=== PATIENT | female | born 1955 | race Caucasian/White ===

== ENCOUNTER → 2017-08-18 08:51 | Outpatient (REF) | payer MEDICAID, SELFPAY ==
[2017-08-18 13:33] LABS: Basophils % 0.4 % (0.1-2.0); Eosinophils # 0.2 K/mm3 (0.0-0.4); Eosinophils % 2.3 % (0.1-12.0); Hemoglobin 11.7 g/dL (12.2-16.2); Lymphocytes # 2.1 K/mm3 (0.7-4.5); Lymphocytes % 24.9 K/mm3 (10-50); Mean Corpuscular HGB Conc 31.6 g/dL (31.8-35.4); Mean Corpuscular Hemoglobin 31.3 pg (27.0-31.2); Mean Corpuscular Volume 99.1 fl (81-99); Mean Platelet Volume 7.7 fl (7.4-10.4); Monocytes # 0.6 K/mm3 (0.1-1.0); Monocytes % 6.7 % (1.7-9.3); Neutrophils # 5.4 K/mm3 (1.8-7.8); Neutrophils % 65.7 % (37.0-80.0); Platelet Count 359 K/mm3 (142-424); Red Blood Count 3.73 M/mm3 (4.20-5.40); White Blood Count 8.2 K/mm3 (4.8-10.8)
[2017-08-18 14:15] LABS: Alanine Aminotransferase 29 U/L (12-78); Albumin/Globulin Ratio 1.1 (1.1-1.8); Alkaline Phosphatase 162 U/L (46-116); Anion Gap 14.5 mEq/L (5-15); Aspartate Amino Transferase 28 U/L (15-37); Bilirubin,Total 0.4 mg/dL (0.2-1.0); Blood Urea Nitrogen 21 mg/dL (7-18); Calcium 9.8 mg/dL (8.5-10.1); Carbon Dioxide 28 mmol/L (21.0-32.0); Chloride 96 mmol/L (98-107); Chol/HDL Ratio 2.1 (1-3.5); Cholesterol 174 mg/dL (140-200); Creatinine,Serum 1.07 mg/dL (0.55-1.02); Estimated Glomerular Filt Rate 52 ml/min (>60); GFR (African American) 63 ML/MIN (>60); Globulin 3.8 gm/dl (1.3-3.2); Glucose 103 mg/dL (74-106); HDL Cholesterol 83 mg/dL (29-89); LDL Cholesterol 63 mg/dL (0-130); Potassium 4.5 mmoL/L (3.5-5.1); Sodium 134 mmol/L (136-145); Thyroid Stimulating Hormone 1.18 uIU/ml (0.358-3.740); Total Protein,Serum 7.8 gm/dL (6.4-8.2); Triglycerides 138 mg/dL (30-200); VLDL Cholesterol 28 mg/dL (0-40)
[2017-08-19 12:51] LABS: Vitamin D 25 Hydroxy 50.9 ng/mL (30.0-100.0)
== END ==
LOC: LAB 08:51
PROVIDERS: Visit Provider Physician Assistant
DX: I10 Essential (primary) hypertension (principal); E78.5 Hyperlipidemia, unspecified
CPT/HCPCS: 80053; 80061; 82652; 84436; 84443; 85025

== ENCOUNTER → 2018-04-13 17:38 | Outpatient (CLI) | payer MEDICAID, SELFPAY ==
[2018-04-13 18:57] LABS: Basophils % 0.5 % (0.1-2.0); Eosinophils # 0.2 K/mm3 (0.0-0.4); Eosinophils % 2.4 % (0.1-12.0); Hematocrit 34.4 % (37.0-47.0); Hemoglobin 11.3 g/dL (12.2-16.2); Lymphocytes # 1.9 K/mm3 (0.7-4.5); Lymphocytes % 29.9 % (10-50); Mean Corpuscular HGB Conc 32.9 g/dL (31.8-35.4); Mean Corpuscular Hemoglobin 32.1 pg (27.0-31.2); Mean Corpuscular Volume 97.4 fl (81-99); Monocytes # 0.3 K/mm3 (0.1-1.0); Monocytes % 5.4 % (1.7-9.3); Neutrophils # 3.8 K/mm3 (1.8-7.8); Neutrophils % 61.7 % (37.0-80.0); Platelet Count 440 K/mm3 (142-424); Red Blood Count 3.53 M/mm3 (4.20-5.40); Red Cell Distribution Width 13.4 % (11.5-17.5); White Blood Count 6.2 K/mm3 (4.8-10.8)
[2018-04-13 19:56] LABS: Alanine Aminotransferase 21 U/L (12-78); Albumin Level 3.9 gm/dL (3.4-5.0); Albumin/Globulin Ratio 1.1 (1.1-1.8); Alkaline Phosphatase 112 U/L (46-116); Anion Gap 15.8 mEq/L (5-15); Aspartate Amino Transferase 18 U/L (15-37); Bilirubin,Total 0.4 mg/dL (0.2-1.0); Blood Urea Nitrogen 8 mg/dL (7-18); Calcium 9.7 mg/dL (8.5-10.1); Carbon Dioxide 29 mmol/L (21.0-32.0); Chloride 91 mmol/L (98-107); Chol/HDL Ratio 1.7 (1-3.5); Cholesterol 165 mg/dL (140-200); Creatinine,Serum 0.97 mg/dL (0.55-1.02); Estimated Glomerular Filt Rate 58 ml/min (>60); GFR (African American) 70 ML/MIN (>60); Globulin 3.5 gm/dl (1.3-3.2); Glucose 89 mg/dL (74-106); HDL Cholesterol 99 mg/dL (29-89); LDL Cholesterol 50 mg/dL (0-130); Potassium 3.8 mmoL/L (3.5-5.1); Sodium 132 mmol/L (136-145); T4 (Thyroxine) 4.7 ug/dl (4.7-13.3); Thyroid Stimulating Hormone 1.41 uIU/ml (0.358-3.740); Total Protein,Serum 7.4 gm/dL (6.4-8.2); Triglycerides 79 mg/dL (30-200); VLDL Cholesterol 16 mg/dL (0-40)
[2018-04-14 13:19] LABS: Ferritin 220 ng/mL (8-388)
[2018-04-15 07:15] LABS: Iron 139 ug/dL (27-139); UIBC 66 ug/dL (118-369)
[2018-04-15 07:46] LABS: Iron Saturation 68 % (15-55)
[2018-04-15 07:46] LABS: Vitamin D 25 Hydroxy 62.7 ng/mL (30.0-100.0)
== END ==
PROVIDERS: Visit Provider Physician Assistant
DX: I10 Essential (primary) hypertension (principal); T14.8XXA Other injury of unspecified body region, initial encounter; D64.9 Anemia, unspecified
CPT/HCPCS: 80053; 80061; 82652; 82728; 83540; 83550; 84436; 84443; 85025

== ENCOUNTER → 2018-08-26 10:05 | Outpatient (CLI) | payer MEDICAID, SELFPAY ==
--- NOTE | 2018-08-26 10:10 | XR_ITS ---
XR hand LT min 3V HISTORY: ITS.REASON: Left hand pain - knot on base at hand ORDERING PHYSICIAN: MIKO Pierce PATIENT AGE: 63 years COMPARISON: None FINDINGS: No fracture or dislocation. No lytic or blastic change. There is normal mineralization.. There is severe narrowing of the first carpal/metacarpal joint with spurring from the trapezium. There is a corticated subchondral lucent area involving the proximal aspect of the first metacarpal bone at this area. There is also a rounded lucency with corticated margins involving the lunate bone with moderate narrowing of the radiocarpal joint space.. IMPRESSION: No acute fracture or acute process. 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 Arthritic change of the radiocarpal joint with subchondral cyst involving the lunate bone.
== END ==
PROVIDERS: PCP Physician Assistant; Visit Provider Physician Assistant
DX: M79.642 Pain in left hand (principal)
CPT/HCPCS: 73130

== ENCOUNTER → 2019-04-12 13:38 | Outpatient (CLI) | payer MEDICAID, SELFPAY ==
[2019-04-12 14:40] LABS: Basophils % 0.5 % (0.1-2.0); Eosinophils # 0.3 K/mm3 (0.0-0.4); Eosinophils % 3.7 % (0.1-12.0); Hematocrit 33.9 % (37.0-47.0); Hemoglobin 11.4 g/dL (12.2-16.2); Lymphocytes # 1.7 K/mm3 (0.7-4.5); Lymphocytes % 21.9 % (10-50); Mean Corpuscular HGB Conc 33.7 g/dL (31.8-35.4); Mean Corpuscular Hemoglobin 32.2 pg (27.0-31.2); Mean Corpuscular Volume 95.3 fl (81-99); Mean Platelet Volume 8.3 fl (7.4-10.4); Monocytes # 0.5 K/mm3 (0.1-1.0); Neutrophils # 5.3 K/mm3 (1.8-7.8); Neutrophils % 67.8 % (37.0-80.0); Platelet Count 412 K/mm3 (142-424); Red Blood Count 3.56 M/mm3 (4.20-5.40); Red Cell Distribution Width 12.5 % (11.5-17.5); White Blood Count 7.9 K/mm3 (4.8-10.8)
[2019-04-12 15:37] LABS: Alanine Aminotransferase 27 U/L (12-78); Albumin Level 3.8 g/dL (3.4-5.0); Albumin/Globulin Ratio 1.1 (1.1-1.8); Alkaline Phosphatase 121 U/L (46-116); Anion Gap 16.7 mEq/L (5-15); Aspartate Amino Transferase 24 U/L (15-37); Bilirubin,Total 0.3 mg/dL (0.2-1.0); Blood Urea Nitrogen 19 mg/dL (7-18); Calcium 9.1 mg/dL (8.5-10.1); Carbon Dioxide 25 mmol/L (21.0-32.0); Chloride 92 mmol/L (98-107); Chol/HDL Ratio 2.1 (1-3.5); Cholesterol 162 mg/dL (140-200); Creatinine,Serum 1.01 mg/dL (0.55-1.02); Estimated Glomerular Filt Rate 55 ml/min (>60); GFR (African American) 67 ML/MIN (>60); Globulin 3.6 gm/dl (1.3-3.2); Glucose 94 mg/dL (74-106); HDL Cholesterol 79 mg/dL (29-89); LDL Cholesterol 58 mg/dL (0-130); Potassium 4.7 mmoL/L (3.5-5.1); Sodium 129 mmol/L (137-145); T4 (Thyroxine) 4.5 ug/dl (4.7-13.3); Thyroid Stimulating Hormone 1.05 uIU/ml (0.358-3.740); Total Protein,Serum 7.4 g/dL (6.4-8.2); Triglycerides 123 mg/dL (30-200); VLDL Cholesterol 25 mg/dL (0-40)
[2019-04-14 15:06] LABS: Vitamin D 25 Hydroxy 61.8 ng/mL (30.0-100.0)
[2019-04-15 17:01] LABS: Ferritin 161 ng/mL (8-388)
[2019-04-17 07:54] LABS: Iron 106 ug/dL (27-139); UIBC 212 ug/dL (118-369)
[2019-04-17 19:10] LABS: Iron Saturation 33 % (15-55)
== END ==
PROVIDERS: Visit Provider Physician Assistant
DX: Z01.89 Encounter for other specified special examinations (principal); D64.9 Anemia, unspecified; Z79.899 Other long term (current) drug therapy
CPT/HCPCS: 80053; 80061; 82652; 82728; 83540; 83550; 84436; 84443; 85025

== ENCOUNTER 2019-09-20 14:05 | Inpatient (IN) | payer MEDICAID, SELFPAY ==
[2019-09-20] VITALS (8 sets, daily range): BP systolic 104–132; BP diastolic 58–85; PULSE 86–110; RESP 16–20; TEMP 36.6–36.7; O2SAT 94–100; BMI 25.0; BMI 25.8; BMI 24.3
--- NOTE | 2019-09-20 14:15 | XR_ITS ---
PROCEDURE: XR CHEST AP CLINICAL HISTORY: syncope COMPARISON: No exams were available for comparison FINDINGS: The cardiomediastinal silhouette and pulmonary vascularity are within normal limits. The lungs are clear without infiltrates, suspicious nodules, or pleural effusions. No acute bony abnormalities. IMPRESSION: No acute findings. Dictated by: Daryl Ruiz MD 09/20/2019 15:45 Electronically signed by Daryl Ruiz MD in [place] 09/20/2019 15:45
[2019-09-20 14:35] LABS: Eosinophils # 0.1 K/mm3 (0.0-0.4); Eosinophils % 0.4 % (0.1-12.0); Hematocrit 30.8 % (37.0-47.0); Hemoglobin 10.4 g/dL (12.2-16.2); Lymphocytes # 1.3 K/mm3 (0.7-4.5); Mean Corpuscular HGB Conc 33.8 g/dL (31.8-35.4); Mean Corpuscular Hemoglobin 31.1 pg (27.0-31.2); Mean Corpuscular Volume 92.1 fl (81-99); Mean Platelet Volume 7.2 fl (7.4-10.4); Monocytes # 0.6 K/mm3 (0.1-1.0); Monocytes % 5.8 % (1.7-9.3); Neutrophils # 8.6 K/mm3 (1.8-7.8); Neutrophils % 81.8 % (37.0-80.0); Platelet Count 337 K/mm3 (142-424); Red Blood Count 3.34 M/mm3 (4.20-5.40); Red Cell Distribution Width 12.6 % (11.5-17.5); White Blood Count 10.5 K/mm3 (4.8-10.8)
[2019-09-20 14:36] LABS: Occult Blood,Stool Negative (Negative)
--- NOTE | 2019-09-20 14:36 | ECG_ITS ---
APPROVED REPORT Exam: Resting ECG HR:84 bpm ECG Measurements Heart Rate 84 AXES MD 152 P 79 QRSd 112 QRS 86 QT 520 T 79 QTc 614 <Conclusion> Normal sinus rhythm Incomplete right bundle branch block Nonspecific ST abnormality Prolonged QT Abnormal ECG Electronically signed by : Sergio Knight, 09/21/2019 11:37:03
[2019-09-20 14:39] LABS: Microscopic, Urine URINE MICROSCOPIC (MICROSCOPIC)
[2019-09-20 14:43] LABS: Appearance,Urine CLEAR (Clear); Bilirubin,Urine Negative (Negative); Blood, Urine Negative (Negative); Color,Urine YELLOW (Yellow); Glucose,Urine (UA) Negative (Negative); Ketones,Urine Negative (Negative); Leukocyte Esterase,Urine Negative (Negative); Nitrate,Urine Negative (Negative); PH,Urine 6.5 (5.0-8.5); Protein,Urine Negative (Negative); Urobilinogen,Urine 0.2 EU/dl (0.2)
[2019-09-20 14:48] LABS: Alanine Aminotransferase 19 U/L (12-78); Alkaline Phosphatase 166 U/L (38-126); Aspartate Amino Transferase 34 U/L (14-36); Bilirubin,Total 0.4 mg/dl (0.2-1.3); Blood Urea Nitrogen 6 mg/dl (7-17); Creatinine Clearance Estimated 65 mL/min (50-200); Estimated Glomerular Filt Rate 101 ml/min (>60); Ethyl Alcohol 71 mg/dl (0-10); GFR (African American) 122 ML/MIN (>60)
[2019-09-20 14:49] LABS: Albumin Level 3.6 g/dl (3.5-5.0); Albumin/Globulin Ratio 1.2 (1.1-1.8); Anion Gap 13.9 mEq/L (5-15); Calcium 8.5 mg/dl (8.4-10.2); Carbon Dioxide 25 mmol/L (22.0-30.0); Globulin 3.1 g/dL (1.3-3.2); Glucose 90 mg/dl (74-100); Total Protein,Serum 6.7 g/dl (6.3-8.2)
[2019-09-20 14:50] LABS: RBC,Urine Occasional #/hpf (0-3)
--- NOTE | 2019-09-20 14:51 | XR_ITS ---
PROCEDURE: XR HIP LT 2-3V W/PELVIS CLINICAL INDICATION: FALL PAIN Posttraumatic pain COMPARISON: No exams were available for comparison FINDINGS: There is fracture of the left femoral neck at the transfemoral region. There is lateral displacement of the distal fracture fragment by 18 mm and foreshortening of the distal fracture fragment by 3 cm. Comminuted fragment is present along the foreshortened fragment. There is a Harris catheter present. IMPRESSION: Displaced and foreshortened left transcervical femoral neck fracture Dictated by: Daryl Ruiz MD 09/20/2019 15:44 Electronically signed by Daryl Ruiz MD in [facility] 09/20/2019 15:44
[2019-09-20 14:52] LABS: Chloride 73 mmol/L (98-107)
[2019-09-20 14:54] LABS: Potassium 2.9 mmoL/L (3.5-5.1); Sodium 109 mmol/L (136-145)
[2019-09-20 15:00] LABS: Troponin I 0.19 ng/ml (0.00-0.034)
--- NOTE | 2019-09-20 15:11 | CT_ITS ---
PROCEDURE: CT HIP LT WO CON CLINICAL HISTORY: PAIN The left hip pain following injury, fall with injury and pain4 COMPARISON: No exams were available for comparison TECHNIQUE: Axial images obtained with sagittal and coronal reformats. All CT scans at the facility use one or more dose reduction, viz: automated exposure control, ma/kV adjustment per patient size (including targeted exams where dose is matched to indication, i.e. head), or iterative reconstruction technique. FINDINGS: There is a comminuted left femoral neck fracture. The main fracture begins in the subcapital region superiorly and extends to the transcervical region inferiorly. Main distal fracture fragment is displaced medially by 1.6 cm and superiorly/foreshortened by 2.8 cm. There are comminuted small fragments around the main fracture fragments. The femoral head is located. There is some increased soft tissue density about the hip joint consistent with hemarthrosis. A Harris catheter is present IMPRESSION: Comminuted displaced left femoral neck fracture with subcapital component superiorly at the femoral neck extending to the transcervical region along the inferior aspect of the femoral neck Dictated by: Daryl Ruiz MD 09/20/2019 16:09 Electronically signed by Daryl Ruiz MD in [place] 09/20/2019 16:09
--- NOTE | 2019-09-20 15:20 | PC.NURSE ---
contacted lab per CARMEN RIVERA request to see if there was any hemolysis with chemistry specimen r/t pt Na result. Lab states no hemolysis noted. CARMEN RIVERA states would like to repeat Na lab.
[2019-09-20 15:47] LABS: Sodium 111 mmol/L (136-145)
--- NOTE | 2019-09-20 16:49 | HMH.EDGENADL ---
ED Disposition Clinical Impression: Hyponatremia, Hip fracture, Alcohol withdrawal, Hypokalemia Disposition: Admitted as Observation Condition on Discharge: Good Referrals: Jennifer Paige PA [Primary Care Provider] - - Critical Care Critical Care Time: No Attestation: On 09/20/19, the high probability of a clinically significant, sudden or life threatening deterioration of the following system(s) required my full and direct attention, intervention and personal management. The time I documented below is in addition to time spent performing reported procedures but includes the following listed in this critical care notation. Medical Decision Making - Medical Records Medical records reviewed: Yes: I reviewed the patient's medical records. - Lavelle Inquiry Pt receiving controlled substance: No Vital Signs: 09/20/19 14:05 09/20/19 15:02 09/20/19 16:46 Temperature 98 F Temperature Source Oral Pulse Rate [Left Radial] 87 86 93 H Respiratory Rate 16 16 16 Blood Pressure [Right Arm] 125/75 125/69 104/60 L Blood Pressure Mean [Right Arm] 91 87 74 Blood Pressure Source [Right Arm] Automatic Cuff Blood Pressure Position [Right Arm] Sitting Sitting 02 Sat by Pulse Oximetry 98 98 94 L Oxygen Delivery Method Room Air Room Air - Lab Data Lab results reviewed: Yes: I reviewed the patient's lab results. Lab Results 09/20/19 14:00: Stool Occult Blood Negative 09/20/19 14:25: WBC 10.5, RBC 3.34 L, Hgb 10.4 L, Hct 30.8 L, MCV 92.1, MCH 31.1, MCHC 33.8, RDW 12.6, Plt Count 337, MPV 7.2 L, Neut % (Auto) 81.8 H, Lymph % (Auto) 12.0, Walsh % (Auto) 5.8, Eos % (Auto) 0.4, Baso % (Auto) 0.0 L, Neut # (Auto) 8.6 H, Lymph # (Auto) 1.3, Walsh # (Auto) 0.6, Eos # (Auto) 0.1, Baso # (Auto) 0.0 09/20/19 14:25: Sodium 109 L*, Potassium 2.9 L*, Chloride 73 L, Carbon Dioxide 25, Anion Gap 13.9, BUN 6 L, Creatinine 0.60, Estimated Creat Clear 65, Estimated GFR 101, Est GFR ( Amer) 122, Glucose 90, Calcium 8.5, Total Bilirubin 0.4, AST 34, ALT 19, Alkaline Phosphatase 166 H, Troponin I 0.19 H, Total Protein 6.7, Albumin 3.6, Globulin 3.1, Albumin/Globulin Ratio 1.2 09/20/19 14:25: Plasma/Serum Alcohol 71 H 09/20/19 14:30: Urine Color Yellow, Urine Appearance Clear, Urine pH 6.5, Ur Specific [place] 1.010, Urine Protein Negative, Urine Glucose (UA) Negative, Urine Ketones Negative, Urine Blood Negative, Urine Nitrate Negative, Urine Bilirubin Negative, Urine Urobilinogen 0.2, Ur Leukocyte Esterase Negative, Urine RBC Occasional, Urine WBC 3-5, Ur Squamous Epith Cells 3-5 09/20/19 15:34: Sodium 111 L* Result diagrams: 09/20/19 14:25 09/20/19 15:34 Orders (Tests/Meds): ED MEDICATIONS Generic Name Dose Route Start Last Admin Trade Name Gregorioq PRN Reason Stop Dose Admin Sodium Chloride 1,000 mls @ 999 mls/hr 09/20/19 17:15 Sod Chlor 0.9% 1000ml Bag IV 09/20/19 18:15 .Q1H1M LUDMILA Discontinued Medications Generic Name Dose Route Start Last Admin Trade Name Gregorioq PRN Reason Stop Dose Admin Hydromorphone HCl 1 mg 09/20/19 16:09 09/20/19 14:18 Dilaudid 2mg/Ml Syringe IV 09/20/19 16:10 1 mg ONCE ONE Administration Hydromorphone HCl 1 mg 09/20/19 16:10 09/20/19 15:25 Dilaudid 2mg/Ml Syringe IV 09/20/19 16:11 1 mg ONCE ONE Administration Sodium Chloride 1,000 mls @ 999 mls/hr 09/20/19 16:15 09/20/19 14:18 Sod Chlor 0.9% 1000ml Bag IV 09/20/19 17:15 999 mls/hr .Q1H1M LUDMILA Administration Ondansetron HCl 4 mg 09/20/19 16:10 09/20/19 14:18 Zofran 4mg/2ml Vial IV 09/20/19 16:11 4 mg ONCE ONE Administration Phenobarbital Sodium 300 mg 09/20/19 17:10 Phenobarbital Sod 65mg/Ml 1ml Vial IV 09/20/19 17:11 ONCE ONE Potassium Chloride 60 meq 09/20/19 17:07 Klor-Con 20meq Tablet PO 09/20/19 17:08 ONCE ONE ORDERS Category Date Time Status Cardiac Enzymes Stat Lab 09/20/19 17:07 Ordered Magnesium Stat Lab 09/20/19 15:34 Received Troponin I Q3H L
--- NOTE | 2019-09-20 16:50 | PC.NURSE ---
Dr Zambrano is speaking to Dr Guardado.
--- NOTE | 2019-09-20 16:58 | PC.NURSE ---
blend plant operator paging dr. baron who is telecommunications specialist for dr. wei
[2019-09-20 17:13] LABS: Magnesium 1.7 mg/dl (1.6-2.3)
--- NOTE | 2019-09-20 17:22 | PC.NURSE ---
dr. natarajan at [facility]
--- NOTE | 2019-09-20 17:23 | PC.NURSE ---
SPOKE WITH JOANNE FROM PHARMACY [facility] FOR RALLY PACK IN TO RUN W/O
--- NOTE | 2019-09-20 17:31 | PC.NURSE ---
contacted warehouse shipping supervisor r/t admission and also to ask what type of covid testing pt will need in anticipation for surgery either tomorrow or th next day, house states pt will need antibody testing.
[2019-09-20 18:06] LABS: Creatine Kinase 94 U/L (30-135)
--- NOTE | 2019-09-20 18:11 | PC.NURSE ---
PT RESTING UPDATED ON PLAN OF CARE
[2019-09-20 18:16] LABS: CKMB Relative Index 2.3 U/L (0-4.0); Creatine Kinase MB 2.2 ng/ml (0.0-2.03)
[2019-09-20 18:19] LABS: Troponin I 0.14 ng/ml (0.00-0.034)
[2019-09-20 18:23] LABS: Coronavirus 19 IgG Antibody Negative (Negative); Coronavirus 19 IgM Antibody Negative (Negative)
--- NOTE | 2019-09-20 18:40 | PC.NURSE ---
REPORT CALLED TO [facility]
--- NOTE | 2019-09-20 19:07 | PC.NURSE ---
URINE OUTPUT 1200CC
--- NOTE | 2019-09-20 19:09 | PC.NURSE ---
report given to jeremy
--- NOTE | 2019-09-20 19:37 | PC.NURSE ---
patient up to floor via stretcher.
[2019-09-20 20:05] LABS: Amphetamine/Metha Screen,Urine Negative ng/ml (<1000); Benzodiazepines Screen,Urine Negative ng/ml (<200)
[2019-09-20 20:06] LABS: Barbiturates Screen,Urine Negative ng/ml (<200)
[2019-09-20 20:07] LABS: Cannabinoid Screen,Urine Negative ng/ml (<50); Cocaine Screen,Urine Negative ng/ml (<300)
[2019-09-20 20:08] LABS: Methadone Screen,Urine Negative ng/ml (<300)
[2019-09-20 20:09] LABS: Opiate Screen,Urine Negative ng/ml (<300); Phencyclidine Screen,Urine Negative ng/ml (<25)
--- NOTE | 2019-09-20 21:11 | HMH.ORTHOCON ---
*Admission Date: 09/20/19 *Reason for consult:: L hip fracture *History of present illness: 64yo F admitted through the ED this evening with L hip pain. She fell around 3 weeks ago after a possible syncopal episode and has had L hip pain since then. She has been unable to walk for the past 3 weeks due to the pain, which she rates as a 6 or 7 out of 20. She denies open wounds, no pain in the low back, L knee, L ankle/foot without associated numbness/tingling. She denies recent cough or shortness of breath, though she has been incontinent of black, tarry stool per report. She has a medical history of HTN, HL, GERD, anxiety/depression and alcohol abuse. She drinks 5-6 beers per day, every day; they are 16oz each. Denies withdrawl symptoms or tremors and states she knows she needs to quit drinking but isn't ready to do so. She also smokes 2ppd of cigarettes. She lives with a man but isn't clear about the nature of their relationship, but notes he is able to help care for her. She does not report a history of frequent falls or use of any assistive devices for ambulation. No prior L hip before the injury. She does not take any anticoagulants at baseline. Review of Systems - Review of Systems Review of systems:: pertinent systems reviewed and negative unless documented below - *Neurologic Reports abnormal hearing [facility] History I have reviewed the patient's past medical history: Yes Medical History: Reports:: Anxiety, Depression, Gastroesophageal Reflux Disease(GERD), Hyperlipidemia, Hypertension Denies:: Diabetes Mellitus Type 1, Diabetes Mellitus Type 2 *Have you ever received a pneumonia vaccine?: No *Have you received a flu vaccine this season?: No Other Surgeries: Yes: Other Amputation: No Fractures: No - *Social History Smoking Status: Current every day smoker Tobacco Type: cigarettes # Packs/Day (cigarettes): 2 Alcohol Intake: current Alcohol Intake Frequency:: 3 or more drinks per day Substance Use Type: denies use *Occupational Status:: disabled Housing: house Household Members: significant other *Travel in the last 8 weeks: None - Psychiatric History Pschychiatric History:: Reports:: Anxiety, Depression Family Hx:: Coronary Artery Disease, Hypertension Meds Home Medications Medication Instructions Recorded Confirmed Type hydroxyzine HCl 50 mg tablet 50 mg PO QID PRN #120 tab 07/05/19 09/20/19 Rx albuterol sulfate 90 mcg/actuation 2 puff INHALATION Q4-6H PRN #18 g 08/09/19 09/20/19 Rx aerosol inhaler Ammonium Lactate See Rx Instructions .ROUTE .COMPLEX 09/20/19 09/20/19 History Atorvastatin Calcium [Lipitor 10mg See Rx Instructions .ROUTE .COMPLEX 09/20/19 09/20/19 History Tab] Buspirone HCl [Buspar 10mg See Rx Instructions .ROUTE .COMPLEX 09/20/19 09/20/19 History tablet] Gabapentin 800 mg PO TID 09/20/19 09/20/19 History Lisinopril/Hydrochlorothiazide 1 tab PO BID 09/20/19 09/20/19 History [Lisinopril-Hctz 20-25 mg Tab*] Omeprazole 20 mg PO BID 09/20/19 09/20/19 History Oxybutynin Chloride See Rx Instructions .ROUTE .COMPLEX 09/20/19 09/20/19 History Sertraline HCl [Zoloft] See Rx Instructions .ROUTE .COMPLEX 09/20/19 09/20/19 History Tiotropium Br/Olodaterol HCl 2 puff INHALATION DAILY 09/20/19 09/20/19 History [Stiolto Respimat] Allergies Allergy/AdvReac Type Severity Reaction Status Date / Time NO KNOWN ALLERGIES Allergy Uncoded 04/12/19 09:38 Exam Vital signs and Labs for Last 24 Hours: Temp Pulse Resp BP Pulse Ox 98.1 F 94 H 20 132/64 99 09/20/19 20:00 09/20/19 20:00 09/20/19 20:00 09/20/19 20:00 09/20/19 20:00 Laboratory Results - last 24 hr 09/20/19 14:00: Stool Occult Blood Negative 09/20/19 14:25: WBC 10.5, RBC 3.34 L, Hgb 10.4 L, Hct 30.8 L, MCV 92.1, MCH 31.1, MCHC 33.8, RDW 12.6, Plt Count 337, MPV 7.2 L, Neut % (Auto) 81.8 H, Lymph % (Auto) 12.0, [place] % (Auto) 5.8, Eos % (Auto) 0.4, Baso % (Auto) 0.0 L, Neut # (Auto) 8.6 H, Lymph # (Auto) 1.3, [place] # (Au
[2019-09-20 21:19] LABS: Troponin I 0.11 ng/ml (0.00-0.034)
[2019-09-21] VITALS (11 sets, daily range): BP systolic 99–114; BP diastolic 57–78; PULSE 70–95; RESP 18–20; TEMP 36.4–36.6; O2SAT 94–100; BMI 24.7
[2019-09-21 00:29] LABS: Anion Gap 7.8 mEq/L (5-15); Blood Urea Nitrogen 5 mg/dl (7-17); Calcium 8.1 mg/dl (8.4-10.2); Carbon Dioxide 29 mmol/L (22.0-30.0); Chloride 85 mmol/L (98-107); Creatinine Clearance Estimated 63 mL/min (50-200); Estimated Glomerular Filt Rate 124 ml/min (>60); GFR (African American) 150 ML/MIN (>60); Glucose 129 mg/dl (74-100); Potassium 3.8 mmoL/L (3.5-5.1); Sodium 118 mmol/L (136-145)
[2019-09-21 00:47] LABS: T4 (Thyroxine) 5.4 ug/dl (5.53-11.0)
[2019-09-21 01:00] LABS: Thyroid Stimulating Hormone 1.33 uIU/mL (0.465-4.68)
--- NOTE | 2019-09-21 03:52 | PC.NURSE ---
Pt crying out in pain periodically with movement this shift, but would fall immediately back to sleep. Pain medication given once thus far this shift.
[2019-09-21 06:32] LABS: Basophils % 0.2 % (0.1-2.0); Eosinophils # 0.1 K/mm3 (0.0-0.4); Eosinophils % 0.8 % (0.1-12.0); Hematocrit 30.5 % (37.0-47.0); Hemoglobin 10.1 g/dL (12.2-16.2); Lymphocytes # 1.4 K/mm3 (0.7-4.5); Lymphocytes % 18.3 % (10-50); Mean Platelet Volume 7.5 fl (7.4-10.4); Monocytes # 0.5 K/mm3 (0.1-1.0); Monocytes % 6.6 % (1.7-9.3); Neutrophils # 5.7 K/mm3 (1.8-7.8); Neutrophils % 74.2 % (37.0-80.0); Platelet Count 304 K/mm3 (142-424); Red Blood Count 3.24 M/mm3 (4.20-5.40); Red Cell Distribution Width 12.8 % (11.5-17.5); White Blood Count 7.7 K/mm3 (4.8-10.8)
[2019-09-21 06:34] LABS: Chloride 88 mmol/L (98-107); Potassium 4.1 mmoL/L (3.5-5.1); Sodium 121 mmol/L (136-145)
[2019-09-21 06:36] LABS: Alanine Aminotransferase 15 U/L (12-78); Aspartate Amino Transferase 34 U/L (14-36); Blood Urea Nitrogen 4 mg/dl (7-17); Creatinine Clearance Estimated 64 mL/min (50-200); Estimated Glomerular Filt Rate 124 ml/min (>60); GFR (African American) 150 ML/MIN (>60)
[2019-09-21 06:37] LABS: Albumin Level 3.2 g/dl (3.5-5.0); Albumin/Globulin Ratio 1.1 (1.1-1.8); Alkaline Phosphatase 166 U/L (38-126); Anion Gap 8.1 mEq/L (5-15); Bilirubin,Total 0.6 mg/dl (0.2-1.3); Calcium 8.2 mg/dl (8.4-10.2); Carbon Dioxide 29 mmol/L (22.0-30.0); Glucose 104 mg/dl (74-100); Magnesium 2.3 mg/dl (1.6-2.3); Phosphorous 2.2 mg/dl (2.5-4.5); Total Protein,Serum 6.2 g/dl (6.3-8.2)
[2019-09-21 06:53] LABS: Activated Partial Thrombo Time 30.4 seconds (23.6-34.0); INR 1.01 (0.9-1.1); Prothrombin Time 10.4 seconds (9.4-11.8)
--- NOTE | 2019-09-21 07:04 | HMH.PHAVTE ---
[facility] Pharmacy VTE Monitoring - Patient Demographics Admission date: 09/20/19 Report Date: 09/21/19 Time: 07:04 Allergies/Adverse Reactions: Patient Allergies NO KNOWN ALLERGIES Allergy (Uncoded 04/12/19 09:38) Height: 1.7 m Weight: 71.441 kg Patient Problems: Current Active Problems Hyponatremia (Acute) Hip fracture (Acute) Alcohol withdrawal (Acute) Hypokalemia (Acute) Fracture of femoral neck, left, closed (Acute) Alcohol abuse (Acute) - VTE Risk Labs: VTE Related Lab Results Hgb 10.1 g/dL (12.2-16.2) L 09/21/19 05:53 Hct 30.5 % (37.0-47.0) L 09/21/19 05:53 Plt Count 304 K/mm3 (142-424) 09/21/19 05:53 PT 10.4 seconds (9.4-11.8) 09/21/19 05:53 INR 1.01 (0.9-1.1) 09/21/19 05:53 APTT 30.4 seconds (23.6-34.0) 09/21/19 05:53 BUN 4 mg/dl (7-17) L 09/21/19 05:53 Creatinine 0.50 mg/dl (0.52-1.04) L 09/21/19 05:53 Estimated Creat Clear 64 mL/min (50-200) 09/21/19 05:53 VTE Score: 4 Clinical Trial Participant: No - Prophylaxis VTE Prophylaxis Ordered?: Yes Types of VTE Prophylaxis: TEDS Knee High
--- NOTE | 2019-09-21 07:41 | HMH.PHAINT ---
MEDICATION RECONCILIATION COMPLETED ON PATIENT USING EXTERNAL FILL HISTORY FROM PHARMACY. -MAZIN CRZU, IVOND
--- NOTE | 2019-09-21 08:00 | CA_ITS ---
APPROVED REPORT EXAM: Comprehensive 2D, Doppler, and color-flow Echocardiogram Manager Ccu: Fransisca Briceno CRT Ht: 5 ft 6 in Wt: 155lbs BSA: 1.79 BP: 104/64 mmHg Indications: Left hip fx, pre-op, trop, alcohol withdrawal, GERD M-Mode Dimensions LVDd 4.28 cm (3.5-5.7) LVDs 3.18 cm (3.5-5.7) IVSd 0.97 cm (0.6-1.1) PWd 0.56 cm (0.6-1.1) EF (Teich) 51.00% FS 25.70% EDV (Teich) 82.20 mL ESV (Teich) 40.30 mL Left Ventricle Left atrium is mildly enlarged, left ventricle is normal size, visually estimated ejection fraction 55% with no regional wall motion abnormality, endocardial sounds are poorly visualized. Diastolic parameters are inconclusive. Right Ventricle Right atrium and right ventricle are mildly enlarged with normal contractility. Aortic Valve Aortic valve is minimally thickened and fibrosed, there is no aortic stenosis or aortic insufficiency. Mitral Valve Mitral valve has mitral annular calcification, leaflets are minimally thickened, there is no mitral stenosis, there is mild mitral regurgitation. Tricuspid Valve Tricuspid valve is grossly normal, there is mild tricuspid regurgitation, tricuspid regurgitation jet velocity is inadequate for calculation of the right ventricular systolic pressure. Pulmonic Valve Pulmonic valve is poorly visualized. Great Vessels Aortic root is normal size. Pericardium No significant pericardial effusion noted, there is anterior echo-free space seen. Conclusion 1. Biatrial enlargement, normal left ventricular size, visually estimated ejection fraction 55% with no regional wall motion abnormality, endocardial surfaces are poorly visualized, diastolic parameters are inconclusive. 2. Mild mitral and tricuspid regurgitation. 3. No significant pericardial effusion noted, there is anterior echo-free space seen. Electronically signed by : Dnote Levine, 09/21/2019 19:44:05
--- NOTE | 2019-09-21 08:07 | HMH.CNCARD ---
History of Present Illness Consult date: 09/21/19 Requesting physician: Ranjan Lux Consult reason: pre-op evaluation Chief complaint: Fall with hip Fx, possible syncope Additional Medical History:: 1. Fall with hip fracture approximately late August early August, 2. Tobacco use, 1 to 2 packs/day, lifelong 3. Hypertension 4. Alcohol use 5. Anxiety/depression 6. GERD 7. Severe hyponatremia, Na 109, 09/2019 History of present illness: 64-year-old white female admitted for left hip pain after fall 3 weeks ago. X-ray and CT of the hip confirmed left femoral neck fracture. Patient describes walking from one room to another in her house when she fell hitting a concrete statue in the shape of an josie with immediate pain noted. There is some question as to whether she blacked out prior to her fall or after. Patient denies any chest pain, pressure or tightness then or now. She denies any prior cardiac history. EKG on admission shows sinus rhythm with right bundle branch block and possible prolonged QT interval. Patient is unaware of any prior abnormal EKG. Alcohol level on admission noted to be 71 with a sodium of 109 and potassium of 2.9 which has been corrected to sodium of 121 and a potassium of 4.1 over the last 24 hours. Cardiology was consulted for preop evaluation in light of elevated troponins on admission with peak troponin of 0.19 trending down to 0.11. Preliminary echocardiogram today is a very difficult study but appears to show preserved ejection fraction. [facility] History Medical History: Reports:: Anxiety, Depression, Gastroesophageal Reflux Disease(GERD), Hyperlipidemia, Hypertension Denies:: Diabetes Mellitus Type 1, Diabetes Mellitus Type 2 *Have you ever received a pneumonia vaccine?: No *Have you received a flu vaccine this season?: No Other Surgeries: Yes: Other Amputation: No Fractures: No - *Social History Smoking Status: Current every day smoker Tobacco Type: cigarettes # Packs/Day (cigarettes): 2 Alcohol Intake: current Alcohol Intake Frequency:: 3 or more drinks per day Substance Use Type: denies use *Occupational Status:: disabled Housing: house Household Members: significant other *Travel in the last 8 weeks: None - Psychiatric History Pschychiatric History:: Reports:: Anxiety, Depression Family Hx:: Coronary Artery Disease, Hypertension Meds Home Medications Medication Instructions Recorded Confirmed Type hydroxyzine HCl 50 mg tablet 50 mg PO QID PRN #120 tab 07/05/19 09/20/19 Rx albuterol sulfate 90 mcg/actuation 2 puff INHALATION Q4-6H PRN #18 g 08/09/19 09/20/19 Rx aerosol inhaler Ammonium Lactate See Rx Instructions .ROUTE .COMPLEX 09/20/19 09/20/19 History Atorvastatin Calcium [Lipitor 10mg 10 mg PO DAILY 09/20/19 09/21/19 History Tab] Buspirone HCl [Buspar 10mg 10 mg PO TID 09/20/19 09/21/19 History tablet] Gabapentin 800 mg PO TID 09/20/19 09/20/19 History Lisinopril/Hydrochlorothiazide 1 tab PO BID 09/20/19 09/20/19 History [Lisinopril-Hctz 20-25 mg Tab*] Omeprazole 20 mg PO BID 09/20/19 09/20/19 History Oxybutynin Chloride 5 mg PO BID 09/20/19 09/21/19 History Sertraline HCl [Zoloft] 100 mg PO DAILY 09/20/19 09/21/19 History Tiotropium Br/Olodaterol HCl 2 puff INHALATION DAILY 09/20/19 09/20/19 History [Stiolto Respimat] Allergies Allergy/AdvReac Type Severity Reaction Status Date / Time No Known Allergies Allergy Unverified 09/21/19 07:53 Review of Systems - Review of Systems Review of systems:: pertinent systems reviewed and negative unless documented below - *Cardiovascular Denies chest pain, Denies shortness of breath - *Respiratory Denies shortness of breath - *Gastrointestinal Denies loose stools - *Genitourinary Denies blood in urine - *Musculoskeletal Reports joint pain, Reports back pain - *Neurologic Reports abnormal hearing Exam Vital signs and Labs for Last 24 Hours: Temp Pulse Resp BP
--- NOTE | 2019-09-21 09:45 | HMH.HP ---
*Admission Date: 09/20/19 *Chief complaint: L Hip Pain *History of present illness: 64-year-old female patient presented to the emergency room for complaints of left hip pain. She reports that she had a syncopal episode 2 weeks ago and fell hitting her left side. Since then she has complained of left hip pain and has spent the majority of time since then on her couch. She also reports smoking 2 packs of cigarettes a day for unknown amount of years and drinking 5 to 6 16 ounce beers daily. She rates pain as an 8 out of 10, she can move her left lower extremity but cannot do so without pain. Chest x-ray in the ED was normal, left hip x-ray revealed a displaced and foreshortened left femoral neck fracture. Left hip CT revealed comminuted displaced left femoral neck fracture with subcapital component superiorly at the femoral neck extending to the transcervical region along the inferior aspect of the femoral neck Lab work revealed a sodium level of 111, potassium level 2.9. After fluids during the night and potassium replacement a.m. labs sodium 121 potassium 4.1 Ortho seen and rec: Plan: -- NPO after midnight tonight in the event she is able to proceed with surgery tomorrow -- continue IVF, slowly correcting sodium level; orders placed by ER/PCP -- pre-op prophy antibiotics ordered on hold to OR -- SCDs BLE -- encourage incentive spirometer perioperatively -- bed rest, vasquez catheter tonight Cards has seen and recommends: 1. Elevated troponin in the setting of hyponatremia, hypokalemia and elevated alcohol level. Preliminary echocardiogram shows preserved ejection fraction. Discussed with Dr. Drake and would recommend postponing surgery today to allow the patient's sodium to correct at a slower rate due to concern for central pontine myelinolysis (CPM). I have stopped saline infusion at this time. No further cardiac work-up as an inpatient at this time. Consider outpatient stress testing in the near future. 2. History of syncope with abnormal EKG with right bundle branch block. No high-grade arrhythmias or significant bradycardia noted on telemetry thus far. Continue to monitor but likely syncope related to ETOH abuse. Repeat EKG today . 3. History of alcohol abuse, concern for DT's. 4. Hypokalemia, corrected 5. Severe hyponatremia, improving but caution advised in replacing too quickly due to concern for CPM. 6. Hypertension, controlled 7. Left femur fracture, occurred 3 weeks ago. Continue DVT/PE prophylaxis with lovenox. [facility] History Medical History: Reports:: Anxiety, Depression, Gastroesophageal Reflux Disease(GERD), Hyperlipidemia, Hypertension Denies:: Diabetes Mellitus Type 1, Diabetes Mellitus Type 2 *Have you ever received a pneumonia vaccine?: No *Have you received a flu vaccine this season?: No Other Surgeries: Yes: Other Amputation: No Fractures: No - *Social History Smoking Status: Current every day smoker Tobacco Type: cigarettes # Packs/Day (cigarettes): 2 Alcohol Intake: current Alcohol Intake Frequency:: 3 or more drinks per day Substance Use Type: denies use *Occupational Status:: disabled Housing: house Household Members: significant other *Travel in the last 8 weeks: None - Psychiatric History Pschychiatric History:: Reports:: Anxiety, Depression Family Hx:: Coronary Artery Disease, Hypertension Review of Systems - Review of Systems Review of systems:: pertinent systems reviewed and negative unless documented below - Constitutional Denies body ache(s), Denies chills, Denies fever(s) - Eyes Denies blurry vision, Denies change in vision - ENT Denies neck pain - *Cardiovascular Denies chest pain, Denies shortness of breath, Denies shortness of breath causing sudden awakening - *Respiratory Denies shortness of breath, Denies pain with cough - *Gastrointestinal Denies abdominal pain, Denies incontinent of stools - *Musculoskeletal Reports abnormal walking, Reports joint pain, Reports
--- NOTE | 2019-09-21 10:48 | SW/DCPLANNER ---
Addendum entered by Nereida Schwartz 09/21/19 13:06: Patient was able to have conversation this afternoon. I did explain to patient discharge planning process: patient will have surgery, PT/OT will evaluate then I will follow up with patient once PT/OT gives their recommendation. I then explained placement vs home health. Patient was quick to refuse placement but I did continue to further explain this option: R[facility] pending. I also explained home health services to this patient and the difference between placement vs home health. Patient has stated that she prefers home health rather than placement. Patient has not had surgery at this time. I will follow up with this patient after surgery. Original Note: I attempted to speak with this patient today regarding home situation and discharge plans once surgery is completed. Patient was unable to answer any questions at this time due to in and out of sleep. I will revisit this patient later today.
--- NOTE | 2019-09-21 10:55 | ECG_ITS ---
APPROVED REPORT Exam: Resting ECG HR:87 bpm ECG Measurements Heart Rate 87 AXES ND 130 P 33 QRSd 100 QRS 73 QT 396 T 70 QTc 476 <Conclusion> Normal sinus rhythm Incomplete right bundle branch block Septal infarct, age undetermined Abnormal ECG Electronically signed by : Monster Bhatia, 09/25/2019 08:13:10
--- NOTE | 2019-09-21 13:50 | HMH.ORTHPN ---
Subjective Date: 09/21/19 Time: 13:30 Principal diagnosis: L femoral neck fracture Interval history: The patient is awake and cooperative but slightly agitated. Reports pain in left hip. Currently being bathed by nursing, laying in bed with left hip/knee flexed. Her sodium has increased to 121 this morning. IVF was on at 200cc/hr overnight, has been stopped this morning and adjusted to allow for slower correction of her hyponatremia. Potassium and magnesium are improved as well. Surgery was delayed due to hyponatremia; it was unsafe to proceed this morning. PN: Obj Ex Vital signs: Temp Pulse Resp BP Pulse Ox 97.9 F 80 19 102/67 L 100 09/21/19 11:38 09/21/19 12:00 09/21/19 11:38 09/21/19 11:38 09/21/19 11:38 - Constitutional no acute distress - Routine Extremities Exam Comments: the patient is lying with L hip/knee flexed, with heel under buttock no open wounds, ecchymosis, erythema over L hip, which is tender to palpation with extension of LLE, it is slightly shortened and externally rotated +DF/PF/EHL LLE SILT distally LLE in all distributions L calf soft, non-tender; negative Homans palpable pedal pulses LLE, skin warm/pink - Routine Skin Exam Present: intact, warm. Absent: erythema, wounds, ecchymosis - Routine Neurological Exam Present: alert, oriented X3. Absent: sensory deficit, motor deficit - Urinary Catheter Management Vasquez Cath placed during this visit: no Progress Note: A&P (1) Fracture of femoral neck, left, closed Status: Acute Current Visit: Yes (2) Alcohol abuse Status: Acute Current Visit: Yes (3) Hypokalemia Status: Acute Current Visit: Yes (4) Hyponatremia Status: Acute Current Visit: Yes (5) COPD (chronic obstructive pulmonary disease) Status: Chronic Current Visit: No (6) Hypertension Status: Chronic Current Visit: No (7) Right bundle branch block (RBBB) on electrocardiogram (ECG) Status: Acute Current Visit: Yes Assessment and Plan for All Diagnoses:: 64yo F with displaced L femoral neck fracture; chronic x3 weeks -- continue IVF, slowly correcting sodium level; currently on D5 (in water) at 75cc/hr -- pre-op prophy antibiotics ordered on hold to OR -- SCDs BLE -- received 1 dose of lovenox last night, then held in anticipation of surgery today. Will restart lovenox for DVT prophy, please hold the night before surgery, whenever this may be. -- encourage incentive spirometer perioperatively -- bed rest, vasquez catheter -- anticipate OR Friday
[2019-09-21 16:19] LABS: Anion Gap 8.3 mEq/L (5-15); Blood Urea Nitrogen 6 mg/dl (7-17); Calcium 8.5 mg/dl (8.4-10.2); Carbon Dioxide 29 mmol/L (22.0-30.0); Chloride 90 mmol/L (98-107); Creatinine Clearance Estimated 64 mL/min (50-200); Estimated Glomerular Filt Rate 124 ml/min (>60); GFR (African American) 150 ML/MIN (>60); Glucose 121 mg/dl (74-100); Potassium 4.3 mmoL/L (3.5-5.1); Sodium 123 mmol/L (136-145)
--- NOTE | 2019-09-21 18:29 | PC.NURSE ---
Addendum entered by Bertha Rodriguez RN 09/21/19 18:38: IS =1000 at best. Original Note: Pt has slept at intervals this shift. Medicated per MAY. CIWA scores have been consistently 5 this shift. Bathed per nursing staff d/t being incontinent of bowel. Harris cath to drain at bedside w/ clear drk yellow urine noted. Harris care provided by nursing staff this shift. Scuds and non-skids in place to BLE. Bed alarm in place for pt's safety. No concerns at this time.
--- NOTE | 2019-09-21 18:35 | PC.NURSE ---
Spoke with Edel from [employer], she stated that the vest should be approved tomorrow morning and someone would be here to fit the patient tomorrow.
[2019-09-21 19:05] LABS: Chloride 90 mmol/L (98-107); Potassium 4.4 mmoL/L (3.5-5.1); Sodium 122 mmol/L (136-145)
[2019-09-21 19:08] LABS: Alanine Aminotransferase 18 U/L (12-78); Albumin Level 3.1 g/dl (3.5-5.0); Alkaline Phosphatase 169 U/L (38-126); Anion Gap 8.4 mEq/L (5-15); Aspartate Amino Transferase 38 U/L (14-36); Bilirubin,Total 0.3 mg/dl (0.2-1.3); Blood Urea Nitrogen 6 mg/dl (7-17); Carbon Dioxide 28 mmol/L (22.0-30.0); Creatinine Clearance Estimated 64 mL/min (50-200); Estimated Glomerular Filt Rate 124 ml/min (>60); GFR (African American) 150 ML/MIN (>60); Globulin 3.1 g/dL (1.3-3.2); Total Protein,Serum 6.2 g/dl (6.3-8.2)
[2019-09-21 19:09] LABS: Calcium 8.3 mg/dl (8.4-10.2); Glucose 131 mg/dl (74-100)
[2019-09-22] VITALS (10 sets, daily range): BP systolic 109–142; BP diastolic 61–75; PULSE 80–107; RESP 16–20; TEMP 36.4–36.8; O2SAT 87–100; BMI 25.8
--- NOTE | 2019-09-22 03:40 | PC.NURSE ---
RT monitored pt during RA sat=94% at rest, returned pt back to 2L NC
[2019-09-22 07:50] LABS: Chloride 89 mmol/L (98-107); Sodium 122 mmol/L (136-145)
[2019-09-22 07:51] LABS: Potassium 4.3 mmoL/L (3.5-5.1)
[2019-09-22 07:53] LABS: Blood Urea Nitrogen 4 mg/dl (7-17)
[2019-09-22 07:54] LABS: Anion Gap 7.3 mEq/L (5-15); Calcium 8.5 mg/dl (8.4-10.2); Carbon Dioxide 30 mmol/L (22.0-30.0); Creatinine Clearance Estimated 67 mL/min (50-200); Estimated Glomerular Filt Rate 124 ml/min (>60); GFR (African American) 150 ML/MIN (>60); Glucose 107 mg/dl (74-100)
--- NOTE | 2019-09-22 09:14 | HMH.PNCARD ---
Subjective Date: 09/22/19 Time: 09:14 Principal diagnosis: L femoral neck fracture Interval history: This is a 64-year-old white female who was admitted to the hospital for left hip fracture from a fall approximately 3 weeks ago. On admission her alcohol level was noted to be 71 and her sodium was 109. She was initially getting normal saline and this has been switched over to D5W. Her sodium is now up to 122. Her potassium and magnesium have both normalized. She did have an elevated troponin upon admission as well. This was most likely secondary to her alcoholism and hyponatremia and hypokalemia. Her preliminary echocardiogram did show preserved ejection fraction. She does need to have surgery but due to her [place] boyd we recommend postponing surgery until her sodium levels have normalized. This morning she denies any chest pain or pressure. She denies any shortness of breath or edema. She denies any fever, chills, nausea, vomiting, diarrhea, PND or orthopnea. She denies any hip pain. Exam Vital signs and Labs for Last 24 Hours: Temp Pulse Resp BP Pulse Ox 98.1 F 93 H 16 124/70 100 09/22/19 08:00 09/22/19 08:00 09/22/19 08:00 09/22/19 08:00 09/22/19 08:00 Laboratory Results - last 24 hr 09/21/19 16:05: Sodium 123 L, Potassium 4.3, Chloride 90 L, Carbon Dioxide 29, Anion Gap 8.3, BUN 6 L D, Creatinine 0.50 L, Estimated Creat Clear 64, Estimated GFR 124, Est GFR ( Amer) 150, Glucose 121 H, Calcium 8.5 09/21/19 18:53: Sodium 122 L, Potassium 4.4, Chloride 90 L, Carbon Dioxide 28, Anion Gap 8.4, BUN 6 L, Creatinine 0.50 L, Estimated Creat Clear 64, Estimated GFR 124, Est GFR ( Amer) 150, Glucose 131 H, Calcium 8.3 L, Total Bilirubin 0.3, AST 38 H, ALT 18, Alkaline Phosphatase 169 H, Total Protein 6.2 L, Albumin 3.1 L, Globulin 3.1, Albumin/Globulin Ratio 1.0 L 09/22/19 07:28: Sodium 122 L, Potassium 4.3, Chloride 89 L, Carbon Dioxide 30, Anion Gap 7.3, BUN 4 L D, Creatinine 0.50 L, Estimated Creat Clear 67, Estimated GFR 124, Est GFR ( Amer) 150, Glucose 107 H, Calcium 8.5 I & O for Last 24 hours: Intake & Output 09/19/19 09/20/19 09/21/19 09/22/19 23:59 23:59 23:59 23:59 Intake Total 1344 / 1344 895 / 895 Output Total 1100 / 1100 1700 / 1700 Balance -1100 / -1100 -356 / -356 895 / 895 Weight 155 lb 5 oz 157 lb 8 oz 164 lb 7 oz Narrative: Telemetry strip is sinus rhythm with a rate of 94. - Constitutional no acute distress, average body habitus - *Routine HEENT Exam Head: Present: normocephalic, atraumatic Eye: Present: EOMI, PERRL ENT: Present: mucous membranes moist - *Routine Neck Exam Present: supple, full ROM, normal carotid upstroke. Absent: JVD, carotid bruit, lymphadenopathy - *Routine Respiratory Exam Present: CTA bilaterally - *Routine Cardiovascular Exam Present: RRR, Normal S1, Normal S2. Absent: murmur, gallop - *Routine Abdominal Exam Present: soft, normoactive bowel sounds. Absent: tenderness, distended - *Routine Extremities Exam Present: full ROM, pulses intact, normal capillary refill. Absent: cyanosis, clubbing, edema - *Routine Skin Exam Present: intact, warm. Absent: erythema, rash - *Routine Neurological Exam Present: alert, oriented X3, CN II-XII intact. Absent: normal speech (Speech is a little slurred but otherwise normal) Progress Note: A&P (1) Fracture of femoral neck, left, closed Status: Acute Current Visit: Yes (2) Alcohol abuse Status: Acute Current Visit: Yes (3) Hypokalemia Status: Resolved Current Visit: Yes (4) Hyponatremia Status: Acute Current Visit: Yes (5) COPD (chronic obstructive pulmonary disease) Status: Chronic Current Visit: No (6) Hypertension Status: Chronic Current Visit: No (7) Right bundle branch block (RBBB) on electrocardiogram (ECG) Status: Acute Current Visit: Yes (8) Tobacco abuse Status: Acute Current Visit: Yes (9) Lumbar back pain with rad
--- NOTE | 2019-09-22 09:23 | HMH.ACPN2 ---
Internal Medicine - PN: Subj *Date: 09/22/19 *Time: 19:49 Interval history: 64-year-old female patient sitting upright in bed left lower extremity extended and rotated outward. She is reporting pain and and states pain is mostly under control with medications. Sodium today is 122 still slowly correcting, after discussion with pharmacy will use hypertonic solution x1000 cc, recheck BMP at 1900 and then start normal saline at 100 an hour. Exam Vital signs and Labs for Last 24 Hours: Temp Pulse Resp BP Pulse Ox 98.1 F 93 H 16 124/70 100 09/22/19 08:00 09/22/19 08:00 09/22/19 08:00 09/22/19 08:00 09/22/19 08:00 Laboratory Results - last 24 hr 09/21/19 16:05: Sodium 123 L, Potassium 4.3, Chloride 90 L, Carbon Dioxide 29, Anion Gap 8.3, BUN 6 L D, Creatinine 0.50 L, Estimated Creat Clear 64, Estimated GFR 124, Est GFR ( Amer) 150, Glucose 121 H, Calcium 8.5 09/21/19 18:53: Sodium 122 L, Potassium 4.4, Chloride 90 L, Carbon Dioxide 28, Anion Gap 8.4, BUN 6 L, Creatinine 0.50 L, Estimated Creat Clear 64, Estimated GFR 124, Est GFR ( Amer) 150, Glucose 131 H, Calcium 8.3 L, Total Bilirubin 0.3, AST 38 H, ALT 18, Alkaline Phosphatase 169 H, Total Protein 6.2 L, Albumin 3.1 L, Globulin 3.1, Albumin/Globulin Ratio 1.0 L 09/22/19 07:28: Sodium 122 L, Potassium 4.3, Chloride 89 L, Carbon Dioxide 30, Anion Gap 7.3, BUN 4 L D, Creatinine 0.50 L, Estimated Creat Clear 67, Estimated GFR 124, Est GFR ( Amer) 150, Glucose 107 H, Calcium 8.5 I & O for Last 24 hours: Intake & Output 09/19/19 09/20/19 09/21/19 09/22/19 23:59 23:59 23:59 23:59 Intake Total 1344 / 1344 895 / 895 Output Total 1100 / 1100 1700 / 1700 Balance -1100 / -1100 -356 / -356 895 / 895 Weight 155 lb 5 oz 157 lb 8 oz 164 lb 7 oz - Constitutional no acute distress - *Routine Neck Exam Present: full ROM, trachea midline. Absent: JVD, tracheal deviation - *Routine Respiratory Exam Present: rhonchi, wheezes. Absent: accessory muscle use - *Routine Cardiovascular Exam Present: RRR - *Routine Abdominal Exam Present: soft, normoactive bowel sounds. Absent: tenderness, firm - *Routine Extremities Exam Present: pulses intact. Absent: full ROM - *Routine Skin Exam Present: intact, warm - *Routine Neurological Exam Present: alert, oriented X3 - Routine Psychiatric Exam Present: normal affect Assessment and Plan (1) Fracture of femoral neck, left, closed Current visit: Yes Status: Acute Category: Medical Code(s): S72.002A - Fracture of unspecified part of neck of left femur, initial encounter for closed fracture (2) Alcohol abuse Current visit: Yes Status: Acute Category: Social Hx Code(s): F10.10 - Alcohol abuse, uncomplicated (3) Hypokalemia Current visit: Yes Status: Resolved Category: Medical Code(s): E87.6 - Hypokalemia (4) Hyponatremia Current visit: Yes Status: Acute Category: Medical Code(s): E87.1 - Hypo-osmolality and hyponatremia (5) COPD (chronic obstructive pulmonary disease) Current visit: No Status: Chronic Qualifiers: COPD type: unspecified COPD Qualified Code(s): J44.9 - Chronic obstructive pulmonary disease, unspecified Category: Medical Code(s): J44.9 - Chronic obstructive pulmonary disease, unspecified (6) Hypertension Current visit: No Status: Chronic Qualifiers: Hypertension type: essential hypertension Qualified Code(s): I10 - Essential (primary) hypertension Category: Medical Code(s): I10 - Essential (primary) hypertension (7) Right bundle branch block (RBBB) on electrocardiogram (ECG) Current visit: Yes Status: Acute Category: Medical Code(s): I45.10 - Unspecified right bundle-branch block (8) Tobacco abuse Current visit: Yes Status: Acute Category: Medical Code(s): Z72.0 - Tobacco use (9) Lumbar back pain with radiculopathy affecting lower extremity Current visit: No Status: Chronic Categ
--- NOTE | 2019-09-22 11:09 | HMH.ORTHPN ---
Subjective Date: 09/22/19 Time: 10:30 Principal diagnosis: L femoral neck fracture Interval history: The patient's sodium remains 122 this morning, remains unsafe to proceed with surgery at this time. No acute events reported overnight, patient remains medically stable. PN: Obj Ex Vital signs: Temp Pulse Resp BP Pulse Ox 98.1 F 93 H 16 124/70 100 09/22/19 08:00 09/22/19 08:00 09/22/19 08:00 09/22/19 08:00 09/22/19 08:00 - Constitutional no acute distress, average body habitus, cooperative - Routine HEENT Exam Head: Present: normocephalic Eye: Present: EOMI ENT: Present: mucous membranes moist - Routine Respiratory Exam Present: CTA bilaterally - Routine Cardiovascular Exam Present: RRR - Routine Abdominal Exam Present: soft. Absent: tenderness - Routine Extremities Exam Comments: the patient is lying with L hip/knee flexed, with heel under buttock; continues to stay in this position despite c/o hip pain no open wounds, ecchymosis, erythema over L hip, which is tender to palpation with extension of LLE, it is slightly shortened and externally rotated +DF/PF/EHL LLE SILT distally LLE in all distributions L calf soft, non-tender; negative Homans palpable pedal pulses LLE, skin warm/pink - Routine Skin Exam Present: intact, warm. Absent: wounds, ecchymosis - Routine Neurological Exam Present: alert, oriented X3, moving all extremities, normal tone, vision grossly intact, hearing grossly intact, normal speech. Absent: sensory deficit, motor deficit - Routine Psychiatric Exam Present: agitated - Urinary Catheter Management Vasquez Cath placed during this visit: yes Urethral indwelling: Yes Reason for continuing: Prolonged immobilization Insertion date: 09/20/19 Progress Note: A&P (1) Fracture of femoral neck, left, closed Status: Acute Current Visit: Yes (2) Alcohol abuse Status: Acute Current Visit: Yes (3) Hypokalemia Status: Resolved Current Visit: Yes (4) Hyponatremia Status: Acute Current Visit: Yes (5) COPD (chronic obstructive pulmonary disease) Status: Chronic Current Visit: No (6) Hypertension Status: Chronic Current Visit: No (7) Right bundle branch block (RBBB) on electrocardiogram (ECG) Status: Acute Current Visit: Yes (8) Tobacco abuse Status: Acute Current Visit: Yes (9) Lumbar back pain with radiculopathy affecting lower extremity Status: Chronic Current Visit: No Assessment and Plan for All Diagnoses:: 64yo F with displaced L femoral neck fracture; chronic x3 weeks; severe hyponatremia (Na 109) on admission, in addition to hypokalemia and hypomagnesemia, which have corrected. Sodium slowly correcting. -- continue IVF, slowly correcting sodium level; currently on D5W at 75cc/hr -- pre-op prophy antibiotics ordered on hold to OR -- SCDs BLE -- continue lovenox for DVT prophy, hold the night before surgery -- encourage incentive spirometer perioperatively -- bed rest, vasquez catheter -- anticipate OR Friday if sodium reaches safe level
[2019-09-22 16:40] LABS: Alanine Aminotransferase 19 U/L (12-78); Albumin Level 3.4 g/dl (3.5-5.0); Alkaline Phosphatase 201 U/L (38-126); Anion Gap 11.2 mEq/L (5-15); Aspartate Amino Transferase 37 U/L (14-36); Bilirubin,Total 0.3 mg/dl (0.2-1.3); Blood Urea Nitrogen 6 mg/dl (7-17); Calcium 8.9 mg/dl (8.4-10.2); Carbon Dioxide 28 mmol/L (22.0-30.0); Chloride 91 mmol/L (98-107); Creatinine Clearance Estimated 67 mL/min (50-200); Estimated Glomerular Filt Rate 124 ml/min (>60); GFR (African American) 150 ML/MIN (>60); Globulin 3.4 g/dL (1.3-3.2); Glucose 123 mg/dl (74-100); Potassium 4.2 mmoL/L (3.5-5.1); Sodium 126 mmol/L (136-145); Total Protein,Serum 6.8 g/dl (6.3-8.2)
--- NOTE | 2019-09-22 17:14 | ECG_ITS ---
APPROVED REPORT Exam: Resting ECG HR:105 bpm ECG Measurements Heart Rate 105 AXES QRSd 88 QRS 43 QT 350 T 24 QTc 462 <Conclusion> Atrial fibrillation with rapid ventricular response Low voltage QRS Septal infarct, age undetermined ST & T wave abnormality, consider anterior ischemia or digitalis effect Abnormal ECG Electronically signed by : Monster Bhatia, 09/25/2019 08:10:53
--- NOTE | 2019-09-22 18:33 | PC.NURSE ---
PT IS ALERT AND ORIENTED TO SELF. PT HAS BEEN CONFUSED ALL SHIFT AND PULLED OUT 2IVS. SHE LACKS AWARENESS TO HER SURROUNDINGS. PT REORIENTED NUMEROUS TIMES AND IS UNABLE TO RETAIN INFORMATION. SEIZURE PRECAUTIONS IN PLACE. HALDOL ADMINISTERED PER MAY X2. PAIN MED ADMINISTERED ONCE THIS SHIFT. PT IS RESTLESS AND IS CONSTANTLY TRYING TO GET OUT OF BED AND FORGETS THAT SHE INJURED HER HIP. KUMAR CATHETER IS DRAINING LIGHT TOM URINE WITH FOUL SMELL. SAFETY MEASURES IN PLACE. WILL CONTINUE TO MONITOR
--- NOTE | 2019-09-22 19:08 | PC.NURSE ---
report given to carlos
--- NOTE | 2019-09-22 20:47 | PC.NURSE ---
Pt's room air sat at rest = 94%.
[2019-09-23] VITALS (13 sets, daily range): BP systolic 129–146; BP diastolic 67–93; PULSE 90–114; RESP 18–19; TEMP 36.7–36.9; O2SAT 93–97; BMI 26.2
--- NOTE | 2019-09-23 05:48 | PC.NURSE ---
Addendum entered by Jayleen Maloney RN 09/23/19 06:19: PT IS INDEPENDENT W BED MOBILITY. Original Note: A&O TO NAME, BIRTHDAY, AND YEAR. PT HAS TOLERATED 1L NC WELL THROUGHOUT SHIFT. RESPIRATIONS REGULAR AND UNLABORED. INSPIRATORY WHEEZES NOTED IN RUL. NO COUGH NOTED. PT HAS BEEN ENCOURAGED TO USE INCENTIVE SPIROMETER 10 TIMES EVERY HOUR WHILE AWAKE. PT'S BEST NOTED AT 1999. ACTIVE BOWEL SOUNDS HEARD IN ALL 4 QUADRANTS. SOFT AND NONTENDER. CIWL SCORE HAS BEEN BELOW 8 THROUGHOUT SHIFT. PT HAS SLEPT ON AND OFF THROUGHOUT SHIFT. SEIZURE PRECAUTIONS IN PLACE THROUGHOUT SHIFT. BED ALARM ON TO PROMOTE SAFETY. +2 PULSES NOTED THROUGHOUT. KUMAR IN PLACE WITH CLEAR YELLOW URINE FLOWING FREELY INTO DRAINAGE BAG. NO KINKS NOTED. PT HAS REMAINED ON TELE THROUGHOUT SHIFT. PT HAD ONE COMPLAINT OF PAIN THUS FAR AND RECEIVED MORPHINE 5MG. ON REASSESSMENT, PT WAS RESTING W EYES CLOSED. PT IS CURRENTLY RESTING IN BED. BED IN LOWEST POSITION. CALL LIGHT WITHIN REACH. VSS. NO CONCERNS AT THIS TIME. WILL CONTINUE TO MONITOR.
[2019-09-23 07:09] LABS: Basophils % 0.2 % (0.1-2.0); Eosinophils # 0.2 K/mm3 (0.0-0.4); Eosinophils % 2.5 % (0.1-12.0); Hematocrit 27.2 % (37.0-47.0); Lymphocytes # 1.3 K/mm3 (0.7-4.5); Lymphocytes % 17.9 % (10-50); Mean Corpuscular HGB Conc 33.1 g/dL (31.8-35.4); Mean Corpuscular Hemoglobin 31.3 pg (27.0-31.2); Mean Corpuscular Volume 94.6 fl (81-99); Mean Platelet Volume 7.2 fl (7.4-10.4); Monocytes # 0.4 K/mm3 (0.1-1.0); Neutrophils # 5.3 K/mm3 (1.8-7.8); Neutrophils % 74.4 % (37.0-80.0); Platelet Count 330 K/mm3 (142-424); Red Blood Count 2.88 M/mm3 (4.20-5.40); Red Cell Distribution Width 13.2 % (11.5-17.5); White Blood Count 7.1 K/mm3 (4.8-10.8)
[2019-09-23 07:14] LABS: Chloride 92 mmol/L (98-107); Potassium 4.2 mmoL/L (3.5-5.1); Sodium 125 mmol/L (136-145)
[2019-09-23 07:17] LABS: Alanine Aminotransferase 17 U/L (12-78); Alkaline Phosphatase 146 U/L (38-126); Anion Gap 9.2 mEq/L (5-15); Aspartate Amino Transferase 30 U/L (14-36); Bilirubin,Total 0.4 mg/dl (0.2-1.3); Blood Urea Nitrogen 5 mg/dl (7-17); Calcium 8.3 mg/dl (8.4-10.2); Carbon Dioxide 28 mmol/L (22.0-30.0); Creatinine Clearance Estimated 68 mL/min (50-200); Estimated Glomerular Filt Rate 161 ml/min (>60); GFR (African American) 194 ML/MIN (>60); Globulin 3.1 g/dL (1.3-3.2); Glucose 101 mg/dl (74-100); Total Protein,Serum 6.1 g/dl (6.3-8.2)
--- NOTE | 2019-09-23 12:40 | HMH.ORTHPN ---
Subjective Date: 09/23/19 Time: 12:30 Principal diagnosis: L femoral neck fracture Interval history: The patient is doing well this morning, pain persist in L hip. Sitting upright in bed with hips flexed, eating lunch. She reports decreased appetite. Sodium is 125 this morning. PN: Obj Ex Vital signs: Temp Pulse Resp BP Pulse Ox 98.2 F 107 H 19 135/67 97 09/23/19 11:49 09/23/19 11:49 09/23/19 11:49 09/23/19 11:49 09/23/19 11:49 - Constitutional no acute distress - Routine Extremities Exam Comments: no open wounds, ecchymosis, erythema over L hip, which is tender to palpation with extension of LLE, it is slightly shortened and externally rotated +DF/PF/EHL LLE SILT distally LLE in all distributions L calf soft, non-tender; negative Homans palpable pedal pulses LLE, skin warm/pink - Urinary Catheter Management Harris Cath placed during this visit: yes Urethral indwelling: Yes Reason for continuing: Surgical procedure Insertion date: 09/20/19 Progress Note: A&P (1) Fracture of femoral neck, left, closed Status: Acute Current Visit: Yes (2) Alcohol abuse Status: Acute Current Visit: Yes (3) Hypokalemia Status: Resolved Current Visit: Yes (4) Hyponatremia Status: Acute Current Visit: Yes (5) COPD (chronic obstructive pulmonary disease) Status: Chronic Current Visit: No (6) Hypertension Status: Chronic Current Visit: No (7) Right bundle branch block (RBBB) on electrocardiogram (ECG) Status: Acute Current Visit: Yes (8) Tobacco abuse Status: Acute Current Visit: Yes (9) Lumbar back pain with radiculopathy affecting lower extremity Status: Chronic Current Visit: No Assessment and Plan for All Diagnoses:: 64yo F with displaced L femoral neck fracture; chronic x3+ weeks; severe hyponatremia (Na 109) on admission, in addition to hypokalemia and hypomagnesemia, which have corrected. Sodium slowly correcting. -- continue IVF, slowly correcting sodium level; currently on 0.9 NS at 75cc/hr -- pre-op prophy antibiotics ordered on hold to OR -- SCDs BLE -- continue lovenox for DVT prophy, hold the night before surgery -- encourage incentive spirometer perioperatively -- bed rest -- sodium of 125 too low to perform surgery safely, will continue to wait while it corrects and proceed with OR at that time
--- NOTE | 2019-09-23 12:42 | HMH.ACPN2 ---
Internal Medicine - PN: Subj *Date: 09/23/19 *Time: 12:50 Interval history: uneventful night of=151 this morning cardiol notes revd films revd no tremor/mentation changes/sz/overt dt signs lucid and clear Exam Vital signs and Labs for Last 24 Hours: Temp Pulse Resp BP Pulse Ox 98.2 F 107 H 19 135/67 97 09/23/19 11:49 09/23/19 11:49 09/23/19 11:49 09/23/19 11:49 09/23/19 11:49 Laboratory Results - last 24 hr 09/22/19 15:13: Sodium 126 L, Potassium 4.2, Chloride 91 L, Carbon Dioxide 28, Anion Gap 11.2, BUN 6 L D, Creatinine 0.50 L, Estimated Creat Clear 67, Estimated GFR 124, Est GFR ( Amer) 150, Glucose 123 H, Calcium 8.9, Total Bilirubin 0.3, AST 37 H, ALT 19, Alkaline Phosphatase 201 H, Total Protein 6.8, Albumin 3.4 L, Globulin 3.4 H, Albumin/Globulin Ratio 1.0 L 09/23/19 06:53: Sodium 125 L, Potassium 4.2, Chloride 92 L, Carbon Dioxide 28, Anion Gap 9.2, BUN 5 L, Creatinine 0.40 L, Estimated Creat Clear 68, Estimated GFR 161, Est GFR ( Amer) 194 D, Glucose 101 H, Calcium 8.3 L, Total Bilirubin 0.4, AST 30, ALT 17, Alkaline Phosphatase 146 H, Total Protein 6.1 L, Albumin 3.0 L D, Globulin 3.1, Albumin/Globulin Ratio 1.0 L 09/23/19 06:53: WBC 7.1, RBC 2.88 L, Hgb 9.0 L, Hct 27.2 L, MCV 94.6, MCH 31.3 H, MCHC 33.1, RDW 13.2, Plt Count 330, MPV 7.2 L, Neut % (Auto) 74.4, Lymph % (Auto) 17.9, Fergus % (Auto) 5.0, Eos % (Auto) 2.5, Baso % (Auto) 0.2, Neut # (Auto) 5.3, Lymph # (Auto) 1.3, Fergus # (Auto) 0.4, Eos # (Auto) 0.2, Baso # (Auto) 0.0 I & O for Last 24 hours: Intake & Output 09/20/19 09/21/19 09/22/19 09/23/19 23:59 23:59 23:59 23:59 Intake Total 1344 / 1344 1855 / 1855 1150 / 1150 Output Total 1100 / 1100 1700 / 1700 400 / 400 Balance -1100 / -1100 -356 / -356 1855 / 1455 750 / 750 Weight 155 lb 5 oz 157 lb 8 oz 164 lb 7 oz 167 lb 4 oz - Constitutional no acute distress, thin - *Routine HEENT Exam Head: Present: normocephalic, atraumatic Eye: Absent: conjunctival icterus ENT: Present: mucous membranes moist - *Routine Neck Exam Present: supple. Absent: JVD - *Routine Respiratory Exam Present: CTA bilaterally, wheezes. Absent: accessory muscle use, rales, crackles - *Routine Cardiovascular Exam Present: RRR. Absent: murmur - *Routine Abdominal Exam Present: soft. Absent: tenderness - *Routine Extremities Exam Present: tenderness, SHARYN stockings. Absent: cyanosis, edema, calf tenderness - *Routine Skin Exam Present: intact. Absent: cyanosis, jaundice - *Routine Neurological Exam Present: alert, oriented X3, moving all extremities, normal speech. Absent: altered mental status, facial asymmetry, tremors, asterixis - Routine Psychiatric Exam Present: normal affect, normal thought process. Absent: agitated Assessment and Plan (1) Fracture of femoral neck, left, closed Current visit: Yes Status: Acute Category: Medical Code(s): S72.002A - Fracture of unspecified part of neck of left femur, initial encounter for closed fracture (2) Alcohol abuse Current visit: Yes Status: Acute Category: Social Hx Code(s): F10.10 - Alcohol abuse, uncomplicated (3) Hypokalemia Current visit: Yes Status: Resolved Category: Medical Code(s): E87.6 - Hypokalemia (4) Hyponatremia Current visit: Yes Status: Acute Category: Medical Code(s): E87.1 - Hypo-osmolality and hyponatremia (5) COPD (chronic obstructive pulmonary disease) Current visit: No Status: Chronic Qualifiers: COPD type: unspecified COPD Qualified Code(s): J44.9 - Chronic obstructive pulmonary disease, unspecified Category: Medical Code(s): J44.9 - Chronic obstructive pulmonary disease, unspecified (6) Hypertension Current visit: No Status: Chronic Qualifiers: Hypertension type: essential hypertension Qualified Code(s): I10 - Essential (primary) hypertension Category: Medical Code(s): I10 - Essential (primary) hypertension (7) Right bundle
--- NOTE | 2019-09-23 17:18 | PC.NURSE ---
Pt has been stable all shift. CIWA scale 3. Received 1 dose of Morphine 5mg IV for left hip pain. Pt knows her name, MATHIEU and that she is in the hospital. She thinks she is in [place], [place]. Is now on a 1200mL fluid restriction per Dr. Lux. Diet advanced to regular with chopped meats, soft veggies and Ensure. VSS. No other issues noted.
--- NOTE | 2019-09-23 20:13 | PC.NURSE ---
Pt's room air sat at rest = 93%.
[2019-09-23 20:57] LABS: Chloride 92 mmol/L (98-107); Potassium 4.2 mmoL/L (3.5-5.1); Sodium 125 mmol/L (136-145)
[2019-09-23 21:00] LABS: Anion Gap 8.2 mEq/L (5-15); Blood Urea Nitrogen 9 mg/dl (7-17); Carbon Dioxide 29 mmol/L (22.0-30.0); Creatinine Clearance Estimated 68 mL/min (50-200); Estimated Glomerular Filt Rate 124 ml/min (>60); GFR (African American) 150 ML/MIN (>60)
[2019-09-23 21:01] LABS: Calcium 8.5 mg/dl (8.4-10.2); Glucose 147 mg/dl (74-100)
[2019-09-24] VITALS (8 sets, daily range): BP systolic 102–155; BP diastolic 52–89; PULSE 86–108; RESP 16–18; TEMP 36.7–37.1; O2SAT 94–96; BMI 25.3
--- NOTE | 2019-09-24 04:52 | PC.NURSE ---
Addendum entered by Jayleen Maloney RN 09/24/19 05:20: ENCOURAGED PT TO USE INCENTIVE SPIROMETER 10 TIMES EVERY HOUR WHILE AWAKE. PT HAS REMAINED ON TELE THROUGHOUT SHIFT. Original Note: A&O TO NAME, BIRTHDAY, AND PLACE. PT HAS TOLERATED 1L NC WELL THROUGHOUT SHIFT. RESPIRATIONS REGULAR AND UNLABORED. WHEEZING NOTED TO RUL. NO COUGH NOTED. SLIGHT EDEMA NOTED TO L FOOT. HAND EPIDEMIOLOGIST EQUAL. PT HAS HAD PAIN IN HER L HIP AND HAS RECEIVED MORPHINE 5MG TWICE THUS FAR. ON REASSESSMENT, PT WAS RESTING W EYES CLOSED. PT HAS RESTED WELL TONIGHT. CIWA HAS BEEN A [address] SHIFT[address] KUM[address] IN PLACE WITH YELLOW URINE FLOWING FREELY INTO DRAINAGE BAG. NO KINKS NOTED. PT MOVES INDEPENDENTLY IN BED. SEIZURE PRECAUTIONS IN PLACE THROUGHOUT SHIFT. PT CURRENTLY RESTING IN BED WITH CALL LIGHT WITHIN REACH. BED IN LOWEST POSITION. BED ALARM ON TO PROMOTE SAFETY. VSS. NO CONCERNS AT THIS TIME. WILL CONTINUE TO MONITOR.
[2019-09-24 07:36] LABS: Basophils % 0.2 % (0.1-2.0); Eosinophils # 0.4 K/mm3 (0.0-0.4); Eosinophils % 4.7 % (0.1-12.0); Hematocrit 28.3 % (37.0-47.0); Hemoglobin 9.4 g/dL (12.2-16.2); Lymphocytes # 1.5 K/mm3 (0.7-4.5); Lymphocytes % 17.6 % (10-50); Mean Corpuscular HGB Conc 33.4 g/dL (31.8-35.4); Mean Corpuscular Hemoglobin 31.4 pg (27.0-31.2); Mean Corpuscular Volume 94.1 fl (81-99); Mean Platelet Volume 7.4 fl (7.4-10.4); Monocytes # 0.5 K/mm3 (0.1-1.0); Monocytes % 5.6 % (1.7-9.3); Neutrophils # 6.3 K/mm3 (1.8-7.8); Neutrophils % 71.8 % (37.0-80.0); Platelet Count 388 K/mm3 (142-424); Red Blood Count 3.01 M/mm3 (4.20-5.40); Red Cell Distribution Width 12.9 % (11.5-17.5); White Blood Count 8.8 K/mm3 (4.8-10.8)
[2019-09-24 07:39] LABS: Chloride 93 mmol/L (98-107); Potassium 4.3 mmoL/L (3.5-5.1); Sodium 127 mmol/L (136-145)
[2019-09-24 07:42] LABS: Anion Gap 8.3 mEq/L (5-15); Blood Urea Nitrogen 7 mg/dl (7-17); Calcium 8.8 mg/dl (8.4-10.2); Carbon Dioxide 30 mmol/L (22.0-30.0); Creatinine Clearance Estimated 68 mL/min (50-200); Estimated Glomerular Filt Rate 161 ml/min (>60); GFR (African American) 194 ML/MIN (>60); Glucose 112 mg/dl (74-100)
--- NOTE | 2019-09-24 13:36 | HMH.ORTHPN ---
Subjective Date: 09/24/19 Time: 12:00 Principal diagnosis: L femoral neck fracture Interval history: The patient remains stable, sodium continues to slowly normalize; 127 this morning. She is worried about her cats and dogs at home, and where she will live after discharge, as her partner may be throwing her belongings out today. Her daughter has been at bedside this morning but is currently not in the room. No change in L hip pain. PN: Obj Ex Vital signs: Temp Pulse Resp BP Pulse Ox 98.8 F 104 H 16 102/60 L 94 L 09/24/19 12:00 09/24/19 12:00 09/24/19 12:00 09/24/19 12:00 09/24/19 12:00 - Constitutional no acute distress - Routine Extremities Exam Comments: no open wounds, ecchymosis, erythema over L hip, which is tender to palpation LLE slightly shortened and externally rotated +DF/PF/EHL LLE SILT distally LLE in all distributions L calf soft, non-tender; negative Homans palpable pedal pulses LLE, skin warm/pink - Urinary Catheter Management Harris Cath placed during this visit: yes Urethral indwelling: Yes Reason for continuing: Surgical procedure Insertion date: 09/20/19 Progress Note: A&P (1) Fracture of femoral neck, left, closed Status: Acute Current Visit: Yes (2) Alcohol abuse Status: Acute Current Visit: Yes (3) Hypokalemia Status: Resolved Current Visit: Yes (4) Hyponatremia Status: Acute Current Visit: Yes (5) COPD (chronic obstructive pulmonary disease) Status: Chronic Current Visit: No (6) Hypertension Status: Chronic Current Visit: No (7) Right bundle branch block (RBBB) on electrocardiogram (ECG) Status: Acute Current Visit: Yes (8) Tobacco abuse Status: Acute Current Visit: Yes (9) Lumbar back pain with radiculopathy affecting lower extremity Status: Chronic Current Visit: No Assessment and Plan for All Diagnoses:: 64yo F with displaced L femoral neck fracture; chronic x3-4 weeks; severe hyponatremia (Na 109) on admission, in addition to hypokalemia and hypomagnesemia, which have corrected. Sodium slowly correcting; 127 today. -- plan on L KILLIAN 09/27/19 -- pre-op orders will be placed Friday night: NPO after midnight, consent to be signed -- continue lovenox until night before surgery -- continue medical management per primary team
--- NOTE | 2019-09-24 13:37 | HMH.ACPN2 ---
Internal Medicine - PN: Subj *Date: 09/24/19 *Time: 13:38 Interval history: neurologically stable denies cp/sob lucid and clear correcting na ns per iv and fluid restriction 1200 cc Exam Vital signs and Labs for Last 24 Hours: Temp Pulse Resp BP Pulse Ox 98.8 F 104 H 16 102/60 L 94 L 09/24/19 12:00 09/24/19 12:00 09/24/19 12:00 09/24/19 12:00 09/24/19 12:00 Laboratory Results - last 24 hr 09/20/19 17:49: Crossmatch (AHG) See Detail 09/23/19 20:44: Sodium 125 L, Potassium 4.2, Chloride 92 L, Carbon Dioxide 29, Anion Gap 8.2, BUN 9 D, Creatinine 0.50 L D, Estimated Creat Clear 68, Estimated GFR 124, Est GFR ( Amer) 150 D, Glucose 147 H D, Calcium 8.5 09/24/19 07:12: Sodium 127 L, Potassium 4.3, Chloride 93 L, Carbon Dioxide 30, Anion Gap 8.3, BUN 7, Creatinine 0.40 L, Estimated Creat Clear 68, Estimated GFR 161, Est GFR ( Amer) 194 D, Glucose 112 H D, Calcium 8.8 09/24/19 07:12: WBC 8.8, RBC 3.01 L, Hgb 9.4 L, Hct 28.3 L, MCV 94.1, MCH 31.4 H, MCHC 33.4, RDW 12.9, Plt Count 388, MPV 7.4, Neut % (Auto) 71.8, Lymph % (Auto) 17.6, [place] % (Auto) 5.6, Eos % (Auto) 4.7, Baso % (Auto) 0.2, Neut # (Auto) 6.3, Lymph # (Auto) 1.5, [place] # (Auto) 0.5, Eos # (Auto) 0.4, Baso # (Auto) 0.0 I & O for Last 24 hours: Intake & Output 09/21/19 09/22/19 09/23/19 09/24/19 23:59 23:59 23:59 23:59 Intake Total 1344 / 1344 1855 / 1855 2424 / 2424 1202 / 1202 Output Total 1700 / 1700 975 / 975 550 / 550 Balance -356 / -356 1855 / 1455 1449 / 1449 652 / 652 Weight 157 lb 8 oz 164 lb 7 oz 167 lb 4 oz - Constitutional no acute distress, cooperative - *Routine HEENT Exam Head: Present: normocephalic, atraumatic - *Routine Neck Exam Present: supple, full ROM. Absent: JVD - *Routine Respiratory Exam Present: CTA bilaterally. Absent: accessory muscle use - *Routine Cardiovascular Exam Present: RRR, Normal S1, Normal S2. Absent: murmur - *Routine Abdominal Exam Present: soft - *Routine Extremities Exam Present: tenderness. Absent: calf tenderness - *Routine Skin Exam Present: intact. Absent: jaundice - *Routine Neurological Exam Present: alert, oriented X3, normal speech. Absent: tremors, asterixis - Routine Psychiatric Exam Present: normal affect Assessment and Plan (1) Fracture of femoral neck, left, closed Current visit: Yes Status: Acute Category: Medical Code(s): S72.002A - Fracture of unspecified part of neck of left femur, initial encounter for closed fracture (2) Alcohol abuse Current visit: Yes Status: Acute Category: Social Hx Code(s): F10.10 - Alcohol abuse, uncomplicated (3) Hypokalemia Current visit: Yes Status: Resolved Category: Medical Code(s): E87.6 - Hypokalemia (4) Hyponatremia Current visit: Yes Status: Acute Category: Medical Code(s): E87.1 - Hypo-osmolality and hyponatremia (5) COPD (chronic obstructive pulmonary disease) Current visit: No Status: Chronic Qualifiers: Qualified Code(s): J44.9 - Chronic obstructive pulmonary disease, unspecified Category: Medical Code(s): J44.9 - Chronic obstructive pulmonary disease, unspecified (6) Hypertension Current visit: No Status: Chronic Qualifiers: Qualified Code(s): I10 - Essential (primary) hypertension Category: Medical Code(s): I10 - Essential (primary) hypertension (7) Right bundle branch block (RBBB) on electrocardiogram (ECG) Current visit: Yes Status: Acute Category: Medical Code(s): I45.10 - Unspecified right bundle-branch block (8) Tobacco abuse Current visit: Yes Status: Acute Category: Medical Code(s): Z72.0 - Tobacco use (9) Lumbar back pain with radiculopathy affecting lower extremity Current visit: No Status: Chronic Category: Medical Code(s): M54.16 - Radiculopathy, lumbar region - Assessment and plan all Dx Assessment and Plan for all problems:: correcting na awaiting orif watch neurologically
--- NOTE | 2019-09-24 15:52 | PC.NURSE ---
Pt has been stable this shift. No issues noted. She knows her name and but is unsure what city we are in. Plan is for left hip surgery on Friday.
--- NOTE | 2019-09-24 19:09 | PC.NURSE ---
report giien to carlos valverde
[2019-09-25] VITALS (13 sets, daily range): BP systolic 118–133; BP diastolic 58–81; PULSE 77–110; RESP 16–18; TEMP 36.4–36.9; O2SAT 90–97; BMI 25.0
--- NOTE | 2019-09-25 04:46 | PC.NURSE ---
pt A&OX4. pt has complain of L hip pain and has been medicated per MAY. NSR on tele. Pt received bath and bed change this shift. safety precautions in place. pt has rested quietly this shift.
[2019-09-25 08:53] LABS: Basophils % 0.2 % (0.1-2.0); Eosinophils # 0.3 K/mm3 (0.0-0.4); Eosinophils % 4.3 % (0.1-12.0); Hematocrit 25.2 % (37.0-47.0); Hemoglobin 8.3 g/dL (12.2-16.2); Lymphocytes # 1.3 K/mm3 (0.7-4.5); Mean Corpuscular HGB Conc 32.9 g/dL (31.8-35.4); Mean Corpuscular Hemoglobin 30.9 pg (27.0-31.2); Mean Corpuscular Volume 93.9 fl (81-99); Mean Platelet Volume 8.3 fl (7.4-10.4); Monocytes # 0.5 K/mm3 (0.1-1.0); Monocytes % 6.3 % (1.7-9.3); Neutrophils # 5.2 K/mm3 (1.8-7.8); Neutrophils % 71.2 % (37.0-80.0); Platelet Count 371 K/mm3 (142-424); Red Blood Count 2.68 M/mm3 (4.20-5.40); Red Cell Distribution Width 13.2 % (11.5-17.5); White Blood Count 7.4 K/mm3 (4.8-10.8)
[2019-09-25 09:06] LABS: Chloride 95 mmol/L (98-107); Potassium 4.2 mmoL/L (3.5-5.1); Sodium 128 mmol/L (136-145)
[2019-09-25 09:09] LABS: Blood Urea Nitrogen 6 mg/dl (7-17); Creatinine Clearance Estimated 65 mL/min (50-200); Estimated Glomerular Filt Rate 161 ml/min (>60); GFR (African American) 194 ML/MIN (>60)
[2019-09-25 09:10] LABS: Anion Gap 8.2 mEq/L (5-15); Calcium 8.4 mg/dl (8.4-10.2); Carbon Dioxide 29 mmol/L (22.0-30.0); Glucose 101 mg/dl (74-100)
--- NOTE | 2019-09-25 09:27 | HMH.ACPN2 ---
Internal Medicine - PN: Subj *Date: 09/26/19 *Time: 07:48 Interval history: sleepy this am but na improving Exam Vital signs and Labs for Last 24 Hours: Temp Pulse Resp BP Pulse Ox 97.5 F L 103 H 18 123/68 90 L 09/25/19 08:00 09/25/19 08:00 09/25/19 08:00 09/25/19 08:00 09/25/19 08:00 Laboratory Results - last 24 hr 09/25/19 08:40: WBC 7.4, RBC 2.68 L, Hgb 8.3 L, Hct 25.2 L, MCV 93.9, MCH 30.9, MCHC 32.9, RDW 13.2, Plt Count 371, MPV 8.3, Neut % (Auto) 71.2, Lymph % (Auto) 18.0, [place] % (Auto) 6.3, Eos % (Auto) 4.3, Baso % (Auto) 0.2, Neut # (Auto) 5.2, Lymph # (Auto) 1.3, [place] # (Auto) 0.5, Eos # (Auto) 0.3, Baso # (Auto) 0.0 09/25/19 08:40: Sodium 128 L, Potassium 4.2, Chloride 95 L, Carbon Dioxide 29, Anion Gap 8.2, BUN 6 L, Creatinine 0.40 L, Estimated Creat Clear 65, Estimated GFR 161, Est GFR ( Amer) 194, Glucose 101 H, Calcium 8.4 I & O for Last 24 hours: Intake & Output 09/22/19 09/23/19 09/24/19 09/25/19 11:59 11:59 11:59 11:59 Intake Total 1255 / 1255 2110 / 2110 2476 / 2476 1897 / 1897 Output Total 1700 / 1700 400 / 400 1125 / 1125 1050 / 1050 Balance -445 / -445 1710 / 1710 1351 / 1351 847 / 847 Weight 164 lb 7 oz 167 lb 4 oz 161 lb 10.639 oz 159 lb 8 oz - Constitutional no acute distress - *Routine HEENT Exam Head: Present: normocephalic Eye: Present: EOMI, PERRL ENT: Present: mucous membranes dry - *Routine Neck Exam Present: supple - *Routine Respiratory Exam Present: decreased breath sounds. Absent: respiratory distress - *Routine Cardiovascular Exam Present: RRR, murmur - *Routine Abdominal Exam Present: soft - *Routine Extremities Exam Absent: calf tenderness - *Routine Skin Exam Present: intact - *Routine Neurological Exam Present: alert, CN II-XII intact - Routine Psychiatric Exam Present: unable to assess Assessment and Plan (1) Fracture of femoral neck, left, closed Current visit: Yes Status: Acute Category: Medical Code(s): S72.002A - Fracture of unspecified part of neck of left femur, initial encounter for closed fracture (2) Alcohol abuse Current visit: Yes Status: Acute Category: Social Hx Code(s): F10.10 - Alcohol abuse, uncomplicated (3) Hypokalemia Current visit: Yes Status: Resolved Category: Medical Code(s): E87.6 - Hypokalemia (4) Hyponatremia Current visit: Yes Status: Acute Category: Medical Code(s): E87.1 - Hypo-osmolality and hyponatremia (5) COPD (chronic obstructive pulmonary disease) Current visit: No Status: Chronic Qualifiers: COPD type: unspecified COPD Qualified Code(s): J44.9 - Chronic obstructive pulmonary disease, unspecified Category: Medical Code(s): J44.9 - Chronic obstructive pulmonary disease, unspecified (6) Hypertension Current visit: No Status: Chronic Qualifiers: Hypertension type: essential hypertension Qualified Code(s): I10 - Essential (primary) hypertension Category: Medical Code(s): I10 - Essential (primary) hypertension (7) Right bundle branch block (RBBB) on electrocardiogram (ECG) Current visit: Yes Status: Acute Category: Medical Code(s): I45.10 - Unspecified right bundle-branch block (8) Tobacco abuse Current visit: Yes Status: Acute Category: Medical Code(s): Z72.0 - Tobacco use (9) Lumbar back pain with radiculopathy affecting lower extremity Current visit: No Status: Chronic Category: Medical Code(s): M54.16 - Radiculopathy, lumbar region
--- NOTE | 2019-09-25 18:02 | HMH.ORTHPN ---
Subjective Date: 09/25/19 Time: 16:15 Principal diagnosis: L femoral neck fracture Interval history: Patient is lying down on the bed and says she is doing well and reports no problems. Patient has minimal pain and says it's well-controlled with medication. Patient says she is eating and drinking well. No history of any distal tingling or numbness. She is on IV fluids and sodium level is gradually improving. PN: Obj Ex Vital signs: Temp Pulse Resp BP Pulse Ox 98.3 F 101 H 16 129/58 L 96 09/25/19 15:24 09/25/19 16:00 09/25/19 15:24 09/25/19 15:24 09/25/19 15:24 Narrative: Laboratory Results - last 24 hr 09/25/19 08:40: WBC 7.4, RBC 2.68 L, Hgb 8.3 L, Hct 25.2 L, MCV 93.9, MCH 30.9, MCHC 32.9, RDW 13.2, Plt Count 371, MPV 8.3, Neut % (Auto) 71.2, Lymph % (Auto) 18.0, [place] % (Auto) 6.3, Eos % (Auto) 4.3, Baso % (Auto) 0.2, Neut # (Auto) 5.2, Lymph # (Auto) 1.3, [place] # (Auto) 0.5, Eos # (Auto) 0.3, Baso # (Auto) 0.0 09/25/19 08:40: Sodium 128 L, Potassium 4.2, Chloride 95 L, Carbon Dioxide 29, Anion Gap 8.2, BUN 6 L, Creatinine 0.40 L, Estimated Creat Clear 65, Estimated GFR 161, Est GFR ( Amer) 194, Glucose 101 H, Calcium 8.4 Exam General appearance: alert, active, awake, no acute distress Cardiovascular: regular rate & rhythm, normal peripheral pulses Respiratory: No respiratory distress noted, speaks in full sentences ABD: soft and non tender Neuro: alert, awake, oriented x 3 Psych: Appropriate mood and affect for her situation On examination of the lower extremities, the right leg is shortened and externally rotated. She is tender over the left hip. No open wounds are noted. Any attempted movements of the left hip are painful. Thigh and calf are soft and nontender and no signs of DVT noted. Distal pulses are 1+. Distal sensation is intact to light touch throughout. No motor deficits noted distally. - Urinary Catheter Management Harris Cath placed during this visit: yes Urethral indwelling: Yes Reason for continuing: Surgical procedure Insertion date: 09/20/19 Progress Note: A&P (1) Fracture of femoral neck, left, closed Status: Acute Current Visit: Yes (2) Alcohol abuse Status: Acute Current Visit: Yes (3) Hypokalemia Status: Resolved Current Visit: Yes (4) Hyponatremia Status: Acute Current Visit: Yes (5) COPD (chronic obstructive pulmonary disease) Status: Chronic Current Visit: No (6) Hypertension Status: Chronic Current Visit: No (7) Right bundle branch block (RBBB) on electrocardiogram (ECG) Status: Acute Current Visit: Yes (8) Tobacco abuse Status: Acute Current Visit: Yes (9) Lumbar back pain with radiculopathy affecting lower extremity Status: Chronic Current Visit: No Assessment and Plan for All Diagnoses:: I have reviewed the clinical and laboratory findings with the patient. Patient is still hyponatremic and continue gradual sodium replenishment. Patient is scheduled for surgery on Friday by Dr. Guardado. Continue DVT prophylaxis. Continue medical management as per Dr. Lux.
[2019-09-26] VITALS (9 sets, daily range): BP systolic 91–152; BP diastolic 62–84; PULSE 77–120; RESP 16–20; TEMP 36.7–37.1; O2SAT 90–96; BMI 26.2
--- NOTE | 2019-09-26 04:28 | PC.NURSE ---
No acute changes overnight. Pt compliant w/ fluid restriction. Harris patent and cath care provided by staff.
[2019-09-26 08:51] LABS: Basophils % 0.3 % (0.1-2.0); Eosinophils # 0.2 K/mm3 (0.0-0.4); Eosinophils % 2.6 % (0.1-12.0); Hematocrit 26.8 % (37.0-47.0); Lymphocytes # 1.5 K/mm3 (0.7-4.5); Mean Corpuscular HGB Conc 34.2 g/dL (31.8-35.4); Mean Corpuscular Hemoglobin 31.4 pg (27.0-31.2); Mean Platelet Volume 7.8 fl (7.4-10.4); Monocytes # 0.6 K/mm3 (0.1-1.0); Monocytes % 6.5 % (1.7-9.3); Neutrophils # 6.3 K/mm3 (1.8-7.8); Neutrophils % 73.6 % (37.0-80.0); Platelet Count 414 K/mm3 (142-424); Red Blood Count 2.91 M/mm3 (4.20-5.40); Red Cell Distribution Width 13.4 % (11.5-17.5); White Blood Count 8.6 K/mm3 (4.8-10.8)
[2019-09-26 08:53] LABS: Hemoglobin 9.2 g/dL (12.2-16.2)
[2019-09-26 08:55] LABS: Chloride 96 mmol/L (98-107); Sodium 129 mmol/L (136-145)
[2019-09-26 08:56] LABS: Potassium 4.6 mmoL/L (3.5-5.1)
[2019-09-26 08:58] LABS: Blood Urea Nitrogen 7 mg/dl (7-17); Creatinine Clearance Estimated 68 mL/min (50-200); Estimated Glomerular Filt Rate 161 ml/min (>60); GFR (African American) 194 ML/MIN (>60)
[2019-09-26 08:59] LABS: Anion Gap 8.6 mEq/L (5-15); Calcium 8.8 mg/dl (8.4-10.2); Carbon Dioxide 29 mmol/L (22.0-30.0); Glucose 126 mg/dl (74-100)
--- NOTE | 2019-09-26 09:38 | HMH.ACPN2 ---
Internal Medicine - PN: Subj *Date: 09/26/19 *Time: 21:11 Interval history: doing better - labs better - surg in am Exam Vital signs and Labs for Last 24 Hours: Temp Pulse Resp BP Pulse Ox 98.8 F 106 H 18 91/62 L 94 L 09/26/19 08:00 09/26/19 08:00 09/26/19 08:00 09/26/19 08:00 09/26/19 08:00 Laboratory Results - last 24 hr 09/26/19 08:34: WBC 8.6, RBC 2.91 L, Hgb 9.2 L D, Hct 26.8 L, MCV 92.0, MCH 31.4 H, MCHC 34.2, RDW 13.4, Plt Count 414, MPV 7.8, Neut % (Auto) 73.6, Lymph % (Auto) 17.0, [place] % (Auto) 6.5, Eos % (Auto) 2.6, Baso % (Auto) 0.3, Neut # (Auto) 6.3, Lymph # (Auto) 1.5, [place] # (Auto) 0.6, Eos # (Auto) 0.2, Baso # (Auto) 0.0 09/26/19 08:34: Sodium 129 L, Potassium 4.6, Chloride 96 L, Carbon Dioxide 29, Anion Gap 8.6, BUN 7, Creatinine 0.40 L, Estimated Creat Clear 68, Estimated GFR 161, Est GFR ( Amer) 194, Glucose 126 H D, Calcium 8.8 I & O for Last 24 hours: Intake & Output 09/23/19 09/24/19 09/25/19 09/26/19 11:59 11:59 11:59 11:59 Intake Total 2110 / 2110 2476 / 2476 1897 / 1897 3143 / 3143 Output Total 400 / 400 1125 / 1125 1050 / 1050 1200 / 1200 Balance 1710 / 1710 1351 / 1351 847 / 847 194 / 194 Weight 167 lb 4 oz 161 lb 10.639 oz 159 lb 8 oz 167 lb 6 oz - Constitutional no acute distress - *Routine HEENT Exam Head: Present: normocephalic Eye: Present: EOMI, PERRL ENT: Present: mucous membranes dry - *Routine Neck Exam Present: supple - *Routine Respiratory Exam Present: CTA bilaterally - *Routine Cardiovascular Exam Present: RRR - *Routine Abdominal Exam Present: soft - *Routine Skin Exam Present: intact - *Routine Neurological Exam Present: alert, CN II-XII intact - Routine Psychiatric Exam Present: normal affect Assessment and Plan (1) Fracture of femoral neck, left, closed Current visit: Yes Status: Acute Category: Medical Code(s): S72.002A - Fracture of unspecified part of neck of left femur, initial encounter for closed fracture (2) Alcohol abuse Current visit: Yes Status: Acute Category: Social Hx Code(s): F10.10 - Alcohol abuse, uncomplicated (3) Hypokalemia Current visit: Yes Status: Resolved Category: Medical Code(s): E87.6 - Hypokalemia (4) Hyponatremia Current visit: Yes Status: Acute Category: Medical Code(s): E87.1 - Hypo-osmolality and hyponatremia (5) COPD (chronic obstructive pulmonary disease) Current visit: No Status: Chronic Qualifiers: COPD type: unspecified COPD Qualified Code(s): J44.9 - Chronic obstructive pulmonary disease, unspecified Category: Medical Code(s): J44.9 - Chronic obstructive pulmonary disease, unspecified (6) Hypertension Current visit: No Status: Chronic Qualifiers: Hypertension type: essential hypertension Qualified Code(s): I10 - Essential (primary) hypertension Category: Medical Code(s): I10 - Essential (primary) hypertension (7) Right bundle branch block (RBBB) on electrocardiogram (ECG) Current visit: Yes Status: Acute Category: Medical Code(s): I45.10 - Unspecified right bundle-branch block (8) Tobacco abuse Current visit: Yes Status: Acute Category: Medical Code(s): Z72.0 - Tobacco use (9) Lumbar back pain with radiculopathy affecting lower extremity Current visit: No Status: Chronic Category: Medical Code(s): M54.16 - Radiculopathy, lumbar region
--- NOTE | 2019-09-26 14:45 | PC.NURSE ---
RT administered MDI to pt
--- NOTE | 2019-09-26 17:33 | PC.NURSE ---
ALERT AND ORIENTED X3. PT DISPLAYS DISORGANIZED THINKING AND HAS A SHORT ATTENTION SPAN., RESTLESS. PAIN MEDS ADMINISTERED PER MAR. HALDOL PRN ADMINISTERED ONCE THIS AFTERNOON D/T AGITATION, MEDICATION SOMEWHAT EFFECTIVE. PT DEESCALATED AND TOOK A SHORT NAP. VSS. NO DISTRESS NOTED. FLUID RESTRICTION STILL IN PLACE, 400ML OF INTAKE THIS SHIFT. KUMAR CATHETER IS SECURE, PATENT, AND DRAINING DARK YELLOW URINE WITHOUT PROBLEM. SCANT BM NOTED. IS ENCOURAGED, EDUCATION PROVIDED OF IMPORTANCE OF IS. SAFETY MEASURES IN PLACE, WILL CONTINUE TO MONITOR
--- NOTE | 2019-09-26 18:35 | PC.NURSE ---
Bed bath w/ use of hibiclens given by staff. Linens changed. Vasquez cath/ raffy care performed. When emptying pt's vasquez urine noted to be foul smelling and somewhat cloudy.
--- NOTE | 2019-09-26 19:16 | P.PN_ITS ---
Subjective Date: 09/26/19 Time: 18:00 Principal diagnosis: L femoral neck fracture Interval history: Patient is lying down on the bed and says she is doing well and reports no problems. Patient has minimal pain and says it's well-controlled with medication. Says she is eating and drinking well. No history of any distal tingling or numbness. She is on IV fluids and sodium level is gradually improving. PN: Obj Ex Vital signs: Temp Pulse Resp BP Pulse Ox 98.1 F 77 20 152/84 H 90 L 09/26/19 16:00 09/26/19 16:00 09/26/19 16:00 09/26/19 16:00 09/26/19 16:00 Narrative: Laboratory Results - last 24 hr 09/26/19 08:34: WBC 8.6, RBC 2.91 L, Hgb 9.2 L D, Hct 26.8 L, MCV 92.0, MCH 31.4 H, MCHC 34.2, RDW 13.4, Plt Count 414, MPV 7.8, Neut % (Auto) 73.6, Lymph % (Auto) 17.0, [place] % (Auto) 6.5, Eos % (Auto) 2.6, Baso % (Auto) 0.3, Neut # (Auto) 6.3, Lymph # (Auto) 1.5, [place] # (Auto) 0.6, Eos # (Auto) 0.2, Baso # (Auto) 0.0 09/26/19 08:34: Sodium 129 L, Potassium 4.6, Chloride 96 L, Carbon Dioxide 29, Anion Gap 8.6, BUN 7, Creatinine 0.40 L, Estimated Creat Clear 68, Estimated GFR 161, Est GFR ( Amer) 194, Glucose 126 H D, Calcium 8.8 Exam General appearance: alert, active, awake, no acute distress Cardiovascular: regular rate & rhythm, normal peripheral pulses Respiratory: No respiratory distress noted, speaks in full sentences ABD: soft and non tender Neuro: alert, awake, oriented x 3 Psych: Appropriate mood and affect for her situation On examination of the lower extremities, the right leg is shortened and externally rotated. She is tender over the left hip. No open wounds are noted. Any attempted movements of the left hip are painful. Thigh and calf are soft and nontender and no signs of DVT noted. Distal pulses are 1+. Distal sensation is intact to light touch throughout. No motor deficits noted distally. - Urinary Catheter Management Harris Cath placed during this visit: yes Urethral indwelling: Yes Reason for continuing: Surgical procedure Insertion date: 09/20/19 Progress Note: A&P (1) Fracture of femoral neck, left, closed Status: Acute Current Visit: Yes (2) Alcohol abuse Status: Acute Current Visit: Yes (3) Hypokalemia Status: Resolved Current Visit: Yes (4) Hyponatremia Status: Acute Current Visit: Yes (5) COPD (chronic obstructive pulmonary disease) Status: Chronic Current Visit: No (6) Hypertension Status: Chronic Current Visit: No (7) Right bundle branch block (RBBB) on electrocardiogram (ECG) Status: Acute Current Visit: Yes (8) Tobacco abuse Status: Acute Current Visit: Yes (9) Lumbar back pain with radiculopathy affecting lower extremity Status: Chronic Current Visit: No Assessment and Plan for All Diagnoses:: I have reviewed the clinical and laboratory findings with the patient. Patient is still hyponatremic but gradually improving; sodium level today is 129; continue gradual sodium replenishment as ordered. Patient is scheduled for surgery tomorrow by Dr. Guardado. Recommend n.p.o. after midnight. Repeat labs in the morning-CBC, CMP, type and screen. Withhold Lovenox tonight Continue medical management as per Dr. Lux.
[2019-09-27] VITALS (32 sets, daily range): BP systolic 82–168; BP diastolic 50–89; PULSE 87–125; RESP 14–18; TEMP 35.8–38; O2SAT 90–100; BMI 26.2
--- NOTE | 2019-09-27 01:30 | PC.NURSE ---
Pt given verbal and printed educating on Catheter Associated Urinary Tract Infection FAQs.
--- NOTE | 2019-09-27 01:31 | PC.NURSE ---
Operative consent signed by pt and placed in chart.
--- NOTE | 2019-09-27 05:53 | PC.NURSE ---
Pt awake most of shift, takes short naps. C/o pain x2 to left hip medicated per MAY w/ adequate relief stated by pt. Cap refill and distal pulse to LLE remain WDL. Left calf soft and non-tender. Harris patent to bedside drain w/ clear, yellow urine w/ sediment noted. IS encourage often, pt uninterested and needs reinforcement. Fluid restriction remains w/ 220 of PO intake this shift.
[2019-09-27 06:25] LABS: Basophils % 0.2 % (0.1-2.0); Eosinophils # 0.2 K/mm3 (0.0-0.4); Eosinophils % 4.1 % (0.1-12.0); Hematocrit 27.4 % (37.0-47.0); Hemoglobin 9.1 g/dL (12.2-16.2); Lymphocytes # 1.4 K/mm3 (0.7-4.5); Lymphocytes % 23.1 % (10-50); Mean Corpuscular HGB Conc 33.2 g/dL (31.8-35.4); Mean Corpuscular Hemoglobin 30.9 pg (27.0-31.2); Mean Platelet Volume 7.1 fl (7.4-10.4); Monocytes # 0.4 K/mm3 (0.1-1.0); Monocytes % 6.6 % (1.7-9.3); Platelet Count 447 K/mm3 (142-424); Red Blood Count 2.95 M/mm3 (4.20-5.40); Red Cell Distribution Width 13.4 % (11.5-17.5)
[2019-09-27 06:34] LABS: Chloride 96 mmol/L (98-107); Potassium 4.3 mmoL/L (3.5-5.1); Sodium 123 mmol/L (136-145)
[2019-09-27 06:36] LABS: Alanine Aminotransferase 17 U/L (12-78); Aspartate Amino Transferase 28 U/L (14-36); Bilirubin,Total 0.3 mg/dl (0.2-1.3); Blood Urea Nitrogen 6 mg/dl (7-17); Creatinine Clearance Estimated 68 mL/min (50-200); Estimated Glomerular Filt Rate 161 ml/min (>60); GFR (African American) 194 ML/MIN (>60)
[2019-09-27 06:37] LABS: Albumin/Globulin Ratio 0.9 (1.1-1.8); Alkaline Phosphatase 126 U/L (38-126); Anion Gap 4.3 mEq/L (5-15); Calcium 8.9 mg/dl (8.4-10.2); Carbon Dioxide 27 mmol/L (22.0-30.0); Globulin 3.2 g/dL (1.3-3.2); Glucose 86 mg/dl (74-100); Total Protein,Serum 6.2 g/dl (6.3-8.2)
[2019-09-27 06:54] LABS: Coronavirus 19 IgG Antibody Negative (Negative); Coronavirus 19 IgM Antibody Negative (Negative)
--- NOTE | 2019-09-27 07:32 | SW/DCPLANNER ---
PATIENTS SURGERY HAS BEEN PUT OFF UNTIL FRIDAY PENDING HER SODIUM IS CLOSE TO NORMAL... I SPOKE WITH DAUGHTER AND SHE ASKED IF I COULD ENCOURAGE HER MOTHER TO GO SOMEWHERE ONCE SHE HAS HER SURGERY FOR REHAB SERVICES...PATIENT STATED SHE DID NOT WANT TO GO ANYWHERE AND WISHES TO GO HOME... DR ROSA CALLED ME LATER IN THE AFTERNOON AND SAID THAT PATIENT WAS UPSET BECAUSE THE ZULLY SHE LIVES WITH HAS KICKED HER OUT AND SHE WAS WORRIED ABOUT HER ANIMALS...I MADE A CALL TO ANIMAL CONTROL AND ASKED IF SOMEONE WOULD GO TO THE HOME AND CHECK OUT THE SITUATION SINCE PATIENT WAS SO CONCERNED.. PATIENT WAS UPSET AND I HAD THE NURSE TO GO IN AND ASSURE HER THAT SOMEONE WOULD CHECK ON THE ANIMALS AND CALL HER.. SHE WAS AFRAID THEY WOULD TAKE THEM FROM HER, NOT SURE WHAT THE FINDINGS WERE ON THE ANIMALS SINCE THEY WERE GOING TO HAVE TO SEND SOMEONE OUT TO THE HOME.. 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 CM TO FOLLOW AND ASSIST INDICATED...
--- NOTE | 2019-09-27 08:34 | HMH.ANESCL ---
[facility] Anesthesia Checklist - Patient Identification Patient Identification: Arm Band, Verbal (Name & ) - Structural Data Admitted From: Inpatient Planned Operative Procedure/s: Left KILLIAN Consent for Planned Operative Procedure(s) Verified: Yes Verified Documents: Surgical Consent, History and Physical - NPO Status Verified Time NPO: 00:00 - Chart Verification Results Verified: CBC, BMP, PT, PTT, INR - Additional verifications Anesthesia Reactions: No - Airway Assessment C-Spine Mobility Assessed: Yes (MP 2, TMD 3) TMJ Mobility Assessed: Yes Dentition: Poor Dentition (decay, broken missing, upper denture that is not in) - Neurological Assessment Level of Consciousness: Awake, Alert, Appropriate, Follows Commands Hx Seizures: No Numbness or tingling in extremities: No - Anesthesia Plan Anesthesia Risk discussed: Yes Anesthesia Plan: Verified ASA Class: III Anesthesia Type: Spinal [facility] History I have reviewed the patient's past medical history: Yes Medical History: Reports:: Anxiety, Chronic Obstructive Pulmonary Disease (COPD), Depression, Gastroesophageal Reflux Disease(GERD), Hyperlipidemia, Hypertension Denies:: Diabetes Mellitus Type 1, Diabetes Mellitus Type 2 *Have you ever received a pneumonia vaccine?: No *Have you received a flu vaccine this season?: No Anesthesia experience/problems:: None Other Surgeries: Yes: Other Amputation: No Fractures: No - *Social History Smoking Status: Current every day smoker Tobacco Type: cigarettes # Packs/Day (cigarettes): 2 Alcohol Intake: current Alcohol Intake Frequency:: 3 or more drinks per day Substance Use Type: denies use *Occupational Status:: disabled Housing: house Household Members: significant other *Travel in the last 8 weeks: None - Psychiatric History Pschychiatric History:: Reports:: Anxiety, Depression Family Hx:: Coronary Artery Disease, Hypertension
--- NOTE | 2019-09-27 09:02 | PC.NURSE ---
PT LEFT FOR SURGERY DURING SHIFT REPORT THIS MORNING. WILL ASSESS AND CHART WHEN PT ARRIVES BACK TO FLOOR. PT LEFT A&OX4 WITH SURGICAL STAFF.
--- NOTE | 2019-09-27 09:09 | HMH.ORTHPN ---
Subjective Date: 09/27/19 Time: 09:00 Principal diagnosis: L femoral neck fracture Interval history: The patient was taken to the operating room this morning for left total hip arthroplasty. Spinal anesthetic was performed and she was positioned on the operative table. Prior to prepping and draping, it was noted that one of the reamers was contaminated. There was residual blood and tissue within the blades of the reamer, and the entire table had been contaminated. There was not another full set available so the surgery was aborted and the table broken down for reprocessing. No incision had been made on the patient. PN: Obj Ex Vital signs: Temp Pulse Resp BP Pulse Ox 97.7 F 100 H 18 110/55 L 94 L 09/27/19 08:50 09/27/19 08:50 09/27/19 08:50 09/27/19 08:50 09/27/19 08:50 - Urinary Catheter Management Harris Cath placed during this visit: yes Urethral indwelling: Yes Reason for continuing: Surgical procedure Insertion date: 09/20/19 Progress Note: A&P (1) Fracture of femoral neck, left, closed Status: Acute Current Visit: Yes (2) Alcohol abuse Status: Acute Current Visit: Yes (3) Hypokalemia Status: Resolved Current Visit: Yes (4) Hyponatremia Status: Acute Current Visit: Yes (5) COPD (chronic obstructive pulmonary disease) Status: Chronic Current Visit: No (6) Hypertension Status: Chronic Current Visit: No (7) Right bundle branch block (RBBB) on electrocardiogram (ECG) Status: Acute Current Visit: Yes (8) Tobacco abuse Status: Acute Current Visit: Yes (9) Lumbar back pain with radiculopathy affecting lower extremity Status: Chronic Current Visit: No Assessment and Plan for All Diagnoses:: 64yo F with L femoral neck fracture, chronic x1 month -- the patient was transferred back to her cart and taken to pre-op where she will await processing of the equipment and re-sterilization -- once the equipment is ready we will proceed back to the OR to perform L KILLIAN -- remain NPO
--- NOTE | 2019-09-27 13:00 | PC.NURSE ---
pt still off floor with surgery staff
--- NOTE | 2019-09-27 18:27 | P.PN_ITS ---
[facility] Anesthesia Record Part I Intake, IV Amount: 2,300 Estimated blood loss (mL): 800 Urine output (mL): 800 Blood Products used (#): none Blood Pressure: 168/86 SaO2: 96 Pulse Rate: 114 Respiratory Rate: 18 Temperature: 97.0 F Patient is:: Awake, Drowsy, Stable Stable to PACU at:: 18:22
--- NOTE | 2019-09-27 18:28 | XR_ITS ---
PROCEDURE: XR HIP LT 2-3V W/PELVIS CLINICAL INDICATION: s/p L KILLIAN Follow-up hip replacement COMPARISON: No exams were available for comparison FINDINGS: Post total hip replacement with alignment. A lateral bone plate is present along the proximal and femur at the greater trochanter with cerclage wires. Postsurgical gas and clips are present. The IMPRESSION: Status post hip replacement with good alignment Dictated by: Daryl Ruiz MD 09/27/2019 18:54 Electronically signed by Daryl Ruiz MD in OV 09/27/2019 18:54
--- NOTE | 2019-09-27 18:35 | PC.NURSE ---
pt still off floor at this time
--- NOTE | 2019-09-27 18:46 | HMH.ORTHPN ---
Subjective Date: 09/27/19 Time: 18:30 Principal diagnosis: L femoral neck fracture Interval history: The patient underwent L KILLIAN this afternoon, which she medically tolerated well. There was a non-displaced greater trochanter fracture sustained intraoperatively, which was fixed with Brainloop cables and a hook plate/screws. The had around 800cc EBL, 800cc UOP in vasquez, and received 2300cc crystalloid. In PACU she remained medically stable but agitated and combative, fighting both x-ray tech and the post-op nurse. 1mg ativan was given. PN: Obj Ex Vital signs: Temp Pulse Resp BP Pulse Ox 97.0 F L 114 H 18 168/86 H 95 09/27/19 18:27 09/27/19 18:27 09/27/19 18:27 09/27/19 18:27 09/27/19 11:50 - Constitutional no acute distress - Routine HEENT Exam Head: Present: normocephalic Eye: Present: EOMI ENT: Present: mucous membranes moist - Routine Respiratory Exam Present: CTA bilaterally - Routine Cardiovascular Exam Present: RRR - Routine Abdominal Exam Present: soft. Absent: distended - Routine Extremities Exam Comments: L hip dressing c/d/i +DF/PF/EHL LLE SILT distally LLE in all distributions palpable pedal pulses LLE, foot pink/warm L calf soft, non-tender - Routine Skin Exam Present: warm - Urinary Catheter Management Vasquez Cath placed during this visit: yes Urethral indwelling: Yes Reason for continuing: Surgical procedure Insertion date: 09/20/19 Progress Note: A&P (1) Fracture of femoral neck, left, closed Status: Acute Current Visit: Yes (2) Alcohol abuse Status: Acute Current Visit: Yes (3) Hypokalemia Status: Resolved Current Visit: Yes (4) Hyponatremia Status: Acute Current Visit: Yes (5) COPD (chronic obstructive pulmonary disease) Status: Chronic Current Visit: No (6) Hypertension Status: Chronic Current Visit: No (7) Right bundle branch block (RBBB) on electrocardiogram (ECG) Status: Acute Current Visit: Yes (8) Tobacco abuse Status: Acute Current Visit: Yes (9) Lumbar back pain with radiculopathy affecting lower extremity Status: Chronic Current Visit: No Assessment and Plan for All Diagnoses:: 64yo F POD 0 s/p L KILLIAN for chronic, displaced femoral neck fracture -- rigid hip abduction orthosis ordered; will limit abduction -- may WBAT LLE in abduction brace -- until brace delivered, continue abduction pillow between legs -- posterior hip precautions -- ice pack L hip as needed -- d/c christina in AM -- SCD RLE, lovenox for DVT prophy to start tomorrow -- pain control: oral percocet for pain, with IV morphine for breakthrough -- finish 24hr prophy antibiotics -- encourage IS 10x/hr while awake -- PT/OT to eval -- dispo planning: anticipate d/c to SNF vs home with home health
--- NOTE | 2019-09-27 18:46 | HMH.OPNOTE ---
Date of procedure: 09/27/19 Pre-op Diagnosis:: L femoral neck fracture Post-op Diagnosis:: L femoral neck fracture Procedure performed:: L total hip arthroplasty Surgeon:: Gina Guardado MD Brand Representative(s):: MD Vida Davey KCSA Amber Foutch BELLPERSON:: [place] Ma Anesthesia: GETA Estimated blood loss (mL): 800 Clinical Note:: 64yo F admitted 09/20/19 through the ED with a complaint of L hip pain. She fell around 3 weeks prior to that, after a possible syncopal episode. She had L hip pain but did not seek medical attention; she stopped walking. Eventually the pain increased to the point she came for an x-ray, and was found to have a displaced femoral neck fracture. She has a medical history of HTN, HL, GERD, anxiety/depression and alcohol abuse. She drinks 5-6 beers per day, every day; they are 16oz each. Denies withdrawl symptoms or tremors and states she knows she needs to quit drinking but isn't ready to do so. She also smokes 2ppd of cigarettes. Sodium was 109 on admission and she has been undergoing slow correction over the past week with normal saline, D5W and intermittent fluid restriction. She was evaluated and cleared by cardiology and her PCP. I discussed the nature/extent of injury with the patient and treatment options including both operative and non-operative, with their relative risks and benefits. My recommendation is for arthroplasty, and after discussed the merits of both hemiarthroplasty and total hip arthroplasty, the patient would like to proceed with total hip arthroplasty. I discussed the risks of the surgery, including bleeding, infection, intra-operative fracture, component loosening/subsidence, neurovascular damage, foot drop, hip abductor weakness, component dislocation and need for revision surgery, in addition to the risks of anesthesia which include but are not limited to heart attack, stroke and even . The patient vocalized understanding and provided informed consent for the procedure. Operative findings:: IMPLANTS: [employer] OR3O MDM total hip arthroplasty system 60mm 3-hole R3 acetabular shell 6.5mm cancellous screws x3 in cup, 25mm, 15mm, and 15mm in length OR3O 46 x 60mm liner; 28 x 46mm insert oxinium femoral head, 28mm +0 Synergy femoral stem, size 13 standard offset Synthes small frag recon plate, 10-hole 3.5mm screws x 6, combination of locking and non-locking [facility] cables x2 Operative note:: The patient was identified in preoperative holding and the L hip signed by myself. Consent was verified with the patient and all questions answered. She was then taken to the operating room where she was placed on the OR table and all bony prominences well-padded. 2g Ancef were infused intravenously and general endotracheal anesthesia induced. The patient was then placed into the right lateral decubitus position with an axillary roll and secured with a pegboard positioner; again, all bony prominences were well-padded. SCD was placed on the right lower extremity. The left hip was then prepped and draped in the usual sterile fashion. Timeout was performed, identifying the correct patient, correct procedure and correct site. The procedure was begun by making a longitudinal, curvilinear incision over the posterolateral aspect the the left hip, centered over the greater trochanter. Subcutaneous tissue was dissected with cautery until fascia was encountered. The fascia was incised in line with the shaft of the femur distally and curved proximally; fibers of the gluteus eusebio were bluntly spread with finger dissection. Charnley retractor was placed under the fascia. The hip joint was visualized and the capsule was torn by the underlying fracture. A significant amount of contracture was present around the hip and the anterior and posterior capsule were adherent to the underlying femoral neck. The subcutaneous tissues were very edematous as well. The short external rotators were identified and the
[2019-09-27 18:50] LABS: Eosinophils % 0.3 % (0.1-12.0); Hematocrit 26.7 % (37.0-47.0); Hemoglobin 8.5 g/dL (12.2-16.2); Lymphocytes # 1.1 K/mm3 (0.7-4.5); Lymphocytes % 9.4 % (10-50); Mean Corpuscular HGB Conc 31.6 g/dL (31.8-35.4); Mean Corpuscular Hemoglobin 30.7 pg (27.0-31.2); Mean Corpuscular Volume 97.1 fl (81-99); Monocytes # 0.2 K/mm3 (0.1-1.0); Neutrophils # 10.2 K/mm3 (1.8-7.8); Neutrophils % 88.4 % (37.0-80.0); Platelet Count 437 K/mm3 (142-424); Red Blood Count 2.75 M/mm3 (4.20-5.40); Red Cell Distribution Width 13.4 % (11.5-17.5); White Blood Count 11.6 K/mm3 (4.8-10.8)
[2019-09-27 18:56] LABS: MANUAL DIFFERENTIAL MANUAL DIFFERENTIAL (MANUAL DIFF)
--- NOTE | 2019-09-27 18:58 | PC.NURSE ---
PT BACK TO FLOOR PER SURGERY STAFF AT 1858.
--- NOTE | 2019-09-27 19:11 | PC.NURSE ---
report given to carlos
--- NOTE | 2019-09-27 19:15 | PC.NURSE ---
pt returned to floor during shift report with Trang Shepherd RN. helped rn get pt situated in bed, and get vs set up. abductor pillow in place, and ice pack placed to left hip.
[2019-09-27 19:26] LABS: Chloride 100 mmol/L (98-107); Potassium 5.2 mmoL/L (3.5-5.1); Sodium 131 mmol/L (136-145)
[2019-09-27 19:28] LABS: Blood Urea Nitrogen 9 mg/dl (7-17); Creatinine Clearance Estimated 68 mL/min (50-200); Estimated Glomerular Filt Rate 124 ml/min (>60); GFR (African American) 150 ML/MIN (>60)
[2019-09-27 19:29] LABS: Anion Gap 17.2 mEq/L (5-15); Calcium 8.2 mg/dl (8.4-10.2); Carbon Dioxide 19 mmol/L (22.0-30.0); Glucose 124 mg/dl (74-100)
--- NOTE | 2019-09-27 19:31 | HMH.ANESII ---
[facility] Anesthesia Record Part II Discharge Time: 18:52 Destination: Medical Surgical Department PACU nurse assessment reviewed?: Yes Patient Condition:: Fair Anesthesia Complications:: None Swallowing reflex intact?: Yes Cyanosis?: No Blood Pressure: 135/81 Pulse Rate: 125 Temperature: 97.0 F Mental Status: Confused and Disoriented Pain level:: 0 Nausea and/or vomitting:: None Intake, IV Amount: 0
--- NOTE | 2019-09-27 20:46 | HMH.ACPN2 ---
Internal Medicine - PN: Subj *Date: 09/27/19 *Time: 20:46 Interval history: pt back from surgery Exam Vital signs and Labs for Last 24 Hours: Temp Pulse Resp BP Pulse Ox 96.5 F L 113 H 14 82/61 L 92 L 09/27/19 19:45 09/27/19 19:45 09/27/19 19:45 09/27/19 19:45 09/27/19 19:45 Laboratory Results - last 24 hr 09/27/19 06:03: WBC 6.0 D, RBC 2.95 L, Hgb 9.1 L, Hct 27.4 L, MCV 93.0, MCH 30.9, MCHC 33.2, RDW 13.4, Plt Count 447 H, MPV 7.1 L, Neut % (Auto) 66.0, Lymph % (Auto) 23.1, [place] % (Auto) 6.6, Eos % (Auto) 4.1, Baso % (Auto) 0.2, Neut # (Auto) 4.0, Lymph # (Auto) 1.4, [place] # (Auto) 0.4, Eos # (Auto) 0.2, Baso # (Auto) 0.0 09/27/19 06:03: Sodium 123 L, Potassium 4.3, Chloride 96 L, Carbon Dioxide 27, Anion Gap 4.3 L, BUN 6 L, Creatinine 0.40 L, Estimated Creat Clear 68, Estimated GFR 161, Est GFR ( Amer) 194, Glucose 86 D, Calcium 8.9, Total Bilirubin 0.3, AST 28, ALT 17, Alkaline Phosphatase 126, Total Protein 6.2 L, Albumin 3.0 L, Globulin 3.2, Albumin/Globulin Ratio 0.9 L 09/27/19 06:03: Blood Type O Positive, Antibody Screen Negative 09/27/19 06:03: SARS-CoV-2 IgG Ab (Rapid) Negative, SARS-CoV-2 IgM Ab (Rapid) Negative 09/27/19 18:44: WBC 11.6 H D, RBC 2.75 L, Hgb 8.5 L, Hct 26.7 L, MCV 97.1, MCH 30.7, MCHC 31.6 L, RDW 13.4, Plt Count 437 H, MPV 8.0, Neut % (Auto) 88.4 H, Lymph % (Auto) 9.4 L, [place] % (Auto) 2.0, Eos % (Auto) 0.3, Baso % (Auto) 0.0 L, Neut # (Auto) 10.2 H, Lymph # (Auto) 1.1, [place] # (Auto) 0.2, Eos # (Auto) 0.0, Baso # (Auto) 0.0 09/27/19 18:44: Sodium 131 L, Potassium 5.2 H D, Chloride 100, Carbon Dioxide 19 L D, Anion Gap 17.2 H, BUN 9 D, Creatinine 0.50 L D, Estimated Creat Clear 68, Estimated GFR 124, Est GFR ( Amer) 150 D, Glucose 124 H D, Calcium 8.2 L I & O for Last 24 hours: Intake & Output 09/25/19 09/26/19 09/27/19 09/28/19 11:59 11:59 11:59 11:59 Intake Total 1897 / 1897 3143 / 3143 1088 / 1088 2300 / 2300 Output Total 1050 / 1050 1200 / 1200 1550 / 1550 Balance 847 / 847 1943 / 1943 -462 / -462 2300 / 2300 Weight 159 lb 8 oz 167 lb 6 oz 167 lb 0.01 oz - Constitutional no acute distress - *Routine HEENT Exam Head: Present: normocephalic Eye: Present: PERRL ENT: Present: mucous membranes moist - *Routine Neck Exam Present: supple. Absent: lymphadenopathy - *Routine Respiratory Exam Present: CTA bilaterally - *Routine Cardiovascular Exam Present: RRR - *Routine Abdominal Exam Present: soft, normoactive bowel sounds. Absent: tenderness - *Routine Exam Comments: vasquez draining at bedside clear yellow urine - *Routine Extremities Exam Absent: cyanosis, clubbing, edema Comments: dressing to left hip c/d/i - *Routine Skin Exam Present: warm. Absent: rash - *Routine Neurological Exam Present: alert, oriented X3 drowsy - Routine Psychiatric Exam Present: normal affect Assessment and Plan (1) Fracture of femoral neck, left, closed Current visit: Yes Status: Acute Category: Medical Code(s): S72.002A - Fracture of unspecified part of neck of left femur, initial encounter for closed fracture (2) Alcohol abuse Current visit: Yes Status: Acute Category: Social Hx Code(s): F10.10 - Alcohol abuse, uncomplicated (3) Hypokalemia Current visit: Yes Status: Resolved Category: Medical Code(s): E87.6 - Hypokalemia (4) Hyponatremia Current visit: Yes Status: Acute Category: Medical Code(s): E87.1 - Hypo-osmolality and hyponatremia (5) COPD (chronic obstructive pulmonary disease) Current visit: No Status: Chronic Qualifiers: COPD type: unspecified COPD Qualified Code(s): J44.9 - Chronic obstructive pulmonary disease, unspecified Category: Medical Code(s): J44.9 - Chronic obstructive pulmonary disease, unspecified (6) Hypertension Current visit: No Status: Chronic Qualifiers: Hypertension type: essential hypertension Qualified Code(s): I10 - Essential (primary) hypertens
[2019-09-27 21:23] LABS: Lymphocytes % 6 % (10-50); Neutrophils % 94 % (42-76); Platelet Estimate Normal; RBC Morphology N[; Total Cells Counted 100
[2019-09-27 21:24] LABS: Target Cells 1+
[2019-09-28] VITALS (32 sets, daily range): BP systolic 94–164; BP diastolic 52–92; PULSE 16–121; RESP 16–96; TEMP 36.4–37; O2SAT 91–98; BMI 26.7
--- NOTE | 2019-09-28 03:12 | PC.NURSE ---
Pt has awakened intermittently this shift yelling out Mommy . When RN goes in to ask if pt has any needs, she answers with I want Mommy . Pt then immediately falls back to sleep. No s/sx of pain or shortness of air noted. VSS. Dressing CDI.
--- NOTE | 2019-09-28 03:57 | PC.NURSE ---
Pt became more and more agitated, morphine given for pain and haldol given for agitation.
--- NOTE | 2019-09-28 04:21 | PC.NURSE ---
Pt now asleep, abductor pillow in place, ice pack replenished and applied to left hip.
[2019-09-28 06:18] LABS: Basophils % 0.2 % (0.1-2.0); Eosinophils % 0.2 % (0.1-12.0); Lymphocytes # 1.3 K/mm3 (0.7-4.5); Lymphocytes % 20.2 % (10-50); Mean Corpuscular HGB Conc 31.3 g/dL (31.8-35.4); Mean Corpuscular Hemoglobin 30.6 pg (27.0-31.2); Mean Corpuscular Volume 97.7 fl (81-99); Mean Platelet Volume 7.7 fl (7.4-10.4); Monocytes # 0.5 K/mm3 (0.1-1.0); Monocytes % 7.2 % (1.7-9.3); Neutrophils # 4.5 K/mm3 (1.8-7.8); Neutrophils % 72.3 % (37.0-80.0); Platelet Count 371 K/mm3 (142-424); Red Blood Count 2.16 M/mm3 (4.20-5.40); Red Cell Distribution Width 13.4 % (11.5-17.5); White Blood Count 6.2 K/mm3 (4.8-10.8)
--- NOTE | 2019-09-28 06:19 | PC.NURSE ---
LATE ENTRY-0100 SUPRIYA BAÑUELOS WAS NOTIFIED OF PATIENTS ELEVATED HEART RATE ON THE [employer]SE[employer]. HEART RATE WAS IN THE. 120'S .NURSE WAS NOTIFIED
[2019-09-28 06:36] LABS: Hematocrit 21.1 % (37.0-47.0)
[2019-09-28 06:47] LABS: Chloride 100 mmol/L (98-107); Potassium 4.7 mmoL/L (3.5-5.1); Sodium 130 mmol/L (136-145)
[2019-09-28 06:50] LABS: Anion Gap 11.7 mEq/L (5-15); Blood Urea Nitrogen 13 mg/dl (7-17); Calcium 7.5 mg/dl (8.4-10.2); Carbon Dioxide 23 mmol/L (22.0-30.0); Creatinine Clearance Estimated 69 mL/min (50-200); Estimated Glomerular Filt Rate 101 ml/min (>60); GFR (African American) 122 ML/MIN (>60); Glucose 85 mg/dl (74-100)
[2019-09-28 06:54] LABS: Hemoglobin 6.6 g/dL (12.2-16.2)
--- NOTE | 2019-09-28 09:03 | HMH.ACPN2 ---
Internal Medicine - PN: Subj *Date: 09/28/19 *Time: 10:16 Interval history: 64-year-old female patient sitting up in bed resting quietly reports her pain does feel better this morning. She underwent a L total hip arthroplasty yesterday. Elastoplast dressing is clean dry and intact to left hip pulses are intact, she is able to wiggle toes, and foam wedges between legs. She is a little confused this morning, could be due to residual effects of anesthesia and low H/H. H/H this a.m. 6.6/21.1, will order 2 units of PRBCs to be transfused. Exam Vital signs and Labs for Last 24 Hours: Temp Pulse Resp BP Pulse Ox 97.7 F 120 H 18 125/59 L 91 L 09/28/19 07:16 09/28/19 07:16 09/28/19 07:16 09/28/19 07:16 09/28/19 07:16 Laboratory Results - last 24 hr 09/27/19 06:03: Blood Type O Positive, Antibody Screen Negative, Crossmatch (AHG) See Detail 09/27/19 18:44: WBC 11.6 H D, RBC 2.75 L, Hgb 8.5 L, Hct 26.7 L, MCV 97.1, MCH 30.7, MCHC 31.6 L, RDW 13.4, Plt Count 437 H, MPV 8.0, Neut % (Auto) 88.4 H, Lymph % (Auto) 9.4 L, [place] % (Auto) 2.0, Eos % (Auto) 0.3, Baso % (Auto) 0.0 L, Neut # (Auto) 10.2 H, Lymph # (Auto) 1.1, [place] # (Auto) 0.2, Eos # (Auto) 0.0, Baso # (Auto) 0.0, Total Counted 100, Neutrophils % (Manual) 94 H, Lymphocytes % (Manual) 6 L, Platelet Estimate Normal, RBC Morphology N[, Target Cells 1+ 09/27/19 18:44: Sodium 131 L, Potassium 5.2 H D, Chloride 100, Carbon Dioxide 19 L D, Anion Gap 17.2 H, BUN 9 D, Creatinine 0.50 L D, Estimated Creat Clear 68, Estimated GFR 124, Est GFR ( Amer) 150 D, Glucose 124 H D, Calcium 8.2 L 09/28/19 05:51: WBC 6.2 D, RBC 2.16 L, Hgb 6.6 L* D, Hct 21.1 L*, MCV 97.7, MCH 30.6, MCHC 31.3 L, RDW 13.4, Plt Count 371, MPV 7.7, Neut % (Auto) 72.3, Lymph % (Auto) 20.2, [place] % (Auto) 7.2, Eos % (Auto) 0.2, Baso % (Auto) 0.2, Neut # (Auto) 4.5, Lymph # (Auto) 1.3, [place] # (Auto) 0.5, Eos # (Auto) 0.0, Baso # (Auto) 0.0 09/28/19 05:51: Sodium 130 L, Potassium 4.7, Chloride 100, Carbon Dioxide 23 D, Anion Gap 11.7, BUN 13 D, Creatinine 0.60, Estimated Creat Clear 69, Estimated GFR 101, Est GFR ( Amer) 122, Glucose 85 D, Calcium 7.5 L I & O for Last 24 hours: Intake & Output 09/25/19 09/26/19 09/27/19 09/28/19 23:59 23:59 23:59 23:59 Intake Total 2709 / 2709 1621 / 1621 3168 / 3168 929 / 929 Output Total 1100 / 1550 1350 / 1350 650 / 650 215 / 215 Balance 1609 / 1159 271 / 271 2518 / 2518 714 / 714 Weight 159 lb 8 oz 167 lb 6 oz 167 lb 0.01 oz 170 lb 4 oz - Constitutional no acute distress - *Routine HEENT Exam Head: Present: normocephalic Eye: Absent: periorbital tenderness ENT: Present: mucous membranes moist. Absent: sinus tenderness - *Routine Neck Exam Present: full ROM, trachea midline. Absent: JVD, tracheal deviation - *Routine Respiratory Exam Present: CTA bilaterally. Absent: accessory muscle use - *Routine Cardiovascular Exam Present: RRR - *Routine Abdominal Exam Present: soft, normoactive bowel sounds. Absent: tenderness, firm - *Routine Extremities Exam Present: pulses intact. Absent: calf tenderness - *Routine Skin Exam Present: warm, wounds Comments: Drsg to L Hip C/D/I - *Routine Neurological Exam Present: alert, altered mental status - Routine Psychiatric Exam Present: unable to assess Assessment and Plan (1) Fracture of femoral neck, left, closed Current visit: Yes Status: Acute Category: Medical Code(s): S72.002A - Fracture of unspecified part of neck of left femur, initial encounter for closed fracture (2) Alcohol abuse Current visit: Yes Status: Acute Category: Social Hx Code(s): F10.10 - Alcohol abuse, uncomplicated (3) Hypokalemia Current visit: Yes Status: Resolved Category: Medical Code(s): E87.6 - Hypokalemia (4) Hyponatremia Current visit: Yes Status: Acute Category: Medical Code(s): E87.1 - Hypo-osmolality and hyponatremia (5) COPD (chronic obstructive pulmonary disease) [place]
[2019-09-28 09:09] LABS: 25-OH Vitamin D, Total 44.8 ng/mL (30-100)
--- NOTE | 2019-09-28 10:12 | SW/DCPLANNER ---
Addendum entered by Nereida Schwartz 10/01/19 10:08: This patient will discharge to [facility] today pending negative COVID results. I have informed Haydee with [facility]. Patient is agreeable with this plan. Addendum entered by Nereida Schwartz 09/30/19 10:06: This patient understands that she has been accepted to [facility], must stay at least 30 days, and her payment will be monthly income check expect $40. Patient will discharge to [facility] tomorrow pending negative COVID results (this has been ordered). Haydee from [facility] is requesting that this patient arrive tomorrow morning: I did explain to Haydee that we will make tomorrow morning our goal but it could be afternoon. Patients daughter is also aware and agreeable with plan. Addendum entered by Nereida [place] 09/28/19 13:09: This patient has been accepted to [facility] per Haydee. Haydee has stated that they can accept this patient on FRIDAY due to the need for a private room for quarantine. Patient will also need COVID testing (NASAL) prior to admission. I have spoke with patients daughter (Jolene [phone]) and she is agreeable with this plan. Patient continues to have confusion today...I will attempt to discuss discharge plans with patient this evening if less confused. I have notified aHider Landrum and [facility]iana regarding patients situation. Addendum entered by Nereida Schwartz 09/28/19 10:45: [facility] has stated that they will review this patient information. At this time patient information has been faxed to [facility]/ [facility], [facility]. Original Note: Patient did have hip surgery yesterday 09/27/19. Patient will require blood transfusion today. I will begin working on placement for this patient at daughters request. At this time patient information has been faxed to [facility]. Also at this time [facility] have any beds available. I will continue to search for placement for this patient and follow up with patient/family.
[2019-09-28 10:49] LABS: Ammonia < 9 umol/L (9-30)
--- NOTE | 2019-09-28 12:30 | PC.NURSE ---
per [facility], infuse 2 units of prbc.
--- NOTE | 2019-09-28 17:32 | P.PN_ITS ---
Subjective Date: 09/28/19 Time: 15:30 Principal diagnosis: L femoral neck fracture Interval history: The patient was seen this afternoon and was doing well. She is confused, but this appears to be her baseline as far as I can tell. She is alert and answers questions appropriately but often dozes off and begins nonsensical conversation on tangents. She frequently yells at the nursing staff and is asking for beverages to drink as she is thirsty. Pain is reported in the left hip, which she says is better than the pain she experienced before surgery with her hip fracture. Vitals have been stable, but Hgb was 6.6 this morning; she is currently receiving her second unit of PRBCs. PN: Obj Ex Vital signs: Temp Pulse Resp BP Pulse Ox 98.5 F 111 H 16 148/76 H 98 09/28/19 16:15 09/28/19 16:15 09/28/19 16:15 09/28/19 16:15 09/28/19 16:15 - Constitutional no acute distress - Routine HEENT Exam Head: Present: normocephalic Eye: Present: EOMI ENT: Present: mucous membranes moist - Routine Respiratory Exam Absent: respiratory distress - Routine Cardiovascular Exam Present: RRR - Routine Extremities Exam Comments: hip abduction pillow in place between patient's legs dressing L hip c/d/i, no strikethrough +DF/PF/EHL LLE SILT distally LLE in all distributions palpable pedal pulses LLE, foot warm/pink L calf soft, non-tender, negative Floridalma's - Routine Skin Exam Present: warm - Routine Neurological Exam Present: alert, moving all extremities, normal tone, vision grossly intact, hearing grossly intact, normal speech. Absent: sensory deficit, motor deficit - Urinary Catheter Management Harris Cath placed during this visit: yes Urethral indwelling: No Insertion date: 09/20/19 Progress Note: A&P (1) Fracture of femoral neck, left, closed Status: Acute Current Visit: Yes (2) Alcohol abuse Status: Acute Current Visit: Yes (3) Hypokalemia Status: Resolved Current Visit: Yes (4) Hyponatremia Status: Acute Current Visit: Yes (5) COPD (chronic obstructive pulmonary disease) Status: Chronic Current Visit: No (6) Hypertension Status: Chronic Current Visit: No (7) Right bundle branch block (RBBB) on electrocardiogram (ECG) Status: Acute Current Visit: Yes (8) Tobacco abuse Status: Acute Current Visit: Yes (9) Lumbar back pain with radiculopathy affecting lower extremity Status: Chronic Current Visit: No Assessment and Plan for All Diagnoses:: 64yo F POD 1 s/p L KILLIAN for chronic, displaced femoral neck fracture. Small non- displaced greater trochanter fracture intra-op, fixed with hook plate/cables. -- rigid hip abduction orthosis ordered; will limit abduction -- may WBAT LLE in abduction brace -- until brace delivered, continue abduction pillow between legs -- posterior hip precautions -- ice pack L hip as needed -- finish transfusion this evening, check H/H -- SCD RLE, lovenox for DVT prophy -- pain control: oral percocet for pain, with IV morphine for breakthrough -- encourage IS 10x/hr while awake -- PT/OT to eval once medically stable -- dispo planning: anticipate d/c to SNF vs home with home health
[2019-09-28 18:00] LABS: Hemoglobin 9.8 g/dL (12.2-16.2)
[2019-09-28 18:19] LABS: Microscopic, Urine URINE MICROSCOPIC (MICROSCOPIC)
[2019-09-28 18:22] LABS: Appearance,Urine CLEAR (Clear); Blood, Urine 3+ (Negative); Color,Urine YELLOW (Yellow); Glucose,Urine (UA) Negative (Negative); Ketones,Urine 2+ (Negative); Leukocyte Esterase,Urine 1+ (Negative); Nitrate,Urine Negative (Negative); PH,Urine 5.5 (5.0-8.5); Protein,Urine Negative (Negative); Specific Gravity, Urine >= 1.030 (1.005-1.030); Urobilinogen,Urine 0.2 EU/dl (0.2)
--- NOTE | 2019-09-28 18:26 | PC.NURSE ---
Addendum entered by Leisa Cr RN 09/28/19 18:29: abductor pillow in place at all times today. pt received a bath today. Original Note: pt alert to self, and situation at times. pt is pleasant. vasquez cath removed. pt has not urinated yet. new 20G placed in right ac with ns @75ml/hr. Dr. Mooney lifted pt fluid restriction. pt has been drinking quite a bit, md is aware. ordered a UA per straight cath, obtained and sent to lab. pt received 2 units of prbc today and tolerated well. pt cont. to be tachy on tele. dressings to left hip is CDI. pt has c/o pain t/o shift, meds given per mar. pt was not able to get up with PT today because of h&h. vss. will cont. to monitor.
[2019-09-28 18:30] LABS: Bilirubin,Urine Negative (Negative)
[2019-09-28 18:52] LABS: Bacteria,Urine Trace /lpf; RBC,Urine 20-50 #/hpf (0-3)
[2019-09-29] VITALS (9 sets, daily range): BP systolic 109–177; BP diastolic 58–89; PULSE 100–130; RESP 16–20; TEMP 36.7–37.4; O2SAT 95–99; BMI 27.5
--- NOTE | 2019-09-29 02:24 | PC.NURSE ---
Addendum entered by Jayleen Maloney RN 09/29/19 05:25: SINUS TACHYCARDIA ON TELE, PT HAS BEEN TURNED Q2 HOURS DUE TO HAVING TROUBLE TURNING HERSELF IN BED DUE TO ABDUCTOR PILLOW, PURWICK IN PLACE WITH CLEAR YELLOW URINE NOTED IN SUCTION CANISTER Original Note: A&OX4. PT HAS TOLERATED ROOM AIR WELL THROUGHOUT SHIFT. LUNG SOUNDS BILATERALLY CLEAR. NO COUGH NOTED. ENCOURAGED PT TO USE INCENTIVE SPIROMETER 10 TMES EVERY HOUR WHILE AWAKE. HEART RATE REGULAR. PT HAS REMAINED ON TELE THROUGHOUT SHIFT AND HAS BEEN NSR. HAND ENTERTAINER OR VARIETY ARTIST EQUAL. ACTIVE BOWEL SOUNDS HEARD IN ALL 4 QUADRANTS. PT HAS BEEN CHANGED BY AERODYNAMICS ENGINEER ONCE THIS SHIFT WITH INCONTINENCE OF URINE NOTED. NO BM TO REPORT THUS FAR. SOFT AND NONTENDER ABDOMEN. PT MOVES INDEPENDENTLY IN BED. SEIZURE PRECAUTIONS HAVE BEEN IN PLACE THROUGHOUT SHIFT. DRESSING NOTED TO L HIP R/T TOTAL HIP REPLACEMENT. CDI. ABDUCTOR PILLOW IN PLACE. ICE PACK HAS REMAINED IN PLACE NEXT TO L HIP. +1 PITTING EDEMA NOTED TO L FOOT. NS INFUSING AT 75 ML/HR. PT REPORTED PAIN AT BEGINNING OF SHIFT, RATING IT A 9/10. MORPHINE 5MG WAS ADMINISTERED AND ON REASSESSMENT, PT WAS RESTING W EYES CLOSED. BED ALARM ON THROUGHOUT SHIFT TO PROMOTE SAFETY. PT WAS YELLING OUT AT BEGINNING OF SHIFT AND WAS REMINDED TO USE CALL LIGHT. SINCE THEN, SHE SEEMS MORE RELAXED AND HAS USED THE CALL LIGHT NEEDED. PT CURRENTLY RESTING IN BED WITH CALL LIGHT WITHIN REACH. BED IN LOWEST POSITION. VSS. NO CONCERNS AT THIS TIME. WILL CONTINUE TO MONITOR.
[2019-09-29 06:10] LABS: Basophils % 0.2 % (0.1-2.0); Eosinophils # 0.1 K/mm3 (0.0-0.4); Eosinophils % 0.6 % (0.1-12.0); Hematocrit 25.9 % (37.0-47.0); Lymphocytes # 1.5 K/mm3 (0.7-4.5); Lymphocytes % 16.9 % (10-50); Mean Corpuscular Hemoglobin 31.9 pg (27.0-31.2); Mean Corpuscular Volume 93.7 fl (81-99); Mean Platelet Volume 7.8 fl (7.4-10.4); Monocytes # 0.6 K/mm3 (0.1-1.0); Monocytes % 7.2 % (1.7-9.3); Neutrophils # 6.5 K/mm3 (1.8-7.8); Neutrophils % 75.2 % (37.0-80.0); Platelet Count 334 K/mm3 (142-424); Red Blood Count 2.76 M/mm3 (4.20-5.40); Red Cell Distribution Width 14.7 % (11.5-17.5); White Blood Count 8.7 K/mm3 (4.8-10.8)
--- NOTE | 2019-09-29 06:11 | PC.NURSE ---
Addendum entered by Jayleen Maloney RN 09/29/19 06:13: from 09/27 to 09/28, no new orders Original Note: Dr. Jannette RIVERA health professional aware of 4.9lb weight gain.
[2019-09-29 06:12] LABS: Chloride 96 mmol/L (98-107)
[2019-09-29 06:13] LABS: Sodium 127 mmol/L (136-145)
[2019-09-29 06:15] LABS: Blood Urea Nitrogen 10 mg/dl (7-17); Creatinine Clearance Estimated 71 mL/min (50-200); Estimated Glomerular Filt Rate 124 ml/min (>60); GFR (African American) 150 ML/MIN (>60)
[2019-09-29 06:16] LABS: Calcium 7.8 mg/dl (8.4-10.2); Carbon Dioxide 21 mmol/L (22.0-30.0); Glucose 81 mg/dl (74-100)
[2019-09-29 06:28] LABS: Hemoglobin 8.9 g/dL (12.2-16.2)
--- NOTE | 2019-09-29 09:09 | CT_ITS ---
PROCEDURE: CT HEAD/BRAIN WO/W CON CLINICAL INDICATION: confusion and history of fall COMPARISON: No exams were available for comparison TECHNIQUE: IV Contrast: 100ML OPITRAY [address] Ax[address] images obtained[address] All CT scans at the facility use one or more dose reduction, viz: automated exposure control, ma/kV adjustment per patient size (including targeted exams where dose is matched to indication, i.e. head), or iterative reconstruction technique. FINDINGS: No midline shift, mass effect, intracranial hemorrhage, hydrocephalus, or extra-axial fluid collection is evident. There is mild/moderate diffuse cerebral atrophy with mild widening of the extra-axial spaces. There are areas of decreased attenuation within the white matter tracts of the supratentorial brain, compatible with microvascular disease changes. The calvarium has an unremarkable appearance. Mastoids Mildly opacified mastoid air cells. Atheromatous calcification of the cavernous internal carotid arteries. IMPRESSION: 1. No acute or enhancing intracranial pathology is identified. 2. Mild/moderate involutional changes of the brain. Periventricular white matter microvascular disease changes. Dictated by: Petra Carlton 09/29/2019 13:35 Electronically signed by Petra Carlton in [facility] 09/29/2019 13:35
--- NOTE | 2019-09-29 09:14 | HMH.ACPN2 ---
Internal Medicine - PN: Subj *Date: 09/29/19 *Time: 09:14 Interval history: Patient had a fairly uneventful night. The staff is noticing some confusion without overt agitation or combative behavior. I did decrease the interval of her Serax. She did relay excessive thirst while anemic. This seems to be normal. She is getting IV fluids, normal saline. Her sodium this morning was 127 which is about in her baseline range. She received 2 units of packed red blood cells, hemoglobin this morning is 8.9. Her color is better, she denies shortness of breath or chest pain. There is no suggestion of further loss. Her urinalysis showed 1+ leukocyte esterase. She had previously had a Harris for surgery. Culture is pending, Rocephin is on board. We were looking for factors that contribute to confusion. Because the patient had sustained a fall prior to coming here we are going to CT the brain. She has no focal motor deficits. She is anxious to go home. Plans for placement for rehab are underway. Reviewed Dr. Guerin's operative note and the postop x-rays. I saw Roxy yesterday morning, and then again last evening. Confusion is improving. She looks somewhat better this morning. Exam Vital signs and Labs for Last 24 Hours: Temp Pulse Resp BP Pulse Ox 99.1 F 115 H 18 168/87 H 95 09/29/19 07:43 09/29/19 08:00 09/29/19 07:43 09/29/19 07:43 09/29/19 07:43 Laboratory Results - last 24 hr 09/27/19 06:03: Blood Type O Positive, Antibody Screen Negative, Crossmatch (AHG) See Detail 09/28/19 10:29: Ammonia < 9 L 09/28/19 17:22: Hgb 9.8 L D, Hct 29.0 L 09/28/19 18:07: Urine Color Yellow, Urine Appearance Clear, Urine pH 5.5, Ur Specific [place] >= 1.030, Urine Protein Negative, Urine Glucose (UA) Negative, Urine Ketones 2+, Urine Blood 3+, Urine Nitrate Negative, Urine Bilirubin Negative, Urine Urobilinogen 0.2, Ur Leukocyte Esterase 1+ A, Urine RBC 20-50, Urine WBC 3-5, Ur Squamous Epith Cells 10-20, Urine Bacteria Trace 09/29/19 05:50: WBC 8.7 D, RBC 2.76 L D, Hgb 8.9 L, Hct 25.9 L, MCV 93.7, MCH 31.9 H, MCHC 34.0, RDW 14.7, Plt Count 334, MPV 7.8, Neut % (Auto) 75.2, Lymph % (Auto) 16.9, [place] % (Auto) 7.2, Eos % (Auto) 0.6, Baso % (Auto) 0.2, Neut # (Auto) 6.5, Lymph # (Auto) 1.5, [place] # (Auto) 0.6, Eos # (Auto) 0.1, Baso # (Auto) 0.0 09/29/19 05:50: Sodium 127 L, Potassium 4.0, Chloride 96 L, Carbon Dioxide 21 L, Anion Gap 14.0, BUN 10, Creatinine 0.50 L, Estimated Creat Clear 71, Estimated GFR 124, Est GFR ( Amer) 150 D, Glucose 81, Calcium 7.8 L I & O for Last 24 hours: Intake & Output 09/26/19 09/27/19 09/28/19 09/29/19 23:59 23:59 23:59 23:59 Intake Total 1621 / 1621 3168 / 3168 2509 / 2509 1072 / 1072 Output Total 1350 / 1350 650 / 650 490 / 490 Balance 271 / 271 2518 / 2518 2018 1072 / 1072 Weight 167 lb 6 oz 167 lb 0.01 oz 170 lb 4 oz 175 lb 3 oz Microbiology Reports for the Last 24 Hours: Microbiology 09/28/19 18:07 Urine,Catheterized Urine Culture - Preliminary - Constitutional no acute distress - *Routine HEENT Exam Head: Present: normocephalic, atraumatic Eye: Present: EOMI. Absent: conjunctival icterus, periorbital ecchymosis, nystagmus ENT: Present: mucous membranes moist - *Routine Neck Exam Present: supple, full ROM, trachea midline. Absent: swelling - *Routine Respiratory Exam Present: CTA bilaterally. Absent: accessory muscle use - *Routine Cardiovascular Exam Present: RRR, Normal S1, Normal S2. Absent: murmur - *Routine Abdominal Exam Present: soft. Absent: tenderness - *Routine Extremities Exam Present: edema (mild and symmetric edema), tenderness - *Routine Skin Exam Present: intact. Absent: cyanosis, jaundice - *Routine Neurological Exam Present: alert. Absent: oriented X3, facial asymmetry, tremors (less confused than yesterday) Assessment and Plan (1) Fracture of femoral neck, left, closed Current visit: Yes Status: Acute Category:
--- NOTE | 2019-09-29 10:27 | P.PN_ITS ---
Subjective Date: 09/29/19 Time: 10:30 Principal diagnosis: L femoral neck fracture Interval history: No acute events reported overnight. The patient has responded well to transfusion. She appears more clear-headed this morning and is sitting in bedside chair watching TV. L hip is sore but pain much improved. PN: Obj Ex Vital signs: Temp Pulse Resp BP Pulse Ox 99.1 F 115 H 18 168/87 H 95 09/29/19 07:43 09/29/19 08:00 09/29/19 07:43 09/29/19 07:43 09/29/19 07:43 - Constitutional no acute distress - Routine HEENT Exam Head: Present: normocephalic Eye: Present: EOMI ENT: Present: mucous membranes moist - Routine Respiratory Exam Absent: respiratory distress, wheezes - Routine Cardiovascular Exam Present: RRR - Routine Abdominal Exam Present: soft. Absent: tenderness - Routine Extremities Exam Comments: hip abduction pillow in place between patient's legs dressing L hip c/d/i, no strikethrough +DF/PF/EHL LLE SILT distally LLE in all distributions palpable pedal pulses LLE, foot warm/pink L calf soft, non-tender, negative Floridalma's - Routine Skin Exam Present: warm - Routine Neurological Exam Present: moving all extremities, normal tone, vision grossly intact, hearing grossly intact. Absent: sensory deficit, motor deficit - Urinary Catheter Management Harris Cath placed during this visit: yes Urethral indwelling: No Insertion date: 09/20/19 Progress Note: A&P (1) Fracture of femoral neck, left, closed Status: Acute Current Visit: Yes (2) Alcohol abuse Status: Acute Current Visit: Yes (3) Hypokalemia Status: Resolved Current Visit: Yes (4) Hyponatremia Status: Acute Current Visit: Yes (5) COPD (chronic obstructive pulmonary disease) Status: Chronic Current Visit: No (6) Hypertension Status: Chronic Current Visit: No (7) Right bundle branch block (RBBB) on electrocardiogram (ECG) Status: Acute Current Visit: Yes (8) Tobacco abuse Status: Acute Current Visit: Yes (9) Lumbar back pain with radiculopathy affecting lower extremity Status: Chronic Current Visit: No Assessment and Plan for All Diagnoses:: 64yo F POD 2 s/p L KILLIAN for chronic, displaced femoral neck fracture. Small non- displaced greater trochanter fracture intra-op, fixed with hook plate/cables. -- rigid hip abduction orthosis ordered; will limit abduction. Anticipate delivery today, fitting tomorrow. -- may WBAT LLE in abduction brace -- continue abduction pillow between legs -- posterior hip precautions -- ice pack L hip as needed -- SCD RLE, lovenox for DVT prophy -- pain control: oral percocet for pain, with IV morphine for breakthrough -- encourage IS 10x/hr while awake -- PT/OT to continue -- dispo planning: anticipate d/c to [facility] Friday, has been accepted at [facility]
--- NOTE | 2019-09-29 10:44 | HMH.OTEV ---
OT Inpatient Evaluation Rehab OT IP Evaluation Start: 09/27/19 18:29 Freq: ONCE Status: Complete Protocol: Document 09/29/19 09:50 SE (Rec: 09/29/19 10:00 SE [id number]) Rehab OT IP Assessment Subjective History 64 year old female admitted on 09/22/19 for having a fx of the femoral neck and s/p L KILLIAN during surgery. Patient was admitted to high alcohol levels and completed surgery after stable conditions. PMH: hyponatremia, COPD, HTN, RBBB and alcohol abuse. WBAT to LLE . Subjective ummmm my birthday, I can't remember. Objective Patient Orientation Name Upper Extremity Gross ROM WNL Bed Mobility bed mobility - supine/sit,bed mobility - rolling Assist Level Maximum x 1 (75% assist) Transfer Training Sit/Stand Transfer,Sit/Stand/ Step Transfer,Sit/Stand/Pivot Transfer Assist Level Maximum x 2 (75% assist) Chair Transfer Ability Maximum x 2 (75% assist) Chair Transfer Technique Stand Step Pivot Chair Transfer Assistive Devices Standard Walker Rehab OT IP prob,goals,plan Problems Date of Evaluation: 09/29/19 OT IP Problems Bed Mobility,Transfers,Balance ,Self care,Safety Rehab Potential Rehab Potential Good Equipment Needs Assistive Devices Standard Walker Plan OT intervention Plan Bed Mobility,Transfers,Balance ,Self care,Therapeutic Exercise OT Plan Frequency Daily Duration LOS Discharge Goals Bed Mobility Ability Assistance x1 Sit to Stand Chair Transfer Ability Minimal x 1 (25% assist) Chair Transfer Ability Minimal x 1 (25% assist) Chair Transfer Technique Stand Step Pivot Chair Transfer Assistive Devices Standard Walker Self care skills fully toilet trained Feeding Ability Independent Lower Body Dressing Ability Assistance X1 Upper Body Dressing Ability Assistance X1 Bathing Ability Assistance x1 Performing Toilet Hygiene Ability Assistance X1 Overall Commode/Toilet Transfer Ability Assistance x1 Commode/Toilet Transfer Technique Sit to/from Ambulatory Commode/Toilet Transfer Assistive Raised Toilet Seat Devices Oral Care Ability With Assistance decr
--- NOTE | 2019-09-29 11:54 | HMH.PTEV ---
Physical Therapy Evaluation Rehab PT IP Evaluation Start: 09/27/19 18:29 Freq: ONCE Status: Active Protocol: Document 09/29/19 11:47 ANG (Rec: 09/29/19 11:53 ANG [id number]) Subjective/History History History THis is the initial IP PT evaluation for Roxy Addison. Pt is a 64 y/o female who fell at home causing a femoral neck fx. Pt required surgical intervention to fixate fx. Pt had L KILLIAN. Pt had sig low sodium so sx had to be postponed until Na levels were WNL. Pt has hx of ETOH abuse Subjective Subjective Pt reports no c/o pain, just weakness in hip Rehab PT IP Eval Objective Appearance Patient Behavior Confused Patient Orientation Person,Year Difficulty following instructions mild Speech Pattern Clear Ambulation Patient Able to Ambulate No Balance Ability to Arise Unable Sitting Balance Steady, safe Standing Balance Unsteady Dynamic Sitting Balance Ability Fair Dynamic Standing Balance Ability Poor Transfers Chair Transfer Ability Minimal x 1 (25% assist) Sit to Stand Bed Transfer Ability Maximum x 1 (75% assist) Sit to Stand Chair Transfer Ability Maximum x 1 (75% assist) Rehab PT IP prob,goals,plan Problems Date of Evaluation: 09/29/19 PT IP Problems Bed Mobility,Transfers,Gait, Balance,Safety Rehab Potential Rehab Potential Fair Equipment Needs Assistive Devices Rolling / Wheeled Walker Plan PT Intervention Plan Bed Mobility,Transfers,Gait, Balance,Self care,Safety, Therapeutic Exercise PT Plan Frequency BID Duration LOS Discharge Goals Bed Transfer Ability Minimal x 1 (25% assist) Sit to Stand Chair Transfer Ability Maximum x 1 (75% assist) Ambulation Assistive Device Rolling Walker Ambulation Distance (feet) 5 Discharge Plan PT Discharge Plan Due to Pt's confusion, hx of ETOH abuse, and level of dependence pt would benefit from SNF placement for rehab to allow decresed burden of care and increased independence. G -code Required Yes Eval Complexity Eval Charge Codes
--- NOTE | 2019-09-29 18:32 | PC.NURSE ---
PATIENT ALERT TO SELF. THRU THIS RN SHIFT PATIENT HAS BEEN CONFUSED, ANXIOUS, BELLIGERENT,IMPULSIVE AND DEMANDING. AT 1600 PATIENT REMOVED HER DRESSING FROM SURGICAL SITE, DR. HERR AWARE AND ORDERED TO APPLY NEW DRESSING. PATIENT CONTINUES TO REMOVE HER ABDUCTION PILLOW AND PULL OUT VELCRO STRAPS. THIS RN ALONG WITH 2 SRNAS AND ANOTHER RN ASSISTED PATIENT FROM CHAIR TO BEDSIDE COMMODE WITH A WALKER. PATIENT IS UNSTEADY AND WILL NOT MOVE HER LEGS OR LIFT HER FEET WHEN ADVISED TO FOR AMBULATION. NO OTHER CONCERNS AT THIS TIME.
--- NOTE | 2019-09-29 18:59 | PC.NURSE ---
report given to jeremy
--- NOTE | 2019-09-29 23:41 | PC.NURSE ---
during initial assesment, pt was yelling out into hallway, cursing and making inappropriate remarks about males walking in hallway, PRN haldol given. an hour later above mentioned behavior continued, additional PRN haldol given. an hour later pt lying in bed, awake and oriented and calm, rating pain at 10 on pain scale, PRN pain medication given
[2019-09-30] VITALS (11 sets, daily range): BP systolic 139–171; BP diastolic 71–97; PULSE 90–120; RESP 17–18; TEMP 36.6–36.9; O2SAT 93–99; BMI 26.8
--- NOTE | 2019-09-30 09:00 | HMH.ACPN2 ---
Internal Medicine - PN: Subj *Date: 09/30/19 *Time: 09:00 Interval history: Patient alert and oriented sitting up in bed states she feels better today using incentive spirometer Exam Vital signs and Labs for Last 24 Hours: Temp Pulse Resp BP Pulse Ox 97.8 F 120 H 18 139/90 93 L 09/30/19 07:35 09/30/19 08:00 09/30/19 07:35 09/30/19 07:35 09/30/19 08:37 I & O for Last 24 hours: Intake & Output 09/27/19 09/28/19 09/29/19 09/30/19 11:59 11:59 11:59 11:59 Intake Total 1088 / 1088 3229 / 3229 2652 / 2652 3303 / 3303 Output Total 1550 / 1550 215 / 215 275 / 275 3450 / 3450 Balance -462 / -462 3014 / 3014 2377 / 2377 -147 / -147 Weight 167 lb 0.01 oz 170 lb 4 oz 175 lb 3 oz 171 lb 0.999 oz Microbiology Reports for the Last 24 Hours: Microbiology 09/28/19 18:07 Urine,Catheterized Urine Culture - Preliminary - Constitutional no acute distress - *Routine HEENT Exam Head: Present: normocephalic Eye: Present: PERRL ENT: Present: mucous membranes moist - *Routine Neck Exam Present: supple. Absent: lymphadenopathy - *Routine Respiratory Exam Present: CTA bilaterally - *Routine Cardiovascular Exam Present: RRR - *Routine Abdominal Exam Present: soft, normoactive bowel sounds. Absent: tenderness - *Routine Extremities Exam Present: SHARYN stockings. Absent: cyanosis, clubbing, edema Comments: Dressing to hip clean dry and intact - *Routine Skin Exam Present: warm. Absent: rash Comments: Dressing to hip clean dry and intact - *Routine Neurological Exam Present: alert, oriented X3 - Routine Psychiatric Exam Present: normal affect Assessment and Plan (1) Fracture of femoral neck, left, closed Current visit: Yes Status: Acute Category: Medical Code(s): S72.002A - Fracture of unspecified part of neck of left femur, initial encounter for closed fracture (2) Alcohol abuse Current visit: Yes Status: Acute Category: Social Hx Code(s): F10.10 - Alcohol abuse, uncomplicated (3) Hypokalemia Current visit: Yes Status: Resolved Category: Medical Code(s): E87.6 - Hypokalemia (4) Hyponatremia Current visit: Yes Status: Acute Category: Medical Code(s): E87.1 - Hypo-osmolality and hyponatremia (5) COPD (chronic obstructive pulmonary disease) Current visit: No Status: Chronic Qualifiers: COPD type: unspecified COPD Qualified Code(s): J44.9 - Chronic obstructive pulmonary disease, unspecified Category: Medical Code(s): J44.9 - Chronic obstructive pulmonary disease, unspecified (6) Hypertension Current visit: No Status: Chronic Qualifiers: Hypertension type: essential hypertension Qualified Code(s): I10 - Essential (primary) hypertension Category: Medical Code(s): I10 - Essential (primary) hypertension (7) Right bundle branch block (RBBB) on electrocardiogram (ECG) Current visit: Yes Status: Acute Category: Medical Code(s): I45.10 - Unspecified right bundle-branch block (8) Tobacco abuse Current visit: Yes Status: Acute Category: Medical Code(s): Z72.0 - Tobacco use (9) Lumbar back pain with radiculopathy affecting lower extremity Current visit: No Status: Chronic Category: Medical Code(s): M54.16 - Radiculopathy, lumbar region - Assessment and plan all Dx Assessment and Plan for all problems:: rounded with Dr Mooney all orders per dr Vinicio rodrigues to [place] tomorrow for rehab if ok by ortho
[2019-09-30 09:09] LABS: Basophils % 0.2 % (0.1-2.0); Eosinophils # 0.1 K/mm3 (0.0-0.4); Eosinophils % 0.7 % (0.1-12.0); Hemoglobin 9.8 g/dL (12.2-16.2); Lymphocytes # 1.2 K/mm3 (0.7-4.5); Mean Corpuscular HGB Conc 33.7 g/dL (31.8-35.4); Mean Corpuscular Hemoglobin 32.2 pg (27.0-31.2); Mean Corpuscular Volume 95.5 fl (81-99); Mean Platelet Volume 7.1 fl (7.4-10.4); Monocytes # 0.5 K/mm3 (0.1-1.0); Monocytes % 5.4 % (1.7-9.3); Neutrophils # 7.3 K/mm3 (1.8-7.8); Neutrophils % 80.6 % (37.0-80.0); Platelet Count 384 K/mm3 (142-424); Red Blood Count 3.04 M/mm3 (4.20-5.40); Red Cell Distribution Width 14.3 % (11.5-17.5); White Blood Count 9.1 K/mm3 (4.8-10.8)
--- NOTE | 2019-09-30 09:16 | P.PN_ITS ---
Subjective Date: 09/30/19 Time: 09:00 Principal diagnosis: L femoral neck fracture Interval history: The patient is currently being fitted with rigid abduction orthosis. She became agitated yesterday afternoon and pulled her surgical dressing off. Incision was clean and dry, no drainage, no ecchymosis/erythema. She is currently comfortable without significant pain in the L hip. PN: Obj Ex Vital signs: Temp Pulse Resp BP Pulse Ox 97.8 F 120 H 18 139/90 93 L 09/30/19 07:35 09/30/19 08:00 09/30/19 07:35 09/30/19 07:35 09/30/19 08:37 - Constitutional no acute distress - Routine HEENT Exam Head: Present: normocephalic Eye: Present: EOMI ENT: Present: mucous membranes moist - Routine Respiratory Exam Present: CTA bilaterally. Absent: wheezes - Routine Cardiovascular Exam Present: RRR - Routine Abdominal Exam Present: soft. Absent: tenderness - Routine Extremities Exam Comments: hip abduction orthosis in place, patient sitting on side of bed with nurse and orthosis company rep being fitted surgical incision L hip c/d/i, no drainage, no erythema +DF/PF/EHL LLE SILT distally LLE in all distributions palpable pedal pulses LLE, foot warm/pink L calf soft, non-tender, negative Floridalma's - Routine Skin Exam Present: warm - Routine Neurological Exam Present: alert, oriented X3, moving all extremities, normal tone, vision grossly intact, hearing grossly intact, normal speech. Absent: sensory deficit, motor deficit, altered mental status - Routine Psychiatric Exam Present: cooperative - Urinary Catheter Management Harris Cath placed during this visit: yes Urethral indwelling: No Insertion date: 09/20/19 Progress Note: A&P (1) Fracture of femoral neck, left, closed Status: Acute Current Visit: Yes (2) Alcohol abuse Status: Acute Current Visit: Yes (3) Hypokalemia Status: Resolved Current Visit: Yes (4) Hyponatremia Status: Acute Current Visit: Yes (5) COPD (chronic obstructive pulmonary disease) Status: Chronic Current Visit: No (6) Hypertension Status: Chronic Current Visit: No (7) Right bundle branch block (RBBB) on electrocardiogram (ECG) Status: Acute Current Visit: Yes (8) Tobacco abuse Status: Acute Current Visit: Yes (9) Lumbar back pain with radiculopathy affecting lower extremity Status: Chronic Current Visit: No Assessment and Plan for All Diagnoses:: 64yo F POD 3 s/p L KILLIAN for chronic, displaced femoral neck fracture. Small non- displaced greater trochanter fracture intra-op, fixed with hook plate/cables. -- rigid hip abduction orthosis fitted this morning, wear at all times. May only remove for hygeine. -- may WBAT LLE in abduction brace -- continue abduction pillow between legs while in bed -- posterior hip precautions -- ice pack L hip as needed -- SCD RLE, lovenox for DVT prophy -- pain control: oral percocet for pain, with IV morphine for breakthrough -- encourage IS 10x/hr while awake -- PT/OT to continue -- dispo planning: anticipate d/c to [facility] Friday, has been accepted at [facility]
[2019-09-30 09:17] LABS: Chloride 95 mmol/L (98-107); Potassium 3.3 mmoL/L (3.5-5.1); Sodium 127 mmol/L (136-145)
[2019-09-30 09:20] LABS: Alanine Aminotransferase 14 U/L (12-78); Albumin Level 2.5 g/dl (3.5-5.0); Bilirubin,Total 0.4 mg/dl (0.2-1.3); Blood Urea Nitrogen 5 mg/dl (7-17); Creatinine Clearance Estimated 70 mL/min (50-200); Estimated Glomerular Filt Rate 161 ml/min (>60); GFR (African American) 194 ML/MIN (>60)
[2019-09-30 09:27] LABS: Albumin/Globulin Ratio 0.9 (1.1-1.8); Alkaline Phosphatase 115 U/L (38-126); Anion Gap 8.3 mEq/L (5-15); Aspartate Amino Transferase 30 U/L (14-36); Calcium 7.9 mg/dl (8.4-10.2); Carbon Dioxide 27 mmol/L (22.0-30.0); Globulin 2.9 g/dL (1.3-3.2); Glucose 136 mg/dl (74-100); Total Protein,Serum 5.4 g/dl (6.3-8.2)
--- NOTE | 2019-09-30 17:08 | PC.NURSE ---
PT IS AO*2. AT TIMES PT HAS BEEN IMPULSIVE AND DEMANDING. PT DID NOT TOLERATE AMBULATION WELL, PT WOULD NOT MOVE LEGS AND COULD NOT TOLERATE STANDING FOR SHORT PERIODS WITH WALKER BUT DOES NOT COMPLAIN OF PAIN WITH AMBULATION OR AT REST, NO PAIN MEDS T/O SHIFT. PT LUNG SOUNDS CLEAR, NO N/V/D NOTED, BATH AND BM THIS SHIFT. VSS, WILL CONTINUE TO MONITOR
[2019-10-01] VITALS (7 sets, daily range): BP systolic 138–163; BP diastolic 74–90; PULSE 105–120; RESP 16–19; TEMP 36.6–37; O2SAT 95–98; BMI 26.8
--- NOTE | 2019-10-01 04:28 | PC.NURSE ---
A&OX4. PT HAS TOLERATED ROOM AIR WELL THROUGHOUT SHIFT. RESPIRATIONS REGULAR AND UNLABORED. LUNG SOUNDS BILATERALLY CLEAR. NO COUGH NOTED. +1 PITTING EDEMA NOTED TO BLE. SCUD IN USE TO R LEG. DRESSING NOTED TO L HIP R/T HIP REPAIR. CDI. PAIN REPORTED ONCE THIS SHIFT RATING 9/10. PERCOCET WAS ADMINISTERED AND ON REASSESSMENT, PT WAS RESTING W EYES CLOSED. ICE PACK IN PLACE NEXT TO L HIP THROUGHOUT SHIFT. ABDUCTOR BRACE AND ABDUCTOR PILLOW IN PLACE THROUGHOUT SHIFT. +2 PULSES NOTED THROUGHOUT. ACTIVE BOWEL SOUNDS HEARD IN ALL 4 QUADRANTS. SOFT AND NONTENDER ABDOMEN. PURWICK IN PLACE W CLEAR YELLOW URINE NOTED IN SUCTION CANISTER. SEIZURE PRECAUTIONS IN PLACE. BED ALARM ON TO PROMOTE SAFETY. PT TURNED Q2 HOURS TO PREVENT SKIN BREAKDOWN. PT CURRENTLY RESTING IN BED W CALL LIGHT WITHIN REACH. BED IN LOWEST POSITION. VSS. NO CONCERNS AT THIS TIME. WILL CONTINUE TO MONITOR.
[2019-10-01 08:13] LABS: Basophils % 0.3 % (0.1-2.0); Eosinophils # 0.1 K/mm3 (0.0-0.4); Eosinophils % 1.3 % (0.1-12.0); Hematocrit 29.4 % (37.0-47.0); Hemoglobin 9.7 g/dL (12.2-16.2); Lymphocytes # 1.4 K/mm3 (0.7-4.5); Lymphocytes % 16.4 % (10-50); Mean Corpuscular HGB Conc 33.1 g/dL (31.8-35.4); Mean Corpuscular Hemoglobin 31.6 pg (27.0-31.2); Mean Corpuscular Volume 95.3 fl (81-99); Mean Platelet Volume 8.1 fl (7.4-10.4); Monocytes # 0.5 K/mm3 (0.1-1.0); Monocytes % 5.4 % (1.7-9.3); Neutrophils # 6.6 K/mm3 (1.8-7.8); Neutrophils % 76.7 % (37.0-80.0); Platelet Count 456 K/mm3 (142-424); Red Blood Count 3.09 M/mm3 (4.20-5.40); Red Cell Distribution Width 14.3 % (11.5-17.5); White Blood Count 8.6 K/mm3 (4.8-10.8)
[2019-10-01 08:31] LABS: Chloride 95 mmol/L (98-107); Potassium 3.5 mmoL/L (3.5-5.1); Sodium 127 mmol/L (136-145)
[2019-10-01 08:34] LABS: Anion Gap 9.5 mEq/L (5-15); Blood Urea Nitrogen 3 mg/dl (7-17); Carbon Dioxide 26 mmol/L (22.0-30.0); Creatinine Clearance Estimated 69 mL/min (50-200); Estimated Glomerular Filt Rate 224 ml/min (>60); GFR (African American) 271 ML/MIN (>60); Glucose 116 mg/dl (74-100)
--- NOTE | 2019-10-01 09:55 | HMH.DCSUM ---
General - General Admission date:: 09/20/19 Discharge date: 10/01/19 HPI HPI: 64-year-old female patient presented to the emergency room for complaints of left hip pain. She reports that she had a syncopal episode 2 weeks ago and fell hitting her left side. Since then she has complained of left hip pain and has spent the majority of time since then on her couch. She also reports smoking 2 packs of cigarettes a day for unknown amount of years and drinking 5 to 6 16 ounce beers daily. She rates pain as an 8 out of 10, she can move her left lower extremity but cannot do so without pain. Chest x-ray in the ED was normal, left hip x-ray revealed a displaced and foreshortened left femoral neck fracture. Left hip CT revealed comminuted displaced left femoral neck fracture with subcapital component superiorly at the femoral neck extending to the transcervical region along the inferior aspect of the femoral neck Lab work revealed a sodium level of 111, potassium level 2.9. After fluids during the night and potassium replacement a.m. labs sodium 121 potassium 4.1 Ortho seen and rec: Plan: -- NPO after midnight tonight in the event she is able to proceed with surgery tomorrow -- continue IVF, slowly correcting sodium level; orders placed by ER/PCP -- pre-op prophy antibiotics ordered on hold to OR -- SCDs BLE -- encourage incentive spirometer perioperatively -- bed rest, vasquez catheter tonight Cards has seen and recommends: 1. Elevated troponin in the setting of hyponatremia, hypokalemia and elevated alcohol level. Preliminary echocardiogram shows preserved ejection fraction. Discussed with Dr. Drake and would recommend postponing surgery today to allow the patient's sodium to correct at a slower rate due to concern for central pontine myelinolysis (CPM). I have stopped saline infusion at this time. No further cardiac work-up as an inpatient at this time. Consider outpatient stress testing in the near future. 2. History of syncope with abnormal EKG with right bundle branch block. No high-grade arrhythmias or significant bradycardia noted on telemetry thus far. Continue to monitor but likely syncope related to ETOH abuse. Repeat EKG today . 3. History of alcohol abuse, concern for DT's. 4. Hypokalemia, corrected 5. Severe hyponatremia, improving but caution advised in replacing too quickly due to concern for CPM. 6. Hypertension, controlled 7. Left femur fracture, occurred 3 weeks ago. Continue DVT/PE prophylaxis with lovenox. Hospital Course Hospital Course: ortho note:Assessment and Plan for All Diagnoses:: 64yo F POD 3 s/p L KILLIAN for chronic, displaced femoral neck fracture. Small non-displaced greater trochanter fracture intra-op, fixed with hook plate/cables. -- rigid hip abduction orthosis fitted this morning, wear at all times. May only remove for hygeine. -- may WBAT LLE in abduction brace -- continue abduction pillow between legs while in bed -- posterior hip precautions -- ice pack L hip as needed -- SCD RLE, lovenox for DVT prophy -- pain control: oral percocet for pain, with IV morphine for breakthrough -- encourage IS 10x/hr while awake -- PT/OT to continue -- dispo planning: anticipate d/c to SNF Friday, has been accepted at [facility] Tests 09/20/19 09/20/19 09/20/19 14:00 14:25 14:25 WBC 10.5 RBC 3.34 L Hgb 10.4 L Hct 30.8 L MCV 92.1 MCH 31.1 MCHC 33.8 RDW 12.6 Plt Count 337 MPV 7.2 L Neut % (Auto) 81.8 H Lymph % (Auto) 12.0 [place] % (Auto) 5.8 Eos % (Auto) 0.4 Baso % (Auto) 0.0 L Neut # (Auto) 8.6 H Lymph # (Auto) 1.3 [place] # (Auto) 0.6 Eos # (Auto) 0.1 Baso # (Auto) 0.0 Total Counted Neutrophils % (Manual) Lymphocytes % (Manual) Platelet Estimate RBC Morphology Target Cells PT INR APTT Sodium 109 L* Potassium 2.9 L* Chloride 73 L Carbon Dioxide 25 Anion Gap 13.9 BUN
--- NOTE | 2019-10-01 11:46 | SW/DCPLANNER ---
Addendum entered by [facility] 10/05/19 09:54: I have made several attempts to contact this patient/daughter (Jolene) regarding beginning home health services for this patient: no answer or call back. Anselmo with [facility] has been notified and services will not begin for this patient. I will make sure to inform Dr Mooney and Dr Guardado. Addendum entered by [facility] 10/04/19 09:19: Anselmo with [facility] has contacted me regarding not being able to contact this patient. Anselmo has spoke with patients daughter (Jolene) whom is aware that they can not get ahold of this patient. I have attempted to contact patient this morning: straight to voicemail, no answer and I did leave a voicemail for this patient to contact me back. Addendum entered by [facility] 10/01/19 14:07: Melissa with [facility] has called and confirmed patient information has been reviewed and services will begin tomorrow 10/01 for this patient. Addendum entered by [facility] 10/01/19 13:35: Patients S.O. is here to transport her home. Addendum entered by [facility] 10/01/19 12:01: Patient information has been faxed to [facility]. Original Note: After various discussion with patient, myself and Beet Worker (Laron Wiley) this patient has decided to discharge home and refuse placement at [facility]. I have discussed with this patient how this is NOT a safe plan due to not being able to ambulate well. Patient continuously refuses placement. Patient is agreeable to home health services. Patient stated that she does have a walker and a wheelchair at home. Patients boyfriend (Garth) is agreeable to come pick this patient up to transport her home. I will set patient up with home health services. I have informed MDs of this discharge plan.
--- NOTE | 2019-10-01 11:57 | P.PN_ITS ---
Subjective Date: 10/01/19 Time: 11:30 Principal diagnosis: L femoral neck fracture Interval history: The patient is doing well, had planned on d/c to SNF today but she is now refusing placement. PN: Obj Ex Vital signs: Temp Pulse Resp BP Pulse Ox 98.2 F 109 H 18 138/76 98 10/01/19 11:23 10/01/19 11:23 10/01/19 11:23 10/01/19 11:23 10/01/19 11:23 - Constitutional no acute distress - Routine HEENT Exam Head: Present: normocephalic Eye: Present: EOMI ENT: Present: mucous membranes moist - Routine Respiratory Exam Absent: respiratory distress, wheezes - Routine Cardiovascular Exam Present: RRR - Routine Extremities Exam Comments: hip abduction orthosis in place, patient sitting on side of bed with nurse and orthosis company rep being fitted surgical incision L hip c/d/i, no drainage, no erythema +DF/PF/EHL LLE SILT distally LLE in all distributions palpable pedal pulses LLE, foot warm/pink L calf soft, non-tender, negative Floridalma's - Urinary Catheter Management Harris Cath placed during this visit: yes Urethral indwelling: No Insertion date: 09/20/19 Progress Note: A&P (1) Fracture of femoral neck, left, closed Status: Acute Current Visit: Yes (2) Alcohol abuse Status: Acute Current Visit: Yes (3) Hypokalemia Status: Resolved Current Visit: Yes (4) Hyponatremia Status: Acute Current Visit: Yes (5) COPD (chronic obstructive pulmonary disease) Status: Chronic Current Visit: No (6) Hypertension Status: Chronic Current Visit: No (7) Right bundle branch block (RBBB) on electrocardiogram (ECG) Status: Acute Current Visit: Yes (8) Tobacco abuse Status: Acute Current Visit: Yes (9) Lumbar back pain with radiculopathy affecting lower extremity Status: Chronic Current Visit: No Assessment and Plan for All Diagnoses:: 64yo F POD 4 s/p L KILLIAN for chronic, displaced femoral neck fracture. Small non- displaced greater trochanter fracture intra-op, fixed with hook plate/cables. -- WBAT LLE in abduction brace -- continue abduction pillow between legs while in bed -- posterior hip precautions -- ice pack L hip as needed -- SCD RLE, lovenox for DVT prophy -- pain control: oral percocet for pain, with IV morphine for breakthrough -- encourage IS 10x/hr while awake -- PT/OT to continue -- dispo planning: has been accepted at [facility] and plan was for transfer today. She is now refusing placement. I do not agree with this decision and believe she is very high risk for hip dislocation, falls, or another fracture if she returns home. Home health is to be arranged and I will see her back in clinic in 2 weeks as long as she remains injury-free.
[2019-10-01 13:26] LABS: Covid-19 Nasal PCR Sendout Lex Not Detected
--- NOTE | 2019-10-01 13:45 | HMH.PHAINT ---
DISCHARGE EDUCATION PROVIDED. [facility] CALLED INTO [facility] BY LINDY GARZA AFTER PT DECIDED TO GO HOME VS NURSING CARE FACILITY. DISCUSSED WITH FAMILY MEMBER IN ROOM.
--- NOTE | 2019-10-01 13:47 | PC.NURSE ---
Notified Dr Mooney that patient needed DVT prophy on DC. He stated he would call [facility] into [place] pharmacy. Went of DC instructions with patient and her brother
== END 2019-10-01 13:47 | disposition home health service (06) | DRG 470 ==
LOC: ER 17:23 → 2ND 22:50
PROVIDERS: Family Medicine; Nurse Practitioner Family; Orthopaedic Surgery; Physician Assistant; Admitting Provider Family Medicine; Emergency Provider Family Medicine; PCP Physician Assistant; Visit Provider Emergency Medicine
PROC: (CPT 27130; principal; 2019-09-27 07:30)
DX: S72.012A Unspecified intracapsular fracture of left femur, initial encounter for closed fracture (principal); M96.69 Fracture of other bone following insertion of orthopedic implant, joint prosthesis, or bone plate; S72.115A Nondisplaced fracture of greater trochanter of left femur, initial encounter for closed fracture; W01.0XXA Fall on same level from slipping, tripping and stumbling without subsequent striking against object, initial encounter; Z91.81 History of falling; I10 Essential (primary) hypertension; F10.10 Alcohol abuse, uncomplicated; Z72.0 Tobacco use; E87.6 Hypokalemia; J44.9 Chronic obstructive pulmonary disease, unspecified; I45.10 Unspecified right bundle-branch block; M54.16 Radiculopathy, lumbar region; D64.9 Anemia, unspecified
CPT/HCPCS: 27130; 27248; 36415; 70470; 71045; 73502; 73700; 80048; 80053; 80305; 81001; 82140; 82272; 82306; 82550; 82553; 83735; 84100; 84295; 84436; 84443; 84484; 85007; 85014; 85018; 85025; 85610; 85730; 86328; 86850; 87086; 87088; 87186; 93005; 93306; 93308; 94640; 94760; 94761; 96365; 96366; 96375; 96376; 97110; 97162; 97165; 97530; 99285; C1713; C1776; G0328; J0697; J2405; J2704; P9016; Q9967; U0004

== ENCOUNTER 2019-10-06 14:03 | Inpatient (IN) | payer MEDICAID, SELFPAY ==
[2019-10-06] VITALS (22 sets, daily range): BP systolic 75–117; BP diastolic 41–68; PULSE 88–99; RESP 16–20; TEMP 36.5–36.8; O2SAT 93–99; BMI 23.3
--- NOTE | 2019-10-06 14:27 | XR_ITS ---
PROCEDURE: XR CHEST PORTABLE CLINICAL HISTORY: cough COMPARISON: CR XR CHEST AP from 09/20/2019 FINDINGS: The cardiomediastinal silhouette and pulmonary vascularity are within normal limits. There are atelectatic changes in the right lung base. The remaining lungs are clear aside from a nodular opacity overlying the left lower lobe which may be due to nipple shadow and could be confirmed with nipple markers. No acute bony abnormalities. IMPRESSION: Right lower lobe atelectasis. Possible nipple shadow left lower lung zone Dictated b Daryl Ruiz MD 10/06/2019 14:46 Daryl Ruiz MD in [place] 10/06/2019 14:46
[2019-10-06 14:45] LABS: Microscopic, Urine URINE MICROSCOPIC (MICROSCOPIC)
[2019-10-06 14:49] LABS: Basophils % 0.1 % (0.1-2.0); Eosinophils # 0.1 K/mm3 (0.0-0.4); Eosinophils % 0.5 % (0.1-12.0); Hematocrit 31.8 % (37.0-47.0); Hemoglobin 10.2 g/dL (12.2-16.2); Lymphocytes # 0.9 K/mm3 (0.7-4.5); Lymphocytes % 6.3 % (10-50); Mean Corpuscular HGB Conc 32.2 g/dL (31.8-35.4); Mean Corpuscular Hemoglobin 31.8 pg (27.0-31.2); Mean Corpuscular Volume 98.8 fl (81-99); Mean Platelet Volume 7.6 fl (7.4-10.4); Monocytes # 0.7 K/mm3 (0.1-1.0); Monocytes % 4.9 % (1.7-9.3); Neutrophils # 12.3 K/mm3 (1.8-7.8); Neutrophils % 88.3 % (37.0-80.0); Platelet Count 834 K/mm3 (142-424); Red Blood Count 3.22 M/mm3 (4.20-5.40); Red Cell Distribution Width 14.7 % (11.5-17.5)
[2019-10-06 14:59] LABS: MANUAL DIFFERENTIAL MANUAL DIFFERENTIAL (MANUAL DIFF)
[2019-10-06 15:01] LABS: Appearance,Urine CLEAR (Clear); Bilirubin,Urine Negative (Negative); Blood, Urine Negative (Negative); Color,Urine YELLOW (Yellow); Glucose,Urine (UA) Negative (Negative); Ketones,Urine Negative (Negative); Leukocyte Esterase,Urine Negative (Negative); Nitrate,Urine Negative (Negative); PH,Urine 6.5 (5.0-8.5); Protein,Urine Negative (Negative); Specific Gravity, Urine 1.015 (1.005-1.030); Urobilinogen,Urine 0.2 EU/dl (0.2)
[2019-10-06 15:02] LABS: Alanine Aminotransferase 51 U/L (12-78); Albumin Level 3.2 g/dl (3.5-5.0); Albumin/Globulin Ratio 0.9 (1.1-1.8); Alkaline Phosphatase 177 U/L (38-126); Anion Gap 11.2 mEq/L (5-15); Aspartate Amino Transferase 84 U/L (14-36); Bilirubin,Total 0.6 mg/dl (0.2-1.3); Blood Urea Nitrogen 11 mg/dl (7-17); Calcium 8.8 mg/dl (8.4-10.2); Carbon Dioxide 30 mmol/L (22.0-30.0); Chloride 89 mmol/L (98-107); Creatine Kinase 790 U/L (30-135); Creatinine Clearance Estimated 59 mL/min (50-200); Estimated Glomerular Filt Rate 161 ml/min (>60); GFR (African American) 194 ML/MIN (>60); Globulin 3.6 g/dL (1.3-3.2); Glucose 99 mg/dl (74-100); Lipase 40 U/L (23-300); Potassium 3.2 mmoL/L (3.5-5.1); Sodium 127 mmol/L (136-145); Total Protein,Serum 6.8 g/dl (6.3-8.2)
--- NOTE | 2019-10-06 15:06 | HMH.EDWEAK ---
ED Disposition Clinical Impression: Rhabdomyolysis, Dehydration, Hyponatremia, Decubitus ulcer, stage 2 with infection Disposition: Admitted As Inpatient Condition on Discharge: Serious Referrals: Jennifer Paige PA [Primary Care Provider] - Time of Disposition: 17:21 - Critical Care Critical Care Time: No Attestation: On 10/06/19, the high probability of a clinically significant, sudden or life threatening deterioration of the following system(s) required my full and direct attention, intervention and personal management. The time I documented below is in addition to time spent performing reported procedures but includes the following listed in this critical care notation. Medical Decision Making - Medical Records Medical records reviewed: Yes: I reviewed the patient's medical records. - [place] Inquiry Pt receiving controlled substance: No Vital Signs: 10/06/19 14:03 10/06/19 14:39 10/06/19 14:46 Temperature 97.7 F Temperature Source Rectal Pulse Rate [Right] 94 H 98 H 98 H Respiratory Rate 16 Blood Pressure [Right Arm] 92/59 L 99/55 L 117/54 L Blood Pressure Mean [Right Arm] 70 69 75 Blood Pressure Source [Right Arm] Automatic Cuff Automatic Cuff Automatic Cuff 02 Sat by Pulse Oximetry 99 93 L Oxygen Delivery Method Room Air Room Air 10/06/19 15:00 10/06/19 15:15 10/06/19 15:30 Temperature Temperature Source Pulse Rate [Right] 94 H 94 H 96 H Respiratory Rate Blood Pressure [Right Arm] 101/62 L 102/59 L 103/60 L Blood Pressure Mean [Right Arm] 75 73 74 Blood Pressure Source [Right Arm] Automatic Cuff Automatic Cuff Automatic Cuff 02 Sat by Pulse Oximetry 98 98 99 Oxygen Delivery Method Room Air Room Air Room Air 10/06/19 15:46 10/06/19 16:00 10/06/19 16:24 Temperature Temperature Source Pulse Rate [Right] 97 H 93 H 96 H Respiratory Rate Blood Pressure [Right Arm] 87/58 L 98/57 L 102/55 L Blood Pressure Mean [Right Arm] 67 70 70 Blood Pressure Source [Right Arm] Automatic Cuff Automatic Cuff Automatic Cuff 02 Sat by Pulse Oximetry 97 99 Oxygen Delivery Method Room Air Room Air 10/06/19 16:30 Temperature 98.0 F Temperature Source Oral Pulse Rate [Right] 95 H Respiratory Rate 20 Blood Pressure [Right Arm] 98/53 L Blood Pressure Mean [Right Arm] 68 Blood Pressure Source [Right Arm] Automatic Cuff 02 Sat by Pulse Oximetry 98 Oxygen Delivery Method Room Air - Lab Data Lab Results 10/06/19 14:30: Urine Color Yellow, Urine Appearance Clear, Urine pH 6.5, Ur Specific [place] 1.015, Urine Protein Negative, Urine Glucose (UA) Negative, Urine Ketones Negative, Urine Blood Negative, Urine Nitrate Negative, Urine Bilirubin Negative, Urine Urobilinogen 0.2, Ur Leukocyte Esterase Negative, Urine WBC 3-5, Ur Squamous Epith Cells Occasional 10/06/19 14:30: WBC 14.0 H, RBC 3.22 L, Hgb 10.2 L, Hct 31.8 L, MCV 98.8, MCH 31.8 H, MCHC 32.2, RDW 14.7, Plt Count 834 H, MPV 7.6, Neut % (Auto) 88.3 H, Lymph % (Auto) 6.3 L, [place] % (Auto) 4.9, Eos % (Auto) 0.5, Baso % (Auto) 0.1, Neut # (Auto) 12.3 H, Lymph # (Auto) 0.9, [place] # (Auto) 0.7, Eos # (Auto) 0.1, Baso # (Auto) 0.0, Total Counted 100, Neutrophils % (Manual) 83 H, Lymphocytes % (Manual) 12, Monocytes % (Manual) 5, Platelet Estimate Marked increase, RBC Morphology Normal 10/06/19 14:30: APTT 28.1 10/06/19 14:30: Sodium 127 L, Potassium 3.2 L, Chloride 89 L, Carbon Dioxide 30, Anion Gap 11.2, BUN 11, Creatinine 0.40 L, Estimated Creat Clear 59, Estimated GFR 161, Est GFR ( Amer) 194, Glucose 99, Calcium 8.8, Total Bilirubin 0.6, AST 84 H, ALT 51, Alkaline Phosphatase 177 H, Total Creatine Kinase 790 H*, Troponin I 0.01, Total Protein 6.8 D, Albumin 3.2 L, Globulin 3.6 H, Albumin/Globulin Ratio 0.9 L, Lipase 40 10/06/19 14:30: PT 11.5, INR 1.13 H Result diagrams: 10/06/19 14:30 10/06/19 14:30 Orders (Tests/Meds): ED MEDICATIONS Generic Name Dose Route Start Last Admin Trade Name Freq PRN Reason Stop Dose Admi
[2019-10-06 15:08] LABS: Squamous Epithelial Cell,Urine Occasional #/hpf (0-5)
[2019-10-06 15:11] LABS: Activated Partial Thrombo Time 28.1 seconds (23.6-34.0)
[2019-10-06 15:12] LABS: INR 1.13 (0.9-1.1); Prothrombin Time 11.5 seconds (9.4-11.8)
[2019-10-06 15:13] LABS: Troponin I 0.01 ng/ml (0.00-0.034)
--- NOTE | 2019-10-06 15:19 | PC.NURSE ---
EXTENSIVE BED BATH GIVEN TO REMOVE DRIED FECES AND URINE FROM VAGINA AND ANUS. LAURA Avila RN VIEWED THIS AREA WITH THIS RN AND THE FOLLOWING WAS ASSESSED: STAGE II PRESSURE SORE WITH BLACK AND BROWN SKIN AT SACRUM. SCATTERED SKIN BREAK DOWN TO BILATERAL BUTTOCK AREA WITH REDNESS AND OPEN SORES. FURTHER ASSESSMENT SHOWS BEGINNINGS OF PRESSURE ULCER TO LEFT HEEL WELL. RED, BUT BLANCHABLE IN THIS AREA-- PATIENT WILL HAVE HOURLY TURNS AND ELEVATION TO AFFECTED HEEL. SKIN BARRIER APPLIED AFTER CLEANING
--- NOTE | 2019-10-06 15:27 | ECG_ITS ---
APPROVED REPORT Exam: Resting ECG HR:94 bpm ECG Measurements Heart Rate 94 AXES MI 132 P 60 QRSd 102 QRS 48 QT 430 T 71 QTc 537 <Conclusion> Normal sinus rhythm Old septal changes ST & T wave abnormality, unchanged from prior Prolonged QT Abnormal ECG Electronically signed by : Monster Bhatia, 10/09/2019 08:32:02
--- NOTE | 2019-10-06 15:32 | PC.NURSE ---
BLOOD CULTURES COLLECTED PER PROTOCOL FROM [facility]. FIRST SET 1445 AND SECOND SET 1500
[2019-10-06 15:52] LABS: Lymphocytes % 12 % (10-50); Monocytes % 5 % (2-9); Neutrophils % 83 % (42-76); Total Cells Counted 100
--- NOTE | 2019-10-06 15:52 | CT_ITS ---
PROCEDURE: CT ABDOMEN PELVIS W CON CLINICAL INDICATION: surgical site swelling L hip Over COMPARISON: No exams were available for comparison TECHNIQUE: IV Contrast: 75ML OPTIRAY 350 Oral Contrast None Axial images obtained with sagittal and coronal reformats. All CT scans at the facility use one or more dose reduction, viz: automated exposure control, ma/kV adjustment per patient size (including targeted exams where dose is matched to indication, i.e. head), or iterative reconstruction technique. FINDINGS: LOWER THORAX: There is an 11 mm irregular opacity in the right middle lobe adjacent to a small cystic area. The cystic area measures 2.5 cm. The parenchymal opacities lateral to the cystic area. There are mild atelectatic changes in the right lung base posteriorly. There is a calcified granuloma in the left lower lobe. There are coronary artery calcifications. ABDOMEN & PELVIS: Gallbladder slightly distended. There is thickening of the gastric wall which could be due to nondistention in the body and fundal area of the stomach. Gastritis is included in the differential diagnosis. The adrenal glands, spleen, and pancreas has an unremarkable appearance. No evidence of appendicitis or diverticulitis No intestinal obstruction or free air is evident. There are gas-filled loops of large and small bowel with a few air-fluid levels which may be seen with enterocolitis. There is a moderate amount of colonic feces in the rectum with the rectum measuring to 8 cm in diameter consistent with rectal fecal impaction. There is artifact from a left hip prosthesis. The skin clips are present along the left lateral hip area. There is increased soft tissue density deep to the skin clips consistent with postsurgical changes. No obvious abscess evident. A Harris catheter is present. There are degenerative changes in the lumbar spine IMPRESSION: 1. Scattered gas-filled loops of small and large bowel which could be due to enterocolitis/ileus 2. Rectal fecal impaction 3. 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 There is some increased soft tissue density superficial to the replaced hip in the subcutaneous tissue in could be related to some residual blood or edema. No obvious abscess 4. Indeterminate 11 mm nodule right middle lobe with an adjacent 2.5 cm cystic area. Recommend 3 month follow-up Dictated b Daryl Ruiz MD 10/06/2019 16:38 Daryl Ruiz MD in [place] 10/06/2019 16:38
[2019-10-06 15:53] LABS: Platelet Estimate Marked Increase; RBC Morphology Normal
--- NOTE | 2019-10-06 15:53 | PC.NURSE ---
contacted pharmacy for vancomycin consult, spoke with michael states she will notify the pharmacist
--- NOTE | 2019-10-06 15:53 | PC.NURSE ---
SUPRIYA David notified rad of CT order on pt, spoke with Kelsy
--- NOTE | 2019-10-06 15:56 | HMH.PHACONS ---
- Pharmacy Consult Date: 10/06/19 Time: 15:57 Referring provider: DR. GAYTAN Reason for Consult:: VANCOMYCIN DOSING Allergies and ADEs:: Allergies Allergy/AdvReac Type Severity Reaction Status Date / Time No Known Allergies Allergy Unverified 09/21/19 07:53 Home Medications:: Home Medications Medication Instructions Recorded Confirmed Type hydroxyzine HCl 50 mg tablet 50 mg PO QID PRN #120 tab 07/05/19 09/20/19 Rx albuterol sulfate 90 mcg/actuation 2 puff INHALATION Q4-6H PRN #18 g 08/09/19 09/20/19 Rx aerosol inhaler Atorvastatin Calcium [Lipitor 10mg 10 mg PO DAILY 09/20/19 09/21/19 History Tab] Buspirone HCl [Buspar 10mg 10 mg PO TID 09/20/19 09/21/19 History tablet] Gabapentin 800 mg PO TID 09/20/19 09/20/19 History Lisinopril/Hydrochlorothiazide 1 tab PO BID 09/20/19 09/20/19 History [Lisinopril-Hctz 20-25 mg Tab*] Omeprazole 20 mg PO BID 09/20/19 09/20/19 History Oxybutynin Chloride 5 mg PO BID 09/20/19 09/21/19 History Sertraline HCl [Zoloft] 100 mg PO DAILY 09/20/19 09/21/19 History Tiotropium Br/Olodaterol HCl 2 puff INHALATION DAILY 09/20/19 09/20/19 History [Stiolto Respimat Inhal [place]] Oxazepam [Serax 15mg capsule] 15 mg PO TIDP PRN cap 10/01/19 Rx Oxycodone HCl/Acetaminophen 1 each PO Q6HP PRN tab 10/01/19 Rx [Percocet 5/325mg tablet] Rivaroxaban [Xarelto 10mg tablet] 10 mg PO DAILY 35 Days #35 tab 10/01/19 Rx Height: 1.68 m Weight: 65.771 kg Laboratory Results:: Laboratory Results - last 24 hr 10/06/19 14:30: Urine Color Yellow, Urine Appearance Clear, Urine pH 6.5, Ur Specific [place] 1.015, Urine Protein Negative, Urine Glucose (UA) Negative, Urine Ketones Negative, Urine Blood Negative, Urine Nitrate Negative, Urine Bilirubin Negative, Urine Urobilinogen 0.2, Ur Leukocyte Esterase Negative, Urine WBC 3-5, Ur Squamous Epith Cells Occasional 10/06/19 14:30: WBC 14.0 H, RBC 3.22 L, Hgb 10.2 L, Hct 31.8 L, MCV 98.8, MCH 31.8 H, MCHC 32.2, RDW 14.7, Plt Count 834 H, MPV 7.6, Neut % (Auto) 88.3 H, Lymph % (Auto) 6.3 L, [place] % (Auto) 4.9, Eos % (Auto) 0.5, Baso % (Auto) 0.1, Neut # (Auto) 12.3 H, Lymph # (Auto) 0.9, [place] # (Auto) 0.7, Eos # (Auto) 0.1, Baso # (Auto) 0.0, Total Counted 100, Neutrophils % (Manual) 83 H, Lymphocytes % (Manual) 12, Monocytes % (Manual) 5, Platelet Estimate Marked increase, RBC Morphology Normal 10/06/19 14:30: APTT 28.1 10/06/19 14:30: Sodium 127 L, Potassium 3.2 L, Chloride 89 L, Carbon Dioxide 30, Anion Gap 11.2, BUN 11, Creatinine 0.40 L, Estimated Creat Clear 59, Estimated GFR 161, Est GFR ( Amer) 194, Glucose 99, Calcium 8.8, Total Bilirubin 0.6, AST 84 H, ALT 51, Alkaline Phosphatase 177 H, Total Creatine Kinase 790 H*, Troponin I 0.01, Total Protein 6.8 D, Albumin 3.2 L, Globulin 3.6 H, Albumin/Globulin Ratio 0.9 L, Lipase 40 10/06/19 14:30: PT 11.5, INR 1.13 H Medical History: Reports:: Anxiety, Chronic Obstructive Pulmonary Disease (COPD), Depression, Gastroesophageal Reflux Disease(GERD), Hyperlipidemia, Hypertension Denies:: Diabetes Mellitus Type 1, Diabetes Mellitus Type 2, Seizures Assessment and Plan - Assessment and plan all Dx Assessment and Plan for all problems:: Age: 65 yo Serum creatinine: 1 mg/dL Height: 66.0 Inches Weight (kg): 66 IBW (kg): 59.30 Dosing wt(kg): 66 Estimated Creatinine clearance (ml/min): 52.5 CRCL method: Cockcroft and Gault using ibw(default). Drug selected: Vancomycin Loading dose (mg): 0 Vd (liters): 52.8 (factor used: 0.8 L/kg) Bello (hr-1): 0.048 Half life (hrs): 14.44 Recommended dose: 1250 mg Interval: 18 hrs Infusion time (hrs): 2.0 Predicted peak (mcg/mL): 39.0 Predicted trough (mcg/mL): 18.09 Total body weight is being used for vancomycin dosing. Recommendations: Give Vancomycin 1250 mg q 18 hrs with an expected Cpeak of 39.0 mcg/ml and an expected Ctrough of 18.
--- NOTE | 2019-10-06 17:05 | PC.NURSE ---
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 wade wei
--- NOTE | 2019-10-06 17:17 | PC.NURSE ---
CARMEN RIVERA speaking with Dr. Bhatia
--- NOTE | 2019-10-06 17:18 | PC.NURSE ---
notified house calls nurse practitioner of need for bed assignment
--- NOTE | 2019-10-06 17:23 | PC.NURSE ---
notified registration staff of admission information notified lab of inpt covid test r/t admission-spoke with Gustavo
[2019-10-06 17:31] LABS: Lactic Acid 0.7 mmol/L (0.7-2.1)
[2019-10-06 17:46] LABS: Adenovirus,PCR Not Detected (NotDetected); Bordetella Pertussis Not Detected (NotDetected); Chlamydophila Pneumoniae, PCR Not Detected (NotDetected); Coronavirus 19, PCR Not Detected (NotDetected); Coronavirus 229E Not Detected (NotDetected); Coronavirus NL63 Not Detected (NotDetected); Coronavirus OC43 Not Detected (NotDetected); Coronovirus HKU1,PCR Not Detected (NotDetected); Human Metapneumovirus Not Detected (NotDetected); Influenza A, PCR Not Detected (NotDetected); Influenza AH1, 2009 Not Detected (NotDetected); Influenza AH1, PCR Not Detected (NotDetected); Influenza AH3,PCR Not Detected (NotDetected); Influenza B, PCR Not Detected (NotDetected); Mycoplasma Pneumoniae, PCR Not Detected (NotDetected); Parainfluenza 1, PCR Not Detected (NotDetected); Parainfluenza 2, PCR Not Detected (NotDetected); Parainfluenza 3, PCR Not Detected (NotDetected); Parainfluenza 4, PCR Not Detected (NotDetected); Respiratory Syncytial Virus Not Detected (NotDetected); Rhinovirus/Enterovirus Not Detected (NotDetected)
[2019-10-06 17:56] LABS: Troponin I < 0.01 ng/ml (0.00-0.034)
--- NOTE | 2019-10-06 18:16 | PC.NURSE ---
SPOKE TO PROVIDER REGARDING BLOOD PRESSURES. AWAITING NEW ORDERS.
--- NOTE | 2019-10-06 18:26 | PC.NURSE ---
per lab staff pt covid test has not started running yet, states the machine has to have downtime in between tests, states approx 20 minutes left of downtime and then they can start pt test which will take approx 2 hours. will continue to monitor pt.
--- NOTE | 2019-10-06 19:05 | PC.NURSE ---
shift change report given to manirn
--- NOTE | 2019-10-06 20:50 | PC.NURSE ---
report called to SUPRIYA Pickard
[2019-10-06 21:24] LABS: Ethyl Alcohol < 10 mg/dl (0-10)
[2019-10-06 21:35] LABS: Troponin I 0.01 ng/ml (0.00-0.034)
[2019-10-07] VITALS: BP 105/55; PULSE 93; RESP 18; TEMP 36.6; O2SAT 99
[2019-10-07 00:10] VITALS: BMI 25.7
[2019-10-07 04:00] VITALS: BP 121/59; PULSE 91; RESP 18; TEMP 36.6; O2SAT 99
[2019-10-07 05:00] VITALS: BMI 25.9
--- NOTE | 2019-10-07 07:00 | PC.NURSE ---
A&OX4. PT HAS TOLERATED ROOM AIR WELL THROUGHOUT SHIFT. RESPIRATIONS REGULAR AND UNLABORED. LUNG SOUNDS BILATERALLY CLEAR. ACTIVE BOWEL SOUNDS HEARD IN ALL 4 QUADRANTS. SOFT AND NONTENDER ABDOMEN. HAND FEATHER BONER EQUAL . +2 PULSES NOTED THROUGHOUT. +2 PITTING EDEMA NOTED IN BLE. UNSTAGEABLE PRESSURE ULCER NOTED TO COCCYX AREA. ESCHAR AND SLOUGH NOTED. ALLEVYN IN PLACE TO HELP PREVENT FURTHER SKIN BREAKDOWN. STAGE 1 NOTED TO COCCYX WELL. STAGE 1 BLANACHABLE PRESSURE ULCER NOTED TO L HEEL. PT ENCOURAGED AND ASSISTED TO TURN Q 2 HOURS. PICTURES OF PRESSURE AREAS ON THE CHART. KUMAR CATH IN PLACE WITH CLEAR YELLOW URINE NOTED IN DRAINAGE BAG. NO KINKS NOTED. 1 LOOSE BROWN BM NOTED. REDNESS NOTED TO INCISION TO L HIP R/T PREVIOUS HIP REPIAR FROM PREVIOUS ADMISSION. NO PAIN REPORTED. PT HAS RESTED WELL THROUGHOUT SHIFT. BED IN LOWEST POSITION. CALL LIGHT WITHIN REACH. VSS. NO CONCERNS AT THIS TIME. WILL CONTINUE TO MONITOR.
--- NOTE | 2019-10-07 07:42 | P.CONPHA_ITS ---
[facility] Pharmacy VTE Monitoring - Patient Demographics Admission date: 10/06/19 Report Date: 10/07/19 Time: 07:42 Allergies/Adverse Reactions: Patient Allergies No Known Allergies Allergy (Unverified 09/21/19 07:53) Height: 1.7 m Weight: 74.979 kg Patient Problems: Current Active Problems Hyponatremia (Acute) Rhabdomyolysis (Acute) Dehydration (Acute) Decubitus ulcer, stage 2 with infection (Acute) - VTE Risk Labs: VTE Related Lab Results Hgb 10.2 g/dL (12.2-16.2) L 10/06/19 14:30 Hct 31.8 % (37.0-47.0) L 10/06/19 14:30 Plt Count 834 K/mm3 (142-424) H 10/06/19 14:30 PT 11.5 seconds (9.4-11.8) 10/06/19 14:30 INR 1.13 (0.9-1.1) H 10/06/19 14:30 APTT 28.1 seconds (23.6-34.0) 10/06/19 14:30 BUN 11 mg/dl (7-17) 10/06/19 14:30 Creatinine 0.40 mg/dl (0.52-1.04) L 10/06/19 14:30 Estimated Creat Clear 59 mL/min (50-200) 10/06/19 14:30 Was VTE Risk Assessment Performed: Yes VTE Score: 6 VTE Risk Level: Moderate Risk Clinical Trial Participant: No - Prophylaxis VTE Prophylaxis Ordered?: Yes Types of VTE Prophylaxis: TEDS Knee High
[2019-10-07 08:00] VITALS: BP 121/71; PULSE 70; RESP 18; TEMP 37; O2SAT 97
--- NOTE | 2019-10-07 08:54 | PC.NURSE ---
Abductor pillow received from [facility] and placed between legs. Materials (Sophy Ochoa) reports that she does not have a fletcher boot available. Will elevate BLE with a small pillow to float left heel that has a blister and pressure ulcer.
--- NOTE | 2019-10-07 09:12 | XR_ITS ---
PROCEDURE: XR HIP LT 2-3V W/PELVIS CLINICAL INDICATION: s/p fall Posttraumatic pain COMPARISON: CT CT HIP LT WO CON from 09/20/2019 CR XR HIP LT 2-3V W/PELVIS from 09/27/2019 CR XR HIP RT 2-3V W/PELVIS from 10/07/2019 FINDINGS: Total left hip prosthesis is present. No evidence of acute fracture or dislocation. Prosthesis appears intact. There is a lucency along the medial aspect of the acetabulum on the left which may be due to gas within overlying bowel and could be confirmed with follow-up. Skin clips are present along the lateral hip. IMPRESSION: No acute finding Dictated b Daryl Ruiz MD 10/07/2019 12:31 Daryl Ruiz MD in [place] 10/07/2019 12:31
--- NOTE | 2019-10-07 09:12 | XR_ITS ---
PROCEDURE: XR HIP RT 2-3V W/PELVIS CLINICAL INDICATION: s/p fall, left hip Right hip pain following injury COMPARISON: CR XR HIP LT 2-3V W/PELVIS from 09/27/2019 FINDINGS: No obvious fracture or dislocation. AP view of the pelvis shows total left hip prosthesis present. Harris catheter is present. There is mild amount of retained colonic feces in the rectum IMPRESSION: No acute finding right hip Dictated b Daryl Ruiz MD 10/07/2019 12:29 Daryl Ruiz MD in [place] 10/07/2019 12:29
--- NOTE | 2019-10-07 09:14 | HMH.HP ---
*Admission Date: 10/06/19 *Chief complaint: weakness *History of present illness: 64yr old female presented to ed with c/o of weakness s/p fall. Pt presented to ed the ER yesterday after a possible fall at home, covered in urine and feces, with no hip abduction pillow or rigid brace. She has new decubitus ulcers stage 2 on cocyx and stage one on left heal,as well, is dehydrated, with multiple electrolyte abnormalities. s/p Left KILLIAN performed 09/27/19 for a chronic, displaced femoral neck fracture. Pt originally presented to the ER after 3-4 weeks of L hip pain from a fall. Left KILLIAN performed 09/27/19 and small non-displaced greater trochanter fracture occurred, treated with a hook plate and cables(per note) She was placed into a rigid abduction orthosis and plans made for discharge to SNF for rehab but on day of discharge,patient refused placement and went home with boyfriend with home health. After discharge, she has been unreachable by home health or [facility]. She has not answered the telephone, nor did her daughter or boyfriend Per report, an APS report was filed and a home visit made yesterday, where the patient was reported to be intoxicated. Pt admitted for eval and pt is willing to be placed in ltc at this time. [facility] History I have reviewed the patient's past medical history: Yes Medical History: Reports:: Anxiety, Chronic Obstructive Pulmonary Disease (COPD), Depression, Gastroesophageal Reflux Disease(GERD), Hyperlipidemia, Hypertension Denies:: Cancer, Diabetes Mellitus Type 1, Diabetes Mellitus Type 2, MRSA, Seizures *Have you ever received a pneumonia vaccine?: Yes *Have you received a flu vaccine this season?: Yes Other Surgeries: Yes: Other Amputation: No Fractures: Yes - *Social History Last grade of school completed: High school graduate Smoking Status: Current every day smoker Tobacco Type: cigarettes # Packs/Day (cigarettes): 2 Alcohol Intake: current Alcohol Intake Frequency:: 3 or more drinks per day Substance Use Type: denies use *Occupational Status:: disabled Housing: house Household Members: significant other *Travel in the last 8 weeks: None - Psychiatric History Pschychiatric History:: Reports:: Anxiety, Depression Family Hx:: Unable to obtain Review of Systems - Review of Systems Review of systems:: pertinent systems reviewed and negative unless documented below - Constitutional Reports fatigue, Reports weakness, Denies body ache(s) - Eyes Denies blurry vision - ENT Denies neck pain - *Cardiovascular Denies shortness of breath, Denies generalized swelling - *Respiratory Denies chest congestion - *Gastrointestinal Denies nausea, Denies vomiting - *Genitourinary Denies urinary urgency, Denies vaginal discharge - *Musculoskeletal Reports abnormal walking, Reports joint pain, Reports limited joint movement, Reports stiffness - Integumentary/Breasts Reports sores, Denies rash - *Neurologic Reports confusion, Reports weakness - Psychiatric Denies lack of enjoyment - Endocrine Denies excessive sweating - Hematologic/Lymphatic Denies easy bruising - Allergic/Immunologic Denies itchy eyes Meds Home Medications Medication Instructions Recorded Confirmed Type hydroxyzine HCl 50 mg tablet 50 mg PO QID PRN #120 tab 07/05/19 10/07/19 Rx albuterol sulfate 90 mcg/actuation 2 puff INHALATION Q4-6H PRN #18 g 08/09/19 10/07/19 Rx aerosol inhaler Atorvastatin Calcium [Lipitor 10mg 10 mg PO DAILY 09/20/19 10/07/19 History Tab] Buspirone HCl [Buspar 10mg 10 mg PO TID 09/20/19 10/07/19 History tablet] Gabapentin 800 mg PO TID 09/20/19 10/07/19 History Lisinopril/Hydrochlorothiazide 1 tab PO BID 09/20/19 10/07/19 History [Lisinopril-Hctz 20-25 mg Tab*] Omeprazole 20 mg PO BID 09/20/19 10/07/19 History Oxybutynin Chloride 5 mg PO BID 09/20/19 10/07/19 History Sertraline HCl [Zoloft] 100 mg PO DAILY 09/20/19 10/07/19 History Tiotropium Br/Olodaterol HCl 2 puff INHALATION KINDRA
--- NOTE | 2019-10-07 09:25 | PC.NURSE ---
notified Dr. Guardado about consult.
--- NOTE | 2019-10-07 10:21 | SW/DCPLANNER ---
Addendum entered by Nereida Schwartz 10/08/19 11:16: I spoke with patient and her daughter (Jolene) this morning regarding discharge plans. Both patient and daughter are agreeable to [facility] and understand that pending no setbacks patient will discharge on Friday. Also both patient and daughter understand that patient will be accepted to [facility] under [facility] pending. Addendum entered by Nereida Schwartz 10/07/19 11:54: Per Haydee this patient has been accepted to [facility] pending negative COVID prior to discharge. Original Note: Patient was previously admitted to hip fx. At previous admission patient was agreeable to placement and was accepted under [facility] pending to [facility] per Haydee. Patient then declined placement the day of discharge wanting to return home with her boyfriend: whom was agreeable to come pick her up and care for her. I did set patient up with [facility] at discharge and had multiple conversation with Anselmo from [facility]. Anselmo stated that multiple attempts were made to get in contact with this patient via phone/home with no answer. Patient has now returned to [facility] and will need placement at discharge. Patient information has been faxed to [facility] at this time. I have update Haydee regarding this referral. Garima with [facility]PS has also made contact with office (Laron Skinner) stating that she did visit this patient at home prior to [facility] admission. Garima has confirmed that this patient is competent to make her own decisions. I will continue to follow up with this placement.
--- NOTE | 2019-10-07 12:45 | HMH.ORTHHP ---
*Admission Date: 10/06/19 *Reason for consult:: s/p L KILLIAN *History of present illness: 64yo F admitted overnight through the ER, well known to me. She is s/p L KILLIAN performed 09/27/19 for a chronic, displaced femoral neck fracture. She presented to the ER after 3-4 weeks of L hip pain from a fall. She did not walk during that time. Sodium on admission was 109 and it took 1 week of slow correction with IVF to bring the sodium to a safe level for surgery. She has poor bone quality clinically and high suspicion for osteoporosis, but no DEXA reported. L KILLIAN performed 09/27/19 and small non-displaced greater trochanter fracture occurred, treated with a hook plate and cables. She was placed into a rigid abduction orthosis and plans made for discharge to SNF. On the day of discharge, however, the patient refused placement and insisted on d/c home with home health. After discharge, she has been unreachable. She has not answered the telephone, nor did her daughter, despite multiple attempts by care management and my office. Per report, an APS report was filed and a home visit made yesterday, where the patient was reported to be intoxicated. She came into the ER yesterday after a possible fall at home, covered in urine and feces, with no sign of her hip abduction pillow or rigid abduction orthosis. She has new decubitus ulcers as well, is dehydrated, with multiple electrolyte abnormalities. No fevers reported, but leukocytosis present on admission. CT abdomen/pelvis obtained in ER, without concerning findings. Vancomycin and zosyn have been started. She was started on Xarelto at discharge s/p KILLIAN, but it's unknown if she's been taking it at home. Percocet were given as well, of which she has few left. Vitals have been stable, lactate 0.7, no suspicion for sepsis at this time. [facility] History I have reviewed the patient's past medical history: Yes Medical History: Reports:: Anxiety, Chronic Obstructive Pulmonary Disease (COPD), Depression, Gastroesophageal Reflux Disease(GERD), Hyperlipidemia, Hypertension Denies:: Cancer, Diabetes Mellitus Type 1, Diabetes Mellitus Type 2, MRSA, Seizures *Have you ever received a pneumonia vaccine?: Yes *Have you received a flu vaccine this season?: Yes Other Medical History: Reports: Anemia Laterality Cases: Left: Total Hip Replacement Other Surgeries: Yes: Other Amputation: No Fractures: Yes - *Social History Last grade of school completed: High school graduate Smoking Status: Current every day smoker Tobacco Type: cigarettes # Packs/Day (cigarettes): 2 Alcohol Intake: current Alcohol Intake Frequency:: other (5-6 beers/day, 16oz each) Substance Use Type: denies use *Occupational Status:: disabled Housing: house Household Members: significant other, other *Travel in the last 8 weeks: None - Psychiatric History Pschychiatric History:: Reports:: Anxiety, Depression Family Hx:: Unable to obtain Review of Systems - Review of Systems Review of systems:: pertinent systems reviewed and negative unless documented below - Constitutional Reports weakness, Denies chills, Denies fever(s) - Eyes Denies blurry vision - ENT Denies abnormal hearing, Denies dizziness - *Cardiovascular Reports shortness of breath, Denies chest pain - *Respiratory Reports shortness of breath, Denies cough - *Gastrointestinal Denies abdominal pain - *Neurologic Reports confusion, Reports weakness Meds Home Medications Medication Instructions Recorded Confirmed Type hydroxyzine HCl 50 mg tablet 50 mg PO QID PRN #120 tab 07/05/19 10/07/19 Rx albuterol sulfate 90 mcg/actuation 2 puff INHALATION Q4-6H PRN #18 g 08/09/19 10/07/19 Rx aerosol inhaler Atorvastatin Calcium [Lipitor 10mg 10 mg PO DAILY 09/20/19 10/07/19 History Tab] Buspirone HCl [Buspar 10mg 10 mg PO TID 09/20/19 10/07/19 History tablet] Gabapentin 800 mg PO TID 09/20/19 10/07/19 History Lisinopril/Hydrochlorothiazide 1 tab PO BID 09/20/19 10/07/19 History [Lis
--- NOTE | 2019-10-07 14:27 | PC.NURSE ---
received call from Dr. Guardado. She has ordered CIWA scale prn. She will also add additional order for labs.
--- NOTE | 2019-10-07 14:36 | HMH.ORTHOCON ---
*Admission Date: 10/06/19 *Reason for consult:: s/p L KILLIAN *History of present illness: 64yo F admitted overnight through the ER, well known to me. She is s/p L KILLIAN performed 09/27/19 for a chronic, displaced femoral neck fracture. She presented to the ER after 3-4 weeks of L hip pain from a fall. She did not walk during that time. Sodium on admission was 109 and it took 1 week of slow correction with IVF to bring the sodium to a safe level for surgery. She has poor bone quality clinically and high suspicion for osteoporosis, but no DEXA reported. L KILLIAN performed 09/27/19 and small non-displaced greater trochanter fracture occurred, treated with a hook plate and cables. She was placed into a rigid abduction orthosis and plans made for discharge to SNF. On the day of discharge, however, the patient refused placement and insisted on d/c home with home health. After discharge, she has been unreachable. She has not answered the telephone, nor did her daughter, despite multiple attempts by care management and my office. Per report, an APS report was filed and a home visit made yesterday, where the patient was reported to be intoxicated. She came into the ER yesterday after a possible fall at home, covered in urine and feces, with no sign of her hip abduction pillow or rigid abduction orthosis. She has new decubitus ulcers as well, is dehydrated, with multiple electrolyte abnormalities. No fevers reported, but leukocytosis present on admission. CT abdomen/pelvis obtained in ER, without concerning findings. Vancomycin and zosyn have been started. She was started on Xarelto at discharge s/p KILLIAN, but it's unknown if she's been taking it at home. Percocet were given as well, of which she has few left. Vitals have been stable, lactate 0.7, no suspicion for sepsis at this time. [facility] History I have reviewed the patient's past medical history: Yes Medical History: Reports:: Anxiety, Chronic Obstructive Pulmonary Disease (COPD), Depression, Gastroesophageal Reflux Disease(GERD), Hyperlipidemia, Hypertension Denies:: Cancer, Diabetes Mellitus Type 1, Diabetes Mellitus Type 2, MRSA, Seizures *Have you ever received a pneumonia vaccine?: Yes *Have you received a flu vaccine this season?: Yes Other Medical History: Reports: Anemia Laterality Cases: Left: Total Hip Replacement Other Surgeries: Yes: Other Amputation: No Fractures: Yes - *Social History Last grade of school completed: High school graduate Smoking Status: Current every day smoker Tobacco Type: cigarettes # Packs/Day (cigarettes): 2 Alcohol Intake: current Alcohol Intake Frequency:: other (5-6 beers/day, 16oz each) Substance Use Type: denies use *Occupational Status:: disabled Housing: house Household Members: significant other, other *Travel in the last 8 weeks: None - Psychiatric History Pschychiatric History:: Reports:: Anxiety, Depression Family Hx:: Unable to obtain Review of Systems - Review of Systems Review of systems:: pertinent systems reviewed and negative unless documented below - Constitutional Reports weakness, Denies chills, Denies fever(s) - Eyes Denies blurry vision - ENT Denies abnormal hearing, Denies dizziness - *Cardiovascular Reports shortness of breath, Denies chest pain - *Respiratory Reports shortness of breath, Denies cough - *Gastrointestinal Denies abdominal pain - *Neurologic Reports confusion, Reports weakness, Denies abnormal hearing, Denies dizziness Meds Home Medications Medication Instructions Recorded Confirmed Type hydroxyzine HCl 50 mg tablet 50 mg PO QID PRN #120 tab 07/05/19 10/07/19 Rx albuterol sulfate 90 mcg/actuation 2 puff INHALATION Q4-6H PRN #18 g 08/09/19 10/07/19 Rx aerosol inhaler Atorvastatin Calcium [Lipitor 10mg 10 mg PO DAILY 09/20/19 10/07/19 History Tab] Buspirone HCl [Buspar 10mg 10 mg PO TID 09/20/19 10/07/19 History tablet] Gabapentin 800 mg PO TID 09/20/19 10/07/19 History Lisinopril/Hydrochlorothiazide 1
[2019-10-07 15:03] LABS: C-Reactive Protein 189.6 mg/L (0-4)
--- NOTE | 2019-10-07 15:03 | PC.NURSE ---
pt up to chair with PT (Prudencio). Pt was able to bear weight and slightly pivot her feet. Was unable to ambulate.
[2019-10-07 15:08] VITALS: BP 88/47; PULSE 70; RESP 17; TEMP 36.6; O2SAT 90
[2019-10-07 15:10] LABS: Erythrocyte Sedimentation Rate 112 mm/hr (0-30)
--- NOTE | 2019-10-07 15:10 | HMH.PTWOUND ---
Rehab Inpt Wound Evaluation Rehab IP Wound Evaluation Start: 10/07/19 13:18 Freq: ONCE Status: Active Protocol: Document 10/07/19 15:06 PHOBEAR (Rec: 10/07/19 15:10 PHORNE [id number]) Rehab PT Wound Assessment Subjective Subjective 64 yowf adm to [facility] with L buttock decub after not gettign for for ~ 1 wk. Wound Left Medial Buttock Wound Type Pressure Ulcer Is This a Chronic Wound No Wound Staging Unstageable Query Text:Stage I - Unbroken, red skin, no blanching. Stage II - Skin broken, superficial skin loss involving epidermis alone or also dermis. Partial loss of skin layers. Stage III - Pressure area involves epidermis, dermis and subcutaneous tissue, full thickness skin loss. Stage IV - Pressure area involves epidermis, subcutaneous tissue, bone and other supportive tissue. Full thickness skin loss with extensive destruction of underlying tissue and structures. Wound Length (cm) 6.5 Wound Width (cm) 5.0 Wound Bed Appearance Yellow Percentage of Slough (%) 100 Wound Margins Description Well Defined Surrounding Tissue Appearance Steinauer Wound Drainage Description Serous Drainage Amount Small Primary Dressing Composite Comment optifoam gentle sacrum Wound Debridement Method Gauze Wound Debridement Amount of Tissue None Removed Plan/Recommendation Comment Pt is most appropriate for rehab placement once medically stable. At this point sharp debirdement of the wound is not indicated. Eval Complexity Eval Charge Codes 58018 - Moderate Complexity PHYSICIAN CERTIFICATION: I certify the specified therapy services for Roxy Addison are required, authorized, and reviewed every 30 days.
--- NOTE | 2019-10-07 15:15 | HMH.PTEV ---
Physical Therapy Evaluation Rehab PT IP Evaluation Start: 10/07/19 14:27 Freq: ONCE Status: Active Protocol: Document 10/07/19 15:10 PHORNE (Rec: 10/07/19 15:15 PHORNE [id number]) Subjective/History History History 64 yowf adm to [facility] with dehydration and weakness after found down at home. She has been home ~ 1 wk S/P L hip fx repair with obvious limited mobility at home. Subjective Subjective Pt with no current c/o. Rehab PT IP Eval Objective Appearance Patient Behavior Distractible Patient Orientation Person Difficulty following instructions none Speech Pattern Clear Ambulation Patient Able to Ambulate Yes Ambulation Observation IP General Gait Pattern Observation Wide Based Gait,Ataxic Gait, Shuffling Step,Decrease Weight Bear (L) Ambulation Distance (feet) 2 Ambulation Assistive Device Rolling Walker Ambulation Ability Moderate x 1 (50% assist) Balance Ability to Arise Able, uses arms to help Sitting Balance Steady, safe Standing Balance Steady, wide stance Dynamic Sitting Balance Ability Fair Dynamic Standing Balance Ability Poor Transfers Bed Transfer Ability Moderate x 1 (50% assist) Chair Transfer Ability Moderate x 1 (50% assist) Sit to Stand Bed Transfer Ability Moderate x 1 (50% assist) Sit to Stand Chair Transfer Ability Moderate x 1 (50% assist) ROM All Extremities PT ROM Status WFL MMT All Extremities PT MMT WFL Abnormal MMT Grade except L LE grossly 3/5 Rehab PT IP prob,goals,plan Problems Date of Evaluation: 10/07/19 PT IP Problems Bed Mobility,Transfers,Gait Rehab Potential Rehab Potential Good Plan PT Intervention Plan Bed Mobility,Transfers,Gait, Therapeutic Exercise PT Plan Frequency BID Duration LOS Discharge Goals Bed Transfer Ability Minimal x 2 (25% assist) Sit to Stand Chair Transfer Ability Minimal x 2 (25% assist) Ambulation Assistive Device Rolling Walker Ambulation Distance (feet) 6 Discharge Plan PT Discharge Plan Pt is most appropriate for rehab placement at this time once medically stable. She does not have her L hip custom orthotic at the hospital and therefore we were unable to use it
--- NOTE | 2019-10-07 15:50 | PC.NURSE ---
Pt stable this shift. CIWA 4. Pt OOB to chair. BLE with 2+ pitting edema. Left heel is floating on pillow. Abductor pillow between legs. Is now a DNR. Is agreeable to transfer to [facility] for atleast 30 days. Multiple BMs this shift. Left hip incision with cande, [employer] and mild redness. Is tolerating a reg diet. Dressing applied to buttock ulcer by RN and PT (Prudencio). Left leg brace is at home. Trapeze bar to be placed on bed today.
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
[2019-10-07 19:56] VITALS: BP 98/50; PULSE 86; RESP 18; TEMP 36.9; O2SAT 99
[2019-10-07 21:59] VITALS: BP 88/52
[2019-10-08 04:00] VITALS: BP 101/65; PULSE 96; RESP 16; TEMP 36.6; O2SAT 98
--- NOTE | 2019-10-08 04:09 | PC.NURSE ---
PT A&OX4 AND ABLE TO ANSWER ALL QUESTIONS AT BEGINNING OF SHIFT. HOWEVER, PT HAS BEEN LETHARGIC AND UNABLE TO ANSWER QUESTIONS, OR SAYING RANDOM THINGS AT TIMES T/O SHIFT. PT TOLERATING RA WELL. PT HAS HAD NO C/O PAIN, NA/VO T/O SHIFT. PT INCONTINENT TO BOWELS, HAVING BM IN BRIEF. STAFF HAVE KEPT BUTTOCK CLEAN AND DRY T/O SHIFT. PRESSURE AREA NOTED TO BOTTOM, DRESSING CHANGED THIS SHIFT. CDI. PT TURNED Q2H THIS SHIFT. ABDUCTOR PILLOW IN PLACE. HEELS FLOATED T/O SHIFT. INCISION PRESENT TO L HIP. SOME REDNESS AROUND BORDERS. DRESSING IN PLACE, CDI. PT BP LOW X2 AT BEGINNING OF SHIFT. HELD LISINIPRIL HCTZ AND GAVE 1L LACTATED RINGERS OVER 2 HOURS PER MD NELSON ORDER. PT TOLERATED WELL. PT HAS HAD NO OTHER ISSUES THUS FAR. PT HAS RESTED IN BED WITH EYES CLOSED MAJORITY OF SHIFT. BED SAFETY IN PLACE. VSS WILL CONTINUE TO MONITOR.
[2019-10-08 05:24] VITALS: BMI 26.8
[2019-10-08 06:57] LABS: Chloride 97 mmol/L (98-107)
[2019-10-08 06:58] LABS: Sodium 129 mmol/L (136-145)
[2019-10-08 07:00] LABS: Blood Urea Nitrogen 4 mg/dl (7-17); Creatinine Clearance Estimated 70 mL/min (50-200); Estimated Glomerular Filt Rate 124 ml/min (>60); GFR (African American) 150 ML/MIN (>60)
[2019-10-08 07:01] LABS: Anion Gap 4.5 mEq/L (5-15); Carbon Dioxide 30 mmol/L (22.0-30.0); Glucose 91 mg/dl (74-100)
[2019-10-08 07:07] LABS: Potassium 2.5 mmoL/L (3.5-5.1)
--- NOTE | 2019-10-08 07:17 | PC.NURSE ---
CRITICAL LAB K-2.5 RECEIVED @ 0970. PASSED ON TO Daysi ZUÑIGA RN.
[2019-10-08 07:21] LABS: Calcium 7.7 mg/dl (8.4-10.2)
[2019-10-08 07:29] LABS: Basophils % 0.2 % (0.1-2.0); Eosinophils # 0.2 K/mm3 (0.0-0.4); Hematocrit 24.8 % (37.0-47.0); Lymphocytes # 1.4 K/mm3 (0.7-4.5); Lymphocytes % 17.3 % (10-50); Mean Corpuscular HGB Conc 32.2 g/dL (31.8-35.4); Mean Corpuscular Hemoglobin 31.2 pg (27.0-31.2); Monocytes # 0.5 K/mm3 (0.1-1.0); Monocytes % 6.2 % (1.7-9.3); Neutrophils % 74.2 % (37.0-80.0); Platelet Count 732 K/mm3 (142-424); Red Blood Count 2.56 M/mm3 (4.20-5.40); Red Cell Distribution Width 14.5 % (11.5-17.5); White Blood Count 8.1 K/mm3 (4.8-10.8)
--- NOTE | 2019-10-08 07:35 | PC.NURSE ---
received call from lab (Loulou Bolivar) with critical lab. Hbg is 8. Will notify Dr. Mooney on morning rounds.
[2019-10-08 08:00] VITALS: BP 108/61; PULSE 97; RESP 16; TEMP 36.6; O2SAT 96
--- NOTE | 2019-10-08 08:16 | HMH.ACPN2 ---
Internal Medicine - PN: Subj *Date: 10/08/19 *Time: 18:09 Interval history: fluid bolus given last pm lisinopril held hypokalemic this am, will replace hgb dip, prob 2nd to dilution conferred with ortho psych notes revd more alert this am propensity fro hyponatremia Exam Vital signs and Labs for Last 24 Hours: Temp Pulse Resp BP Pulse Ox 97.8 F 96 H 16 101/65 L 98 10/08/19 04:00 10/08/19 04:00 10/08/19 04:00 10/08/19 04:00 10/08/19 04:00 Laboratory Results - last 24 hr 10/07/19 14:45: ESR 112 H 10/07/19 14:45: C-Reactive Protein 189.6 H 10/08/19 06:25: Sodium 129 L, Potassium 2.5 L* D, Chloride 97 L, Carbon Dioxide 30, Anion Gap 4.5 L, BUN 4 L D, Creatinine 0.50 L D, Estimated Creat Clear 70, Estimated GFR 124, Est GFR ( Amer) 150 D, Glucose 91, Calcium 7.7 L D 10/08/19 06:25: WBC 8.1 D, RBC 2.56 L, Hgb 8.0 L, Hct 24.8 L, MCV 97.0, MCH 31.2, MCHC 32.2, RDW 14.5, Plt Count 732 H, MPV 7.0 L, Neut % (Auto) 74.2, Lymph % (Auto) 17.3, Noble % (Auto) 6.2, Eos % (Auto) 2.0, Baso % (Auto) 0.2, Neut # (Auto) 6.0, Lymph # (Auto) 1.4, Noble # (Auto) 0.5, Eos # (Auto) 0.2, Baso # (Auto) 0.0 I & O for Last 24 hours: Intake & Output 10/05/19 10/06/19 10/07/19 10/08/19 23:59 23:59 23:59 23:59 Intake Total 2250 / 2250 2418 / 2418 3731 / 3731 Output Total 3100 / 3100 375 / 375 Balance 2250 / 2250 -682 / -682 3356 / 3356 Weight 145 lb 165 lb 4.8 oz 171 lb 1 oz Microbiology Reports for the Last 24 Hours: Microbiology 10/06/19 14:35 Urine,Catheterized Urine Culture - Preliminary NO GROWTH AFTER 24 HOURS - Constitutional no acute distress, chronically ill appearing - *Routine HEENT Exam Head: Present: normocephalic Eye: Present: EOMI, PERRL ENT: Present: mucous membranes moist - *Routine Neck Exam Present: supple. Absent: JVD, lymphadenopathy - *Routine Respiratory Exam Present: CTA bilaterally. Absent: accessory muscle use - *Routine Cardiovascular Exam Present: RRR - *Routine Abdominal Exam Present: soft, normoactive bowel sounds. Absent: tenderness - *Routine Extremities Exam Present: tenderness. Absent: cyanosis, full ROM - *Routine Skin Exam Present: warm, scars, wounds. Absent: jaundice, rash - *Routine Neurological Exam Present: alert, vision grossly intact, hearing grossly intact. Absent: facial asymmetry - Routine Psychiatric Exam Present: cooperative Assessment and Plan (1) Noncompliance Current visit: Yes Status: Acute Category: Medical Code(s): Z91.19 - Patient's noncompliance with other medical treatment and regimen (2) Healing pressure injury, stage 1 Current visit: Yes Status: Acute Category: Medical Code(s): L89.91 - Pressure ulcer of unspecified site, stage 1 (3) Decubitus ulcer, stage 2 with infection Current visit: Yes Status: Acute Category: Medical Code(s): L89.92 - Pressure ulcer of unspecified site, stage 2; L08.9 - Local infection of the skin and subcutaneous tissue, unspecified (4) Dehydration Current visit: Yes Status: Acute Category: Medical Code(s): E86.0 - Dehydration (5) Rhabdomyolysis Current visit: Yes Status: Acute Category: Medical Code(s): M62.82 - Rhabdomyolysis (6) Alcohol abuse Current visit: No Status: Acute Category: Social Hx Code(s): F10.10 - Alcohol abuse, uncomplicated (7) Hip fracture Current visit: No Status: Acute Category: Medical Code(s): S72.009A - Fracture of unspecified part of neck of unspecified femur, initial encounter for closed fracture (8) Tobacco abuse Current visit: No Status: Acute Category: Medical Code(s): Z72.0 - Tobacco use - Assessment and plan all Dx Assessment and Plan for all problems:: run of [facility] continue broad spectrum coverage continue wound care move toward [facility]
--- NOTE | 2019-10-08 08:53 | PC.NURSE ---
rounded with Dr. Mooney, Dr. Guardado and case management. No new order for transfusion r/t low Hgb. Pt will not d/c to [place] until Friday. Family member called and agreed to bring leg brace to [facility] this afternoon for pt to ambulate. Trapeze bar will be placed on bed by materials management.
--- NOTE | 2019-10-08 10:29 | HMH.ORTHPN ---
Subjective Date: 10/08/19 Time: 08:30 Principal diagnosis: L hip fx s/p KILLIAN, decubitus ulcers, dehydration, rhabdomyolysis Interval history: The patient is doing well today, appears more alert and clear-headed when conversing. She says she feels better today as well. She is drinking an Ensure shake, though her appetite has been poor; she says she hasn't been eating much at home. She has been unable to get her abduction brace from home yet, still working on finding someone that can bring it to her. No fevers or chills, no drainage from L hip incision. PN: Obj Ex Vital signs: Temp Pulse Resp BP Pulse Ox 97.9 F 97 H 16 108/61 L 96 10/08/19 08:00 10/08/19 08:00 10/08/19 08:00 10/08/19 08:00 10/08/19 08:00 - Constitutional no acute distress - Routine HEENT Exam Head: Present: normocephalic, scalp tenderness ENT: Present: mucous membranes moist - Routine Neck Exam Present: supple, trachea midline - Routine Chest/Breast/Axilla Exam Chest wall: Absent: tenderness - Routine Respiratory Exam Absent: respiratory distress, wheezes - Routine Cardiovascular Exam Present: RRR - Routine Abdominal Exam Present: soft. Absent: tenderness - Routine Extremities Exam Comments: L hip incision cande c/d/i, no periwound erythema, drainage or tenderness ROM L hip 0-90 degrees w/o pain; further ROM not attempted +DF/PF/EHL LLE SILT distally LLE in all distributions palpable pedal pulses LLE, foot warm/pink 2+ pitting edema BLE - Routine Skin Exam Comments: decubitus ulcers sacrum + R gluteal fold stable - Routine Neurological Exam Present: alert, oriented X3, moving all extremities, normal tone, vision grossly intact, hearing grossly intact, normal speech. Absent: sensory deficit, motor deficit, altered mental status - Routine Psychiatric Exam Present: cooperative - Urinary Catheter Management Harris Cath placed during this visit: yes Urethral indwelling: Yes Reason for continuing: Measure accurate output Insertion date: 10/06/19 Progress Note: A&P (1) Noncompliance Status: Acute Current Visit: Yes (2) Healing pressure injury, stage 1 Status: Acute Current Visit: Yes (3) Decubitus ulcer, stage 2 with infection Status: Acute Current Visit: Yes (4) Dehydration Status: Acute Current Visit: Yes (5) Rhabdomyolysis Status: Acute Current Visit: Yes (6) Alcohol abuse Status: Acute Current Visit: No (7) Hip fracture Status: Acute Current Visit: No (8) Tobacco abuse Status: Acute Current Visit: No Assessment and Plan for All Diagnoses:: 64yo F w/p L KILLIAN 09/27/19 for chronic, displaced femoral neck fracture; non-compliant with post-operative abduction restrictions/brace wear, has not answered the phone for the office/home health so no aftercare has been provided. --> sister of her live-in partner has been reached, will bring brace this afternoon. 1) L hip -- WBAT, abduction pillow while in bed, must wear abduction orthosis for ambulation. -- cande may be removed after 10/11/19; this will be done in my office. Cover wound with dry dressing; change daily. -- ok to shower, using shower chair and assistance -- physical therapy while admitted -- continue posterior hip precautions -- continue Xarelto. BLE edema present but patient does not report calf pain/Floridalma's. If there is any concern for DVT would recommend ultrasound. -- f/u in my clinic 10/10/01 at 10:15am at previously scheduled --> if still admitted, will remove cande then 2) sacral + L gluteal decubitus ulcers, grade 1-2 -- continue wound care -- does not appear to need debridement at this time, but would let this demarcate over the next few days and reevaluate. Skin may become frankly necrotic, at which time debridement may be needed. Recommend general surgery consultation if necessary. -- turn patient frequently, at least every 2 hours; offload heels, may consider pressure reduction mat
--- NOTE | 2019-10-08 11:43 | PC.NURSE ---
notified Dr. Guardado's office and Jesi Wiley that family brought pt's leg brace to [facility]. Brace cleaned and placed on LLE by PT (Prudencio). NO signs of bedbugs present.
[2019-10-08 15:12] LABS: Chloride 96 mmol/L (98-107); Sodium 131 mmol/L (136-145)
[2019-10-08 15:15] LABS: Blood Urea Nitrogen 5 mg/dl (7-17); Carbon Dioxide 31 mmol/L (22.0-30.0); Creatinine Clearance Estimated 70 mL/min (50-200); Estimated Glomerular Filt Rate 124 ml/min (>60); GFR (African American) 150 ML/MIN (>60); Glucose 135 mg/dl (74-100)
[2019-10-08 15:38] VITALS: BP 116/55; PULSE 97; RESP 17; TEMP 36.6; O2SAT 98
--- NOTE | 2019-10-08 16:26 | PC.NURSE ---
Pt stable this shift. Having a soft BM about every hour. Pt using trapeze bar that was placed on bed this morning. She got OOB with PT (Prudencio) for aprox 1 hr. Leg brace applied before transferring OOB. Received Potassium IV supplement for Potassium level of 2.5 this morning. Has been more alert today as compared to yesterday. Plan is for pt to discharge early next wk to [place].
[2019-10-08 19:43] VITALS: BP 108/71; PULSE 95; RESP 19; TEMP 37.3; O2SAT 93
[2019-10-08 23:38] LABS: Vancomycin,Trough 8.2 ug/mL (5.0-10.0)
--- NOTE | 2019-10-08 23:39 | PC.NURSE ---
Spoke with pharmacy, Manasa Gill. OK to give Vancomycin. Change Vancomycin 1250 mg IV Q18 hr to Q12 hr.
--- NOTE | 2019-10-09 03:52 | PC.NURSE ---
Pt has rested intermittently this shift. Seizure pads were applied at the beginning of shift due to pt's hx of ETOH use. Pt ended up requesting for the seizure pads to be removed stating they bother me and I just don't need them . Abductor pillow applied at the beginning of shift and pt was educated on the importance of keeping it on, pt verbalized understanding, but shortly after pt rang out and requested to have it taken off. Pt has had multiple incontinent episodes this shift. Dressing applied to unstageable pressure ulcer on buttocks. Pt has c/o hip and back pain x1 this shift. paged, SEE PROVIDER NOTIFICATION. PRN meds administered per MAY. Pt is currently in bed asleep. Call light is within reach, will continue to monitor.
[2019-10-09 04:00] VITALS: BP 124/72; PULSE 85; RESP 16; TEMP 36.3; O2SAT 96
[2019-10-09 05:31] VITALS: BMI 27.3
[2019-10-09 06:56] LABS: Basophils % 0.3 % (0.1-2.0); Eosinophils # 0.2 K/mm3 (0.0-0.4); Eosinophils % 2.6 % (0.1-12.0); Hematocrit 26.7 % (37.0-47.0); Hemoglobin 8.3 g/dL (12.2-16.2); Lymphocytes # 1.3 K/mm3 (0.7-4.5); Lymphocytes % 20.3 % (10-50); Mean Corpuscular HGB Conc 31.2 g/dL (31.8-35.4); Mean Corpuscular Hemoglobin 30.7 pg (27.0-31.2); Mean Corpuscular Volume 98.4 fl (81-99); Mean Platelet Volume 7.5 fl (7.4-10.4); Monocytes # 0.4 K/mm3 (0.1-1.0); Monocytes % 6.7 % (1.7-9.3); Neutrophils # 4.6 K/mm3 (1.8-7.8); Platelet Count 799 K/mm3 (142-424); Red Blood Count 2.72 M/mm3 (4.20-5.40); Red Cell Distribution Width 14.5 % (11.5-17.5); White Blood Count 6.6 K/mm3 (4.8-10.8)
[2019-10-09 07:08] LABS: Chloride 100 mmol/L (98-107); Sodium 135 mmol/L (136-145)
[2019-10-09 07:11] LABS: Blood Urea Nitrogen 5 mg/dl (7-17); Carbon Dioxide 31 mmol/L (22.0-30.0); Creatinine Clearance Estimated 71 mL/min (50-200); Estimated Glomerular Filt Rate 161 ml/min (>60); GFR (African American) 194 ML/MIN (>60)
[2019-10-09 07:12] LABS: Calcium 8.2 mg/dl (8.4-10.2); Glucose 97 mg/dl (74-100)
[2019-10-09 08:00] VITALS: BP 122/69; PULSE 94; RESP 18; TEMP 36.7; O2SAT 93
--- NOTE | 2019-10-09 09:16 | PC.NURSE ---
Addendum entered by Bertha Rodriguez RN 10/09/19 09:25: Pt placed in contact-enteric precautions pending Diarrhea panel results. Original Note: 0900 - Rounded w/ Dr. Lux. states to collect PCR. aware of decubitous areas to buttocks (visualized). Ativan to be ordered TID to assist pt w/ rest.
--- NOTE | 2019-10-09 09:58 | HMH.ACPN2 ---
Internal Medicine - PN: Subj *Date: 10/10/19 *Time: 10:49 Interval history: doing better - decubitus unchanged -restless - Exam Vital signs and Labs for Last 24 Hours: Temp Pulse Resp BP Pulse Ox 98.1 F 94 H 18 122/69 93 L 10/09/19 08:00 10/09/19 08:00 10/09/19 08:00 10/09/19 08:00 10/09/19 08:00 Laboratory Results - last 24 hr 10/08/19 15:00: Sodium 131 L, Potassium 3.0 L, Chloride 96 L, Carbon Dioxide 31 H, Anion Gap 7.0, BUN 5 L, Creatinine 0.50 L, Estimated Creat Clear 70, Estimated GFR 124, Est GFR ( Amer) 150, Glucose 135 H D, Calcium 8.0 L 10/08/19 22:32: Vancomycin Trough 8.2 10/09/19 06:14: WBC 6.6, RBC 2.72 L, Hgb 8.3 L, Hct 26.7 L, MCV 98.4, MCH 30.7, MCHC 31.2 L, RDW 14.5, Plt Count 799 H, MPV 7.5, Neut % (Auto) 70.0, Lymph % (Auto) 20.3, Banks % (Auto) 6.7, Eos % (Auto) 2.6, Baso % (Auto) 0.3, Neut # (Auto) 4.6, Lymph # (Auto) 1.3, Banks # (Auto) 0.4, Eos # (Auto) 0.2, Baso # (Auto) 0.0 10/09/19 06:14: Sodium 135 L, Potassium 3.0 L, Chloride 100, Carbon Dioxide 31 H, Anion Gap 7.0, BUN 5 L, Creatinine 0.40 L, Estimated Creat Clear 71, Estimated GFR 161, Est GFR ( Amer) 194 D, Glucose 97 D, Calcium 8.2 L I & O for Last 24 hours: Intake & Output 10/06/19 10/07/19 10/08/19 10/09/19 11:59 11:59 11:59 11:59 Intake Total 2861 / 2861 5538 / 5538 2316 / 2316 Output Total 2750 / 2750 725 / 725 1700 / 1700 Balance 111 / 111 4813 / 4813 616 / 616 Weight 165 lb 4.8 oz 171 lb 1 oz 174 lb 7 oz Microbiology Reports for the Last 24 Hours: Microbiology 10/06/19 14:35 Urine,Catheterized Urine Culture - Final NO GROWTH AFTER 48 HOURS 10/06/19 15:00 Blood Blood Culture - Preliminary NO GROWTH AFTER 48 HOURS 10/06/19 15:00 Blood Blood Culture - Preliminary NO GROWTH AFTER 48 HOURS - Constitutional no acute distress - *Routine HEENT Exam Head: Present: normocephalic Eye: Present: EOMI, PERRL ENT: Present: mucous membranes dry - *Routine Neck Exam Absent: JVD - *Routine Respiratory Exam Present: decreased breath sounds - *Routine Cardiovascular Exam Present: RRR, murmur - *Routine Abdominal Exam Present: soft - *Routine Extremities Exam Absent: calf tenderness - *Routine Skin Exam Comments: decubitus - *Routine Neurological Exam Present: CN II-XII intact - Routine Psychiatric Exam Present: anxious Assessment and Plan (1) Noncompliance Current visit: Yes Status: Acute Category: Medical Code(s): Z91.19 - Patient's noncompliance with other medical treatment and regimen (2) Healing pressure injury, stage 1 Current visit: Yes Status: Acute Category: Medical Code(s): L89.91 - Pressure ulcer of unspecified site, stage 1 (3) Decubitus ulcer, stage 2 with infection Current visit: Yes Status: Acute Category: Medical Code(s): L89.92 - Pressure ulcer of unspecified site, stage 2; L08.9 - Local infection of the skin and subcutaneous tissue, unspecified (4) Dehydration Current visit: Yes Status: Acute Category: Medical Code(s): E86.0 - Dehydration (5) Rhabdomyolysis Current visit: Yes Status: Acute Category: Medical Code(s): M62.82 - Rhabdomyolysis (6) Alcohol abuse Current visit: No Status: Acute Category: Social Hx Code(s): F10.10 - Alcohol abuse, uncomplicated (7) Hip fracture Current visit: No Status: Acute Category: Medical Code(s): S72.009A - Fracture of unspecified part of neck of unspecified femur, initial encounter for closed fracture (8) Tobacco abuse Current visit: No Status: Acute Category: Medical Code(s): Z72.0 - Tobacco use
--- NOTE | 2019-10-09 11:23 | HMH.PHACONS ---
- Pharmacy Consult Date: 10/09/19 Time: 11:23 Referring provider: DR. GUSTAFSON Reason for Consult:: VANCOMYCIN TROUGH LEVEL Allergies and ADEs:: Allergies Allergy/AdvReac Type Severity Reaction Status Date / Time No Known Allergies Allergy Unverified 09/21/19 07:53 Home Medications:: Home Medications Medication Instructions Recorded Confirmed Type hydroxyzine HCl 50 mg tablet 50 mg PO QID PRN #120 tab 07/05/19 10/07/19 Rx albuterol sulfate 90 mcg/actuation 2 puff INHALATION Q4-6H PRN #18 g 08/09/19 10/07/19 Rx aerosol inhaler Atorvastatin Calcium [Lipitor 10mg 10 mg PO DAILY 09/20/19 10/07/19 History Tab] Buspirone HCl [Buspar 10mg 10 mg PO TID 09/20/19 10/07/19 History tablet] Gabapentin 800 mg PO TID 09/20/19 10/07/19 History Lisinopril/Hydrochlorothiazide 1 tab PO BID 09/20/19 10/07/19 History [Lisinopril-Hctz 20-25 mg Tab*] Omeprazole 20 mg PO BID 09/20/19 10/07/19 History Oxybutynin Chloride 5 mg PO BID 09/20/19 10/07/19 History Sertraline HCl [Zoloft] 100 mg PO DAILY 09/20/19 10/07/19 History Tiotropium Br/Olodaterol HCl 2 puff INHALATION DAILY 09/20/19 10/07/19 History [Stiolto Respimat Inhal [place]] Oxazepam [Serax 15mg capsule] 15 mg PO TIDP PRN cap 10/01/19 10/07/19 Rx Oxycodone HCl/Acetaminophen 1 each PO Q6HP PRN tab 10/01/19 10/07/19 Rx [Percocet 5/325mg tablet] Rivaroxaban [Xarelto 10mg tablet] 10 mg PO DAILY 10/06/19 10/07/19 History Height: 1.7 m Weight: 79.124 kg Laboratory Results:: Laboratory Results - last 24 hr 10/08/19 15:00: Sodium 131 L, Potassium 3.0 L, Chloride 96 L, Carbon Dioxide 31 H, Anion Gap 7.0, BUN 5 L, Creatinine 0.50 L, Estimated Creat Clear 70, Estimated GFR 124, Est GFR ( Amer) 150, Glucose 135 H D, Calcium 8.0 L 10/08/19 22:32: Vancomycin Trough 8.2 10/09/19 06:14: WBC 6.6, RBC 2.72 L, Hgb 8.3 L, Hct 26.7 L, MCV 98.4, MCH 30.7, MCHC 31.2 L, RDW 14.5, Plt Count 799 H, MPV 7.5, Neut % (Auto) 70.0, Lymph % (Auto) 20.3, [place] % (Auto) 6.7, Eos % (Auto) 2.6, Baso % (Auto) 0.3, Neut # (Auto) 4.6, Lymph # (Auto) 1.3, [place] # (Auto) 0.4, Eos # (Auto) 0.2, Baso # (Auto) 0.0 10/09/19 06:14: Sodium 135 L, Potassium 3.0 L, Chloride 100, Carbon Dioxide 31 H, Anion Gap 7.0, BUN 5 L, Creatinine 0.40 L, Estimated Creat Clear 71, Estimated GFR 161, Est GFR ( Amer) 194 D, Glucose 97 D, Calcium 8.2 L Medical History: Reports:: Anxiety, Chronic Obstructive Pulmonary Disease (COPD), Depression, Gastroesophageal Reflux Disease(GERD), Hyperlipidemia, Hypertension Denies:: Cancer, Diabetes Mellitus Type 1, Diabetes Mellitus Type 2, MRSA, Seizures Assessment and Plan (1) Noncompliance Current visit: Yes Status: Acute Category: Medical Code(s): Z91.19 - Patient's noncompliance with other medical treatment and regimen (2) Healing pressure injury, stage 1 Current visit: Yes Status: Acute Category: Medical Code(s): L89.91 - Pressure ulcer of unspecified site, stage 1 (3) Decubitus ulcer, stage 2 with infection Current visit: Yes Status: Acute Category: Medical Code(s): L89.92 - Pressure ulcer of unspecified site, stage 2; L08.9 - Local infection of the skin and subcutaneous tissue, unspecified (4) Dehydration Current visit: Yes Status: Acute Category: Medical Code(s): E86.0 - Dehydration (5) Rhabdomyolysis Current visit: Yes Status: Acute Category: Medical Code(s): M62.82 - Rhabdomyolysis (6) Alcohol abuse Current visit: No Status: Acute Category: Social Hx Code(s): F10.10 - Alcohol abuse, uncomplicated (7) Hip fracture Current visit: No Status: Acute Category: Medical Code(s): S72.009A - Fracture of unspecified part of neck of unspecified femur, initial encounter for closed fracture (8) Tobacco abuse Current visit: No Status: Acute Category: Medical Code(s): Z72.0 - Tobacco use - Assessment and plan all Dx Assessment and Plan for all problems:: BASED ON PATIENT FACTORS AND VANCOMYC
--- NOTE | 2019-10-09 13:07 | HMH.ORTHPN ---
Subjective Date: 10/09/19 Time: 12:00 Principal diagnosis: L hip fx s/p KILLIAN, decubitus ulcers, dehydration, rhabdomyolysis Interval history: The patient was agitated overnight, received 0.5mg ativan this morning around 9:30am. Not on medication for alcohol withdrawl, but is on buspar 10mg TID for anxiety. On entry to the room today the lights are off, shades are drawn and the patient is awake but cannot keep her eyes open. She does not complain of pain and is not on pain medication. Remains on vanc/zosyn, afebrile, vitals stable. There is no dressing on the L hip, no abduction pillow between her legs, no abduction orthosis on the hip. She has not been getting out of bed without PT, who has not been by yet today. Vasquez remains in place. PN: Obj Ex Vital signs: Temp Pulse Resp BP Pulse Ox 98.1 F 94 H 18 122/69 93 L 10/09/19 08:00 10/09/19 08:00 10/09/19 08:00 10/09/19 08:00 10/09/19 08:00 - Constitutional no acute distress, somnolent - Routine HEENT Exam Head: Present: normocephalic Eye: Present: EOMI ENT: Present: mucous membranes moist - Routine Neck Exam Present: supple, trachea midline - Routine Respiratory Exam Absent: respiratory distress - Routine Cardiovascular Exam Present: RRR - Routine Abdominal Exam Present: soft. Absent: tenderness - Routine Exam Comments: vasquez in place - Routine Extremities Exam Comments: L hip incision cande c/d/i, no periwound erythema, drainage or tenderness ROM L hip 0-90 degrees w/o pain; further ROM not attempted +DF/PF/EHL LLE SILT distally LLE in all distributions palpable pedal pulses LLE, foot warm/pink 2+ pitting edema BLE - Routine Skin Exam Comments: decubitus/gluteal decubiti stable - Routine Neurological Exam Present: altered mental status, moving all extremities, normal tone, vision grossly intact, hearing grossly intact. Absent: alert, oriented X3, sensory deficit, motor deficit, normal speech - Urinary Catheter Management Vasquez Cath placed during this visit: yes Urethral indwelling: Yes Reason for continuing: Measure accurate output Insertion date: 10/06/19 Progress Note: A&P (1) Noncompliance Status: Acute Current Visit: Yes (2) Healing pressure injury, stage 1 Status: Acute Current Visit: Yes (3) Decubitus ulcer, stage 2 with infection Status: Acute Current Visit: Yes (4) Dehydration Status: Acute Current Visit: Yes (5) Rhabdomyolysis Status: Acute Current Visit: Yes (6) Alcohol abuse Status: Acute Current Visit: No (7) Hip fracture Status: Acute Current Visit: No (8) Tobacco abuse Status: Acute Current Visit: No Assessment and Plan for All Diagnoses:: 64yo F w/p L KILLIAN 09/27/19 for chronic, displaced femoral neck fracture; non-compliant with post-operative abduction restrictions/brace wear, has not answered the phone for the office/home health so no aftercare has been provided. 1) L hip -- WBAT, abduction pillow while in bed, must wear abduction orthosis for ambulation. Brace brought to the hospital by friend yesterday, but patient is not wearing it. This needs to be checked and wear reinforced anytime she gets out of bed. -- cande may be removed after 10/11/19; this will be done in my office. Cover wound with dry dressing; change daily. -- ok to shower, using shower chair and assistance -- continue physical therapy -- continue posterior hip precautions -- continue Xarelto + SCDs for DVT prophy -- f/u in my clinic 10/10/01 at 10:15am at previously scheduled --> if still admitted, will remove cande then 2) sacral + L gluteal decubitus ulcers, grade 1-2 -- continue wound care -- does not appear to need debridement at this time, but would let this demarcate over the next few days and reevaluate. Skin may become frankly necrotic, at which time debridement may be needed. Recommend general surgery consultation if necessary. -- turn patient frequently, at
[2019-10-09 16:00] VITALS: BP 142/72; PULSE 94; RESP 17; TEMP 36.9; O2SAT 97
--- NOTE | 2019-10-09 18:23 | PC.NURSE ---
Pt has been A&O X4 this shift. No complaints of pain. Pt extremely agitated and non-compliant this AM. Pt requests medication to help her rest and states that she hasn't slept in days. Received Ativan order from Dr. Lux. After AM dose, pt has slept the majority of the shift and has been remarkably cooperative. Pt has allowed staff to place abduction pillow between her legs and reposition her Q2H. F/C DC'd this shift and IPC sleeves placed to BLE per Dr. Guardado. Bordered gauze dressing placed to cover LT hip cande and received order per Dr. Guardado for daily dressing changes. Appetite is poor and pt refused to get OOB today. Unstageable decubitus noted to LT buttock and excoriation to RT buttock. Bilateral heels are currently floating on a pillow. New IV placed this shift due to infiltration. 20 G peripheral IV placed in the RT forearm is patent and infusing NS @ 125 ML/HR. Pt is incontinent of bowel and bladder. BM X3 this shift. VSS. Call light within reach.
[2019-10-09 20:05] VITALS: BP 138/72; PULSE 88; RESP 16; TEMP 36.6; O2SAT 97
--- NOTE | 2019-10-09 22:23 | PC.NURSE ---
Pt has thrown abductor pillow off of bed. Pt was educated on importance of having the abductor pillow and verbalized understanding. Abductor pillow reapplied. Pt stated it's fine for now, but it will end up on the floor again. Will continue to monitor.
[2019-10-10] VITALS: BP 120/59; PULSE 62; RESP 16; TEMP 36.6; O2SAT 95
[2019-10-10 04:48] VITALS: BP 143/81; PULSE 92; RESP 18; TEMP 36.7; O2SAT 93
[2019-10-10 05:20] VITALS: BMI 27.3
--- NOTE | 2019-10-10 05:27 | PC.NURSE ---
pt has slept most of the night. pt received a full bed bath with linen change this shift. SCUDS in place. Abductor pillow in place. Heels are floated. call light is within reach. no other concerns at this time. will continue to monitor.
[2019-10-10 08:00] VITALS: BP 147/76; PULSE 103; RESP 20; TEMP 36.9; O2SAT 97
[2019-10-10 08:54] LABS: Adenovirus F 40/41, stool Not Detected (NotDetected); Astrovirus Not Detected (NotDetected); Campylobacter Not Detected (NotDetected); Clostridium Difficile A/B, PCR Not Detected (NotDetected); Cryptosporidium Not Detected (NotDetected); Cyclospora Cayetanesis Not Detected (NotDetected); Entamoeba histolytica Not Detected (NotDetected); Enteroaggregative E coli Not Detected (NotDetected); Enteropathogenic E coli Not Detected (NotDetected); Enterotoxigenic E coli Not Detected (NotDetected); Giardia lamblia Not Detected (NotDetected); Norovirus Not Detected (NotDetected); Plesimonas Shigalloides, PCR Not Detected (NotDetected); Rotavirus A Not Detected (NotDetected); Salmonella, PCR Not Detected (NotDetected); Sapovirus Not Detected (NotDetected); Shiga-like toxin E coli Not Detected (NotDetected); Shigella Enterovasive E coli Not Detected (NotDetected); Vibrio Cholerae Not Detected (NotDetected); Vibrio, PCR Not Detected (NotDetected); Yersinia Entercolitica, PCR Not Detected (NotDetected)
--- NOTE | 2019-10-10 10:54 | HMH.ACPN2 ---
Internal Medicine - PN: Subj *Date: 10/11/19 *Time: 00:48 Interval history: looks better this am - agree with oob, no vasquez and as little of anxiety meds as possible Exam Vital signs and Labs for Last 24 Hours: Temp Pulse Resp BP Pulse Ox 98.4 F 103 H 20 147/76 H 97 10/10/19 08:00 10/10/19 08:00 10/10/19 08:00 10/10/19 08:00 10/10/19 08:00 Laboratory Results - last 24 hr 10/10/19 08:48: Stl Aeromonas (PCR) Not detected, Stl C. cayetanensis PCR Not detected, Stool Rotavirus (PCR) Not detected, Stl Adenov F 40/41 PCR Not detected, Stool Astrovirus (PCR) Not detected, Stool Campylobacter PCR Not detected, Stl C.difficile Tox PCR Not detected, Stool Cryptosporidium PCR Not detected, Stl E.coli Shiga Tox PCR Not detected, Stool E coli O157 PCR Not detected, Stl Enterotoxigenic E PCR Not detected, Stool EPEC (PCR) Not detected, Stool EAEC (PCR) Not detected, Stl E. histolytica PCR Not detected, Stool Giardia Lamblia PCR Not detected, Stool Salmonella PCR Not detected, Stool Sapovirus (PCR) Not detected, Stl P. shigelloides PCR Not detected, Stl Shigella/EIEC PCR Not detected, St Y.enterocolitica PCR Not detected, Stool Vibrio (PCR) Not detected, Stl Vibrio cholerae PCR Not detected, Stl Norovirus GI/GII PCR Not detected I & O for Last 24 hours: Intake & Output 10/07/19 10/08/19 10/09/19 10/10/19 11:59 11:59 11:59 11:59 Intake Total 2861 / 2861 5538 / 5538 2316 / 2316 5971 / 5971 Output Total 2750 / 2750 725 / 725 1700 / 1700 700 / 700 Balance 111 / 111 4813 / 4813 616 / 616 5271 / 5271 Weight 165 lb 4.8 oz 171 lb 1 oz 174 lb 7 oz 174 lb 4 oz - Constitutional no acute distress - *Routine HEENT Exam Head: Present: normocephalic Eye: Present: EOMI, PERRL ENT: Present: mucous membranes dry - *Routine Neck Exam Absent: JVD - *Routine Respiratory Exam Present: CTA bilaterally - *Routine Cardiovascular Exam Present: RRR, murmur - *Routine Abdominal Exam Present: soft - *Routine Extremities Exam Present: edema - *Routine Skin Exam Comments: large decubitus dacral/buttock - *Routine Neurological Exam Present: alert, CN II-XII intact - Routine Psychiatric Exam Present: cooperative Assessment and Plan (1) Noncompliance Current visit: Yes Status: Acute Category: Medical Code(s): Z91.19 - Patient's noncompliance with other medical treatment and regimen (2) Healing pressure injury, stage 1 Current visit: Yes Status: Acute Category: Medical Code(s): L89.91 - Pressure ulcer of unspecified site, stage 1 (3) Decubitus ulcer, stage 2 with infection Current visit: Yes Status: Acute Category: Medical Code(s): L89.92 - Pressure ulcer of unspecified site, stage 2; L08.9 - Local infection of the skin and subcutaneous tissue, unspecified (4) Dehydration Current visit: Yes Status: Acute Category: Medical Code(s): E86.0 - Dehydration (5) Rhabdomyolysis Current visit: Yes Status: Acute Category: Medical Code(s): M62.82 - Rhabdomyolysis (6) Alcohol abuse Current visit: No Status: Acute Category: Social Hx Code(s): F10.10 - Alcohol abuse, uncomplicated (7) Hip fracture Current visit: No Status: Acute Category: Medical Code(s): S72.009A - Fracture of unspecified part of neck of unspecified femur, initial encounter for closed fracture (8) Tobacco abuse Current visit: No Status: Acute Category: Medical Code(s): Z72.0 - Tobacco use (9) Elevated erythrocyte sedimentation rate Current visit: Yes Status: Acute Category: Medical Code(s): R70.0 - Elevated erythrocyte sedimentation rate (10) Elevated C-reactive protein (CRP) Current visit: Yes Status: Acute Category: Medical Code(s): R79.82 - Elevated C-reactive protein (CRP)
--- NOTE | 2019-10-10 10:58 | PC.NURSE ---
[place] w/ Dr. Lux. Pt was up to chair at this time. Continue current treatment plan.
--- NOTE | 2019-10-10 12:32 | HMH.ORTHPN ---
Subjective Date: 10/10/19 Time: 12:00 Principal diagnosis: L hip fx s/p KILLIAN, decubitus ulcers, dehydration, rhabdomyolysis Interval history: The patient is doing well today. She is sitting in a bedside chair and is much more awake and alert today. She said she got good rest yesterday and is feeling better today. Her nurse reports compliance with her abduction pillow yesterday, though she did not receive physical therapy and did not get out of bed yesterday. There has been some report of possible urinary and fecal incontinence, though her diarrhea panel was negative. Harris was removed yesterday. She has been attempting to get to a bedside commode today. In general, she is in better spirits today and is more agreeable to participation with therapy. PN: Obj Ex Vital signs: Temp Pulse Resp BP Pulse Ox 98.4 F 103 H 20 147/76 H 97 10/10/19 08:00 10/10/19 08:00 10/10/19 08:00 10/10/19 08:00 10/10/19 08:00 - Constitutional no acute distress - Routine HEENT Exam Head: Present: normocephalic Eye: Present: EOMI ENT: Present: mucous membranes moist - Routine Neck Exam Present: trachea midline - Routine Respiratory Exam Absent: respiratory distress - Routine Cardiovascular Exam Present: RRR - Routine Abdominal Exam Present: soft. Absent: tenderness - Routine Extremities Exam Comments: L hip incision cande c/d/i, no periwound erythema, drainage or tenderness ROM L hip 0-90 degrees w/o pain; further ROM not attempted +DF/PF/EHL LLE SILT distally LLE in all distributions palpable pedal pulses LLE, foot warm/pink 2+ pitting edema BLE - Routine Skin Exam Comments: sacral/gluteal decubiti unchanged - Routine Neurological Exam Present: alert, oriented X3, moving all extremities, normal tone, vision grossly intact, hearing grossly intact, normal speech. Absent: sensory deficit, motor deficit, altered mental status - Routine Psychiatric Exam Present: cooperative - Urinary Catheter Management Harris Cath placed during this visit: yes, but has since been removed by the nurse Urethral indwelling: No Insertion date: 10/06/19 Removal date: 10/09/19 Progress Note: A&P (1) Noncompliance Status: Acute Current Visit: Yes (2) Healing pressure injury, stage 1 Status: Acute Current Visit: Yes (3) Decubitus ulcer, stage 2 with infection Status: Acute Current Visit: Yes (4) Dehydration Status: Acute Current Visit: Yes (5) Rhabdomyolysis Status: Acute Current Visit: Yes (6) Alcohol abuse Status: Acute Current Visit: No (7) Hip fracture Status: Acute Current Visit: No (8) Tobacco abuse Status: Acute Current Visit: No Assessment and Plan for All Diagnoses:: 64yo F w/p L KILLIAN 09/27/19 for chronic, displaced femoral neck fracture; non-compliant with post-operative abduction restrictions/brace wear, has not answered the phone for the office/home health so no aftercare has been provided. 1) L hip -- WBAT, abduction pillow while in bed, must wear abduction orthosis for ambulation. Brace brought to the hospital by friend, but patient is not wearing it. This needs to be checked and wear reinforced anytime she gets out of bed. -- cande may be removed after 10/11/19; this will be done in my office. Cover wound with dry dressing; change daily. -- ok to shower, using shower chair and assistance -- continue physical therapy -- continue posterior hip precautions -- continue Xarelto + SCDs for DVT prophy -- f/u in my clinic 10/10/01 at 10:15am at previously scheduled --> if still admitted, will remove cande then 2) sacral + L gluteal decubitus ulcers, grade 1/pending 2 -- continue wound care -- does not appear to need debridement at this time, but would let this demarcate over the next few days and reevaluate. Skin may become frankly necrotic, at which time debridement may be needed. Recommend general surgery consultation if necessary. -- turn patient fr
--- NOTE | 2019-10-10 13:14 | HMH.ACPN ---
Internal Medicine - PN: Subj *Date: 10/10/19 *Time: 13:14 Exam Vital signs and Labs for Last 24 Hours: Temp Pulse Resp BP Pulse Ox 98.4 F 103 H 20 147/76 H 97 10/10/19 08:00 10/10/19 08:00 10/10/19 08:00 10/10/19 08:00 10/10/19 08:00 Laboratory Results - last 24 hr 10/10/19 08:48: Stl Aeromonas (PCR) Not detected, Stl C. cayetanensis PCR Not detected, Stool Rotavirus (PCR) Not detected, Stl Adenov F 40/41 PCR Not detected, Stool Astrovirus (PCR) Not detected, Stool Campylobacter PCR Not detected, Stl C.difficile Tox PCR Not detected, Stool Cryptosporidium PCR Not detected, Stl E.coli Shiga Tox PCR Not detected, Stool E coli O157 PCR Not detected, Stl Enterotoxigenic E PCR Not detected, Stool EPEC (PCR) Not detected, Stool EAEC (PCR) Not detected, Stl E. histolytica PCR Not detected, Stool Giardia Lamblia PCR Not detected, Stool Salmonella PCR Not detected, Stool Sapovirus (PCR) Not detected, Stl P. shigelloides PCR Not detected, Stl Shigella/EIEC PCR Not detected, St Y.enterocolitica PCR Not detected, Stool Vibrio (PCR) Not detected, Stl Vibrio cholerae PCR Not detected, Stl Norovirus GI/GII PCR Not detected I & O for Last 24 hours: Intake & Output 10/07/19 10/08/19 10/09/19 10/10/19 23:59 23:59 23:59 23:59 Intake Total 2418 / 2418 5807 / 5807 3521 / 5731 2690 / 2690 Output Total 3100 / 3100 1075 / 1075 1700 / 1700 Balance -682 / -682 4732 / 4732 1821 / 4031 2690 / 2690 Weight 74.979 kg 77.593 kg 79.124 kg 79.038 kg Assessment and Plan (1) Noncompliance Current visit: Yes Status: Acute Category: Medical Code(s): Z91.19 - Patient's noncompliance with other medical treatment and regimen (2) Healing pressure injury, stage 1 Current visit: Yes Status: Acute Category: Medical Code(s): L89.91 - Pressure ulcer of unspecified site, stage 1 (3) Decubitus ulcer, stage 2 with infection Current visit: Yes Status: Acute Category: Medical Code(s): L89.92 - Pressure ulcer of unspecified site, stage 2; L08.9 - Local infection of the skin and subcutaneous tissue, unspecified (4) Dehydration Current visit: Yes Status: Acute Category: Medical Code(s): E86.0 - Dehydration (5) Rhabdomyolysis Current visit: Yes Status: Acute Category: Medical Code(s): M62.82 - Rhabdomyolysis (6) Alcohol abuse Current visit: No Status: Acute Category: Social Hx Code(s): F10.10 - Alcohol abuse, uncomplicated (7) Hip fracture Current visit: No Status: Acute Category: Medical Code(s): S72.009A - Fracture of unspecified part of neck of unspecified femur, initial encounter for closed fracture (8) Tobacco abuse Current visit: No Status: Acute Category: Medical Code(s): Z72.0 - Tobacco use The patient's infection will respond to the chosen ABx?: Yes Is the patient receiving the right drug, dose, and route?: Yes Could a more targeted ABx be ordered?: No (NO GROWTH IN CULTURES)
--- NOTE | 2019-10-10 18:20 | PC.NURSE ---
Pt has been A&O X4 this shift. No complaints of pain. Pt sat up in the chair for the majority of the shift. Unstageable decubitus noted to LT buttock covered with Telfa/Tegaderm and excoriation noted to RT buttock. Bilateral heels are currently floating on a pillow and abduction pillow is in place. LT hip cande are covered with a bordered gauze dressing. 20 G peripheral IV in the RT forearm is patent and infusing NS @ 125 ML/HR. Pt is incontinent of bowel and bladder. 1 BM this shift. VSS. Call light within reach.
--- NOTE | 2019-10-10 18:27 | PC.NURSE ---
Diarrhea panel results negative for c. diff this shift. Pt taken out of contact-enteric precautions.
[2019-10-10 20:00] VITALS: BP 150/77; PULSE 100; RESP 16; TEMP 36.9; O2SAT 96
--- NOTE | 2019-10-11 00:27 | PC.NURSE ---
Pt refuses to have seizure pads in place on bed, pt removes and tosses pads across room when applied to bed rails.
[2019-10-11 04:00] VITALS: BP 133/72; PULSE 97; RESP 16; TEMP 36.6; O2SAT 97
[2019-10-11 05:00] VITALS: BMI 27.4
[2019-10-11 06:14] LABS: Basophils # 0.1 K/mm3 (0-0.2); Basophils % 0.6 % (0.1-2.0); Eosinophils # 0.4 K/mm3 (0.0-0.4); Eosinophils % 5.1 % (0.1-12.0); Hematocrit 24.8 % (37.0-47.0); Lymphocytes # 1.8 K/mm3 (0.7-4.5); Lymphocytes % 21.6 % (10-50); Mean Corpuscular HGB Conc 32.4 g/dL (31.8-35.4); Mean Corpuscular Hemoglobin 31.2 pg (27.0-31.2); Mean Corpuscular Volume 96.3 fl (81-99); Mean Platelet Volume 7.3 fl (7.4-10.4); Monocytes # 0.6 K/mm3 (0.1-1.0); Monocytes % 6.9 % (1.7-9.3); Neutrophils # 5.5 K/mm3 (1.8-7.8); Neutrophils % 65.8 % (37.0-80.0); Platelet Count 746 K/mm3 (142-424); Red Blood Count 2.57 M/mm3 (4.20-5.40); Red Cell Distribution Width 15.1 % (11.5-17.5); White Blood Count 8.3 K/mm3 (4.8-10.8)
[2019-10-11 06:37] LABS: C-Reactive Protein 40.4 mg/L (0-4)
[2019-10-11 07:23] VITALS: BP 140/76; PULSE 100; RESP 20; TEMP 36.8; O2SAT 95
[2019-10-11 08:00] VITALS: PULSE 100; RESP 20; O2SAT 95
[2019-10-11 08:27] LABS: Erythrocyte Sedimentation Rate 106 mm/hr (0-30)
--- NOTE | 2019-10-11 09:52 | SW/DCPLANNER ---
PATIENT HAS BEEN ACCEPTED TO [facility] AND IS DISCHARGING THERE TODAY... SHE WILL BE AT AN ICF LEVEL OF CARE THERE.. PATIENT HAD A BED THERE THE LAST ADMISSION AND REFUSED TO GO, WENT HOME AND CAME BACK AFTER CAREGIVER STATED HE CAN NO LONGER CARE FOR HER R/T HER NEEDS ARE GREATER THAN HE CAN CARE FOR...
[2019-10-11 11:55] LABS: Anion Gap 9.5 mEq/L (5-15); Blood Urea Nitrogen 4 mg/dl (7-17); Calcium 8.3 mg/dl (8.4-10.2); Carbon Dioxide 29 mmol/L (22.0-30.0); Chloride 98 mmol/L (98-107); Creatinine Clearance Estimated 71 mL/min (50-200); Estimated Glomerular Filt Rate 161 ml/min (>60); GFR (African American) 194 ML/MIN (>60); Glucose 112 mg/dl (74-100); Potassium 3.5 mmoL/L (3.5-5.1); Sodium 133 mmol/L (136-145)
[2019-10-11 12:33] LABS: Vancomycin,Trough 15.2 ug/mL (5.0-10.0)
--- NOTE | 2019-10-11 12:51 | HMH.DCSUM ---
General - General Admission date:: 10/06/19 Discharge date: 10/11/19 HPI HPI: 64yr old female presented to ed with c/o of weakness s/p fall. Pt presented to ed the ER yesterday after a possible fall at home, covered in urine and feces, with no hip abduction pillow or rigid brace. She has new decubitus ulcers stage 2 on cocyx and stage one on left heal,as well, is dehydrated, with multiple electrolyte abnormalities. s/p Left KILLIAN performed 09/27/19 for a chronic, displaced femoral neck fracture. Pt originally presented to the ER after 3-4 weeks of L hip pain from a fall. Left KILLIAN performed 09/27/19 and small non-displaced greater trochanter fracture occurred, treated with a hook plate and cables(per note) She was placed into a rigid abduction orthosis and plans made for discharge to SNF for rehab but on day of discharge,patient refused placement and went home with boyfriend with home health. After discharge, she has been unreachable by home health or [facility]. She has not answered the telephone, nor did her daughter or boyfriend Per report, an APS report was filed and a home visit made yesterday, where the patient was reported to be intoxicated. Pt admitted for eval and pt is willing to be placed in ltc at this time. Hospital Course Hospital Course: Laboratory Tests 10/06/19 10/06/19 10/06/19 14:30 14:30 14:30 WBC 14.0 H RBC 3.22 L Hgb 10.2 L Hct 31.8 L MCV 98.8 MCH 31.8 H MCHC 32.2 RDW 14.7 Plt Count 834 H MPV 7.6 Neut % (Auto) 88.3 H Lymph % (Auto) 6.3 L [place] % (Auto) 4.9 Eos % (Auto) 0.5 Baso % (Auto) 0.1 Neut # (Auto) 12.3 H Lymph # (Auto) 0.9 [place] # (Auto) 0.7 Eos # (Auto) 0.1 Baso # (Auto) 0.0 Total Counted 100 Neutrophils % (Manual) 83 H Lymphocytes % (Manual) 12 Monocytes % (Manual) 5 Platelet Estimate Marked increase RBC Morphology Normal ESR PT INR APTT 28.1 Sodium Potassium Chloride Carbon Dioxide Anion Gap BUN Creatinine Estimated Creat Clear Estimated GFR Est GFR ( Amer) Glucose Lactate Calcium Total Bilirubin AST ALT Alkaline Phosphatase Total Creatine Kinase Troponin I C-Reactive Protein Total Protein Albumin Globulin Albumin/Globulin Ratio Lipase Urine Color Yellow Urine Appearance Clear Urine pH 6.5 Ur Specific [place] 1.015 Urine Protein Negative Urine Glucose (UA) Negative Urine Ketones Negative Urine Blood Negative Urine Nitrate Negative Urine Bilirubin Negative Urine Urobilinogen 0.2 Ur Leukocyte Esterase Negative Urine WBC 3-5 Ur Squamous Epith Cells Occasional Stl Aeromonas (PCR) Stl C. cayetanensis PCR Stool Rotavirus (PCR) Stl Adenov F 40/ PCR Stool Astrovirus (PCR) Stool Campylobacter PCR Stl C.difficile Tox PCR Stool Cryptosporidium PCR Stl E.coli Shiga Tox PCR Stool E coli O157 PCR Stl Enterotoxigenic E PCR Stool EPEC (PCR) Stool EAEC (PCR) Stl E. histolytica PCR Stool Giardia Lamblia PCR Stool Salmonella PCR Stool Sapovirus (PCR) Stl P. shigelloides PCR Stl Shigella/EIEC PCR St Y.enterocolitica PCR Stool Vibrio (PCR) Stl Vibrio cholerae PCR Stl Norovirus GI/GII PCR Vancomycin Trough Plasma/Serum Alcohol Chlamy pneumoniae PCR Adenovirus (PCR) B. pertussis DNA (PCR) Coronavirus OC43 (PCR) Coronavirus HKU1 (PCR) Coronavirus 229E (PCR) COVID-19 PCR Coronavirus NL63 (PCR) Human Metapneumovir PCR Influenza A (H1) PCR Influ A (H1N1/09) PCR Influenza A (H3) PCR Influenza Type A (PCR) Influenza Type B (PCR) M. pneumoniae (PCR) Parainfluenza 1 (PCR) Parainfluenza 2 (PCR) Parainfluenza 3 (PCR) Parainfluenza 4 (PCR) RSV (PCR) Entero/Rhino (PCR) 10/06/19 10/06/19 10/06/19 14:30 14:30 17:13 WBC RBC
--- NOTE | 2019-10-11 13:34 | HMH.ORTHPN ---
Subjective Date: 10/11/19 Time: 11:30 Principal diagnosis: L hip fx s/p KILLIAN, decubitus ulcers, dehydration, rhabdomyolysis Interval history: The patient participated with physical therapy this morning but needed assistance to stand senior living; she would not stand fully and kept pulling at her hip orthosis. She refused to participate in PT yesterday but did sit in a bedside chair for a short period of time. Friday she did not get out of bed at all. She has been soiling herself in bed frequently and her dressings have been contaminated. She continues to pull her abduction pillow off in bed, and pulls the padding off her bed siderails. No fevers or chills reported, labs have improved and most have normalized. She is discharging to SNF today pending negative covid swab. PN: Obj Ex Vital signs: Temp Pulse Resp BP Pulse Ox 98.2 F 100 H 20 140/76 95 10/11/19 07:23 10/11/19 08:00 10/11/19 08:00 10/11/19 07:23 10/11/19 08:00 - Constitutional no acute distress, chronically ill appearing - Routine HEENT Exam Head: Present: normocephalic Eye: Present: EOMI ENT: Present: mucous membranes moist - Routine Respiratory Exam Absent: respiratory distress, wheezes - Routine Cardiovascular Exam Present: RRR - Routine Abdominal Exam Present: soft. Absent: tenderness - Routine Extremities Exam Comments: L hip incision cande c/d/i, no periwound drainage or tenderness mild periwound erythema, appears to be irritation from cande, no cellulitis +DF/PF/EHL LLE SILT distally LLE in all distributions palpable pedal pulses LLE, foot warm/pink 2+ pitting edema BLE sacral decubitus ulcer stable, R gluteal ulcer stable new areas of breakdown L gluteal fold and B/L upper thighs posteriorly - Routine Skin Exam Present: warm - Routine Neurological Exam Present: alert, oriented X3, moving all extremities, normal tone, vision grossly intact, hearing grossly intact, normal speech. Absent: sensory deficit, motor deficit, altered mental status - Urinary Catheter Management Harris Cath placed during this visit: yes, but has since been removed by the nurse Urethral indwelling: No Insertion date: 10/06/19 Removal date: 10/09/19 Progress Note: A&P (1) Noncompliance Status: Acute Current Visit: Yes (2) Healing pressure injury, stage 1 Status: Acute Current Visit: Yes (3) Decubitus ulcer, stage 2 with infection Status: Acute Current Visit: Yes (4) Dehydration Status: Acute Current Visit: Yes (5) Rhabdomyolysis Status: Acute Current Visit: Yes (6) Alcohol abuse Status: Acute Current Visit: No (7) Hip fracture Status: Acute Current Visit: No (8) Tobacco abuse Status: Acute Current Visit: No (9) Elevated erythrocyte sedimentation rate Status: Acute Current Visit: Yes (10) Elevated C-reactive protein (CRP) Status: Acute Current Visit: Yes Assessment and Plan for All Diagnoses:: 64yo F w/p L KILLIAN 09/27/19 for chronic, displaced femoral neck fracture; non-compliant with post-operative abduction restrictions/brace wear, has not answered the phone for the office/home health so no aftercare has been provided. 1) L hip -- WBAT, abduction pillow while in bed, must wear abduction orthosis for ambulation. Brace brought to the hospital by friend, but patient is not wearing it. This needs to be checked and wear reinforced anytime she gets out of bed. -- cande were removed today, steri-strips placed on wound -- keep wound covered with dry dressing; change daily. -- ok to shower, using shower chair and assistance -- continue physical therapy -- continue posterior hip precautions -- continue Xarelto + SCDs for DVT prophy -- f/u in my clinic 10/25/19 at 10:30am; will need XR prior to visit -- call clinic immediately for any fevers, L hip drainage, falls/injuries 2) sacral + L gluteal decubitus ulcers, grade 1/pending 2 -- continue wound care -- does not
--- NOTE | 2019-10-11 14:05 | HMH.PHACONS ---
- Pharmacy Consult Date: 10/11/19 Time: 14:05 Referring provider: DR. GUSTAFSON Reason for Consult:: VANCOMYCIN TROUGH LEVEL Allergies and ADEs:: Allergies Allergy/AdvReac Type Severity Reaction Status Date / Time No Known Allergies Allergy Unverified 09/21/19 07:53 Home Medications:: Home Medications Medication Instructions Recorded Confirmed Type albuterol sulfate 90 mcg/actuation 2 puff INHALATION Q4-6H PRN #18 g 08/09/19 10/07/19 Rx aerosol inhaler Atorvastatin Calcium [Lipitor 10mg 10 mg PO DAILY 09/20/19 10/07/19 History Tab] Buspirone HCl [Buspar 10mg 10 mg PO TID 09/20/19 10/07/19 History tablet] Gabapentin 800 mg PO TID 09/20/19 10/07/19 History Lisinopril/Hydrochlorothiazide 1 tab PO BID 09/20/19 10/07/19 History [Lisinopril-Hctz 20-25 mg Tab*] Omeprazole 20 mg PO BID 09/20/19 10/07/19 History Sertraline HCl [Zoloft] 100 mg PO DAILY 09/20/19 10/07/19 History Tiotropium Br/Olodaterol HCl 2 puff INHALATION DAILY 09/20/19 10/07/19 History [Stiolto Respimat Inhal [place]] Oxazepam [Serax 15mg capsule] 15 mg PO TIDP PRN cap 10/01/19 10/07/19 Rx Oxycodone HCl/Acetaminophen 1 each PO Q6HP PRN tab 10/01/19 10/07/19 Rx [Percocet 5/325mg tablet] Rivaroxaban [Xarelto 10mg tablet] 10 mg PO DAILY 10/06/19 10/07/19 History clindamycin HCL [Clindamycin HCl 300 mg PO Q8 5 Days #15 cap 10/11/19 Rx 300mg Cap] levoFLOXacin [Levaquin 500mg 500 mg PO DAILY 5 Days #5 tab 10/11/19 Rx tab] Height: 1.7 m Weight: 79.435 kg Laboratory Results:: Laboratory Results - last 24 hr 10/11/19 05:49: WBC 8.3 D, RBC 2.57 L, Hgb 8.0 L, Hct 24.8 L, MCV 96.3, MCH 31.2, MCHC 32.4, RDW 15.1, Plt Count 746 H, MPV 7.3 L, Neut % (Auto) 65.8, Lymph % (Auto) 21.6, [place] % (Auto) 6.9, Eos % (Auto) 5.1, Baso % (Auto) 0.6, Neut # (Auto) 5.5, Lymph # (Auto) 1.8, [place] # (Auto) 0.6, Eos # (Auto) 0.4, Baso # (Auto) 0.1, ESR 106 H 10/11/19 05:49: C-Reactive Protein 40.4 H 10/11/19 11:35: Vancomycin Trough 15.2 H 10/11/19 11:35: Sodium 133 L, Potassium 3.5, Chloride 98, Carbon Dioxide 29, Anion Gap 9.5, BUN 4 L, Creatinine 0.40 L, Estimated Creat Clear 71, Estimated GFR 161, Est GFR ( Amer) 194, Glucose 112 H, Calcium 8.3 L Medical History: Reports:: Anxiety, Chronic Obstructive Pulmonary Disease (COPD), Depression, Gastroesophageal Reflux Disease(GERD), Hyperlipidemia, Hypertension Denies:: Cancer, Diabetes Mellitus Type 1, Diabetes Mellitus Type 2, MRSA, Seizures Assessment and Plan (1) Noncompliance Current visit: Yes Status: Acute Category: Medical Code(s): Z91.19 - Patient's noncompliance with other medical treatment and regimen (2) Healing pressure injury, stage 1 Current visit: Yes Status: Acute Category: Medical Code(s): L89.91 - Pressure ulcer of unspecified site, stage 1 (3) Decubitus ulcer, stage 2 with infection Current visit: Yes Status: Acute Category: Medical Code(s): L89.92 - Pressure ulcer of unspecified site, stage 2; L08.9 - Local infection of the skin and subcutaneous tissue, unspecified (4) Dehydration Current visit: Yes Status: Acute Category: Medical Code(s): E86.0 - Dehydration (5) Rhabdomyolysis Current visit: Yes Status: Acute Category: Medical Code(s): M62.82 - Rhabdomyolysis (6) Alcohol abuse Current visit: No Status: Acute Category: Social Hx Code(s): F10.10 - Alcohol abuse, uncomplicated (7) Hip fracture Current visit: No Status: Acute Category: Medical Code(s): S72.009A - Fracture of unspecified part of neck of unspecified femur, initial encounter for closed fracture (8) Tobacco abuse Current visit: No Status: Acute Category: Medical Code(s): Z72.0 - Tobacco use (9) Elevated erythrocyte sedimentation rate Current visit: Yes Status: Acute Category: Medical Code(s): R70.0 - Elevated erythrocyte sedimentation rate (10) Elevated C-reactive protein (CRP) Current visit: Yes Status: Acute
== END 2019-10-11 15:40 | DRG 641 ==
LOC: ER 17:22 → 2ND 10-07 06:35
PROVIDERS: Emergency Medicine; Orthopaedic Surgery; Admitting Provider Internal Medicine Adolescent Medicine; Emergency Provider Emergency Medicine; PCP Physician Assistant; Visit Provider Family Medicine
DX: M62.82 Rhabdomyolysis (principal); E86.0 Dehydration; S72.012D Unspecified intracapsular fracture of left femur, subsequent encounter for closed fracture with routine healing; S72.115D Nondisplaced fracture of greater trochanter of left femur, subsequent encounter for closed fracture with routine healing; Z91.81 History of falling; Z79.52 Long term (current) use of systemic steroids; I45.10 Unspecified right bundle-branch block; J44.9 Chronic obstructive pulmonary disease, unspecified; F10.10 Alcohol abuse, uncomplicated; Z72.0 Tobacco use; D64.9 Anemia, unspecified; Z96.642 Presence of left artificial hip joint; L89.152 Pressure ulcer of sacral region, stage 2; L89.621 Pressure ulcer of left heel, stage 1; Z91.19 Patient's noncompliance with other medical treatment and regimen
CPT/HCPCS: 36415; 71045; 73502; 74177; 80048; 80053; 80202; 81001; 82550; 83605; 83690; 84484; 85007; 85025; 85610; 85651; 85730; 86140; 87040; 87086; 87507; 87581; 87633; 87798; 93005; 96365; 96366; 96367; 97162; 97530; 99285; J2543; J3370; Q9967; U0003

== ENCOUNTER → 2019-10-13 13:17 | Outpatient (CLI) | payer MEDICAID, SELFPAY ==
[2019-10-13 13:18] LABS: Adenovirus F 40/41, stool Not Detected (NotDetected); Astrovirus Not Detected (NotDetected); Campylobacter Not Detected (NotDetected); Clostridium Difficile A/B, PCR Not Detected (NotDetected); Cryptosporidium Not Detected (NotDetected); Cyclospora Cayetanesis Not Detected (NotDetected); Entamoeba histolytica Not Detected (NotDetected); Enteroaggregative E coli Not Detected (NotDetected); Enteropathogenic E coli Not Detected (NotDetected); Enterotoxigenic E coli Not Detected (NotDetected); Giardia lamblia Not Detected (NotDetected); Norovirus Not Detected (NotDetected); Plesimonas Shigalloides, PCR Not Detected (NotDetected); Rotavirus A Not Detected (NotDetected); Salmonella, PCR Not Detected (NotDetected); Sapovirus Not Detected (NotDetected); Shiga-like toxin E coli Not Detected (NotDetected); Shigella Enterovasive E coli Not Detected (NotDetected); Vibrio Cholerae Not Detected (NotDetected); Vibrio, PCR Not Detected (NotDetected); Yersinia Entercolitica, PCR Not Detected (NotDetected)
== END ==
PROVIDERS: Visit Provider Emergency Medicine
DX: R19.7 Diarrhea, unspecified (principal)
CPT/HCPCS: 87507

== ENCOUNTER 2019-10-15 09:38 | Outpatient (CLI) | payer MEDICAID, SELFPAY ==
[2019-10-15] VITALS (11 sets, daily range): BP systolic 89–128; BP diastolic 52–63; PULSE 76–86; RESP 18–20; TEMP 36.8–37.2; O2SAT 97–99; BMI 30.7
[2019-10-15 10:08] LABS: Hematocrit 28.5 % (37.0-47.0)
[2019-10-15 14:47] LABS: Hematocrit 31.4 % (37.0-47.0)
[2019-10-15 14:50] LABS: Hemoglobin 10.2 g/dL (12.2-16.2)
== END 2019-10-15 14:35 | disposition home or self-care (01) ==
LOC: INF 09:38
PROVIDERS: PCP Physician Assistant; Visit Provider Nurse Practitioner Family
DX: D64.9 Anemia, unspecified (principal)
CPT/HCPCS: 36430; 85014; 85018; 86850; P9016

== ENCOUNTER → 2019-10-25 10:15 | Outpatient (CLI) | payer MEDICAID, SELFPAY ==
--- NOTE | 2019-10-25 10:19 | XR_ITS ---
PROCEDURE: XR HIP LT 2-3V W/PELVIS CLINICAL INDICATION: s/p left hip fracture Follow-up hip fracture/ORIF COMPARISON: CR XR HIP LT 2-3V W/PELVIS from 09/20/2019 CR XR HIP LT 2-3V W/PELVIS from 09/27/2019 CR XR HIP RT 2-3V W/PELVIS from 10/07/2019 CR XR HIP LT 2-3V W/PELVIS from 10/07/2019 FINDINGS: Total left hip prosthesis is present with good alignment of the prosthesis. Cerclage wires are present along a lateral curvilinear metallic device along the greater trochanter and proximal femoral shaft. There is good alignment. There is some heterotopic ossification medial to the lesser trochanter. IMPRESSION: Good alignment status post ORIF total left hip prosthesis placement Dictated by: Daryl Ruiz MD 10/25/2019 11:33 Daryl Ruiz MD in [place] 10/25/2019 11:33
== END ==
PROVIDERS: PCP Emergency Medicine; Visit Provider Orthopaedic Surgery
DX: S72.002A Fracture of unspecified part of neck of left femur, initial encounter for closed fracture (principal); Z09 Encounter for follow-up examination after completed treatment for conditions other than malignant neoplasm
CPT/HCPCS: 73502

== ENCOUNTER → 2019-11-26 13:09 | Outpatient (CLI) | payer MEDICAID, SELFPAY ==
--- NOTE | 2019-11-26 13:15 | XR_ITS ---
PROCEDURE: XR HIP LT 2-3V W/PELVIS CLINICAL INDICATION: s/p lt hip fx Follow-up fracture/ORIF COMPARISON: CR XR HIP LT 2-3V W/PELVIS from 09/27/2019 CR XR HIP RT 2-3V W/PELVIS from 10/07/2019 CR XR HIP LT 2-3V W/PELVIS from 10/07/2019 DX XR HIP LT 2-3V W/PELVIS from 10/25/2019 FINDINGS: Total left hip prosthesis is present as before with good position. There is some heterotopic ossification about the greater trochanter and lateral acetabular region.. IMPRESSION: Good alignment status post total hip replacement Dictated by: Daryl Ruiz MD 11/26/2019 16:05 Daryl Ruiz MD in [place] 11/26/2019 16:05
== END ==
PROVIDERS: PCP Emergency Medicine; Visit Provider Orthopaedic Surgery
DX: S72.002A Fracture of unspecified part of neck of left femur, initial encounter for closed fracture (principal)
CPT/HCPCS: 73502

== ENCOUNTER → 2019-12-31 13:05 | Outpatient (CLI) | payer MEDICAID, SELFPAY ==
--- NOTE | 2019-12-31 13:10 | XR_ITS ---
PROCEDURE: XR HIP LT 2-3V W/PELVIS CLINICAL INDICATION: lt hip fracture Follow-up fracture COMPARISON: CR XR HIP LT 2-3V W/PELVIS from 09/20/2019 CR XR HIP LT 2-3V W/PELVIS from 09/27/2019 DX XR HIP LT 2-3V W/PELVIS from 11/26/2019 FINDINGS: S/p total hip replacement with good alignment. Curved lateral bone plate noted at the greater trochanter and proximal and lateral aspect of the femur with cerclage wires not significantly change with good alignment. There is some heterotopic ossification deep to the proximal femur as noted on the lateral view. Calcification also noted at the lateral aspect of the acetabulum and may be related to an avulsion injury or heterotopic ossification. IMPRESSION: Good alignment status post ORIF left hip as described above Dictated by: Daryl Ruiz MD 12/31/2019 15:28 Daryl Ruiz MD in [place] 12/31/2019 15:28
== END ==
PROVIDERS: PCP Emergency Medicine; Visit Provider Orthopaedic Surgery
DX: S72.002A Fracture of unspecified part of neck of left femur, initial encounter for closed fracture (principal)
CPT/HCPCS: 73502

== ENCOUNTER → 2021-05-23 18:42 | Outpatient (CLI) | payer MEDICARE, MEDICAID, SELFPAY ==
[2021-05-23 13:27] LABS: Basophils # 0.1 K/mm3 (0-0.2); Basophils % 0.7 % (0.1-2.0); Eosinophils # 0.2 K/mm3 (0.0-0.4); Eosinophils % 3.2 % (0.1-12.0); Hematocrit 40.3 % (37.0-47.0); Hemoglobin 12.6 g/dL (12.2-16.2); Lymphocytes # 1.7 K/mm3 (0.7-4.5); Lymphocytes % 22.1 % (10-50); Mean Corpuscular HGB Conc 31.2 g/dL (31.8-35.4); Mean Corpuscular Hemoglobin 32.3 pg (27.0-31.2); Mean Corpuscular Volume 103.7 fl (81-99); Mean Platelet Volume 8.2 fl (7.4-10.4); Monocytes # 0.4 K/mm3 (0.1-1.0); Monocytes % 4.8 % (1.7-9.3); Neutrophils # 5.2 K/mm3 (1.8-7.8); Neutrophils % 69.2 % (37.0-80.0); Platelet Count 429 K/mm3 (142-424); Red Blood Count 3.88 M/mm3 (4.20-5.40); Red Cell Distribution Width 13.6 % (11.5-17.5); White Blood Count 7.5 K/mm3 (4.8-10.8)
[2021-05-23 13:36] LABS: Alanine Aminotransferase 23 U/L (12-78); Albumin Level 4.5 g/dl (3.5-5.0); Albumin/Globulin Ratio 1.4 (1.1-1.8); Alkaline Phosphatase 136 U/L (38-126); Anion Gap 12.8 mEq/L (5-15); Aspartate Amino Transferase 36 U/L (14-36); Bilirubin,Total 0.4 mg/dl (0.2-1.3); Blood Urea Nitrogen 19 mg/dl (7-17); Calcium 9.4 mg/dl (8.4-10.2); Carbon Dioxide 28 mmol/L (22.0-30.0); Chloride 95 mmol/L (98-107); Chol/HDL Ratio 1.9 (1-3.5); Cholesterol 173 mg/dl (140-200); Estimated Glomerular Filt Rate 72 ml/min (>60); GFR (African American) 87 ML/MIN (>60); Globulin 3.3 g/dL (1.3-3.2); Glucose 82 mg/dl (74-100); HDL Cholesterol 89 mg/dl (40-60); Potassium 4.8 mmoL/L (3.5-5.1); Sodium 131 mmol/L (136-145); Total Protein,Serum 7.8 g/dl (6.3-8.2); Triglycerides 115 mg/dl (30-150); VLDL Cholesterol 23 mg/dL (0-40)
[2021-05-23 13:53] LABS: Direct LDL Cholesterol 57.67 mg/dL (100-129)
[2021-05-23 14:01] LABS: 25-OH Vitamin D, Total 36.2 ng/mL (30-100)
[2021-05-23 14:10] LABS: Hemoglobin A1C 5.3 % (4.0-6.0)
== END ==
PROVIDERS: Visit Provider Physician Assistant
DX: E87.1 Hypo-osmolality and hyponatremia (principal); E11.9 Type 2 diabetes mellitus without complications; Z00.00 Encounter for general adult medical examination without abnormal findings; E55.9 Vitamin D deficiency, unspecified; I10 Essential (primary) hypertension
CPT/HCPCS: 80053; 80061; 82306; 83036; 84443; 85025

== ENCOUNTER → 2022-05-27 13:57 | Outpatient (CLI) | payer MEDICARE, SELFPAY ==
[2022-05-27 14:40] LABS: Basophils # 0.1 K/mm3 (0-0.2); Basophils % 1.1 % (0.1-2.0); Eosinophils # 0.3 K/mm3 (0.0-0.4); Eosinophils % 3.5 % (0.1-12.0); Hematocrit 40.9 % (37.0-47.0); Hemoglobin 12.8 g/dL (12.2-16.2); Lymphocytes # 1.9 K/mm3 (0.7-4.5); Lymphocytes % 26.4 % (10-50); Mean Corpuscular HGB Conc 31.3 g/dL (31.8-35.4); Mean Corpuscular Hemoglobin 31.9 pg (27.0-31.2); Mean Corpuscular Volume 101.7 fl (81-99); Mean Platelet Volume 7.9 fl (7.4-10.4); Monocytes # 0.4 K/mm3 (0.1-1.0); Monocytes % 5.8 % (1.7-9.3); Neutrophils # 4.5 K/mm3 (1.8-7.8); Neutrophils % 63.1 % (37.0-80.0); Platelet Count 465 K/mm3 (142-424); Red Blood Count 4.02 M/mm3 (4.20-5.40); White Blood Count 7.1 K/mm3 (4.8-10.8)
[2022-05-27 15:04] LABS: Alanine Aminotransferase 21 U/L (12-78); Albumin Level 4.5 g/dl (3.5-5.0); Albumin/Globulin Ratio 1.4 (1.1-1.8); Alkaline Phosphatase 111 U/L (38-126); Anion Gap 11.5 mEq/L (5-15); Aspartate Amino Transferase 32 U/L (14-36); Bilirubin,Total 0.4 mg/dl (0.2-1.3); Blood Urea Nitrogen 20 mg/dl (7-17); Calcium 9.2 mg/dl (8.4-10.2); Carbon Dioxide 32 mmol/L (22.0-30.0); Chloride 90 mmol/L (98-107); Chol/HDL Ratio 2.3 (1-3.5); Cholesterol 181 mg/dl (140-200); Estimated Glomerular Filt Rate 50 ml/min (>60); GFR (African American) 60 ML/MIN (>60); Globulin 3.2 g/dL (1.3-3.2); Glucose 85 mg/dl (74-100); HDL Cholesterol 79 mg/dl (40-60); Potassium 5.5 mmoL/L (3.5-5.1); Sodium 128 mmol/L (136-145); Total Protein,Serum 7.7 g/dl (6.3-8.2); Triglycerides 138 mg/dl (30-150); VLDL Cholesterol 28 mg/dL (0-40)
[2022-05-27 15:15] LABS: Direct LDL Cholesterol 62.24 mg/dL (100-129)
[2022-05-27 15:21] LABS: 25-OH Vitamin D, Total 44.5 ng/mL (30-100)
[2022-05-27 15:34] LABS: Thyroid Stimulating Hormone 0.55 uIU/mL (0.465-4.68)
== END ==
PROVIDERS: PCP Physician Assistant; Visit Provider Physician Assistant
DX: E78.5 Hyperlipidemia, unspecified (principal); M54.16 Radiculopathy, lumbar region; R53.83 Other fatigue
CPT/HCPCS: 80053; 80061; 82306; 84443; 85025

== ENCOUNTER → 2022-09-18 21:44 | Outpatient (CLI) | payer MEDICARE, MEDICAID, SELFPAY | PROVIDERS: PCP Physician Assistant; Visit Provider Physician Assistant | DX: R19.5 Other fecal abnormalities (principal) ==

== ENCOUNTER 2022-12-11 08:39 | Day surgery (SDC) | payer MEDICARE, MEDICAID, SELFPAY ==
[2022-12-11] VITALS (10 sets, daily range): BP systolic 71–114; BP diastolic 49–64; PULSE 81–94; RESP 16–18; TEMP 36.3–37.1; O2SAT 94–100; BMI 26.2
--- NOTE | 2022-12-11 10:30 | P.PCN_ITS ---
Procedure: Date: 12/11/22 Patient Date of :: 1955 Procedure Performed:: Colonoscopy Indications:: The patient is a 67 year old who presents for colonoscopy. The patient reports having had a positive cologuard test Performing Provider:: Colton Chong MD Referring Provider:: Jennifer Paige APRN Sedation:: See RN records Procedure:: After placing the patient in the left lateral decubitus position, the colo noscopy was gently inserted into the rectum and under direct visualization advanced to the cecum which was identified by transillumination in the right lower quadrant, identification of the ileocecal valve, appendiceal orifice, and cecal strap. Color, texture, mucosa, and anatomy of the colon were carefully examined with the scope. Findings:: Anal canal: normal Rectum: Hemorrhoids Sigmoid colon: Fair preparation Descending colon: Fair preparation Splenic flexure: Fair preparation Transverse colon: Poor preparation Hepatic flexure: not seen Ascending colon: not seen Cecum: not seen Impression: Fair to poor bowel preparation (characterized by thick brown liquid material and partially digested food materials) Tortuous sigmoid colon resulting in looping of colonoscope within sigmoid colon Recommendations:: Repeat colonoscopy with 2 days liquid diet and split dose bowel preparation Complications:: None Estimated blood obtained (mL): 0 Colonoscopy Component Colonoscopy Component Was a colonoscopy performed during today's procedure?: Yes Recommended follow up colonoscopy of at least 10 years?: Yes
--- NOTE | 2022-12-11 12:18 | P.PNANES_ITS ---
[facility] Disclaimer: The information contained in this section may have been updated after the patient was seen, as this information can be updated by other users. Medical History (Updated 12/11/22 @ 09:30 by Jesi Ovalles RN) Alcohol withdrawal Anxiety COPD (chronic obstructive pulmonary disease) Depression Foot pain Fracture of femoral neck, left, closed GERD (gastroesophageal reflux disease) History of deviated nasal septum Hives Hyperlipidemia Hypertension Lumbar back pain with radiculopathy affecting lower extremity Urinary incontinence Surgical History (Updated 12/11/22 @ 09:30 by Jesi Ovalles RN) History of left hip replacement Family History (Updated 12/11/22 @ 09:30 by Jesi Ovalles RN) Other Family history of hypertension Social History (Updated 12/11/22 @ 09:30 by Jesi Ovalles RN) Smoking Status: Current every day smoker tobacco type: cigarettes packs per day: 1 alcohol intake: current substance use type: denies use current occupational status: unemployed Travel in the last 8 weeks: None household members: other housing: care home caffeine: Yes [facility] Anesthesia Checklist Patient Identification Patient Identification: Arm Band, Family and Verbal (Name & ) Structural Data Admitted From: Home Planned Operative Procedure/s: colonoscopy Consent for Planned Operative Procedure(s) Verified: Yes Verified Documents: Surgical Consent and History and Physical NPO Status Verified Time NPO: 07:00 Additional verifications Patient : No Anesthesia Reactions: No Hx Blood Transfusions: No Blood Transfusion Reaction: No Cephalosporin Allergy: No Previous Colonoscopy: No Cardiovascular Assessment Heart Sounds: S1 & S2 Pulse Rhythm: Irregular Peripheral Edema: No Airway Assessment Mallampati Score:: Class II C-Spine Mobility Assessed: Yes TMJ Mobility Assessed: Yes Dentition: Poor Dentition (Nothing loose per pt.) Neurological Assessment Level of Consciousness: Awake and Alert Hx Seizures: No Numbness or tingling in extremities: No Anesthesia Plan Anesthesia Risk discussed: Yes Anesthesia Plan: Verified ASA Class: III Anesthesia Type: MAC
--- NOTE | 2022-12-11 12:21 | P.PNANES_ITS ---
[facility] Anesthesia Record Part I Anesthesia Record I Intake, IV Amount: 300 Hydration: Adequate Estimated blood loss (mL): 0 Urine output (mL): 0 Blood Products used (#): none Blood Pressure: 89/50 SaO2: 99 Pulse Rate: 81 Airway Patency: Patent Respiratory Rate: 16 Temperature: 97.4 F Patient is:: Awake and Stable Stable to PACU at:: 10:35
== END 2022-12-11 11:50 | disposition home or self-care (01) ==
PROVIDERS: PCP Physician Assistant; Visit Provider Internal Medicine
PROC: 0DJD8ZZ Inspection of Lower Intestinal Tract, Via Natural or Artificial Opening Endoscopic (ICD-10-PCS; CPT 45378; principal; 2022-12-11 09:00)
DX: R19.5 Other fecal abnormalities (principal); K64.8 Other hemorrhoids; K56.2 Volvulus
CPT/HCPCS: 45378

== ENCOUNTER 2023-04-28 12:28 | Inpatient (IN) | payer MEDICARE, MEDICAID, SELFPAY ==
[2023-04-28] VITALS (21 sets, daily range): BP systolic 70–97; BP diastolic 39–63; PULSE 89–112; RESP 16–20; TEMP 36.6–37.4; O2SAT 91–99; BMI 17.6; BMI 18.8
--- NOTE | 2023-04-28 12:32 | ECG_ITS ---
APPROVED REPORT Exam: Resting ECG HR:128 bpm ECG Measurements Heart Rate 128 AXES AK 136 P 81 QRSd 113 QRS 129 QT 339 T 110 QTc 415 Conclusion SINUS TACHYCARDIA WITH FREQUENT VENTRICULAR PREMATURE COMPLEXES RIGHT AXIS DEVIATION [QRS AXIS > 100] LOW QRS VOLTAGE IN EXTREMITY LEADS [QRS DEFLECTION < 0.5 mV IN LIMB LEADS] INCOMPLETE RIGHT BUNDLE BRANCH BLOCK [90+ ms QRS DURATION, TERMINAL R IN V1/V2, 40+ ms S IN I/aVL/V4/V5/V6] MODERATE T-WAVE ABNORMALITY, CONSIDER ANTEROLATERAL ISCHEMIA [-0.1+ mV T-WAVE IN V3-V6] ABNORMAL ECG UNCONFIRMED REPORT Electronically signed by : Monster Bhatia MD 04/28/2023 19:56:44
--- NOTE | 2023-04-28 13:14 | PC.NURSE ---
Tiff Molina rounded on pt. No needs voiced. Call light within reach.
--- NOTE | 2023-04-28 13:16 | XR_ITS ---
FINAL REPORT CLINICAL HISTORY: Shortness of breath COMPARISON: None FINDINGS: A portable view of the chest was obtained. The heart is mildly enlarged. There is a right perihilar and right basilar opacity with moderate to large right pleural effusion favored to represent pneumonia. Central obstructing lesion not excluded. There is no pneumothorax. IMPRESSION: Findings favor pneumonia but central obstructing lesion not excluded. Consider CT chest with contrast to further evaluate. Reviewed, Interpreted and Dictated by Sarina Elder MD Transcribed by Jesi Choudhury Authenticated and [facility]
[2023-04-28 13:20] LABS: Coronavirus 19, PCR Not Detected (NotDetected); Influenza A, PCR Not Detected (NotDetected); Influenza B, PCR Not Detected (NotDetected)
--- NOTE | 2023-04-28 13:21 | ED_ITS ---
I was consulted by the RK, and we discussed the complexity of the problems being addressed. I approved the treatment and management plan for this patient's care in the emergency department, thus performing a substantive portion of the medical decision making. Pippa Cr MD, SANJUANA, FACEP Discharge Plan Disposition Chief Complaint: Shortness of Breath/Dyspnea Discharge ED Provider: Blake Malave General Adult HPI General Chief complaint: Shortness of Breath/Dyspnea Stated complaint: soa Time Seen by Provider: 04/28/23 13:18 Mode of Arrival: EMS Source of Information: Patient and EMS Limitations: No Limitations Description of Symptoms (Recalled from ER Triage Doc. by RN): EMS reports they were called out of respiratory distress, SOA and failure to thrive. pt reports she has not eaten or drank in 5d. pts tongue and mouth appear to be cracked and dry. pt is A&O X4. However she makes a few inappropriate coments then returns to baseline. I.E. I want some water mommy, while looking off at the wall. pt reports she was suppose to go see her PCP at 1300 today but came here instead. EMS reports they went to her house for the same call last week and she refused to come to the hospital. pt received a duo neb [employer], EMS it helped somewhat. At baseline the pt is on RA, upon arrival she is on 2LNC. History of Present Illness HPI narrative: Patient reports shortness of breath that has been ongoing for over a week however worsened today. She denies any pain at this time. She states she has a history of undiagnosed COPD and history of heavy alcohol use. She states she has had minimal p.o. intake for the past several days. Describes chills. Previous therapies include DuoNeb administered by EMS with some improvement of her symptoms. No sick contacts. Patient denies supplemental oxygen requirement at home. She states she has largely felt fatigued over the past several days a nd has been sleeping frequently. Additional history limited secondary to acuity of patient's condition. Related Data Home Medications Medication Instructions Recorded Confirmed albuterol sulfate 90 mcg/actuation 2 puff inhalation Q4HP PRN 04/28/23 04/28/23 aerosol inhaler Shortness Of Breath ascorbic acid (vitamin C) 1,000 mg 1,000 mg PO DAILY Supplement 04/28/23 04/28/23 tablet (Vitamin C) atorvastatin 10 mg tablet 10 mg PO DAILY Cholesterol 04/28/23 04/28/23 buspirone 10 mg tablet 10 mg PO TID Anxiety 04/28/23 04/28/23 fluticasone propionate 50 1 spray intranasal DAILY Allergy 04/28/23 04/28/23 mcg/actuation nasal Symptoms spray,suspension hydroxyzine HCl 50 mg tablet 50 mg PO QIDP PRN Itching 04/28/23 04/28/23 lisinopril 20 1 tab PO BID High Blood Pressure 04/28/23 04/28/23 mg-hydrochlorothiazide 25 mg tablet pantoprazole 40 mg tablet,delayed 40 mg PO DAILY Acid Reflux 04/28/23 04/28/23 release sertraline 100 mg tablet 100 mg PO DAILY Mood 04/28/23 04/28/23 tiotropium 2.5 mcg-olodaterol 2.5 2 puff inhalation DAILY Breathing 04/28/23 04/28/23 mcg/actuation mist for inhalation Problems (Stiolto Respimat) Allergies Allergy/AdvReac Type Severity Reaction Status Date / Time No Known Allergies Allergy Verified 04/28/23 12:56 [facility] Disclaimer: The information contained in this section may have been updated after the patient was seen, as this information can be updated by other users. Medical History (Updated 12/11/22 @ 09:30 by Jesi Ovalles RN) Alcohol withdrawal Anxiety COPD (chronic obstructive pulmonary disease) Depression Foot pain Fracture of femoral neck, left, closed GERD (gastroesophageal reflux disease) History of deviated nasal septum Hives Hyperlipidemia Hypertension Lumbar back pain with radiculopathy affecting lower extremity Urinary incontinence Surgical History (Updated 12/11/22 @ 09:30 by Jesi Ovallse RN) History of left hip replacement Family History (Updated 12/11/22 @ 09:30 by Jesi Ovalles RN) Other Family history of hypertension Social History (Updated 12/11/22 @ 09:30 by Jesi Ovalles RN) Smoking Status: Current every day smoker tobacco type: cigarettes packs per day : 1 alcohol intake: current substance use type: denies use current occupational status: unemployed Travel in the last 8 weeks: None household members: other housing: skilled nursing caffeine: Yes ROS Obtained: Yes Systems reviewed as appropriate & no additional complaints except as documented As per HPI Physical Exam General General appearance: alert Comment: Dry mucous membranes Head Head exam: atraumatic and normocephalic Eye Eye exam: Present normal appearance Neck Neck exam: Present normal inspection Chest Chest inspection: Present normal inspection and symmetric chest wall rise Respiratory Respiratory exam: Present normal lung sounds bilaterally (Decreased breath sounds bilaterally) and respiratory distress Cardiovascular Cardiovascular exam: Present regular rate, normal rhythm and tachycardia Abdominal Exam Abdominal exam: Present soft; Absent tenderness or guarding Neurological Exam Neurological exam: Present alert and oriented X3 Psychiatric Psychiatric exam: Present normal affect and normal mood Skin Skin exam: Present warm and dry Medical Decision Making Medical Records Medical records reviewed: Yes I reviewed the patient's medical records. [place] Inquiry Pt receiving controlled substance: No Vital Signs: 04/28/23 12:43 04/28/23 14:12 04/28/23 14:31 Temperature 99.3 F Temperature Source Rectal Pulse Rate 108 H 107 H Pulse Rate [Left] 112 H Respiratory Rate 18 Blood Pressure 91/61 L 94/63 L Blood Pressure [Right Arm] 96/57 L Blood Pressure Mean Blood Pressure Mean [Right Arm] 70 Blood Pressure Source [Right Arm] Automatic Cuff Blood Pressure Position [Right Arm] Sitting 02 Sat by Pulse Oximetry 92 L 91 L 92 L Oxygen Delivery Method Nasal Cannula Nasal Cannula Nasal Cannula Oxygen Flow Rate (LPM) 2 2 2 04/28/23 15:00 04/28/23 15:45 04/28/23 16:30 Temperature Temperature Source Pulse Rate 109 H 103 H 104 H Pulse Rate [Left] Respiratory Rate 20 20 Blood Pressure 97/56 L 75/51 L 84/53 L Blood Pressure [Right Arm] Blood Pressure Mean 62 59 Blood Pressure Mean [Right Arm] Blood Pressure Source [Right Arm] Blood Pressure Position [Right Arm] 02 Sat by Pulse Oximetry 92 L 99 92 L Oxygen Delivery Method Nasal Cannula Nasal Cannula Oxygen Flow Rate (LPM) 2 2 04/28/23 17:00 04/28/23 17:16 04/28/23 17:31 Temperature Temperature Source Pulse Rate 89 Pulse Rate [Left] Respiratory Rate Blood Pressure 80/50 L 92/50 L 82/39 L Blood Pressure [Right Arm] Blood Pressure Mean 59 52 Blood Pressure Mean [Right Arm] Blood Pressure Source [Right Arm] Blood Pressure Position [Right Arm] 02 Sat by Pulse Oximetry 94 L Oxygen Delivery Method Nasal Cannula Oxygen Flow Rate (LPM) Lab Data Lab Results 04/28/23 12:48: WBC 23.6 H*, RBC 4.23, Hgb 14.0, Hct 44.4, MCV 104.8 H, MCH 33.0 H, MCHC 31.5 L, RDW 14.3, Plt Count 497 H, MPV 8.2, Neut % (Auto) 90.5 H, Lymph % (Auto) 3.5 L, [place] % (Auto) 5.1, Eos % (Auto) 0.6, Baso % (Auto) 0.3, Neut # (Auto) 21.3 H, Lymph # (Auto) 0.8, [place] # (Auto) 1.2 H, Eos # (Auto) 0.1, Baso # (Auto) 0.1, Total Counted 100, Neutrophils % (Manual) 64, Band Neutrophils % 22.0 H, Lymphocytes % (Manual) 6 L, Monocytes % (Manual) 8, Platelet Estimate Slight increase, Anisocytosis 1+, Macrocytosis 1+, Sodium 131 L, Potassium 3.5, Chloride 92 L, Carbon Dioxide 40 H, Anion Gap 2.5 L, BUN 65 H, Creatinine 1.60 H , Estimated Creat Clear 24, Estimated GFR 32 L, Est GFR ( Amer) 39 L, Glucose 121 H, Calcium 8.6, Total Bilirubin 0.4, AST 28, ALT 24, Alkaline Phosphatase 223 H, Troponin I 0.22 H, NT-Pro-B Natriuret Pep 84073 H, Total Protein 7.3, Albumin 3.2 L, Globulin 4.1 H, Albumin/Globulin Ratio 0.8 L, Lipase 25 04/28/23 12:50: SARS-CoV-2 (PCR) Not detected, Influenza A Untype (PCR) Not detected, Influenza Type B (PCR) Not detected 04/28/23 13:44: VBG pH 7.32, VBG pCO2 67.4 H, VBG pO2 34.9, VBG HCO3 33.7 H, VBG Total CO2 35.8 H, VBG O2 Saturation 63.5, VBG Base Excess 5.2 H 04/28/23 14:30: Fluid Source Thoracentesis fluid, Fluid Volume 24, Fluid Appearance Hazy, Fluid RBC (Auto) < 10, Fld Tot Nucleated Cell 6134, Fld Polynuclear WBCs % 81, Fld Mononuclear WBCs % 19 04/28/23 12:48 04/28/23 12:48 Orders (Tests/Meds): ED MEDICATIONS Generic Name Dose Route Start Last Admin Trade Name Freq PRN Reason Stop Dose Admin Acetaminophen 650 mg 04/28/23 17:00 Acetaminophen 325mg Tab PO 05/28/23 16:59 Q4HP PRN Fever or Mild Pain (1-3) Albuterol/Ipratropium 3 ml 04/28/23 18:00 Ipratropium/Albuterol 3 Ml [facility] 05/28/23 17:59 Q6RT LUDMILA Heparin Sodium (Porcine) 5,000 unit 04/28/23 17:00 Heparin Sodium 5,000 Unit/Ml Vial SQ 05/28/23 16:59 Q8H LUDMILA Vancomycin HCl 750 mg/ Sodium 250 mls @ 125 mls/hr 04/30/23 05:00 Chloride IV 05/10/23 04:59 Q36H LUDMILA Vancomycin HCl 1,000 mg/ 250 mls @ 125 mls/hr 04/28/23 17:00 Sodium Chloride IV 04/28/23 18:59 ONCE ONE Lactated Ringer's 1,000 mls @ 500 mls/hr 04/28/23 17:05 04/28/23 17:17 Lactated Ringer's 1000 Ml Bag IV 04/28/23 19:04 500 mls/hr .Q2H ONE Administration Cefepime HCl 2 gm/ Sodium 100 mls @ 200 mls/hr 04/28/23 22:30 Chloride IV 05/08/23 22:29 Q12H LUDMILA Miscellaneous 1 each 04/28/23 17:15 Vancomycin Consult Request NOTAPPLIC 05/28/23 17:14 CONSULT PHARMACY [facility] Pantoprazole Sodium 40 mg 04/28/23 21:00 Pantoprazole 40mg Vial IV 05/28/23 20:59 HS LUDMILA Polyethylene Glycol 17 gm 04/28/23 21:00 Polyethylene Glycol 3350 17 Gm Packet PO 05/28/23 20:59 BID LUDMILA Sodium Chloride 3 ml 04/28/23 17:19 Sodium Chloride 3% 15ml [facility] 05/28/23 17:18 ONCE PRN INDUCE SPUTUM COLLECTION Discontinued Medications Generic Name Dose Route Start Last Admin Trade Name Freq PRN Reason Stop Dose Admin Albuterol/Ipratropium 3 ml 04/28/23 13:28 04/28/23 15:40 Ipratropium/Albuterol 3 Ml Neb IH 04/28/23 13:29 3 ml ONCE ONE Administration Lactated Ringer's 1,000 mls @ 999 mls/hr 04/28/23 13:28 04/28/23 15:07 Lactated Ringer's 1000 Ml Bag IV 04/28/23 14:28 999 mls/hr .Q1H1M ONE Administration Ceftriaxone Sodium 1 gm/ 50 mls @ 100 mls/hr 04/28/23 13:30 04/28/23 13:50 Sodium Chloride IV 05/08/23 13:29 100 mls/hr Q12H LUDMILA Administration Azithromycin 500 mg/ Sodium 250 mls @ 250 mls/hr 04/28/23 13:30 04/28/23 15:08 Chloride IV 05/08/23 13:29 250 mls/hr Q24H LUDMILA Administration Methylprednisolone Sodium Succinate 40 mg 04/28/23 13:28 04/28/23 13:50 Methylprednisolone Sod Succ 40mg Vial IV 04/28/23 13:29 40 mg ONCE ONE Administration Mineral Oil 133 ml 04/28/23 17:07 Mineral Oil Enema 133ml RC 04/28/23 17:08 ONCE ONE ORDERS Category Date Time Status CT abdomen pelvis wo con Stat Cat Scan 04/28/23 15:[address] chest wo con Stat Cat Scan 04/28/23 15:21 Completed Cardiology Consult [Consult to Cardiology] [CONS] Cons 04/29/23 07:00 Active Routine Pulmonology Consult [Consult to Pulmonology] [CONS] Cons 04/29/23 07:00 Active Routine XR chest portable Stat Exams 04/28/23 13:16 Taken XR chest portable Stat Exams 04/28/23 15:00 Completed BNP [Brain Natriuretic Peptide] Stat Lab 04/28/23 12:48 Completed Body Fluid: Cell Count w/ Diff Stat Lab 04/28/23 14:30 Completed CBC w/Auto Diff [Complete Blood Count Auto Diff] Stat Lab 04/28/23 12:48 Completed CMP [Comprehensive Metabolic Panel] Stat Lab 04/28/23 12:48 Completed Complete Blood Count Auto Diff AMLAB Lab 04/29/23 06:00 Ordered Comprehensive Metabolic Panel AMLAB Lab 04/29/23 06:00 Ordered Cytology Routine Lab 04/28/23 14:58 Ordered Full Resp Panel w/COVID ([facility]) Routine Lab 04/28/23 17:20 Ordered Lipase Stat Lab 04/28/23 12:48 Completed Magnesium AMLAB Lab 04/29/23 06:00 Ordered Rapid PCR Covid and Flu A/B Stat Lab 04/28/23 12:50 Completed Troponin I Q2H Lab 04/28/23 12:48 Completed Troponin I Q2H Lab 04/28/23 17:45 Ordered Troponin I Q2H Lab 04/28/23 18:10 Ordered Blood Culture Stat Micro 04/28/23 13:50 Received Body Fluid Cult & Gram Stain Stat Micro 04/28/23 14:30 Received Sputum Culture & Gram Stain Stat Micro 04/28/23 17:19 Ordered VBG [Venous Blood Gas] Stat RT 04/28/23 13:44 Completed ECG initial [place] Routine Y 04/28/23 12:32 Completed Medical Decision Narrative: Patient with history and exam per above presenting for evaluation of shortness of breath for several days, hypovolemia. Diagnoses considered include, COPD exacerbation, pleural effusion, noncardiogenic edema, pneumonia, CHF exacerbation, ACS, anemia, bacteremia ED workup and treatment included: CBC, CMP, VBG, COVID test, [id number] ultrasound was performed revealing large right-sided pleural effusion, she presents with hemodynamic instability and hypoxemia which is new onset, etiology thought to be multifactorial, likely component of hypovolemia however large right-sided pleural effusion was thought to be large precipitating component. Patient was also noted to have trace pericardial effusion, hyperdynamic heart, EPSS within normal limits. She has dry mucous membranes and collapsible IVC. Labs were independently visualized and interpreted by me significant for leukoc ytosis, acute kidney injury, initially elevated troponin, patient may have concurrent rhabdomyolysis however no acidosis on blood gas and potassium within normal limits. A right-sided thoracentesis was performed with return of cloudy fluid, studies sent for evaluation including cytology and Gram stain and culture. Patient was initially treated with ceftriaxone and azithromycin however after discovery of right-sided pleural effusion vancomycin was added. Patient tolerated the thoracentesis well and had improvement of respiratory status on repeat evaluation. Chest x-ray reveals appropriate placement of right-sided pigtail catheter, this was ultrasound-guided and directed at largest area of right-sided effusion, avoiding lung parenchyma in the setting of chronically hyperinflated lungs. At this time hospitalist was contacted for evaluation for admission for further workup and treatment. At this time she was complaining of some abdominal pain, hospitalist requesting CT imaging for fu rther characterization, I do believe, in the absence of any acute findings on abdominal imaging that she may be experiencing some irritation of the diaphragm from right-sided pigtail catheter after removal of pleural fluid given the location of this pigtail catheter. She was also complaining to me of pain exacerbated by deep inspiration. At this time care was transferred to incoming physician Dr. Cr. Procedures Chest Tube Chest Tube 1: Chest Tube Location: right Chest Tube Prep: Yes betadine prep Local Anesthetic: lidocaine 1% Amount of anesthesia used (mL): 10 Incision Made With: #11 blade Post Procedure: sutured to skin Tube Drainage: fluid Amount of initial drainage (mL): 1,000 Post Procedure CXR?: Yes Patient Tolerated Procedure: Yes Complications: pain Critical Care Critical Care Time Critical Care Time: Yes Attestation: On 04/28/23, the high probability of a clinically significant, sudden or life threatening deterioration of the following system(s) required my full and direct attention, intervention and personal management. The time I documented below is in addition to time spent performing reported procedures but includes the following listed in this critical care notation. Total Time Total Critical Care Time: 60
[2023-04-28 13:25] LABS: Basophils # 0.1 K/mm3 (0-0.2); Basophils % 0.3 % (0.1-2.0); Eosinophils # 0.1 K/mm3 (0.0-0.4); Eosinophils % 0.6 % (0.1-12.0); Hematocrit 44.4 % (37.0-47.0); Lymphocytes # 0.8 K/mm3 (0.7-4.5); Lymphocytes % 3.5 % (10-50); Mean Corpuscular HGB Conc 31.5 g/dL (31.8-35.4); Mean Corpuscular Volume 104.8 fl (81-99); Mean Platelet Volume 8.2 fl (7.4-10.4); Monocytes # 1.2 K/mm3 (0.1-1.0); Monocytes % 5.1 % (1.7-9.3); Neutrophils # 21.3 K/mm3 (1.8-7.8); Neutrophils % 90.5 % (37.0-80.0); Platelet Count 497 K/mm3 (142-424); Red Blood Count 4.23 M/mm3 (4.20-5.40); Red Cell Distribution Width 14.3 % (11.5-17.5); White Blood Count 23.6 K/mm3 (4.8-10.8)
[2023-04-28 13:26] LABS: MANUAL DIFFERENTIAL MANUAL DIFFERENTIAL (MANUAL DIFF)
[2023-04-28 13:28] LABS: Chloride 92 mmol/L (98-107); Potassium 3.5 mmoL/L (3.5-5.1); Sodium 131 mmol/L (136-145)
[2023-04-28 13:30] LABS: Lipase 25 U/L (23-300)
[2023-04-28 13:31] LABS: Alanine Aminotransferase 24 U/L (12-78); Albumin Level 3.2 g/dl (3.5-5.0); Albumin/Globulin Ratio 0.8 (1.1-1.8); Alkaline Phosphatase 223 U/L (38-126); Anion Gap 2.5 mEq/L (5-15); Aspartate Amino Transferase 28 U/L (14-36); Bilirubin,Total 0.4 mg/dl (0.2-1.3); Blood Urea Nitrogen 65 mg/dl (7-17); Calcium 8.6 mg/dl (8.4-10.2); Carbon Dioxide 40 mmol/L (22.0-30.0); Creatinine Clearance Estimated 24 mL/min (50-200); Estimated Glomerular Filt Rate 32 ml/min (>60); GFR (African American) 39 ML/MIN (>60); Globulin 4.1 g/dL (1.3-3.2); Glucose 121 mg/dl (74-100); Total Protein,Serum 7.3 g/dl (6.3-8.2)
[2023-04-28 13:33] LABS: Anisocytosis 1+; Lymphocytes % 6 % (10-50); Macrocytosis 1+; Monocytes % 8 % (2-9); Neutrophils % 64 % (42-76); Platelet Estimate Slight Increase; Total Cells Counted 100
[2023-04-28 13:39] LABS: NT Pro Brain Natriuretic Pep. 19700 pg/mL (0-125)
[2023-04-28] MEDS: METHYLPREDNISOLONE SOD SUCC 40MG VIAL 40 MG IV (13:50)
[2023-04-28] MEDS: CEFTRIAXONE 1 GM 1 GM in 0.9 % SODIUM CHLORIDE 50 ML IV (13:50)
[2023-04-28 13:53] LABS: VBG PH 7.32 mmol/L (7.31-7.41)
[2023-04-28 13:55] LABS: VBG Base Excess 5.2 mmol/L (-2.4-2.3); VBG HCO3 33.7 mmol/L (23-30); VBG PCO2 67.4 mmol/L (35-51); VBG PO2 34.9 mmol/L (28-40); VBG Total CO2 35.8 mmol/L (23-27)
[2023-04-28 13:56] LABS: VBG Oxygen Saturation 63.5 % (50-70)
--- NOTE | 2023-04-28 14:02 | PC.NURSE ---
Dr Malave at
[2023-04-28 14:26] LABS: Troponin I 0.22 ng/ml (0.00-0.034)
--- NOTE | 2023-04-28 14:35 | PC.NURSE ---
MD aware of trop of 0.22
--- NOTE | 2023-04-28 14:40 | PC.NURSE ---
Fluid collected from thoracentesis walked to lab and given to Ariadna Richter
--- NOTE | 2023-04-28 14:53 | PC.NURSE ---
ON PHONE WITH HOSPITALIST
--- NOTE | 2023-04-28 15:00 | XR_ITS ---
FINAL REPORT TECHNIQUE: Single view chest CLINICAL HISTORY: post thoracentesis COMPARISON: Exam performed earlier today. FINDINGS: A single view of the chest was obtained. The heart and mediastinum are within normal limits. There is a new, small caliber chest tube in the right lower chest with only slight improvement in right pleural effusion. There continues to be a right perihilar and right base opacity, favor pneumonia. Central obstructing lesion not excluded. There is no pneumothorax. Osseous structures are unremarkable. IMPRESSION: New small caliber chest tube in the right lower chest with only slight improvement of right pleural effusion. Continued right perihilar and right base opacity, favor pneumonia. Central obstructing lesion not excluded. Reviewed, Interpreted and Dictated by Sarina Elder MD Transcribed by Jinny Oscar Authenticated and [facility]
--- NOTE | 2023-04-28 15:06 | [facility].PHAINT1 ---
Pharmacy Intervention Comments: MEDICATION RECONCILIATION COMPLETED ON PATIENT USING EXTERNAL FILL HISTORY FROM PHARMACY AND JAMARI REPORT. -MAZIN CRUZ, IVOND
[2023-04-28] MEDS: LACTATED RINGERS 1000ML 1,000 ML 999 ML IV ×2 (15:07→23:11)
[2023-04-28] MEDS: AZITHROMYCIN 500 MG in 0.9 % SODIUM CHLORIDE 250 ML 250 MG IV (15:08)
[2023-04-28 15:12] LABS: Appearance,Body Fld. Hazy; Source, Body Fld. Thoracentesis Fluid; Volume,Body Fld. 24 mL
--- NOTE | 2023-04-28 15:12 | CT_ITS ---
FINAL REPORT TECHNIQUE: Thin section axial images were obtained from the lung bases to the pubic symphysis without IV contrast. Coronal reconstruction images were obtained from the axial data. Exam was performed using dose reduction technique. CLINICAL HISTORY: abdominal pain COMPARISON: None FINDINGS: There is a moderate pericardial effusion. There is a small caliber right inferior chest tube with small right pleural effusion. There is consolidation in the right lower lung most consistent with pneumonia. There are enlarged lymph nodes along the right hemidiaphragm. There are bilateral nonobstructing renal stones. Evaluation of the inferior ureters is limited by artifact. There is no hydronephrosis. Unenhanced liver reveals hypodense lesion in the anterior right lobe measuring 19 mm. No other liver lesions identified. The spleen and pancreas are without acute abnormality. Enlarged left adrenal gland is favored to represent hyperplasia. Abdominal GI tract demonstrates no evidence of small bowel obstruction. The appendix is not visualized but there are no secondary signs of acute appendicitis. There is a large amount of stool in the rectum. Remaining unenhanced pelvic GI tract is without acute abnormality. The uterus is present. There is a small amount of free fluid. There is no lymphadenopathy. No acute osseous abnormality is identified. IMPRESSION: Right middle and lower lobe consolidation consistent with pneumonia. Right pleural and pericardial effusion. Indeterminate hypodense liver lesion, malignancy not excluded. Recommend MR liver protocol. Bilateral nonobstructing renal stones. Reviewed, Interpreted and Dictated by Sarina Elder MD Transcribed by Jesi Choudhury Authenticated and [facility]
[2023-04-28 15:16] LABS: TNC,Body Fluid 6134 cells/uL (< 1000)
[2023-04-28 15:17] LABS: RBC,Body Fluid < 10 cells/uL (< 10 X 10^3)
--- NOTE | 2023-04-28 15:21 | CT_ITS ---
FINAL REPORT TECHNIQUE: Axial imaging of the chest was obtained without contrast. Reformatted images were also obtained and reviewed.This study was performed with techniques to keep radiation doses as low as reasonably achievable, (ALARA). Individualized dose reduction technique using automated exposure control or adjustment of mA and/or kV according to the patient's size were employed. CLINICAL HISTORY: SOA FINDINGS: There is no axillary lymphadenopathy. There are borderline precarinal and AP window lymph nodes. There is a right hilar mass, that is difficult to measure without contrast, which obstructs the right bronchus intermedius. There is a small right pleural effusion with small caliber right chest tube in place. There is a moderate pericardial effusion. Airspace disease is seen in the right middle lobe and right lower lobe most consistent with postobstructive atelectasis and pneumonia. There are multiple nodules at the right lung margin, along the major fissure. A separate mass seen along the major fissure on axial image #48 measures 3.4 cm. There is interlobular septal thickening in the right lung compared to the left. Lymphangitic tumor spread not excluded. No acute osseous abnormality is identified. 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 Lower lobe and right middle lobe likely postobstructive atelectasis/pneumonia. Findings most consistent with pulmonary metastasis and possible lymphangitic tumor spread. Small right pleural and moderate pericardial effusions. Reviewed, Interpreted and Dictated by Sarina Elder MD Transcribed by Jinny Oscar Authenticated and [facility]
[2023-04-28] MEDS: IPRATROPIUM/ALBUTEROL 3 ML NEB IH ×3 (15:40→23:15)
[2023-04-28 16:19] LABS: Mononuclear WBCs,Body Fluid 19 %; Polynuclear WBC,Body Fluid 81 %
--- NOTE | 2023-04-28 16:24 | EXP.PHA.CONS ---
Pharmacy Consult Date: 04/28/23 Time: 16:24 Referring provider: DR. PEREZ Reason for Consult:: VANCOMYCIN DOSING Allergies Allergy/AdvReac Type Severity Reaction Status Date / Time No Known Allergies Allergy Verified 04/28/23 12:56 Home Medications Medication Instructions Recorded Confirmed Type albuterol sulfate 90 mcg/actuation 2 puff inhalation Q4HP PRN 04/28/23 04/28/23 History aerosol inhaler Shortness Of Breath ascorbic acid (vitamin C) 1,000 mg 1,000 mg PO DAILY Supplement 04/28/23 04/28/23 History tablet (Vitamin C) atorvastatin 10 mg tablet 10 mg PO DAILY Cholesterol 04/28/23 04/28/23 History buspirone 10 mg tablet 10 mg PO TID Anxiety 04/28/23 04/28/23 History fluticasone propionate 50 1 spray intranasal DAILY Allergy 04/28/23 04/28/23 History mcg/actuation nasal Symptoms spray,suspension hydroxyzine HCl 50 mg tablet 50 mg PO QIDP PRN Itching 04/28/23 04/28/23 History lisinopril 20 1 tab PO BID High Blood Pressure 04/28/23 04/28/23 History mg-hydrochlorothiazide 25 mg tablet pantoprazole 40 mg tablet,delayed 40 mg PO DAILY Acid Reflux 04/28/23 04/28/23 History release sertraline 100 mg tablet 100 mg PO DAILY Mood 04/28/23 04/28/23 History tiotropium 2.5 mcg-olodaterol 2.5 2 puff inhalation DAILY Breathing 04/28/23 04/28/23 History mcg/actuation mist for inhalation Problems (Stiolto Respimat) New Prescriptions to Start Prescriptions: Height: 1.6 m Weight: 45.359 kg Laboratory Results:: Laboratory Results - last 24 hr 04/28/23 12:48: WBC 23.6 H*, RBC 4.23, Hgb 14.0, Hct 44.4, MCV 104.8 H, MCH 33.0 H, MCHC 31.5 L, RDW 14.3, Plt Count 497 H, MPV 8.2, Neut % (Auto) 90.5 H, Lymph % (Auto) 3.5 L, [place] % (Auto) 5.1, Eos % (Auto) 0.6, Baso % (Auto) 0.3, Neut # (Auto) 21.3 H, Lymph # (Auto) 0.8, [place] # (Auto) 1.2 H, Eos # (Auto) 0.1, Baso # (Auto) 0.1, Total Counted 100, Neutrophils % (Manual) 64, Band Neutrophils % 22.0 H, Lymphocytes % (Manual) 6 L, Monocytes % (Manual) 8, Platelet Estimate Slight increase, Anisocytosis 1+, Macrocytosis 1+, Sodium 131 L, Potassium 3.5, Chloride 92 L, Carbon Dioxide 40 H, Anion Gap 2.5 L, BUN 65 H, Creatinine 1.60 H, Estimated Creat Clear 24, Estimated GFR 32 L, Est GFR ( Amer) 39 L, Glucose 121 H, Calcium 8.6, Total Bilirubin 0.4, AST 28, ALT 24, Alkaline Phosphatase 223 H, Troponin I 0.22 H, NT-Pro-B Natriuret Pep 37333 H, Total Protein 7.3, Albumin 3.2 L, Globulin 4.1 H, Albumin/Globulin Ratio 0.8 L, Lipase 25 04/28/23 12:50: SARS-CoV-2 (PCR) Not detected, Influenza A Untype (PCR) Not detected, Influenza Type B (PCR) Not detected 04/28/23 13:44: VBG pH 7.32, VBG pCO2 67.4 H, VBG pO2 34.9, VBG HCO3 33.7 H, VBG Total CO2 35.8 H, VBG O2 Saturation 63.5, VBG Base Excess 5.2 H 04/28/23 14:30: Fluid Source Thoracentesis fluid, Fluid Volume 24, Fluid Appearance Hazy, Fluid RBC (Auto) < 10, Fld Tot Nucleated Cell 6134, Fld Polynuclear WBCs % 81, Fld Mononuclear WBCs % 19 Medical History: Medical History (Updated 12/11/22 @ 09:30 by Jesi Ovalles RN) Alcohol withdrawal Anxiety COPD (chronic obstructive pulmonary disease) Depression Foot pain Fracture of femoral neck, left, closed GERD (gastroesophageal reflux disease) History of deviated nasal septum Hives Hyperlipidemia Hypertension Lumbar back pain with radiculopathy affecting lower extremity Urinary incontinence Assessment and Plan Assessment and plan all Dx Assessment and Plan for all problems:: Pharmacokinetic dosing service Objective: Patient: Floor: Age: 68 yo Serum creatinine: 1.6 mg/dL Height: 63.0 Inches Weight (kg): 45.359 Assessment: IBW (kg): 52.40 Dosing wt(kg): 45.359 Estimated Creatinine clearance (ml/min): 24.1 CRCL method: Cockcroft and Gault using ibw(default). Drug selected: Vancomycin Loading dose (mg): 0 Vd (liters): 36.3 (factor used: 0.8 L/kg) Bello (hr-1): 0.024 Half life (hrs): 28.88 Recommended dose: 750 mg Interval: 36 hrs Infusion time (hrs): 2.0 Predicted peak (mcg/mL): 34.9 Predicted trough (mcg/mL): 15.43 Total body weight is being used for vancomycin dosing. Recommendations: START WITH ONE TIME DOSE OF VANCOMYCIN 1000 MG THEN give Vancomycin 750 mg q 36 hrs with an expected Cpeak of 34.9 mcg/ml and an expected Ctrough of 15.43 mcg/ml ----Vanco only - ignore for aminoglycosides----- CLvanco= 0.87 L/hr AUC 0-24 /BOB Data: BOB 0.5 mcg/mL: AUC/BOB: 1149.4 BOB 1.0 mcg/mL: AUC/BOB: 574.7 --------- BOB 1.5 mcg/mL: AUC/BOB: 383.1 BOB 2.0 mcg/mL: AUC/BOB: 287.4
[2023-04-28] MEDS: LACTATED RINGERS 1000ML 1,000 ML 500 ML IV (17:17)
--- NOTE | 2023-04-28 17:18 | P.HP_ITS ---
History of Present Illness *Admission Date: 04/28/23 *Reason for visit:: short of breath, unintentional weight loss *History of present illness: Ms. Addison is a 68-year-old female with history of tobacco use, alcohol dependence, hypertension, hyperlipidemia, COPD. She was brought to the hospital by EMS after her mailman called 911 to have her brought to the hospital. She reportedly has not eaten or had anything to drink in over 5 days. She is alert and oriented x 4 but appears quite weak. Her mailman at bedside (Jay) checks on her daily. He recommended Friday she come to the hospital as he has noted she has been more weak, not moving well, and has lost substantial weight over the past 6 weeks. He helped her make an appointment with her primary care doctor for 1:00 today but when he brought her mail to her today, was very concerned and called EMS to bring her to the hospital for further evaluation instead. On arrival to the hospital, she is short of breath. Afebrile but tachycardic. Has had worsening shortness of breath, fatigue, weakness, decreased appetite for the better part of a week. Reports drinking upwards of 6 beers a day over the past several weeks. No known sick contacts. Does not wear oxygen at home. Appears in overall general relatively poor health. Jay at bedside also mentions that her live-in longtime boyfriend recently moved out and she has been alone by herself for almost a month. Workup in the ER consisting of labs and chest imaging showed concern for right- sided pleural effusion. Meeting sepsis criteria with leukocytosis, tachycardia, suspected pneumonia. Ultrasound performed showing large effusion. Thoracentesis performed with removal of almost a liter of fluid. Patient necessitating 3 to 4 L supplemental oxygen. Medicine consulted for admission. I evaluated the patient in the ER prior to admission out of concern for her current condition and potential need for transfer. On evaluation she had a very tender abdomen. It was unclear why she might have such a large effusion. Ordered CT of chest abdomen and pelvis. CT showed concern for bronchial obstruction, perihilar mass, dense consolidation of right lower lobe. Also noted to have mild pericardial effusion. CT of abdomen with liver lesion but no parul abdominal obstruction. Noted to have large stool ball in rectum. Patient initially treated with ceftriaxone and azithromycin. Antibiotics broadened to vancomycin and cefepime. Administered sepsis bolus with 1.5 L of LR. Blood cultures obtained. Pleural fluid sent for evaluation including Gram stain, culture, cytology, LDH, lactate, albumin. [facility] Disclaimer: The information contained in this section may have been updated after the patient was seen, as this information can be updated by other users. Medical History Alcohol withdrawal Anxiety COPD (chronic obstructive pulmonary disease) Depression Foot pain Fracture of femoral neck, left, closed GERD (gastroesophageal reflux disease) History of deviated nasal septum Hives Hyperlipidemia Hypertension Lumbar back pain with radiculopathy affecting lower extremity Urinary incontinence Surgical History History of left hip replacement Family History Family history of hypertension Social History Smoking Status: Current every day smoker tobacco type: cigarettes packs per day: 1 alcohol intake: current substance use type: denies use current occupational status: unemployed Travel in the last 8 weeks: None household members: other housing: assisted caffeine: Yes Review of Systems Review of Systems Review of systems (narrative): 14 point review of systems performed, pertinent positives and negatives as per HPI Meds Home Medications and Allergies Home Medications Medication Instructions Recorded Confirmed Type albuterol sulfate 90 mcg/actuation 2 puff inhalation Q4HP PRN 04/28/23 04/28/23 History aerosol inhaler Shortness Of Breath ascorbic acid (vitamin C) 1,000 mg 1,000 mg PO DAILY Supplement 04/28/23 04/28/23 History tablet (Vitamin C) atorvastatin 10 mg tablet 10 mg PO DAILY Cholesterol 04/28/23 04/28/23 History buspirone 10 mg tablet 10 mg PO TID Anxiety 04/28/23 04/28/23 History fluticasone propionate 50 1 spray intranasal DAILY Allergy 04/28/23 04/28/23 History mcg/actuation nasal Symptoms spray,suspension hydroxyzine HCl 50 mg tablet 50 mg PO QIDP PRN Itching 04/28/23 04/28/23 History lisinopril 20 1 tab PO BID High Blood Pressure 04/28/23 04/28/23 History mg-hydrochlorothiazide 25 mg tablet pantoprazole 40 mg tablet,delayed 40 mg PO DAILY Acid Reflux 04/28/23 04/28/23 History release sertraline 100 mg tablet 100 mg PO DAILY Mood 04/28/23 04/28/23 History tiotropium 2.5 mcg-olodaterol 2.5 2 puff inhalation DAILY Breathing 04/28/23 04/28/23 History mcg/actuation mist for inhalation Problems (Stiolto Respimat) New Prescriptions to Start Prescriptions: Allergies Allergy/AdvReac Type Severity Reaction Status Date / Time No Known Allergies Allergy Verified 04/28/23 12:56 Exam Data for Last 24 hours Vital signs and Labs for Last 24 Hours: Temp Pulse Resp BP Pulse Ox O2 Del Method O2 Flow Rate 99.3 F 89 20 80/50 L 94 L Nasal Cannula 2 04/28/23 12:43 04/28/23 17:00 04/28/23 15:45 04/28/23 17:00 04/28/23 17:00 04/28/23 17:00 04/28/23 16:30 Laboratory Results - last 24 hr 04/28/23 12:48: WBC 23.6 H*, RBC 4.23, Hgb 14.0, Hct 44.4, MCV 104.8 H, MCH 33.0 H, MCHC 31.5 L, RDW 14.3, Plt Count 497 H, MPV 8.2, Neut % (Auto) 90.5 H, Lymph % (Auto) 3.5 L, [place] % (Auto) 5.1, Eos % (Auto) 0.6, Baso % (Auto) 0.3, Neut # (Auto) 21.3 H, Lymph # (Auto) 0.8, [place] # (Auto) 1.2 H, Eos # (Auto) 0.1, Baso # (Auto) 0.1, Total Counted 100, Neutrophils % (Manual) 64, Band Neutrophils % 22.0 H, Lymphocytes % (Manual) 6 L, Monocytes % (Manual) 8, Platelet Estimate Slight increase, Anisocytosis 1+, Macrocytosis 1+, Sodium 131 L, Potassium 3.5, Chloride 92 L, Carbon Dioxide 40 H, Anion Gap 2.5 L, BUN 65 H, Creatinine 1.60 H , Estimated Creat Clear 24, Estimated GFR 32 L, Est GFR ( Amer) 39 L, Glucose 121 H, Calcium 8.6, Total Bilirubin 0.4, AST 28, ALT 24, Alkaline Phosphatase 223 H, Troponin I 0.22 H, NT-Pro-B Natriuret Pep 62710 H, Total Protein 7.3, Albumin 3.2 L, Globulin 4.1 H, Albumin/Globulin Ratio 0.8 L, Lipase 25 04/28/23 12:50: SARS-CoV-2 (PCR) Not detected, Influenza A Untype (PCR) Not detected, Influenza Type B (PCR) Not detected 04/28/23 13:44: VBG pH 7.32, VBG pCO2 67.4 H, VBG pO2 34.9, VBG HCO3 33.7 H, VBG Total CO2 35.8 H, VBG O2 Saturation 63.5, VBG Base Excess 5.2 H 04/28/23 14:30: Fluid Source Thoracentesis fluid, Fluid Volume 24, Fluid Appearance Hazy, Fluid RBC (Auto) < 10, Fld Tot Nucleated Cell 6134, Fld Polynuclear WBCs % 81, Fld Mononuclear WBCs % 19 I & O for Last 24 hours: Intake & Output 04/25/23 04/26/23 04/27/23 04/28/23 23:59 23:59 23:59 23:59 Weight 45.359 kg Constitutional Constitutional: moderate distress, cachectic, chronically ill appearing and cooperative *Routine HEENT Exam Head: Present normocephalic Eye: Present EOMI and PERRL ENT: Present mucous membranes dry Comments: Edentulous *Routine Neck Exam Neck: Present supple; Absent lymphadenopathy Routine Chest/Breast/Axilla Exam Comments: Chest tube in right hemithorax draining cloudy fluid, approximately a liter in the bag *Routine Respiratory Exam Respiratory: Present accessory muscle use, rhonchi, wheezes and crackles; Absent normal respiratory effort Comments: Adventitious sounds in right lung field, crackles in base, left lung field relatively clear; tachypnea *Routine Cardiovascular Exam Cardiovascular: Present tachycardia; Absent murmur, gallop or rubs *Routine Abdominal Exam Abdominal: Present soft, tenderness (Diffuse, worse in upper abdomen. No rebound), rebound and guarding; Absent normoactive bowel sounds or distended *Routine Rectal Exam Rectal:: deferred *Routine Genitalia Exam Genitalia:: deferred *Routine Extremities Exam Extremities: Absent cyanosis, clubbing or edema *Routine Skin Exam Skin: Present warm; Absent rash *Routine Neurological Exam Neurological: Present alert and moving all extremities; Absent altered mental status Comments: Oriented to self and place. Assessment and Plan *Assessment and plan (1) Severe sepsis: Status: Acute Category: Medical Code(s): A41.9 - Sepsis, unspecified organism; R65.20 - Severe sepsis without septic shock (2) Obstructive pneumonia: Status: Acute Category: Medical Code(s): J18.9 - Pneumonia, unspecified organism (3) Pleural effusion: Status: Acute Category: Medical Code(s): J90 - Pleural effusion, not elsewhere classified (4) Lung mass: Status: Acute Category: Medical Code(s): R91.8 - Other nonspecific abnormal finding of lung field (5) Severe protein-calorie malnutrition: Status: Acute Category: Medical Code(s): E43 - Unspecified severe protein-calorie malnutrition (6) Alcohol abuse: Status: Acute Category: Social Hx Code(s): F10.10 - Alcohol abuse, uncomplicated (7) COPD (chronic obstructive pulmonary disease): Status: Chronic Qualifiers: COPD type: unspecified COPD Qualified Code(s): J44.9 - Chronic obstructive pulmonary disease, unspecified Category: Medical Code(s): J44.9 - Chronic obstructive pulmonary disease, unspecified (8) Hyperlipidemia: Status: Chronic Qualifiers: Hyperlipidemia type: unspecified Qualified Code(s): E78.5 - Hyperlipidemia, unspecified Category: Medical Code(s): E78.5 - Hyperlipidemia, unspecified (9) Hypertension: Status: Chronic Qualifiers: Hypertension type: essential hypertension Qualified Code(s): I10 - Essential (primary) hypertension Category: Medical Code(s): I10 - Essential (primary) hypertension (10) Depression: Status: Chronic Qualifiers: Active/Remission status: currently active Depression Type: major depressive disorder Major depression episode severity: moderate Major depression recurrence: single episode Qualified Code(s): F32.1 - Major depressive disorder, single episode, moderate Category: Medical Code(s): F32.9 - Major depressive disorder, single episode, unspecified (11) Tobacco abuse: Status: Chronic Category: Medical Code(s): Z72.0 - Tobacco use Plan 68-year-old female with multiple comorbidities and progressive weight loss that is unintentional. Presented to the ER with respiratory distress. Concern for obstructive pneumonia with pleural effusion. Discussed case with the ER physician, request admission for antibiotics and further workup of pneumonia. Medicine agreed to admit. Patient with severe sepsis given endorgan dysfunction with kidney injury, respiratory failure, leukocytosis, tachycardia, tachypnea, source of infection with pneumonia. Necessitating inpatient admission. PSI port score of 158. Risk class V, 27 to 29% mortality risk. Problems addressed as follows: Severe sepsis with acute hypoxemic respiratory failure secondary to obstructive pneumonia complicated by pleural effusion. -CT personally reviewed along with chest x-ray, pleural effusion with dense consolidation of right lower lobe. Finding of perihilar mass that is obstructing bronchus intermedius. Highly suspicious for lung cancer. -Continue broad-spectrum antibiotics with IV vancomycin and cefepime 2 g twice daily. Monitoring closely for toxicity. -Pulmonology consulted, appreciate their assistance in care. Patient n.p.o. at midnight for possible bronchoscopy tomorrow. -Pleural fluid sent for studies including cytology, Gram stain, culture, LDH, lactate, glucose, albumin, pH. Differential includes parapneumonic effusion, exudative effusion, transudative, malignant. -Continue supplemental oxygen with goal sats greater 90%. Currently on nasal cannula 4 L -Status post sepsis bolus, 1.5 L of LR -Blood cultures pending -Blood pressure better after fluid resuscitation, goal MAP greater than 65, low threshold to initiate norepinephrine - White cell count elevated at 23.6, INR elevated at 1.2, electrolyte disturbances with hyponatremia 131, creatinine 1.6 and BUN 65. Repeat CBC, CMP, magnesium ordered for the morning. -DuoNebs every 6 hours scheduled -Comprehensive respiratory panel negative, pleural fluid infected with greater than 5000 polymorphonuclear cells Pericardial effusion: Seen on CT. Echo pending for the morning. Cardiology consulted to assist with care. Blood pressure improved with fluids. Will eval for Tamponade SONIDO: as above with creatinine 1.6, unclear baseline. Monitor for improvement with fluid resuscitation Severe protein calorie malnutrition: Will monitor for refeeding syndrome. Initial phosphorus acceptable above 3. Repeat phosphorus for the morning. Alcohol abuse: Drinks at least 6 beers a day along with malnourishment. Will initiate rally pack. CIWA protocol. Lorazepam for withdrawal symptoms per CIWA scoring. Nutrition consult placed. Folate and multivitamins ordered Nicotine dependence: Nicotine patch as needed Unclear the last time patient was taking any home medications. Will hold hypertensive medications, anxiety meds, treat symptomatically if develops worsening symptoms. Full code Heparin 5000 units TID Regular diet, Nutrition consult
--- NOTE | 2023-04-28 18:00 | PC.NURSE ---
report called to SUPRIYA Jamil
--- NOTE | 2023-04-28 18:32 | PC.NURSE ---
arrived by stretcher from ED
[2023-04-28 18:36] LABS: Creatine Kinase 20 U/L (30-135)
[2023-04-28] MEDS: VANCOMYCIN HCL 1,000 MG in 0.9 % SODIUM CHLORIDE 250 ML 125 MG IV (18:41)
[2023-04-28] MEDS: MINERAL OIL ENEMA 133ML 133 ML RC (18:41)
[2023-04-28] MEDS: HEPARIN SODIUM 5,000 UNIT/ML VIAL 5000 UNIT SQ (18:41)
[2023-04-28 18:47] LABS: Troponin I 0.17 ng/ml (0.00-0.034)
[2023-04-28 18:58] LABS: Adenovirus,PCR Not Detected (NotDetected); Coronavirus 19, PCR Not Detected (NotDetected); Coronavirus 229E Not Detected (NotDetected); Coronavirus NL63 Not Detected (NotDetected); Coronavirus OC43 Not Detected (NotDetected); Coronovirus HKU1,PCR Not Detected (NotDetected); Human Metapneumovirus Not Detected (NotDetected); Influenza A, PCR Not Detected (NotDetected); Influenza AH1, 2009 Not Detected (NotDetected); Influenza AH1, PCR Not Detected (NotDetected); Influenza AH3,PCR Not Detected (NotDetected); Influenza B, PCR Not Detected (NotDetected); Parainfluenza 1, PCR Not Detected (NotDetected); Parainfluenza 2, PCR Not Detected (NotDetected); Parainfluenza 3, PCR Not Detected (NotDetected); Parainfluenza 4, PCR Not Detected (NotDetected); Respiratory Syncytial Virus Not Detected (NotDetected); Rhinovirus/Enterovirus Not Detected (NotDetected)
[2023-04-28] MEDS: MVI, ADULT NO.1 WITH VIT K 10 ML, THIAMINE HCL 100 MG, MAGNESIUM SULFATE 2 GM in LACTAT... 125 ML IV (19:50)
[2023-04-28] MEDS: PANTOPRAZOLE 40MG VIAL 40 MG IV (20:07)
[2023-04-28] MEDS: SODIUM CHLORIDE 0.9% 10ML VIAL 10 ML IV (20:08)
[2023-04-28] MEDS: POLYETHYLENE GLYCOL 3350 17 GM PACKET PO (20:08)
[2023-04-28 20:43] LABS: Phosphorous 3.6 mg/dl (2.5-4.5)
[2023-04-28 20:45] LABS: Activated Partial Thrombo Time 34.8 seconds (22.8-30.6); INR 1.25 (0.9-1.1); Prothrombin Time 13.3 seconds (10.1-12.5)
[2023-04-28 20:56] LABS: Troponin I 0.16 ng/ml (0.00-0.034)
[2023-04-28] MEDS: CEFEPIME HCL 2 GM in 0.9 % SODIUM CHLORIDE 100 ML IV (22:31)
--- NOTE | 2023-04-28 23:46 | PC.NURSE ---
Patient cleaned of incontinence, brief changed, and readjusted in bed with SRNA Sara. Patient voiced no concerns. Purewick placed on patient to prevent skin breakdown and to monitor appropriate output. Patient had a large void into her brief and scant stool.
[2023-04-29] VITALS (62 sets, daily range): BP systolic 73–121; BP diastolic 33–73; PULSE 80–117; RESP 15–84; TEMP 36.3–38.2; O2SAT 89–97; BMI 20.4
--- NOTE | 2023-04-29 | US_ITS ---
FINAL REPORT TECHNIQUE: Sonographic images of the right upper quadrant were obtained. CLINICAL HISTORY: EVAL LIVER LESION SEEN ON CT COMPARISON: CT dated 04/28/2023 FINDINGS: A right pleural effusion and right lower lobe airspace disease remains present as seen on the prior CT of 04/28/2023. PANCREAS: Unremarkable. LIVER: Homogeneous. There is a hypodense lesion in the liver, which measures 2.4 cm in diameter. This is a nonspecific finding, and metastases are not excluded. No added hepatic lesions are visualized. No intrahepatic biliary ductal dilatation. GALLBLADDER: No gallstones. No gallbladder wall thickening or pericholecystic fluid. COMMON DUCT: 2 mm. Normal for age. RIGHT KIDNEY: The right kidney measures 9.8 cm. There is no hydronephrosis, mass, or stone. FREE FLUID: None. IMPRESSION: Hypodense lesion in the liver 2.4 cm in size. While this may represent a cyst the overall appearance is nonspecific and metastases are not excluded. Right effusion and right lower lobe airspace disease remain present. Reviewed, Interpreted and Dictated by Sarina Elder MD Transcribed by Amrita Sanchez Authenticated and [facility]
--- NOTE | 2023-04-29 00:03 | PC.NURSE ---
FLIP Sue notified that 1L LR bolus has completed and patient's current pressure 87/49 MAP 60. No new orders at this time. Was instructed to try to keep it there or higher and we might have to start a presser. Care continued, NAD from patient who is resting in bed with even rise/fall of chest.
[2023-04-29 00:21] LABS: Microscopic, Urine URINE MICROSCOPIC (MICROSCOPIC)
[2023-04-29 00:24] LABS: Appearance,Urine CLEAR (Clear); Bilirubin,Urine Negative (Negative); Blood, Urine Negative (Negative); Color,Urine YELLOW (Yellow); Glucose,Urine (UA) Negative (Negative); Ketones,Urine Negative (Negative); Leukocyte Esterase,Urine Negative (Negative); Nitrate,Urine POSITIVE (Negative); Protein,Urine Negative (Negative); Urobilinogen,Urine 0.2 EU/dl (0.2)
[2023-04-29 00:39] LABS: Bacteria,Urine 2+ /lpf; Squamous Epithelial Cell,Urine Occasional #/hpf (0-5)
[2023-04-29] MEDS: HEPARIN SODIUM 5,000 UNIT/ML VIAL 5000 UNIT SQ ×3 (01:00→18:21)
[2023-04-29] MEDS: NOREPINEPHRINE BITARTRATE/D5W 8 MG/250 ML PLAST..BAG 15 MG IV (01:00)
[2023-04-29] MEDS: ACETAMINOPHEN 325MG TAB 650 MG PO ×2 (01:05→15:08)
--- NOTE | 2023-04-29 01:27 | PC.NURSE ---
Norepi started per protocol after verbal phone order from Seymour CASTELAN. Placed an 18g ultrasound guided PIV to left basilic vein for vasopresser to infuse through. Patient tolerating Norepi well without s/sx of reaction. Titration per MAY. Care continues.
--- NOTE | 2023-04-29 05:47 | PC.NURSE ---
Patient was upgraded from SD to ICU after having severe hypotensive episodes which did not improve after 1L LR bolus. Norepi began per protocol and titrated according to. Patient tolerating med well with systolic >90 and MAP >65 with NAD otherwise. Adequate drainage from her chest pigtail drain. Lung craig are clear, but diminished with midsternal rhonci which she is able to clear with a cough. Remains on 4L/NC. VSS and resting in bed at this time.
[2023-04-29] MEDS: IPRATROPIUM/ALBUTEROL 3 ML NEB IH ×2 (06:35→15:33)
[2023-04-29 07:47] LABS: Basophils % 0.1 % (0.1-2.0)
[2023-04-29 07:59] LABS: Chloride 97 mmol/L (98-107); Potassium 3.5 mmoL/L (3.5-5.1); Sodium 131 mmol/L (136-145)
[2023-04-29 08:01] LABS: Alanine Aminotransferase 19 U/L (12-78); Aspartate Amino Transferase 23 U/L (14-36); Blood Urea Nitrogen 53 mg/dl (7-17); Creatinine Clearance Estimated 46 mL/min (50-200); Estimated Glomerular Filt Rate 49 ml/min (>60); GFR (African American) 60 ML/MIN (>60)
[2023-04-29 08:02] LABS: Albumin Level 2.7 g/dl (3.5-5.0); Albumin/Globulin Ratio 0.8 (1.1-1.8); Alkaline Phosphatase 214 U/L (38-126); Anion Gap 0.5 mEq/L (5-15); Bilirubin,Total 0.4 mg/dl (0.2-1.3); Calcium 8.3 mg/dl (8.4-10.2); Carbon Dioxide 37 mmol/L (22.0-30.0); Globulin 3.6 g/dL (1.3-3.2); Glucose 145 mg/dl (74-100); Magnesium 2.6 mg/dl (1.6-2.3); Total Protein,Serum 6.3 g/dl (6.3-8.2)
[2023-04-29 08:10] LABS: Eosinophils % 0.1 % (0.1-12.0); Hematocrit 38.6 % (37.0-47.0); Lymphocytes % 5.1 % (10-50); Mean Corpuscular HGB Conc 31.4 g/dL (31.8-35.4); Mean Corpuscular Hemoglobin 32.6 pg (27.0-31.2); Mean Corpuscular Volume 103.6 fl (81-99); Mean Platelet Volume 8.2 fl (7.4-10.4); Monocytes # 1.1 K/mm3 (0.1-1.0); Monocytes % 5.8 % (1.7-9.3); Neutrophils # 16.5 K/mm3 (1.8-7.8); Neutrophils % 88.8 % (37.0-80.0); Platelet Count 430 K/mm3 (142-424); Red Blood Count 3.73 M/mm3 (4.20-5.40); Red Cell Distribution Width 14.5 % (11.5-17.5); White Blood Count 18.5 K/mm3 (4.8-10.8)
[2023-04-29 08:12] LABS: Hemoglobin 12.1 g/dL (12.2-16.2)
[2023-04-29 08:13] LABS: MANUAL DIFFERENTIAL MANUAL DIFFERENTIAL (MANUAL DIFF)
[2023-04-29] MEDS: MVI, ADULT NO.1 WITH VIT K 10 ML, THIAMINE HCL 100 MG, MAGNESIUM SULFATE 2 GM in LACTAT... 125 ML IV (09:55)
[2023-04-29] MEDS: CEFEPIME HCL 2 GM in 0.9 % SODIUM CHLORIDE 100 ML IV (09:55)
[2023-04-29] MEDS: FOLIC ACID 1MG TABLET 1 MG PO (09:56)
[2023-04-29] MEDS: POLYETHYLENE GLYCOL 3350 17 GM PACKET PO ×2 (09:56→20:33)
[2023-04-29 10:13] LABS: Lymphocytes % 5 % (10-50); Monocytes % 8 % (2-9); Neutrophils % 77 % (42-76); Total Cells Counted 100
[2023-04-29 10:14] LABS: Platelet Estimate Slight Increase
[2023-04-29 10:15] LABS: Anisocytosis 1+; Hypochromasia 1+; Macrocytosis 1+; Poikilocytosis 1+; Target Cells 1+
[2023-04-29] MEDS: SODIUM CHLORIDE 3% 15ML NEB 3 ML IH (10:48)
--- NOTE | 2023-04-29 11:01 | PC.NURSE ---
Current Medications Acetaminophen (Acetaminophen 325mg Tab) 650 mg PO Q4HP PRN PRN Reason: Fever or Mild Pain (1-3) Stop: 05/28/23 16:59 Last Admin: 04/29/23 01:05 Dose: 650 mg Albuterol/Ipratropium (Ipratropium/Albuterol 3 Ml Neb) 3 ml IH Q6HP PRN PRN Reason: Shortness Of Breath Stop: 05/29/23 10:20 Fluticasone/Umeclidinium/Vilanterol (Fluticasone/Umeclidin/Vilanter 100/62.5/25mcg Inhaler) 1 puff IH DAILY [facility] Stop: 05/30/23 08:59 Folic Acid (Folic Acid 1mg Tablet) 1 mg PO DAILY [facility] Stop: 05/29/23 08:59 Last Admin: 04/29/23 09:56 Dose: 1 mg Heparin Sodium (Porcine) (Heparin Sodium 5,000 Unit/Ml Vial) 5,000 unit SQ Q8H [facility] Stop: 05/28/23 16:59 Last Admin: 04/29/23 09:56 Dose: 5,000 unit Vancomycin HCl 750 mg/ Sodium (Chloride) 250 mls @ 125 mls/hr IV Q36H [facility] Stop: 05/10/23 04:59 Cefepime HCl 2 gm/ Sodium (Chloride) 100 mls @ 200 mls/hr IV Q12H [facility] Stop: 05/08/23 22:29 Last Admin: 04/29/23 09:55 Dose: 200 mls/hr Norepinephrine/Dextrose (Norepinephrine 8mg/250ml-D5w Premix) 8 mg in 250 mls @ 18.75 mls/hr IV .[id number] [facility]; Protocol Stop: 05/29/23 00:44 Last Titration: 04/29/23 06:02 Dose: 10 mcg/min, 18.75 mls/hr Multivitamins 10 ml/ Thiamine HCl 100 mg/ Magnesium Sulfate 2 gm/ Lactated Ringer's 1,015 mls @ 125 mls/hr IV DAILY [facility] Stop: 05/29/23 08:59 Last Admin: 04/29/23 09:55 Dose: 125 mls/hr Lorazepam (Lorazepam 2mg/Ml Vial) 1 mg IV Q1HP PRN PRN Reason: CIWA Score 8-15 Stop: 05/28/23 19:01 Lorazepam (Lorazepam 1mg Tablet) 1 mg PO Q6HP PRN PRN Reason: CIWA 2-7 Stop: 05/28/23 19:01 Nicotine (Nicotine 21mg/24hr Patch) 21 mg TD DAILYP PRN PRN Reason: Nicotine Cravings Stop: 05/28/23 19:01 Pantoprazole Sodium (Pantoprazole 40mg Vial) 40 mg IV HS [facility]UDMILA Stop: 05/28/23 20:59 Last Admin: 04/28/23 20:07 Dose: 40 mg Polyethylene Glycol (Polyethylene Glycol 3350 17 Gm Packet) 17 gm PO BID [facility] Stop: 05/28/23 20:59 Last Admin: 04/29/23 09:56 Dose: 17 gm Sodium Chloride (Sodium Chloride 3% 15ml Neb) 3 ml IH ONCE PRN PRN Reason: INDUCE SPUTUM COLLECTION Stop: 05/28/23 17:18 Last Admin: 04/29/23 10:48 Dose: 3 ml Sodium Chloride (Sodium Chloride 0.9% 10ml Vial) 10 ml IV NEEDED PRN PRN Reason: to Dilute Lorazepam inj Stop: 05/28/23 19:01 Last Admin: 04/28/23 20:08 Dose: 10 ml
--- NOTE | 2023-04-29 11:07 | EXP.CARD.CON ---
History of Present Illness History of Present Illness Consult date: 04/29/23 Requesting physician: Leroy Castaneda Consult reason: shortness of breath Chief complaint: weakness, pleural effusion, pericardial effusion, elevated troponins/BNP Additional Medical History:: 1. Chronic alcohol use A. History of chronic hyponatremia with level as low as 109 in 2019 B. Macrocytic anemia C. Elevated INR 1.25 on 04/28/2023 2. Tobacco use with COPD 3. History of hypertension 4. History of hyperlipidemia 5. Pericardial effusion on CAT scan 04/28/2023 6. Pleural effusion status post thoracentesis, 04/28/2023 A. Right hilar mass with concern for malignancy, CT of the chest 04/28/2023 B. Indeterminate hypodense liver lesion with concern for malignancy, abdominal pelvis CT, 04/28/2023 7. History of chronic right bundle branch block A. History of syncope in 2019 felt related to alcohol use 8. Coronary calcification noted on CT of the chest, 04/28/2023 A. Elevated troponins, 04/28/2023 9. Elevated BNP at 19,000 on 04/28/2023 10. CKD, stage II with creatinine 1.1 and GFR 49 on 04/29/2023 History of present illness: Ms. Addison is a 68-year-old female with history of tobacco use, alcohol dependence, hypertension, hyperlipidemia, COPD. She was brought to the hospital by EMS after her mailman called 911 to have her brought to the hospital. She reportedly has not eaten or had anything to drink in over 5 days. She is alert and oriented x 4 but appears quite weak. Her mailman at bedside (Jay) checks on her daily. He recommended Friday she come to the hospital as he has noted she has been more weak, not moving well, and has lost substantial weight over the past 6 weeks. He helped her make an appointment with her primary care doctor for 1:00 today but when he brought her mail to her today, was very concerned and called EMS to bring her to the hospital for further evaluation instead. On arrival to the hospital, she is short of breath. Afebrile but tachycardic. Has had worsening shortness of breath, fatigue, weakness, decreased appetite for the better part of a week. Reports drinking upwards of 6 beers a day over the past several weeks. No known sick contacts. Does not wear oxygen at home. Appears in overall general relatively poor health. Jay at bedside also mentions that her live-in longtime boyfriend recently moved out and she has been alone by herself for almost a month. Workup in the ER consisting of labs and chest imaging showed concern for right-sided pleural effusion. Meeting sepsis criteria with leukocytosis, tachycardia, suspected pneumonia. Ultrasound performed showing large effusion. Thoracentesis performed with removal of almost a liter of fluid. Patient necessitating 3 to 4 L supplemental oxygen. Medicine consulted for admission. I evaluated the patient in the ER prior to admission out of concern for her current condition and potential need for transfer. On evaluation she had a very tender abdomen. It was unclear why she might have such a large effusion. Ordered CT of chest abdomen and pelvis. CT showed concern for bronchial obstruction, perihilar mass, dense consolidation of right lower lobe. Also noted to have mild pericardial effusion. CT of abdomen with liver lesion but no parul abdominal obstruction. Noted to have large stool ball in rectum. Patient initially treated with ceftriaxone and azithromycin. Antibiotics broadened to vancomycin and cefepime. Administered sepsis bolus with 1.5 L of LR. Blood cultures obtained. Pleural fluid sent for evaluation including Gram stain, culture, cytology, LDH, lactate, albumin. The above per Dr. Castaneda Events above confirmed with the patient. Breathing has improved since the thoracentesis. Cardiology consulted for pericardial effusion and elevated troponins with troponin max 0.22 declining down to 0.16. Echocardiogram is pending EKG is sinus tachycardia at 128 bpm, RAD, right bundle branch block with short burst of PAT versus SVT. Chronic anterolateral ST-T wave abnormalities/depression dating back to [address] of the chest and abdomen and pelvis with concerns for metastatic cancer noted. [facility] Disclaimer: The information contained in this section may have been updated after the patient was seen, as this information can be updated by other users. Medical History (Updated 04/29/23 @ 11:43 by Reddy Forrest MD) Alcohol withdrawal Anxiety COPD (chronic obstructive pulmonary disease) Depression Foot pain Fracture of femoral neck, left, closed GERD (gastroesophageal reflux disease) Hilar lymphadenopathy History of deviated nasal septum Hives Hyperlipidemia Hypertension Lumbar back pain with radiculopathy affecting lower extremity Mediastinal lymphadenopathy Pleural effusion on right Pneumonia Urinary incontinence Surgical History History of left hip replacement Family History Family history of hypertension Social History Smoking Status: Current every day smoker tobacco type: cigarettes packs per day: 1 alcohol intake: current substance use type: denies use current occupational status: unemployed Travel in the last 8 weeks: None household members: other housing: skilled nursing caffeine: Yes Review of Systems Constitutional Constitutional: Reports anorexia, Reports weakness and Reports weight loss *Cardiovascular Cardiovascular: Denies chest pain, Reports dyspnea and Reports dyspnea on exertion *Respiratory Respiratory: Reports dyspnea and Reports dyspnea on exertion *Neurologic Neurologic: Reports weakness Exam Data for Last 24 hours Vital signs and Labs for Last 24 Hours: Temp Pulse Resp BP Pulse Ox O2 Del Method O2 Flow Rate 97.7 F 107 H 18 103/62 L 91 L Nasal Cannula 4 04/29/23 08:11 04/29/23 11:00 04/29/23 11:00 04/29/23 11:00 04/29/23 11:00 04/29/23 11:00 04/29/23 11:00 Laboratory Results - last 24 hr 04/28/23 12:48: WBC 23.6 H*, RBC 4.23, Hgb 14.0, Hct 44.4, MCV 104.8 H, MCH 33.0 H, MCHC 31.5 L, RDW 14.3, Plt Count 497 H, MPV 8.2, Neut % (Auto) 90.5 H, Lymph % (Auto) 3.5 L, [place] % (Auto) 5.1, Eos % (Auto) 0.6, Baso % (Auto) 0.3, Neut # (Auto) 21.3 H, Lymph # (Auto) 0.8, [place] # (Auto) 1.2 H, Eos # (Auto) 0.1, Baso # (Auto) 0.1, Total Counted 100, Neutrophils % (Manual) 64, Band Neutrophils % 22.0 H, Lymphocytes % (Manual) 6 L, Monocytes % (Manual) 8, Platelet Estimate Slight increase, Anisocytosis 1+, Macrocytosis 1+, Sodium 131 L, Potassium 3.5, Chloride 92 L, Carbon Dioxide 40 H, Anion Gap 2.5 L, BUN 65 H, Creatinine 1.60 H, Estimated Creat Clear 24, Estimated GFR 32 L, Est GFR ( Amer) 39 L, Glucose 121 H, Calcium 8.6, Total Bilirubin 0.4, AST 28, ALT 24, Alkaline Phosphatase 223 H, Troponin I 0.22 H, NT-Pro-B Natriuret Pep 96232 H, Total Protein 7.3, Albumin 3.2 L, Globulin 4.1 H, Albumin/Globulin Ratio 0.8 L, Lipase 25 04/28/23 12:50: SARS-CoV-2 (PCR) Not detected, Influenza A Untype (PCR) Not detected, Influenza Type B (PCR) Not detected 04/28/23 13:44: VBG pH 7.32, VBG pCO2 67.4 H, VBG pO2 34.9, VBG HCO3 33.7 H, VBG Total CO2 35.8 H, VBG O2 Saturation 63.5, VBG Base Excess 5.2 H 04/28/23 14:30: Fluid Source Thoracentesis fluid, Fluid Volume 24, Fluid Appearance Hazy, Fluid RBC (Auto) < 10, Fld Tot Nucleated Cell 6134, Fld Polynuclear WBCs % 81, Fld Mononuclear WBCs % 19 04/28/23 18:00: Total Creatine Kinase 20 L, Troponin I 0.17 H 04/28/23 18:38: Chlamy pneumoniae PCR TNP, Adenovirus (PCR) Not detected, B. pertussis DNA (PCR) TNP, Coronavirus OC43 (PCR) Not detected, Coronavirus HKU1 (PCR) Not detected, Coronavirus 229E (PCR) Not detected, SARS-CoV-2 (PCR) Not detected, Coronavirus NL63 (PCR) Not detected, Human Metapneumovir PCR Not detected, Influenza A (H1) PCR Not detected, Influ A (H1N1/09) PCR Not detected, Influenza A (H3) PCR Not detected, Influenza Type A (PCR) Not detected, Influenza Type B (PCR) Not detected, M. pneumoniae (PCR) TNP, Parainfluenza 1 (PCR) Not detected, Parainfluenza 2 (PCR) Not detected, Parainfluenza 3 (PCR) Not detected, Parainfluenza 4 (PCR) Not detected, RSV (PCR) Not detected, Entero/Rhino (PCR) Not detected 04/28/23 20:10: PT 13.3 H, INR 1.25 H, APTT 34.8 H, Phosphorus 3.6, Troponin I 0.16 H 04/28/23 23:33: Urine Color Yellow, Urine Appearance Clear, Urine pH 6.0, Ur Specific [place] 1.020, Urine Protein Negative, Urine Glucose (UA) Negative, Urine Ketones Negative, Urine Blood Negative, Urine Nitrate Positive, Urine Bilirubin Negative, Urine Urobilinogen 0.2, Ur Leukocyte Esterase Negative, Urine WBC 3-5, Ur Squamous Epith Cells Occasional, Urine Bacteria 2+ 04/29/23 07:21: WBC 18.5 H, RBC 3.73 L, Hgb 12.1 L D, Hct 38.6, MCV 103.6 H, MCH 32.6 H, MCHC 31.4 L, RDW 14.5, Plt Count 430 H, MPV 8.2, Neut % (Auto) 88.8 H, Lymph % (Auto) 5.1 L, [place] % (Auto) 5.8, Eos % (Auto) 0.1, Baso % (Auto) 0.1, Neut # (Auto) 16.5 H, Lymph # (Auto) 1.0, [place] # (Auto) 1.1 H, Eos # (Auto) 0.0, Baso # (Auto) 0.0, Total Counted 100, Neutrophils % (Manual) 77 H, Band Neutrophils % 10.0 H, Lymphocytes % (Manual) 5 L, Monocytes % (Manual) 8, Platelet Estimate Slight increase, Hypochromasia 1+, Poikilocytosis 1+, Anisocytosis 1+, Macrocytosis 1+, Target Cells 1+, Sodium 131 L, Potassium 3.5, Chloride 97 L, Carbon Dioxide 37 H, Anion Gap 0.5 L, BUN 53 H, Creatinine 1.10 H D, Estimated Creat Clear 46, Estimated GFR 49 L, Est GFR ( Amer) 60 D, Glucose 145 H, Calcium 8.3 L, Magnesium 2.6 H, Total Bilirubin 0.4, AST 23, ALT 19, Alkaline Phosphatase 214 H, Total Protein 6.3, Albumin 2.7 L D, Globulin 3.6 H, Albumin/Globulin Ratio 0.8 L I & O for Last 24 hours: Intake & Output 04/26/23 04/27/23 04/28/23 04/29/23 11:59 11:59 11:59 11:59 Intake Total 5477.187 / 5477.187 Output Total 800 / 800 Balance 4677.187 / 4677.187 Weight 129 lb 15.753 oz Constitutional Constitutional: thin and chronically ill appearing *Routine Respiratory Exam Respiratory: Present rhonchi and diminished air movement; Absent wheezes *Routine Cardiovascular Exam Cardiovascular: Present RRR and murmur; Absent gallop or rubs *Routine Extremities Exam Extremities: Absent edema *Routine Neurological Exam Neurological: Present alert and oriented X3 Meds Home Medications and Allergies Home Medications Medication Instructions Recorded Confirmed Type albuterol sulfate 90 mcg/actuation 2 puff inhalation Q4HP PRN 04/28/23 04/28/23 History aerosol inhaler Shortness Of Breath ascorbic acid (vitamin C) 1,000 mg 1,000 mg PO DAILY Supplement 04/28/23 04/28/23 History tablet (Vitamin C) atorvastatin 10 mg tablet 10 mg PO DAILY Cholesterol 04/28/23 04/28/23 History buspirone 10 mg tablet 10 mg PO TID Anxiety 04/28/23 04/28/23 History fluticasone propionate 50 1 spray intranasal DAILY Allergy 04/28/23 04/28/23 History mcg/actuation nasal Symptoms spray,suspension hydroxyzine HCl 50 mg tablet 50 mg PO QIDP PRN Itching 04/28/23 04/28/23 History lisinopril 20 1 tab PO BID High Blood Pressure 04/28/23 04/28/23 History mg-hydrochlorothiazide 25 mg tablet pantoprazole 40 mg tablet,delayed 40 mg PO DAILY Acid Reflux 04/28/23 04/28/23 History release sertraline 100 mg tablet 100 mg PO DAILY Mood 04/28/23 04/28/23 History tiotropium 2.5 mcg-olodaterol 2.5 2 puff inhalation DAILY Breathing 04/28/23 04/28/23 History mcg/actuation mist for inhalation Problems (Stiolto Respimat) New Prescriptions to Start Prescriptions: Allergies Allergy/AdvReac Type Severity Reaction Status Date / Time No Known Allergies Allergy Verified 04/28/23 12:56 Assessment and Plan *Assessment and plan (1) Severe protein-calorie malnutrition: Status: Acute Category: Medical Code(s): E43 - Unspecified severe protein-calorie malnutrition (2) Lung mass: Status: Acute Category: Medical Code(s): R91.8 - Other nonspecific abnormal finding of lung field (3) Obstructive pneumonia: Status: Acute Category: Medical Code(s): J18.9 - Pneumonia, unspecified organism (4) Severe sepsis: Status: Acute Category: Medical Code(s): A41.9 - Sepsis, unspecified organism; R65.20 - Severe sepsis without septic shock (5) Alcohol abuse: Status: Acute Category: Social Hx Code(s): F10.10 - Alcohol abuse, uncomplicated (6) Right bundle branch block (RBBB) on electrocardiogram (ECG): Status: Acute Category: Medical Code(s): I45.10 - Unspecified right bundle-branch block (7) Tobacco abuse: Status: Chronic Category: Medical Code(s): Z72.0 - Tobacco use (8) Pleural effusion: Status: Acute Category: Medical Code(s): J90 - Pleural effusion, not elsewhere classified (9) COPD (chronic obstructive pulmonary disease): Status: Chronic Qualifiers: COPD type: unspecified COPD Qualified Code(s): J44.9 - Chronic obstructive pulmonary disease, unspecified Category: Medical Code(s): J44.9 - Chronic obstructive pulmonary disease, unspecified (10) Hyperlipidemia: Status: Chronic Qualifiers: Hyperlipidemia type: unspecified Qualified Code(s): E78.5 - Hyperlipidemia, unspecified Category: Medical Code(s): E78.5 - Hyperlipidemia, unspecified (11) Hypertension: Status: Chronic Qualifiers: Hypertension type: essential hypertension Qualified Code(s): I10 - Essential (primary) hypertension Category: Medical Code(s): I10 - Essential (primary) hypertension (12) Hypodense mass of liver: Status: Acute Category: Medical Code(s): R16.0 - Hepatomegaly, not elsewhere classified (13) Elevated troponin: Status: Acute Category: Medical Code(s): R79.89 - Other specified abnormal findings of blood chemistry (14) Elevated brain natriuretic peptide (BNP) level: Status: Acute Category: Medical Code(s): R79.89 - Other specified abnormal findings of blood chemistry Plan 1. Malnutrition and weakness -Multifactorial 2. Sepsis with pneumonia -On vancomycin and cefepime -Abnormal CT of the chest with with right hilar mass concerning for metastatic cancer 3. Elevated troponins with pericardial effusion -Echo pending -Coronary artery calcification noted on CT of the chest 04/28/2019 4. Pleural effusion, status postthoracentesis -Fluid analysis pending -Elevated BNP greater than 19,000 5. Liver mass with concern for cancer 6. Chronic alcohol use 7. Tobacco use with suspected COPD 8. Abnormal EKG with right bundle branch block, chronic 9. Hypotension related to sepsis. -Continue to hold blood pressure medications Preliminary echo shows normal LVEF but with decreased RV function and RV dilatation with a suggestion of Alonzo sign. Recommend getting a CTA of the chest to rule out pulmonary embolus. Elevated troponins likely secondary to strain from pulmonary issues. Elevated BNP also likely related to pulmonary issues since patient's LV function is normal. No plans for further cardiac testing at this time.
--- NOTE | 2023-04-29 11:41 | P.CONS_ITS ---
History of Present Illness History of present illness: Ms. Addison is a 68-year-old female greater than [id number] smoker presents hospital worsening respiratory distress cough and productive phlegm patient also admits recent episodes of decreased appetite and weight loss along with fatigue and lack of energy for the last 2 to 3 months. [facility] Disclaimer: The information contained in this section may have been updated after the pa tient was seen, as this information can be updated by other users. Medical History (Updated 04/29/23 @ 11:43 by Reddy Forrest MD) Alcohol withdrawal Anxiety COPD (chronic obstructive pulmonary disease) Depression Foot pain Fracture of femoral neck, left, closed GERD (gastroesophageal reflux disease) Hilar lymphadenopathy History of deviated nasal septum Hives Hyperlipidemia Hypertension Lumbar back pain with radiculopathy affecting lower extremity Mediastinal lymphadenopathy Pleural effusion on right Pneumonia Urinary incontinence Surgical History History of left hip replacement Family History Family history of hypertension Social History Smoking Status: Current every day smoker tobacco type: cigarettes packs per d ay: 1 alcohol intake: current substance use type: denies use current occupational status: unemployed Travel in the last 8 weeks: None household members: other housing: snf caffeine: Yes Review of Systems Constitutional Constitutional: Reports fatigue, Reports poor appetite, Reports lethargy, Reports weakness and Reports weight loss Eyes Eyes: Denies eye discharge, Denies dry eyes, Denies irritation and Denies itchy eyes ENT Ears, Nose, Mouth, and Throat: Denies epistaxis, Denies facial pain, Denies lip swelling and Denies throat swelling *Cardiovascular Cardiovascular: Reports dyspnea and Reports dyspnea on exertion *Respiratory Respiratory: Reports chest congestion, Reports cough, Reports dyspnea, Reports dyspnea on exertion, Reports excessive phlegm production, Denies hemoptysis, Reports pain on inspiration and Reports pain with cough *Gastrointestinal Gastrointestinal: Denies abdominal pain, Denies belching and Denies cramping *Musculoskeletal Musculoskeletal: Reports back pain, Reports myalgias and Reports other (No small joint swelling or Pain) *Neurologic Neurologic: Reports weakness Psychiatric Psychiatric: Denies homicidal ideation and Denies suicidal ideation Endocrine Endocrine: Reports fatigue and Denies heat intolerance Hematologic/Lymphatic Hematologic/Lymphatic: Denies easy bleeding and Denies lymphadenopathy Allergic/Immunologic Allergic/Immunologic: Denies itchy eyes, Denies lip swelling and Denies throat swelling Pulmonology Exam Inpatient Vital signs and Labs for Last 24 Hours: Temp Pulse Resp BP Pulse Ox O2 Del Method O2 Flow Rate 97.7 F 107 H 18 103/62 L 91 L Nasal Cannula 4 04/29/23 08:11 04/29/23 11:00 04/29/23 11:00 04/29/23 11:00 04/29/23 11:00 04/29/23 11:00 04/29/23 11:00 Laboratory Results - last 24 hr 04/28/23 12:48: WBC 23.6 H*, RBC 4.23, Hgb 14.0, Hct 44.4, MCV 104.8 H, MCH 33.0 H, MCHC 31.5 L, RDW 14.3, Plt Count 497 H, MPV 8.2, Neut % (Auto) 90.5 H, Lymph % (Auto) 3.5 L, Clark % (Auto) 5.1, Eos % (Auto) 0.6, Baso % (Auto) 0.3, Neut # (Auto) 21.3 H, Lymph # (Auto) 0.8, Clark # (Auto) 1.2 H, Eos # (Auto) 0.1, Baso # (Auto) 0.1, Total Counted 100, Neutrophils % (Manual) 64, Band Neutrophils % 22.0 H, Lymphocytes % (Manual) 6 L, Monocytes % (Manual) 8, Platelet Estimate Slight increase, Anisocytosis 1+, Macrocytosis 1+, Sodium 131 L, Potassium 3.5, Chloride 92 L, Carbon Dioxide 40 H, Anion Gap 2.5 L, BUN 65 H, Creatinine 1.60 H , Estimated Creat Clear 24, Estimated GFR 32 L, Est GFR ( Amer) 39 L, Glucose 121 H, Calcium 8.6, Total Bilirubin 0.4, AST 28, ALT 24, Alkaline Phosphatase 223 H, Troponin I 0.22 H, NT-Pro-B Natriuret Pep 87693 H, Total Protein 7.3, Albumin 3.2 L, Globulin 4.1 H, Albumin/Globulin Ratio 0.8 L, Lipase 25 04/28/23 12:50: SARS-CoV-2 (PCR) Not detected, Influenza A Untype (PCR) Not detected, Influenza Type B (PCR) Not detected 04/28/23 13:44: VBG pH 7.32, VBG pCO2 67.4 H, VBG pO2 34.9, VBG HCO3 33.7 H, VBG Total CO2 35.8 H, VBG O2 Saturation 63.5, VBG Base Excess 5.2 H 04/28/23 14:30: Fluid Source Thoracentesis fluid, Fluid Volume 24, Fluid Appearance Hazy, Fluid RBC (Auto) < 10, Fld Tot Nucleated Cell 6134, Fld Kartik ynuclear WBCs % 81, Fld Mononuclear WBCs % 19 04/28/23 18:00: Total Creatine Kinase 20 L, Troponin I 0.17 H 04/28/23 18:38: Chlamy pneumoniae PCR TNP, Adenovirus (PCR) Not detected, B. pertussis DNA (PCR) TNP, Coronavirus OC43 (PCR) Not detected, Coronavirus HKU1 (PCR) Not detected, Coronavirus 229E (PCR) Not detected, SARS-CoV-2 (PCR) Not detected, Coronavirus NL63 (PCR) Not detected, Human Metapneumovir PCR Not detected, Influenza A (H1) PCR Not detected, Influ A (H1N1/09) PCR Not detected, Influenza A (H3) PCR Not detected, Influenza Type A (PCR) Not detected, Influenza Type B (PCR) Not detected, M. pneumoniae (PCR) TNP, Parainfluenza 1 (PCR) Not detected, Parainfluenza 2 (PCR) Not detected, Parainfluenza 3 (PCR) Not detected, Parainfluenza 4 (PCR) Not detected, RSV (PCR) Not detected, Entero/Rhino (PCR) Not detected 04/28/23 20:10: PT 13.3 H, INR 1.25 H, APTT 34.8 H, Phosphorus 3.6, Troponin I 0.16 H 04/28/23 23:33: Urine Color Yellow, Urine Appearance Clear, Urine pH 6.0, Ur Specific Harvard 1.020, Urine Protein Negative, Urine Glucose (UA) Negative, Urine Ketones Negative, Urine Blood Negative, Urine Nitrate Positive, Urine Bilirubin Negative, Urine Urobilinogen 0.2, Ur Leukocyte Esterase Negative, Urine WBC 3-5, Ur Squamous Epith Cells Occasional, Urine Bacteria 2+ 04/29/23 07:21: WBC 18.5 H, RBC 3.73 L, Hgb 12.1 L D, Hct 38.6, MCV 103.6 H, MCH 32.6 H, MCHC 31.4 L, RDW 14.5, Plt Count 430 H, MPV 8.2, Neut % (Auto) 88.8 H, Lymph % (Auto) 5.1 L, Clark % (Auto) 5.8, Eos % (Auto) 0.1, Baso % (Auto) 0.1, Neut # (Auto) 16.5 H, Lymph # (Auto) 1.0, Clark # (Auto) 1.1 H, Eos # (Auto) 0.0, Baso # (Auto) 0.0, Total Counted 100, Neutrophils % (Manual) 77 H, Band Neutrophils % 10.0 H, Lymphocytes % (Manual) 5 L, Monocytes % (Manual) 8, Platelet Estimate Slight increase, Hypochromasia 1+, Poikilocytosis 1+, Anisocytosis 1+, Macrocytosis 1+, Target Cells 1+, Sodium 131 L, Potassium 3.5, Chloride 97 L, Carbon Dioxide 37 H, Anion Gap 0.5 L, BUN 53 H, Creatinine 1.10 H D, Estimated Creat Clear 46, Estimated GFR 49 L, Est GFR ( Amer) 60 D, Glucose 145 H, Calcium 8.3 L, Magnesium 2.6 H, Total Bilirubin 0.4, AST 23, ALT 19, Alkaline Phosphatase 214 H, Total Protein 6.3, Albumin 2.7 L D, Globulin 3.6 H, Albumin/Globulin Ratio 0.8 L I & O for Labs for Last 24 Hours: Intake & Output 04/26/23 04/27/23 04/28/23 04/29/23 23:59 23:59 23:59 23:59 Intake Total 4481 / 4481 996.187 / 996.187 Output Total 200 / 200 600 / 600 Balance 4281 / 4281 396.187 / 396.187 Weight 120 lb 4 oz 129 lb 15.753 oz Constitutional: Present moderate distress Head: Present normocephalic and atraumatic ENT: Present normal exam, normal oropharynx and mucous membranes moist Neck: Present normal inspection and full ROM Respiratory: Present prolonged expiratory phase, respiratory distress, wheezes, diminished air movement and able to speak in complete sentences Cardiac: Present S1/S2, Tachycardia and radial pulses present GI: Present soft and distention; Absent tenderness or guarding Rectal (female): Present deferred (female): Present deferred Skin: Present intact; Absent cyanosis or jaundice Neuro: Present alert, awake and oriented x 3 Extremities: Present normal inspection; Absent clubbing or cyanosis Psychiatric: Present normal affect and cooperative Meds Home Medications and Allergies Home Medications Medication Instructions Recorded Confirmed Type albuterol sulfate 90 mcg/actuation 2 puff inhalation Q4HP PRN 04/28/23 04/28/23 History aerosol inhaler Shortness Of Breath ascorbic acid (vitamin C) 1,000 mg 1,000 mg PO DAILY Supplement 04/28/2304/04 History tablet (Vitamin C) atorvastatin 10 mg tablet 10 mg PO DAILY Cholesterol 04/28/23 04/28/23 History buspirone 10 mg tablet 10 mg PO TID Anxiety 04/28/23 04/28/23 History fluticasone propionate 50 1 spray intranasal DAILY Allergy 04/28/23 04/28/23 History mcg/actuation nasal Symptoms spray,suspension hydroxyzine HCl 50 mg tablet 50 mg PO QIDP PRN Itching 04/28/23 04/28/23 History lisinopril 20 1 tab PO BID High Blood Pressure 04/28/23 04/28/23 History mg-hydrochlorothiazide 25 mg tablet pantoprazole 40 mg tablet,delayed 40 mg PO DAILY Acid Reflux 04/28/23 04/28/23 History release sertraline 100 mg tablet 100 mg PO DAILY Mood 04/28/23 04/28/23 History tiotropium 2.5 mcg-olodaterol 2.5 2 puff inhalation DAILY Breathing 04/28/23 04/28/23 History mcg/actuation mist for inhalation Problems (Stiolto Respimat) New Prescriptions to Start Prescriptions: Allergies Allergy/AdvReac Type Severity Reaction Status Date / Time No Known Allergies Allergy Verified 04/28/23 12:56 Results Laboratory Findings 04/29/23 07:21 04/29/23 07:21 PT/INR, D-dimer PT 13.3 seconds (10.1-12.5) H 04/28/23 20:10 INR 1.25 (0.9-1.1) H 04/28/23 20:10 Abnormal lab findings: Abnormal Labs 04/28/23 04/28/23 04/28/23 12:48 13:44 18:00 WBC 23.6 H* RBC Hgb MCV 104.8 H MCH 33.0 H MCHC 31.5 L Plt Count 497 H Neut % (Auto) 90.5 H Lymph % (Auto) 3.5 L Neut # (Auto) 21.3 H Clark # (Auto) 1.2 H Neutrophils % (Manual) Band Neutrophils % 22.0 H Lymphocytes % (Manual) 6 L PT INR APTT VBG pCO2 67.4 H VBG HCO3 33.7 H VBG Total CO2 35.8 H VBG Base Excess 5.2 H Sodium 131 L Chloride 92 L Carbon Dioxide 40 H Anion Gap 2.5 L BUN 65 H Creatinine 1.60 H Estimated GFR 32 L Est GFR ( Amer) 39 L Glucose 121 H Calcium Magnesium Alkaline Phosphatase 223 H Total Creatine Kinase 20 L Troponin I 0.22 H 0.17 H NT-Pro-B Natriuret Pep 28676 H Albumin 3.2 L Globulin 4.1 H Albumin/Globulin Ratio 0.8 L 04/28/23 04/29/23 20:10 07:21 WBC 18.5 H RBC 3.73 L Hgb 12.1 L D MCV 103.6 H MCH 32.6 H MCHC 31.4 L Plt Count 430 H Neut % (Auto) 88.8 H Lymph % (Auto) 5.1 L Neut # (Auto) 16.5 H Clark # (Auto) 1.1 H Neutrophils % (Manual) 77 H Band Neutrophils % 10.0 H Lymphocytes % (Manual) 5 L PT 13.3 H INR 1.25 H APTT 34.8 H VBG pCO2 VBG HCO3 VBG Total CO2 VBG Base Excess Sodium 131 L Chloride 97 L Carbon Dioxide 37 H Anion Gap 0.5 L BUN 53 H Creatinine 1.10 H D Estimated GFR 49 L Est GFR ( Amer) Glucose 145 H Calcium 8.3 L Magnesium 2.6 H Alkaline Phosphatase 214 H Total Creatine Kinase Troponin I 0.16 H NT-Pro-B Natriuret Pep Albumin 2.7 L D Globulin 3.6 H Albumin/Globulin Ratio 0.8 L Assessment and Plan *Assessment and plan (1) Lung mass: Status: Acute Category: Medical Code(s): R91.8 - Other nonspecific abnormal finding of lung field (2) Hilar lymphadenopathy: Status: Acute Category: Medical Code(s): R59.0 - Localized enlarged lymph nodes (3) Mediastinal lymphadenopathy: Status: Acute Category: Medical Code(s): R59.0 - Localized enlarged lymph nodes (4) Pneumonia: Status: Acute Qualifiers: Pneumonia type: due to unspecified organism Laterality: right Lung location: middle lobe of lung Qualified Code(s): J18.9 - Pneumonia, unspecified organism Category: Medical Code(s): J18.9 - Pneumonia, unspecified organism (5) Pleural effusion on right: Status: Acute Category: Medical Code(s): J90 - Pleural effusion, not elsewhere classified Plan Ms. Addison is a 68-year-old female greater than [id number] smoker presents hospital worsening respiratory distress cough and productive phlegm patient also admits recent episodes of decreased appetite and weight loss along with fatigue and lack of energy for the last [address] chest upon admission large right hilar mass along with hilar and mediastinal lymphadenopathy along with right middle lobe and lower lobe pulmonary nodules and postobstructive pneumonia. Also noted to have right pleural effusion status post thoracentesis and pericardial effusions. CT abdomen also showed concerning 2.4 cm hypodense lesion. Colonoscopy in December 2022 incomplete, recommended repeat in 2 days at that time On exam patient appeared to be in moderate respiratory distress with bilateral distant breath sounds with mild wheezing. Significant neutrophilic predominant leukocytosis upon admission. Improving. At baseline using Stiolto inhaler. Not using any oxygen. Patient was initiated on vancomycin and Zosyn upon admission. Plan: Wean antibiotic levofloxacin 750 mg daily to complete a total of 10-day course pending culture results. Initiate Trelegy 100 inhaler along with DuoNebs every 6 hours on as-needed basis For the noted lung mass and lymphadenopathy we will schedule the patient as an outpatient basis for possible bronchoscopy transbronchial/endobronchial biopsy and EBUS FNA. Follow with pleural fluid studies and fluid cytology, concerning for malignant effusion # Thank you for involving pulmonary in this patient care. Will continue to follow.
[2023-04-29] MEDS: LEVOFLOXACIN/D5W 750 MG/150 ML 750 MG/150 ML PIGGYBACK 100 MG IV (12:26)
--- NOTE | 2023-04-29 13:08 | SW/DCPLANNER ---
Addendum entered by [facility] 05/02/23 13:22: Patient's sister called regarding discharge plans: plans on hold at this time due to possible transfer. Sister Ansley Ojeda: [phone] or [phone] Addendum entered by [facility] 04/30/23 13:04: Patient is unsure if she wants to elect a healthcare surrogate or allow family to make decision she is not able. Patient did attempt to call her friend in [place] but was not able to complete conversation due to being short of breath. I did offer to speak w/ patient's friend and she stated she prefers to speak w/ him once she is able to. Addendum entered by [facility] 04/30/23 11:15: Maryann durham/ [facility] stated that she can accept this patient pending precert. Precert will not be started till discharge date is known. Addendum entered by [facility] 04/30/23 10:26: Aliyah w/ [facility] has denied this patient. Maryann durham/ [facility] will be onsite this AM to evaluate patient. Addendum entered by [facility] 04/29/23 14:42: PT/OT recommended SNF level of care at time of discharge. Patient is agreeable to placement to the following facilities: [facility], [facility] and [facility]. Patient also preferred [facility] but this facility is not currently in network w/ her insurance. I will continue to follow up w/ facilities, patient and MD. Original Note: I spoke w/ patient regarding plans once medically stable for discharge. PT/OT has been ordered. Patient stated that she plans to return to her home in [place] where she lives by herself. Patient did express an interest in home health services. I informed patient that I will follow up w/ conversation once therapy evaluates this afternoon. I did provide this patient w/ [facility] Resource List due to issues w/ housing and food. Patient stated that she is on waiting list for housing in [place]. I will follow up w/ this patient once PT/OT evaluation is completed. Discharge date is unknown at this time.
--- NOTE | 2023-04-29 14:14 | HMH.PTEV ---
Physical Therapy Evaluation Rehab PT IP Evaluation Start: 04/29/23 13:03 Freq: ONCE Status: Active Protocol: Document 04/29/23 14:09 [facility] (Rec: 04/29/23 14:14 [facility] [id number]) Subjective/History History History 68 yowf adm to [facility] with Sepsis and pleural effusion. She has PMH of tobacco use, alcohol dependence, hypertension, hyperlipidemia, COPD. She reports she lives alone, no steps to enter the home, and she uses a cane for ambulation at baseline. She reports she is typically independent with all ADLs. Subjective Subjective Pt c/o increased SOA and lightheadedness with sitting this date. She did agree to mobility assessment. BP in supine was 99/72 mmHg and in sitting at EOB was 77/52 mmHg with pt c/o dizziness. Therefore, standing was not attempted this date. New diagnosis of cancer in past 12 No months? Rehab PT IP Eval Objective Appearance Patient Behavior Appropriate Patient Orientation Person,Place,Time Difficulty following instructions none Speech Pattern Clear Ambulation Patient Able to Ambulate No Balance Ability to Arise Able, uses arms to help Sitting Balance Leans or slides in chair Dynamic Sitting Balance Ability Fair Transfers Bed Transfer Ability Minimal x 1 (25% assist) Rehab PT IP prob,goals,plan Problems Date of Evaluation: 04/29/23 PT IP Problems Bed Mobility,Transfers,Gait, Self care Rehab Potential Rehab Potential Good Plan PT Intervention Plan Bed Mobility,Transfers,Gait, Self care,Therapeutic Exercise PT Plan Frequency Daily Duration LOS Discharge Goals Bed Transfer Ability Contact Guard/Hand Hold Sit to Stand Chair Transfer Ability Minimal x 2 (25% assist) Ambulation Assistive Device Rolling Walker Ambulation Distance (feet) 20 Discharge Plan PT Discharge Plan Pt is currently most appropriate for rehab placement once medically stable for d/c. She may be able to return home once medically stable if all goals are met as her current BP is much too low to fully assess her mobility. Eval Complexity Eval Charge Codes 39753 - High Complexity PHYSICIAN CERTIFICATION: I certify the specified therapy services for Roxy Addison are required, authorized, and reviewed every 30 days.
--- NOTE | 2023-04-29 14:40 | HMH.OTEV ---
OT Inpatient Evaluation Rehab OT IP Evaluation Start: 04/29/23 13:03 Freq: ONCE Status: Active Protocol: Document 04/29/23 14:00 [facility] (Rec: 04/29/23 14:08 [facility] [id number]) Rehab OT IP Assessment Subjective History Pt oriented x 3 on arrival. Pt agreeable to engage in therapy evaluation. Pt admitted to [facility] on 04/28/23 due to sepsis and Pleural Effusion. History and physical report: Ms. Addison is a 68-year-old female with history of tobacco use, alcohol dependence, hypertension, hyperlipidemia, COPD. She was brought to the hospital by EMS after her mailman called 911 to have her brought to the hospital. She reportedly has not eaten or had anything to drink in over 5 days. She is alert and oriented x 4 but appears quite weak. Her mailman at bedside (Jay) checks on her daily. He recommended Friday she come to the hospital as he has noted she has been more weak, not moving well, and has lost substantial weight over the past 6 weeks. He helped her make an appointment with her primary care doctor for 1:00 today but when he brought her mail to her today, was very concerned and called EMS to bring her to the hospital for further evaluation instead. On arrival to the hospital, she is short of breath. Afebrile but tachycardic. Has had worsening shortness of breath, fatigue, weakness, decreased appetite for the better part of a week. Reports drinking upwards of 6 beers a day over the past several weeks. No known sick contacts. Does not wear oxygen at home. Appears in overall general relatively poor health. Jay at bedside also mentions that her live-in longtime boyfriend recently moved out and she has been alone by herself for almost a month. Subjective I do it all. During evaluation pt's BP was monitored. In supine in bed; 96/50. After sitting up at eob it was 77/43; nursing notified. Pt claims prior to being in the hospital she was independent with all ADLs such as dressing, bathing, and feeding. Pt reports she does minimal cleaning, cooking, laundry etc. She does use a cane during functional transfers. Objective Patient Orientation Person,Place,Birthday Right Upper Extremity Gross ROM Min Limitation <25% Left Upper Extremity Gross ROM Min Limitation <25% Shoulder ROM Limitations Muscle Weakness Elbow ROM Limitations Muscle Weakness Wrist Limitations of Range of Motion Muscle Weakness Bed Mobility bed mobility-scooting,bed mobility - supine/sit Assist Level Minimal x 2 (25% assist) Rehab OT IP prob,goals,plan Problems Date of Evaluation: 04/29/23 OT IP Problems Bed Mobility,Transfers,Balance ,Self care,Safety Rehab Potential Rehab Potential Good Equipment Needs Assistive Devices Rolling / Wheeled Walker Plan OT intervention Plan Bed Mobility,Transfers,Balance ,Self care,Safety,Therapeutic Exercise OT Plan Frequency Daily Duration LOS Discharge Goals Bed Mobility Ability Assistance x1 Sit to Stand Chair Transfer Ability Minimal x 1 (25% assist) Chair Transfer Ability Minimal x 1 (25% assist) Chair Transfer Technique Sit to/from Ambulatory Chair Transfer Assistive Devices Rolling Walker Feeding Ability Assist with Tray Set Up Lower Body Dressing Ability Moderate Assistance Upper Body Dressing Ability Contact Guard Bathing Ability Moderate Assistance Performing Toilet Hygiene Ability Minimal Assistance Overall Commode/Toilet Transfer Ability Minimal Assistance Commode/Toilet Transfer Technique Sit to/from Ambulatory Commode/Toilet Transfer Assistive Grab Bars Devices Oral Care Assist Standby Assistance Decrease in Endurance Yes Discharge Plan OT Discharge Plan Pt will continue to be seen for OT services while at [facility]. Pt would benefit most from short term rehab at SNF following discharge. Continued skilled therapy services is important in order for patient to improve strength, safety, endurance, ADL independence, and functional transfers to reach PLOF. Eval Complexity Eval Charge Codes 25306 - Moderate Complexity PHYSICIAN CERTIFICATION: I certify the specified therapy services for Roxy Addison are required, authorized, and reviewed every 30 days.
--- NOTE | 2023-04-29 16:30 | P.PN_ITS ---
Subjective *Date: 04/29/23 *Time: 16:30 Interval history: patient was seen and evaluated at the bedside. appears weak and frail, able to talk, alert awake, No reported acute events overnight, denies chest pain Exam Data for Last 24 hours Vital signs and Labs for Last 24 Hours: Temp Pulse Resp BP Pulse Ox O2 Del Method O2 Flow Rate 100.7 F H 101 H 22 111/53 L 91 L Nasal Cannula 4 04/29/23 15:08 04/29/23 16:00 04/29/23 16:00 04/29/23 16:00 04/29/23 16:00 04/29/23 16:00 04/29/23 16:00 Laboratory Results - last 24 hr 04/28/23 18:00: Total Creatine Kinase 20 L, Troponin I 0.17 H 04/28/23 18:38: Chlamy pneumoniae PCR TNP, Adenovirus (PCR) Not detected, B. pertussis DNA (PCR) TNP, Coronavirus OC43 (PCR) Not detected, Coronavirus HKU1 (PCR) Not detected, Coronavirus 229E (PCR) Not detected, SARS-CoV-2 (PCR) Not detected, Coronavirus NL63 (PCR) Not detected, Human Metapneumovir PCR Not detected, Influenza A (H1) PCR Not detected, Influ A (H1N1/09) PCR Not detected, Influenza A (H3) PCR Not detected, Influenza Type A (PCR) Not detected, Influenza Type B (PCR) Not detected, M. pneumoniae (PCR) TNP, Parainfluenza 1 (PCR) Not detected, Parainfluenza 2 (PCR) Not detected, Parainfluenza 3 (PCR) Not detected, Parainfluenza 4 (PCR) Not detected, RSV (PCR) Not detected, Entero/Rhino (PCR) Not detected 04/28/23 20:10: PT 13.3 H, INR 1.25 H, APTT 34.8 H, Phosphorus 3.6, Troponin I 0.16 H 04/28/23 23:33: Urine Color Yellow, Urine Appearance Clear, Urine pH 6.0, Ur Specific [place] 1.020, Urine Protein Negative, Urine Glucose (UA) Negative, Urine Ketones Negative, Urine Blood Negative, Urine Nitrate Positive, Urine Bilirubin Negative, Urine Urobilinogen 0.2, Ur Leukocyte Esterase Negative, Urine WBC 3-5, Ur Squamous Epith Cells Occasional, Urine Bacteria 2+ 04/29/23 07:21: WBC 18.5 H, RBC 3.73 L, Hgb 12.1 L D, Hct 38.6, MCV 103.6 H, MCH 32.6 H, MCHC 31.4 L, RDW 14.5, Plt Count 430 H, MPV 8.2, Neut % (Auto) 88.8 H, Lymph % (Auto) 5.1 L, [place] % (Auto) 5.8, Eos % (Auto) 0.1, Baso % (Auto) 0.1, Neut # (Auto) 16.5 H, Lymph # (Auto) 1.0, [place] # (Auto) 1.1 H, Eos # (Auto) 0.0, Baso # (Auto) 0.0, Total Counted 100, Neutrophils % (Manual) 77 H, Band Neutrophils % 10.0 H, Lymphocytes % (Manual) 5 L, Monocytes % (Manual) 8, Platelet Estimate Slight increase, Hypochromasia 1+, Poikilocytosis 1+, Anisocytosis 1+, Macrocytosis 1+, Target Cells 1+, Sodium 131 L, Potassium 3.5, Chloride 97 L, Carbon Dioxide 37 H, Anion Gap 0.5 L, BUN 53 H, Creatinine 1.10 H D, Estimated Creat Clear 46, Estimated GFR 49 L, Est GFR ( Amer) 60 D, Glucose 145 H, Calcium 8.3 L, Magnesium 2.6 H, Total Bilirubin 0.4, AST 23, ALT 19, Alkaline Phosphatase 214 H, Total Protein 6.3, Albumin 2.7 L D, Globulin 3.6 H, Albumin/Globulin Ratio 0.8 L I & O for Last 24 hours: Intake & Output 04/26/23 04/27/23 04/28/23 04/29/23 23:59 23:59 23:59 23:59 Intake Total 4481 / 4481 1686.187 / 1686.187 Output Total 1400 / 1400 800 / 800 Balance 3081 / 3081 886.187 / 886.187 Weight 54.544 kg 58.96 kg Constitutional Constitutional: no acute distress *Routine HEENT Exam Head: Present normocephalic Eye: Present EOMI and PERRL ENT: Present mucous membranes moist *Routine Neck Exam Neck: Present supple; Absent lymphadenopathy *Routine Respiratory Exam Respiratory: Present distant breath sounds and diminished air movement *Routine Cardiovascular Exam Cardiovascular: Present RRR *Routine Abdominal Exam Abdominal: Present soft and normoactive bowel sounds; Absent tenderness *Routine Extremities Exam Extremities: Absent cyanosis, clubbing or edema *Routine Skin Exam Skin: Present warm; Absent rash *Routine Neurological Exam Neurological: Present alert and oriented X3 Assessment and Plan *Assessment and plan (1) Severe sepsis: Status: Acute Category: Medical Code(s): A41.9 - Sepsis, unspecified organism; R65.20 - Severe sepsis without septic shock (2) Obstructive pneumonia: Status: Acute Category: Medical Code(s): J18.9 - Pneumonia, unspecified organism (3) Pleural effusion: Status: Acute Category: Medical Code(s): J90 - Pleural effusion, not elsewhere classified (4) Lung mass: Status: Acute Category: Medical Code(s): R91.8 - Other nonspecific abnormal finding of lung field (5) Severe protein-calorie malnutrition: Status: Acute Category: Medical Code(s): E43 - Unspecified severe protein-calorie malnutrition (6) Alcohol abuse: Status: Acute Category: Social Hx Code(s): F10.10 - Alcohol abuse, uncomplicated (7) COPD (chronic obstructive pulmonary disease): Status: Chronic Qualifiers: COPD type: unspecified COPD Qualified Code(s): J44.9 - Chronic obstructive pulmonary disease, unspecified Category: Medical Code(s): J44.9 - Chronic obstructive pulmonary disease, unspecified (8) Hyperlipidemia: Status: Chronic Qualifiers: Hyperlipidemia type: unspecified Qualified Code(s): E78.5 - Hyperlipidemia, unspecified Category: Medical Code(s): E78.5 - Hyperlipidemia, unspecified (9) Hypertension: Status: Chronic Qualifiers: Hypertension type: essential hypertension Qualified Code(s): I10 - Essential (primary) hypertension Category: Medical Code(s): I10 - Essential (primary) hypertension (10) Depression: Status: Chronic Qualifiers: Depression Type: major depressive disorder Major depression recurrence: single episode Active/Remission status: currently active Major depression episode severity: moderate Qualified Code(s): F32.1 - Major depressive disorder, single episode, moderate Category: Medical Code(s): F32.9 - Major depressive disorder, single episode, unspecified (11) Tobacco abuse: Status: Chronic Category: Medical Code(s): Z72.0 - Tobacco use Plan 68-year-old female with multiple comorbidities and progressive weight loss that is unintentional. Presented to the ER with respiratory distress. Concern for obstructive pneumonia with pleural effusion. Discussed case with the ER physician, request admission for antibiotics and further workup of pneumonia. Medicine agreed to admit. Patient with severe sepsis given endorgan dysfunction with kidney injury, respiratory failure, leukocytosis, tachycardia, tachypnea, source of infection with pneumonia. Necessitating inpatient admission. PSI port score of 158. Risk class V, 27 to 29% mortality risk. Problems addressed as follows: Severe sepsis Acute hypoxemic respiratory failure secondary to obstructive pneumonia pleural effusion. -CT reviewed along with chest x-ray, pleural effusion with dense consolidation of right lower lobe. Finding of perihilar mass that is obstructing bronchus intermedius. Highly suspicious for lung cancer. - started on Levofloxacin and vancomycin -Pulmonology consulted, Bronch as OP basis - fluid studies pending -Blood cultures pending -DuoNebs every 6 hours scheduled -Comprehensive respiratory panel negative - pleural fluid with greater than 5000 polymorphonuclear cells Pericardial effusion: Seen on CT. Echo pending. Cardiology consulted - Will eval for Tamponade SONIDO: unclear baseline. Monitor Severe protein calorie malnutrition: Will monitor for refeeding syndrome. Initial phosphorus acceptable above 3. Repeat phosphorus for the morning. Alcohol abuse: Drinks at least 6 beers a day along with malnourishment. Rally pack. CIWA protocol with PRN ativan Nutrition consult placed. Folate and multivitamins ordered Nicotine dependence: Nicotine patch as needed Unclear the last time patient was taking any home medications. Will hold hypertensive medications, anxiety meds, treat symptomatically if develops worsening symptoms. Full code Heparin 5000 units TID Regular diet, Nutrition consult
--- NOTE | 2023-04-29 17:52 | PC.NURSE ---
Patient is alert and oriented x4. She remains on 4L NC with o2 sats measuring 90% or greater. Levophed placed on standby at 1730. VS as documented. Temp was 100.7 this afternoon, tylenol administered and temp was 97.9 when rechecked. She also vomited clear liquid once this afternoon. Chest drain clamped per Dr Forrest. Telemetry has been sinus tach w/bbb. Pt has no questions or concerns at this time. Bed is locked and in the lowest position, call light is within reach.
[2023-04-29] MEDS: LORazepam 1MG TABLET 1 MG PO (18:21)
[2023-04-29] MEDS: PANTOPRAZOLE 40MG VIAL 40 MG IV (20:33)
[2023-04-29] MEDS: NOREPINEPHRINE BITARTRATE/D5W 8 MG/250 ML PLAST..BAG 11.25 MG IV (20:34)
--- NOTE | 2023-04-29 22:56 | CA_ITS ---
APPROVED REPORT EXAM: Comprehensive 2D, Doppler, and color-flow Echocardiogram Yarn Packer: Fransisca Briceno CRT Ht: 5 ft 7 in Wt: 120lbs BSA: 1.63 BP: 82/39 mmHg Indications: COPD, Shortness of Breath, Hyperlipidemia, right Pleural Effusion, Hypertension/HDD,sepsis, R lung mass, heavy alcohol use, smoker TDE very poor u/s windows, pt up in bed d/t sob and copd 2D Dimensions LA Volume 37.50 mL LA Volume Index 22.50 mL/m2 (M/F) 16-34 EF AP4 60.30 % GL Strain -27.1 % M-Mode Dimensions RVDd 3.23 cm (0.9-2.6) LA Diam 2.80 cm (1.9-4.0) LVDd 2.82 cm (3.5-5.7) LVDs 2.01 cm (3.5-5.7) IVSd 1.13 cm (0.6-1.1) PWd 0.78 cm (0.6-1.1) EF (Teich) 57.10% FS 28.70% EDV (Teich) 30.10 mL TAPSE 2.87 (<1.7) ESV (Teich) 12.90 mL LV Diastology E Decel Time 150 (160-240 msec) E/A Ratio 0.43 MED A' 12.10 cm/s LAT A' 23.20 cm/s Aortic Valve AO Peak GR. 5.10 mmHg Mitral Valve MV E Max Rik. 53.0 (40-130 cm/s) MV A Velocity 124.0 (40-130 cm/s) E/A Ratio 0.43 MV PHT 44.0 ms Pulmonary Valve PV Peak Velocity 92.0 (50-150 cm/s) Tricuspid Valve TR P. Velocity 313.00 cm/s RAP Estimate 10.00 mmHg RVSP 49.10 mmHg Left Ventricle The left ventricle is normal size. The left ventricular systolic function is normal. The left ventricular ejection fraction is within the normal range. There is increased LV wall thickness. There is normal LV segmental wall motion. Transmitral Doppler flow pattern suggests impaired LV relaxation. LVEF is 65%. Right Ventricle The right ventricle is severely dilated. Right ventricle is moderately to severely hypokinetic. The RV apex appears hypokinetic relative to the base. Atria The left atrium size is normal. The right atrium size is normal. The interatrial septum is not well-visualized. Aortic Valve The aortic valve is mildly thickened. There is no aortic valvular stenosis. Trace aortic regurgitation. Mitral Valve Moderate moderate MAC. Mitral annular calcification. The mitral valve leaflets are mildly thickened. Mild mitral stenosis. Mean MV gradient 5 mmHg (HR 105 bpm). There is no mitral valve regurgitation noted. Tricuspid Valve Tricuspid valve leaflets are thin and pliable. Mild tricuspid regurgitation. RVSP is 40-45 mmHg. Pulmonic Valve The pulmonary valve is normal in structure. Trace pulmonic regurgitation. Great Vessels The aortic root is normal in size. The ascending aorta is not well-visualized. The IVC is normal in size, but collapses < 50% with respirophasic variation. RVSP is estimated at 8 mmHg. Pericardium Small sized, anterior pericardial effusion present. The largest pocket measures 0.3 cm in diastole. No clear echo indications of tamponade. Note, however, that class at tamponade features on echo in the setting of severe RV dilation may not be present. Other Information Study Quality: Technically Difficult Conclusion Technically difficult study due to poor acoustic windows. Normal LV systolic function. Severe RV dilation with moderate to severe RV dysfunction. The apex appears hypokinetic relative to the base (possible Alonzo sign). Moderate MAC. Mild MS. Mean MV gradient 5 mmHg (HR 105 bpm). Mild TR. RVSP 40-45 mmHg. Small sized, anterior pericardial effusion present. The largest pocket measures 0.3 cm in diastole. No clear echo indications of tamponade. Note, however, that class at tamponade features on echo in the setting of severe RV dilation may not be present. If clinically indicated and feasible, further evaluation for PE (in the setting of RV dysfunction with possible positive Alonzo sign) is recommended. Electronically signed by : Shanti Chaudhary MD 04/29/2023 23:41:43
[2023-04-30] VITALS (38 sets, daily range): BP systolic 90–126; BP diastolic 52–76; PULSE 90–139; RESP 14–36; TEMP 36.4–37.3; O2SAT 88–97; BMI 20.2
[2023-04-30] MEDS: HEPARIN SODIUM 5,000 UNIT/ML VIAL 5000 UNIT SQ ×3 (00:51→17:52)
--- NOTE | 2023-04-30 04:36 | ECG_ITS ---
APPROVED REPORT Exam: Resting ECG HR:124 bpm ECG Measurements Heart Rate 124 AXES GA 170 P 71 QRSd 102 QRS 150 QT 285 T 72 QTc 358 Conclusion SINUS TACHYCARDIA WITH FREQUENT SUPRAVENTRICULAR PREMATURE COMPLEXES IN A BIGEMINAL PATTERN RIGHT AXIS DEVIATION [QRS AXIS > 100] LOW QRS VOLTAGE [QRS DEFLECTION < 0.5/1.0 mV IN LIMB/CHEST LEADS] INCOMPLETE RIGHT BUNDLE BRANCH BLOCK [90+ ms QRS DURATION, TERMINAL R IN V1/V2, 40+ ms S IN I/aVL/V4/V5/V6] MODERATE ST DEPRESSION [0.05+ mV ST DEPRESSION] ABNORMAL ECG UNCONFIRMED REPORT Electronically signed by : Monster Bhatia MD 04/30/2023 10:01:24
--- NOTE | 2023-04-30 04:52 | XR_ITS ---
PROCEDURE INFORMATION: Exam: XR Chest Exam date and time: 04/30/2023 5:25 AM Age: 68 years old Clinical indication: Shortness of breath; Additional info: SOA TECHNIQUE: Imaging protocol: Radiologic exam of the chest. Views: 1 view. COMPARISON: CR XR CHEST PORTABLE 04/28/2023 3:08 PM FINDINGS: Tubes, catheters and devices: Right-sided small bore pigtail chest tube in unchanged and dependent position. Overlying monitoring leads. Lungs: Right mid and lower lung field progressive opacification and volume loss with rightward mediastinal shift and elevation of right hemidiaphragm. Pleural spaces: Unremarkable. No pleural effusion. No pneumothorax. Heart/Mediastinum: Right heart border obscured. Vasculature: Aortic arch calcification is mild. Bones/joints: Osseous demineralization. IMPRESSION: 1. Increasing right lower lung field opacity concerning for pneumonia or other airspace process. 2. Indwelling small bore dependent chest tube. Suspect increased right pleural effusion.
[2023-04-30 05:15] LABS: Basophils % 0.1 % (0.1-2.0); Eosinophils # 0.1 K/mm3 (0.0-0.4); Eosinophils % 0.3 % (0.1-12.0); Hematocrit 39.7 % (37.0-47.0); Hemoglobin 12.3 g/dL (12.2-16.2); Lymphocytes # 0.7 K/mm3 (0.7-4.5); Lymphocytes % 3.6 % (10-50); Mean Corpuscular HGB Conc 31.1 g/dL (31.8-35.4); Mean Corpuscular Hemoglobin 32.1 pg (27.0-31.2); Mean Corpuscular Volume 103.4 fl (81-99); Mean Platelet Volume 7.9 fl (7.4-10.4); Monocytes % 5.7 % (1.7-9.3); Neutrophils # 16.1 K/mm3 (1.8-7.8); Neutrophils % 90.3 % (37.0-80.0); Platelet Count 404 K/mm3 (142-424); Red Blood Count 3.84 M/mm3 (4.20-5.40); Red Cell Distribution Width 14.6 % (11.5-17.5); White Blood Count 17.8 K/mm3 (4.8-10.8)
[2023-04-30 05:16] LABS: MANUAL DIFFERENTIAL MANUAL DIFFERENTIAL (MANUAL DIFF)
[2023-04-30 05:17] LABS: Chloride 96 mmol/L (98-107); Potassium 3.3 mmoL/L (3.5-5.1); Sodium 130 mmol/L (136-145)
[2023-04-30 05:19] LABS: Alanine Aminotransferase 21 U/L (12-78); Alkaline Phosphatase 204 U/L (38-126); Aspartate Amino Transferase 20 U/L (14-36); Bilirubin,Total 0.3 mg/dl (0.2-1.3); Blood Urea Nitrogen 36 mg/dl (7-17); Creatinine Clearance Estimated 50 mL/min (50-200); Estimated Glomerular Filt Rate 55 ml/min (>60); GFR (African American) 67 ML/MIN (>60)
[2023-04-30 05:20] LABS: Albumin Level 2.4 g/dl (3.5-5.0); Albumin/Globulin Ratio 0.7 (1.1-1.8); Anion Gap 3.3 mEq/L (5-15); Calcium 8.5 mg/dl (8.4-10.2); Carbon Dioxide 34 mmol/L (22.0-30.0); Globulin 3.6 g/dL (1.3-3.2); Glucose 166 mg/dl (74-100)
[2023-04-30 05:53] LABS: Lymphocytes % 3 % (10-50); Monocytes % 7 % (2-9); Neutrophils % 90 % (42-76); Total Cells Counted 100
[2023-04-30 05:54] LABS: Anisocytosis 1+; Macrocytosis 1+; Platelet Estimate Slight Increase; Poikilocytosis 1+; Stomatocytes 1+; Target Cells 1+
[2023-04-30] MEDS: IPRATROPIUM/ALBUTEROL 3 ML NEB IH ×4 (06:16→18:34)
[2023-04-30] MEDS: FLUTICASONE/UMECLIDIN/VILANTER 100/62.5/25MCG INHALER 1 PUFF IH (06:17)
[2023-04-30] MEDS: NOREPINEPHRINE BITARTRATE/D5W 8 MG/250 ML PLAST..BAG 18.75 MG IV ×2 (06:57→21:38)
--- NOTE | 2023-04-30 08:18 | PC.NURSE ---
spoke with MD Forrest about pt's increasing respiratory distress, inability to take venti mask off without desatting to 83%, need for increased levophed overnight, and overall increased lethargy and weakness; MD Forrest instructed this RN to collect sample of pleural fluid from pigtail drain and fill cytology tube and specimen cup with output and send to lab and then unclamp pigtail once specimen obtained; specimen collected and sent to lab and drain unclamped, pt resting in bed, call light within reach
--- NOTE | 2023-04-30 08:56 | CT_ITS ---
FINAL REPORT TECHNIQUE: Thin section axial CT images were performed from the lung apices to the upper abdomen after the administration of IV contrast. 3-D and MIP reconstructions performed. This study was performed with techniques to keep radiation doses as low as reasonably achievable (ALARA). Individualized dose reduction techniques using automated exposure control or adjustment of mA and/or kV according to the patient''s size were employed. CLINICAL HISTORY: PE COMPARISON: 04/28/2023 FINDINGS: There is no evidence for pulmonary embolism. The thoracic aorta is patent without evidence of dissection. The heart is mildly enlarged, stable. No axillary lymphadenopathy is identified. There are few mediastinal lymph nodes which are stable. Right hilar mass measures at least 5 cm. There is worsening airspace disease in the right lung. There is obstruction of the bronchus intermedius. Fluid and debris are seen in the bronchus intermedius. There is interlobular septal thickening and pulmonary nodules bilaterally which are unchanged. New left pleural effusion is identified. Right pleural effusion is stable with small caliber chest tube. Limited images of the upper abdomen reveal a liver lesion in the lateral right lobe measuring 2.3 cm concerning for metastases. Left adrenal gland is abnormal, may be related to metastatic disease. IMPRESSION: No evidence of pulmonary embolism or aortic dissection. Right hilar mass and findings of malignancy as previously described. New left pleural effusion. Worsening airspace disease in the right lung. Reviewed, Interpreted and Dictated by Sarina Elder MD Transcribed by Azalea Wisdom Authenticated and [facility]
[2023-04-30 09:27] LABS: ABG Base Excess 5.9 mmol/L (-2.4-2.3); ABG HCO3 30.9 mmhg (22.0-26.0); ABG Oxygen Saturation 91 % (90-100); ABG PH 7.39 mmol/L (7.35-7.45); ABG PO2 58.2 mmhg (80-100); ABG TCO2 32.5 mmhg (23-27)
[2023-04-30 09:29] LABS: Allen's Test acceptable; Oxygen 50% VM %; Source Right Radial
[2023-04-30 09:30] LABS: ABG PCO2 52.7 mmhg (35.0-45.0)
--- NOTE | 2023-04-30 09:48 | EXP.CARD.PN ---
Subjective Subjective Date: 04/30/23 Time: 09:48 Principal diagnosis: SOA Interval history: 68 yo WF in bed. Some SOA overnight with improvement after draining pleural fluid Exam Data for Last 24 hours Vital signs and Labs for Last 24 Hours: Temp Pulse Resp BP Pulse Ox O2 Del Method O2 Flow Rate 98.8 F 123 H 23 118/66 90 L Venturi Mask 15 04/30/23 08:00 04/30/23 06:15 04/30/23 06:00 04/30/23 06:00 04/30/23 06:15 04/30/23 06:52 04/30/23 06:15 FiO2 50 04/30/23 06:15 Laboratory Results - last 24 hr 04/29/23 07:21: Total Counted 100, Neutrophils % (Manual) 77 H, Band Neutrophils % 10.0 H, Lymphocytes % (Manual) 5 L, Monocytes % (Manual) 8, Platelet Estimate Slight increase, Hypochromasia 1+, Poikilocytosis 1+, Anisocytosis 1+, Macrocytosis 1+, Target Cells 1+ 04/30/23 05:00: WBC 17.8 H, RBC 3.84 L, Hgb 12.3, Hct 39.7, MCV 103.4 H, MCH 32.1 H, MCHC 31.1 L, RDW 14.6, Plt Count 404, MPV 7.9, Neut % (Auto) 90.3 H, Lymph % (Auto) 3.6 L, [place] % (Auto) 5.7, Eos % (Auto) 0.3, Baso % (Auto) 0.1, Neut # (Auto) 16.1 H, Lymph # (Auto) 0.7, [place] # (Auto) 1.0, Eos # (Auto) 0.1, Baso # (Auto) 0.0, Total Counted 100, Neutrophils % (Manual) 90 H, Lymphocytes % (Manual) 3 L, Monocytes % (Manual) 7, Platelet Estimate Slight increase, Poikilocytosis 1+, Anisocytosis 1+, Macrocytosis 1+, Target Cells 1+, Stomatocytes 1+, Sodium 130 L, Potassium 3.3 L, Chloride 96 L, Carbon Dioxide 34 H, Anion Gap 3.3 L, BUN 36 H D, Creatinine 1.00, Estimated Creat Clear 50, Estimated GFR 55 L, Est GFR ( Amer) 67, Glucose 166 H, Calcium 8.5, Total Bilirubin 0.3, AST 20, ALT 21, Alkaline Phosphatase 204 H, Total Protein 6.0 L, Albumin 2.4 L D, Globulin 3.6 H, Albumin/Globulin Ratio 0.7 L 04/30/23 08:57: Specimen Source Right radial, O2 % 50% vm, ABG pH 7.39, ABG pCO2 52.7 H, ABG pO2 58.2 L, ABG HCO3 30.9 H, ABG Total CO2 32.5 H, ABG O2 Saturation 91, ABG Base Excess 5.9 H, Daryl Test acceptable I & O for Last 24 hours: Intake & Output 04/27/23 04/28/23 04/29/23 04/30/23 11:59 11:59 11:59 11:59 Intake Total 5547.812 / 5687.812 2389.000 / 2389.000 Output Total 1999 / 2099 400 / 400 Balance 3547.812 / 3587.812 1988.000 / 1988.000 Weight 129 lb 15.753 oz 129 lb 5 oz Constitutional Constitutional: mild distress *Routine Respiratory Exam Respiratory: Present diminished air movement *Routine Cardiovascular Exam Cardiovascular: Present tachycardia Progress Note: A&P Assessment and plan (1) Severe sepsis: Status: Acute (2) Obstructive pneumonia: Status: Acute (3) Pleural effusion: Status: Acute (4) Lung mass: Status: Acute (5) Severe protein-calorie malnutrition: Status: Acute (6) Alcohol abuse: Status: Acute (7) COPD (chronic obstructive pulmonary disease): Status: Chronic (8) Hyperlipidemia: Status: Chronic (9) Hypertension: Status: Chronic (10) Depression: Status: Chronic (11) Tobacco abuse: Status: Chronic Assessment and Plan Assessment and Plan for All Diagnoses:: 1. Malnutrition and weakness -Multifactorial 2. Sepsis with pneumonia -On antibiotics -Abnormal CT of the chest with right hilar mass concerning for metastatic cancer -Pulmonary following 3. Elevated troponins with pericardial effusion -Echo normal LVEF this admission -Coronary artery calcification noted on CT of the chest 04/28/2019 4. Pleural effusion, status post thoracentesis -Fluid analysis pending -Elevated BNP greater than 19,000 5. Liver and lung masses with concern for cancer 6. Chronic alcohol use 7. Tobacco use with suspected COPD -Severe RV dilatation with moderate to severe RV dysfunction with apex appearing hypokinetic compared to the base (possible positive Alonzo sign) -CTA of the chest to rule out pulmonary embolus--negative -RVSP 40-45 mmHg 8. Abnormal EKG with right bundle branch block, chronic -no high grade arrhythmias noted 9. Hypotension related to sepsis. -Continue to hold blood pressure medications Tachycardia is primarily due to pulmonary issues. Consider additional cardiology testing if pulmonary issues improve. Poor prognosis. Nothing else to add at this time. Please call again if needed.
[2023-04-30] MEDS: IOPAMIDOL-370 (76%);100ML BOTTLE 70 ML IV (09:58)
[2023-04-30] MEDS: 0.9 % SODIUM CHLORIDE 50 ML VIAL IV (09:58)
[2023-04-30] MEDS: SODIUM CHLORIDE 0.9% 10ML SYR (RAD ONLY) 10 ML IV (09:58)
--- NOTE | 2023-04-30 09:58 | P.PN_ITS ---
Subjective *Date: 04/30/23 *Time: 11:18 Interval history: Admits worsening respiratory distress Pulmonology Exam Inpatient Vital signs and Labs for Last 24 Hours: Temp Pulse Resp BP Pulse Ox O2 Del Method O2 Flow Rate 98.8 F 123 H 23 118/66 90 L Venturi Mask 15 04/30/23 08:00 04/30/23 06:15 04/30/23 06:00 04/30/23 06:00 04/30/23 06:15 04/30/23 06:52 04/30/23 06:15 FiO2 50 04/30/23 06:15 Laboratory Results - last 24 hr 04/29/23 07:21: Total Counted 100, Neutrophils % (Manual) 77 H, Band Neutrophils % 10.0 H, Lymphocytes % (Manual) 5 L, Monocytes % (Manual) 8, Platelet Estimate Slight increase, Hypochromasia 1+, Poikilocytosis 1+, Anisocytosis 1+, Macrocytosis 1+, Target Cells 1+ 04/30/23 05:00: WBC 17.8 H, RBC 3.84 L, Hgb 12.3, Hct 39.7, MCV 103.4 H, MCH 32.1 H, MCHC 31.1 L, RDW 14.6, Plt Count 404, MPV 7.9, Neut % (Auto) 90.3 H, Lymph % (Auto) 3.6 L, [place] % (Auto) 5.7, Eos % (Auto) 0.3, Baso % (Auto) 0.1, Neut # (Auto) 16.1 H, Lymph # (Auto) 0.7, [place] # (Auto) 1.0, Eos # (Auto) 0.1, Baso # (Auto) 0.0, Total Counted 100, Neutrophils % (Manual) 90 H, Lymphocytes % (Manual) 3 L, Monocytes % (Manual) 7, Platelet Estimate Slight increase, Poikilocytosis 1+, Anisocytosis 1+, Macrocytosis 1+, Target Cells 1+, Stomatocytes 1+, Sodium 130 L, Potassium 3.3 L, Chloride 96 L, Carbon Dioxide 34 H, Anion Gap 3.3 L, BUN 36 H D, Creatinine 1.00, Estimated Creat Clear 50, Estimated GFR 55 L, Est GFR ( Amer) 67, Glucose 166 H, Calcium 8.5, Total Bilirubin 0.3, AST 20, ALT 21, Alkaline Phosphatase 204 H, Total Protein 6.0 L, Albumin 2.4 L D, Globulin 3.6 H, Albumin/Globulin Ratio 0.7 L 04/30/23 08:57: Specimen Source Right radial, O2 % 50% vm, ABG pH 7.39, ABG pCO2 52.7 H, ABG pO2 58.2 L, ABG HCO3 30.9 H, ABG Total CO2 32.5 H, ABG O2 Saturation 91, ABG Base Excess 5.9 H, Daryl Test acceptable I & O for Labs for Last 24 Hours: Intake & Output 04/27/23 04/28/23 04/29/23 04/30/23 23:59 23:59 23:59 23:59 Intake Total 4481 / 4481 2987.312 / 2987.312 468.500 / 468.500 Output Total 1400 / 1400 800 / 800 200 / 200 Balance 3081 / 3081 2187.312 / 2187.312 268.500 / 268.500 Weight 120 lb 4 oz 129 lb 15.753 oz 129 lb 5 oz Constitutional: Present severe distress Head: Present normocephalic and atraumatic ENT: Present normal exam, normal oropharynx and mucous membranes moist Neck: Present normal inspection and full ROM Respiratory: Present prolonged expiratory phase, respiratory distress, rhonchi, wheezes, diminished air movement and able to speak in complete sentences Cardiac: Present S1/S2, Tachycardia and radial pulses present GI: Present soft and distention; Absent tenderness or guarding Rectal (female): Present deferred (female): Present deferred Skin: Present intact; Absent cyanosis or jaundice Neuro: Present alert, awake and oriented x 3 Extremities: Present normal inspection; Absent clubbing or cyanosis Psychiatric: Present normal affect and cooperative Assessment and Plan *Assessment and plan (1) Lung mass: Status: Acute Category: Medical Code(s): R91.8 - Other nonspecific abnormal finding of lung field (2) Hilar lymphadenopathy: Status: Acute Category: Medical Code(s): R59.0 - Localized enlarged lymph nodes (3) Mediastinal lymphadenopathy: Status: Acute Category: Medical Code(s): R59.0 - Localized enlarged lymph nodes (4) Pneumonia: Status: Acute Qualifiers: Laterality: right Lung location: middle lobe of lung Pneumonia type: due to unspecified organism Qualified Code(s): J18.9 - Pneumonia, unspecified organism Category: Medical Code(s): J18.9 - Pneumonia, unspecified organism (5) Pleural effusion on right: Status: Acute Category: Medical Code(s): J90 - Pleural effusion, not elsewhere classified Plan Ms. Addison is a 68-year-old female greater than [id number] smoker presents hospital worsening respiratory distress cough and productive phlegm patient also admits recent episodes of decreased appetite and weight loss along with fatigue and lack of energy for the last [address] chest upon admission large right hilar mass along with hilar and mediastinal lymphadenopathy along with right middle lobe and lower lobe pulmonary nodules and postobstructive pneumonia. Also noted to have right pleural effusion status post thoracentesis and pericardial effusions. CT abdomen also showed concerning 2.4 cm hypodense lesion. Colonoscopy in December 2022 incomplete, recommended repeat in 2 days at that time On exam patient appeared to be in moderate respiratory distress with bilateral distant breath sounds with mild wheezing. Significant neutrophilic predominant leukocytosis upon admission. Improving. At baseline using Stiolto inhaler. Not using any oxygen. Patient was initiated on vancomycin and Zosyn upon admission. Interval update: Improving leukocytosis. ABGs from this morning personally reviewed worsening hypoxic respiratory failure. Chronic hypercarbia with a pH of 7.39 and pCO2 52.7. Significantly worsening respiratory distress: High flow nasal cannula 30 L 70%. Will escalate her antibiotics back to vancomycin and cefepime pending final culture results. CTA performed this morning personally reviewed did not show any obvious evidence of pulmonary embolism. Noted to have worsening right pneumonia/consolidative changes. Continued to significant output from the right-sided pigtail catheter. Pleural fluid cytology sent today. Plan: Escalate antibiotics to vancomycin and cefepime pending culture results and nasal MRSA PCR. Continue DuoNebs every 4 hours on a scheduled basis Continue vasopressor support to maintain a MAP goal of 65 and above. Currently on 10 mcg of Levophed. For the noted lung mass and lymphadenopathy we will schedule the patient as an outpatient basis for possible bronchoscopy transbronchial/endobronchial biopsy and EBUS FNA. Follow with pleural fluid studies and fluid cytology, concerning for malignant effusion # It is worrisome that patient oxygen requirements are getting worse can well be from worsening postobstructive pneumonia/worsening lymphangitic spread from her malignancy. Echocardiogram showed significant elevated right-sided pressures and hypokinesis. Have discussed with the patient extensively regarding the possibility of her current clinical situation getting worse and she is needing intubation and mechanical ventilatory support. Patient agreed to be intubated. Also discussed the possibility of patient needing transfer for higher level of care if her clinical ststus continue to worsen so to have a diagnostic procedure and inpatient chemotherapy. Patient is also willing to pursue that option. It appears that patient does not have a current paperwork for POA to to take medical decisions on her behalf, however patient expressed her wishes that she has a friend who she would like to be her POA at this point of time. Discussed with the primary team and recommended social work and case management consult to look into patient's current paperwork / POA status so to align with current patient's wishes. Total critical care time spent on this patient is 35 minutes managing acute hypoxic respiratory failure needing HFNC ventilation. This time spent include reviewing test results including interpreting chest x-rays, labs and arterial blood gas, optimizing the HFNC settings,formulating plan of care, discussing the plan of care with the team and the nursing staff.
[2023-04-30] MEDS: MVI, ADULT NO.1 WITH VIT K 10 ML, THIAMINE HCL 100 MG, MAGNESIUM SULFATE 2 GM in LACTAT... 125 ML IV (10:03)
[2023-04-30] MEDS: VANCOMYCIN/WATER FOR INJ (PEG) 1.25 GM/250 ML PIGGYBACK IV (10:03)
[2023-04-30] MEDS: CEFEPIME HCL 2 GM in 0.9 % SODIUM CHLORIDE 100 ML IV ×2 (10:03→21:40)
[2023-04-30] MEDS: FOLIC ACID 1MG TABLET 1 MG PO (10:04)
[2023-04-30] MEDS: POLYETHYLENE GLYCOL 3350 17 GM PACKET PO (10:04)
--- NOTE | 2023-04-30 12:00 | PC.NURSE ---
Pt's daughter called for update; Her phone number is [phone]
[2023-04-30] MEDS: LORazepam 1MG TABLET 1 MG PO ×2 (13:05→20:51)
[2023-04-30 15:03] LABS: Albumin, Body Fluid 1.6 g/dL (Not Estab.); Glucose, Body Fluid 66 mg/dL (.); LD, Body Fluid 672 IU/L (.); Protein, Body Fluid 2.9 g/dL (.)
--- NOTE | 2023-04-30 17:10 | EXP.PN ---
Subjective *Date: 04/30/23 *Time: 17:10 Interval history: seen at bedside, alert awake, requiring levophed Exam Data for Last 24 hours Vital signs and Labs for Last 24 Hours: Temp Pulse Resp BP Pulse Ox O2 Del Method O2 Flow Rate 98.5 F 108 H 27 H 112/71 95 Vapotherm 30 04/30/23 15:59 04/30/23 16:00 04/30/23 16:00 04/30/23 16:00 04/30/23 16:00 04/30/23 16:00 04/30/23 16:00 FiO2 85 04/30/23 16:00 Laboratory Results - last 24 hr 04/28/23 14:30: Fluid Glucose 66, Fluid Total Protein 2.9, Fluid Albumin 1.6, Fluid LDH 672 04/30/23 05:00: WBC 17.8 H, RBC 3.84 L, Hgb 12.3, Hct 39.7, MCV 103.4 H, MCH 32.1 H, MCHC 31.1 L, RDW 14.6, Plt Count 404, MPV 7.9, Neut % (Auto) 90.3 H, Lymph % (Auto) 3.6 L, [place] % (Auto) 5.7, Eos % (Auto) 0.3, Baso % (Auto) 0.1, Neut # (Auto) 16.1 H, Lymph # (Auto) 0.7, [place] # (Auto) 1.0, Eos # (Auto) 0.1, Baso # (Auto) 0.0, Total Counted 100, Neutrophils % (Manual) 90 H, Lymphocytes % (Manual) 3 L, Monocytes % (Manual) 7, Platelet Estimate Slight increase, Poikilocytosis 1+, Anisocytosis 1+, Macrocytosis 1+, Target Cells 1+, Stomatocytes 1+, Sodium 130 L, Potassium 3.3 L, Chloride 96 L, Carbon Dioxide 34 H, Anion Gap 3.3 L, BUN 36 H D, Creatinine 1.00, Estimated Creat Clear 50, Estimated GFR 55 L, Est GFR ( Amer) 67, Glucose 166 H, Calcium 8.5, Total Bilirubin 0.3, AST 20, ALT 21, Alkaline Phosphatase 204 H, Total Protein 6.0 L, Albumin 2.4 L D, Globulin 3.6 H, Albumin/Globulin Ratio 0.7 L 04/30/23 08:57: Specimen Source Right radial, O2 % 50% vm, ABG pH 7.39, ABG pCO2 52.7 H, ABG pO2 58.2 L, ABG HCO3 30.9 H, ABG Total CO2 32.5 H, ABG O2 Saturation 91, ABG Base Excess 5.9 H, Daryl Test acceptable I & O for Last 24 hours: Intake & Output 04/27/23 04/28/23 04/29/23 04/30/23 23:59 23:59 23:59 23:59 Intake Total 4481 / 4481 2987.312 / 2987.312 1588.500 / 1588.500 Output Total 1400 / 1400 800 / 800 200 / 200 Balance 3081 / 3081 2187.312 / 2187.312 1388.500 / 1388.500 Weight 54.544 kg 58.96 kg 58.655 kg Constitutional Constitutional: no acute distress *Routine HEENT Exam Head: Present normocephalic Eye: Present EOMI and PERRL ENT: Present mucous membranes moist *Routine Neck Exam Neck: Present supple; Absent lymphadenopathy *Routine Respiratory Exam Respiratory: Present distant breath sounds and diminished air movement *Routine Cardiovascular Exam Cardiovascular: Present RRR *Routine Abdominal Exam Abdominal: Present soft and normoactive bowel sounds; Absent tenderness *Routine Extremities Exam Extremities: Absent cyanosis, clubbing or edema *Routine Skin Exam Skin: Present warm; Absent rash *Routine Neurological Exam Neurological: Present alert and oriented X3 Assessment and Plan *Assessment and plan (1) Severe sepsis: Status: Acute Category: Medical Code(s): A41.9 - Sepsis, unspecified organism; R65.20 - Severe sepsis without septic shock (2) Obstructive pneumonia: Status: Acute Category: Medical Code(s): J18.9 - Pneumonia, unspecified organism (3) Pleural effusion: Status: Acute Category: Medical Code(s): J90 - Pleural effusion, not elsewhere classified (4) Lung mass: Status: Acute Category: Medical Code(s): R91.8 - Other nonspecific abnormal finding of lung field (5) Severe protein-calorie malnutrition: Status: Acute Category: Medical Code(s): E43 - Unspecified severe protein-calorie malnutrition (6) Alcohol abuse: Status: Acute Category: Social Hx Code(s): F10.10 - Alcohol abuse, uncomplicated (7) COPD (chronic obstructive pulmonary disease): Status: Chronic Qualifiers: COPD type: unspecified COPD Qualified Code(s): J44.9 - Chronic obstructive pulmonary disease, unspecified Category: Medical Code(s): J44.9 - Chronic obstructive pulmonary disease, unspecified (8) Hyperlipidemia: Status: Chronic Qualifiers: Hyperlipidemia type: unspecified Qualified Code(s): E78.5 - Hyperlipidemia, unspecified Category: Medical Code(s): E78.5 - Hyperlipidemia, unspecified (9) Hypertension: Status: Chronic Qualifiers: Hypertension type: essential hypertension Qualified Code(s): I10 - Essential (primary) hypertension Category: Medical Code(s): I10 - Essential (primary) hypertension (10) Depression: Status: Chronic Qualifiers: Depression Type: major depressive disorder Major depression recurrence: single episode Active/Remission status: currently active Major depression episode severity: moderate Qualified Code(s): F32.1 - Major depressive disorder, single episode, moderate Category: Medical Code(s): F32.9 - Major depressive disorder, single episode, unspecified (11) Tobacco abuse: Status: Chronic Category: Medical Code(s): Z72.0 - Tobacco use Plan 68-year-old female with multiple comorbidities and progressive weight loss that is unintentional. Presented to the ER with respiratory distress. Concern for obstructive pneumonia with pleural effusion. Discussed case with the ER physician, request admission for antibiotics and further workup of pneumonia. Medicine agreed to admit. Patient with severe sepsis given endorgan dysfunction with kidney injury, respiratory failure, leukocytosis, tachycardia, tachypnea, source of infection with pneumonia. Necessitating inpatient admission. PSI port score of 158. Risk class V, 27 to 29% mortality risk. Problems addressed as follows: Severe sepsis Acute hypoxemic respiratory failure secondary to obstructive pneumonia pleural effusion. -CT reviewed along with chest x-ray, pleural effusion with dense consolidation of right lower lobe. Finding of perihilar mass that is obstructing bronchus intermedius. Highly suspicious for lung cancer. - started on Levofloxacin and vancomycin -Pulmonology consulted, Bronch as OP basis -Blood cultures pending Chest tube drain is in place -DuoNebs every 6 hours scheduled -Comprehensive respiratory panel negative - pleural fluid with greater than 5000 polymorphonuclear cells Pericardial effusion: Seen on CT. Echo pending. Cardiology consulted - Will eval for Tamponade SONIDO: unclear baseline. Monitor Severe protein calorie malnutrition: Will monitor for refeeding syndrome. Initial phosphorus acceptable above 3. Repeat phosphorus for the morning. Alcohol abuse: Drinks at least 6 beers a day along with malnourishment. Rally pack. CIWA protocol with PRN ativan Nutrition consult placed. Folate and multivitamins ordered Nicotine dependence: Nicotine patch as needed Unclear the last time patient was taking any home medications. Will hold hypertensive medications, anxiety meds, treat symptomatically if develops worsening symptoms. Full code Heparin 5000 units TID Regular diet, Nutrition consult needing more vasopressor dosages, started on vancomycin and cefepime, discussed with pulmonary, worsening O2 needs, may need to be intubated, continue chest tube fluid drain
--- NOTE | 2023-04-30 18:08 | PC.NURSE ---
Addendum entered by Yoli Kim RN 04/30/23 18:13: vapotherm has been decreased to 30L and 75%FIO2 Original Note: pt resting in bed, ALMAS Torres gave pt bath, levophed titrated this shift to 6mcg/min, pt had 1 large bowel movement this shift and is getting up to bsc with assistance, pt's work of breathing still increased and gets very winded with any exertion, vapotherm at 30L and 80%FIO2, call light within reach
[2023-04-30] MEDS: PANTOPRAZOLE 40MG VIAL 40 MG IV (20:33)
--- NOTE | 2023-04-30 21:37 | ECG_ITS ---
APPROVED REPORT Exam: Resting ECG HR:87 bpm ECG Measurements Heart Rate 87 AXES ND 136 P 51 QRSd 97 QRS 116 QT 255 T 73 QTc 299 Conclusion SINUS RHYTHM RIGHT AXIS DEVIATION [QRS AXIS > 100] LOW QRS VOLTAGE [QRS DEFLECTION < 0.5/1.0 mV IN LIMB/CHEST LEADS] INCOMPLETE RIGHT BUNDLE BRANCH BLOCK [90+ ms QRS DURATION, TERMINAL R IN V1/V2, 40+ ms S IN I/aVL/V4/V5/V6] ANTEROSEPTAL MYOCARDIAL INFARCTION , OF INDETERMINATE AGE [40+ ms Q WAVE IN V1-V4] ABNORMAL ECG INTERPRETATION BASED ON A DEFAULT AGE OF 40 YEARS UNCONFIRMED REPORT Electronically signed by : Monster Bhatia MD 05/01/2023 20:02:01
--- NOTE | 2023-04-30 21:50 | EXP.RR ---
Acute Rapid Response Note Subjective Date Responded: 04/30/23 Time Responded: 09:20 Provider Note: called [employer] for sustained SVT. initial HR 180, Patient symptomatic. alert. IVP metoprolol 5mg given every 5min. x2. HR converted to Normal SR. HR90. CMP/ Mg lactic acide and VBG ordered. Objective Findings: Vital Signs - Last 4 Hours Temperature 98.5 F 04/30/23 15:59 Temperature Source Oral 04/30/23 15:59 Pulse Rate 113 H 04/30/23 21:00 Respiratory Rate 23 04/30/23 21:00 Blood Pressure 98/59 L 04/30/23 21:00 Blood Pressure Mean 72 04/30/23 21:00 Blood Pressure Source Automatic Cuff 04/30/23 21:00 Blood Pressure Position Sitting 04/29/23 06:30 02 Sat by Pulse Oximetry 88 L 04/30/23 21:00 Oxygen Delivery Method Vapotherm 04/30/23 21:00 Oxygen Flow Rate (LPM) 30 04/30/23 21:00 Lab Results for Past 12 Hours 04/28/23 14:30: Fluid pH TNP, Fluid Glucose 66, Fluid Total Protein 2.9, Fluid Albumin 1.6, Fluid LDH 672 My Orders Category Date Time Status CMP [Comprehensive Metabolic Panel] Stat Lab 04/30/23 21:40 Ordered MAG [Magnesium] Stat Lab 04/30/23 21:40 Ordered Adenosine [Adenosine 6mg/2mL vial] Med 04/30/23 21:17 Discontinued 6 mg IV ONCE ONE ECG Data Tracing #1: Attestation EKG: I reviewed this ECG and interpreted as documented below: ECG initial impression date: 04/30/23 ECG initial impression time: 09:20 Arrhythmias present: PSVT Conduction abnormalities present: RBBB EKG compared to prior tracings: this ECG reveals significant changes EKG Narrative: svt hr 180's symptomatic. Rapid Response Exam General General appearance: alert Head Head exam: atraumatic and normocephalic Eye Eye exam: Present normal appearance, PERRL and EOMI ENT ENT exam: Present normal exam Neck Neck exam: Present normal inspection Chest Chest inspection: Present normal inspection and symmetric chest wall rise Respiratory Respiratory exam: Present wheezes and prolonged expiratory phase Cardiovascular Cardiovascular exam: Present regular rate and tachycardia Abdominal Exam Abdominal exam: Present soft; Absent distention or tenderness External exam: Present other Speculum exam: Present other Extremities Exam Extremities exam: Present normal inspection Neurological Exam Neurological exam: Present alert and oriented X3 Psychiatric Psychiatric exam: Present agitated Skin Skin exam: Present warm and dry RR Procedures/Assess/Plan Additional Bedside Procedures NG tube insertion: No Harris catheter insert: No Peripheral IV access: No Chemical cardioversion: Yes Meds used: metoprolol 50mg iVP x2 Arterial blood draw: No Other: VBG Reevaluation(s) Time: 09:50 Reevaluation #1: patient stable. SR 90. BP101/74. on levophed 10mcg/min Physician Consults Physician Consulted: [facility] Time consultation 1: 09:45 Comment/Response: made aware (1) Severe sepsis: Status: Acute (2) Obstructive pneumonia: Status: Acute (3) Pleural effusion: Status: Acute (4) Lung mass: Status: Acute (5) Severe protein-calorie malnutrition: Status: Acute (6) Alcohol abuse: Status: Acute (7) COPD (chronic obstructive pulmonary disease): Status: Chronic Qualifiers: COPD type: unspecified COPD Qualified Code(s): J44.9 - Chronic obstructive pulmonary disease, unspecified (8) Hyperlipidemia: Status: Chronic Qualifiers: Hyperlipidemia type: unspecified Qualified Code(s): E78.5 - Hyperlipidemia, unspecified (9) Hypertension: Status: Chronic Qualifiers: Hypertension type: essential hypertension Qualified Code(s): I10 - Essential (primary) hypertension (10) Depression: Status: Chronic Qualifiers: Active/Remission status: currently active Depression Type: major depressive disorder Major depression episode severity: moderate Major depression recurrence: single episode Qualified Code(s): F32.1 - Major depressive disorder, single episode, moderate (11) Tobacco abuse: Status: Chronic Assessment and plan all Dx Assessment and Plan for all problems:: continue same.
[2023-04-30] MEDS: LEVALBUTEROL 0.63MG/3ML NEB 0.630000000000000004 MG IH (22:37)
[2023-04-30 22:46] LABS: Lactic Acid 1.4 mmol/L (0.7-2.1)
[2023-04-30 22:50] LABS: Alanine Aminotransferase 17 U/L (12-78); Albumin Level 2.1 g/dl (3.5-5.0); Albumin/Globulin Ratio 0.7 (1.1-1.8); Alkaline Phosphatase 218 U/L (38-126); Aspartate Amino Transferase 28 U/L (14-36); Bilirubin,Total 0.5 mg/dl (0.2-1.3); Blood Urea Nitrogen 27 mg/dl (7-17); Calcium 8.4 mg/dl (8.4-10.2); Carbon Dioxide 30 mmol/L (22.0-30.0); Chloride 95 mmol/L (98-107); Creatinine Clearance Estimated 50 mL/min (50-200); Estimated Glomerular Filt Rate 99 ml/min (>60); GFR (African American) 120 ML/MIN (>60); Glucose 107 mg/dl (74-100); Magnesium 2.5 mg/dl (1.6-2.3); Sodium 127 mmol/L (136-145); Total Protein,Serum 5.1 g/dl (6.3-8.2)
[2023-05-01] VITALS (34 sets, daily range): BP systolic 97–133; BP diastolic 40–77; PULSE 85–152; RESP 15–35; TEMP 36.4–37.6; O2SAT 88–100; BMI 20.2
[2023-05-01] MEDS: MELATONIN 5MG TABLET 10 MG PO ×2 (01:00→22:19)
[2023-05-01] MEDS: LEVALBUTEROL 0.63MG/3ML NEB 0.630000000000000004 MG IH ×6 (01:11→21:51)
--- NOTE | 2023-05-01 01:35 | PC.NURSE ---
Approximately 21:20 the patient went into SVT at a rate of 180-190 bpm. The patient was asymptomatic with adequate oxygen saturation, mentation, and normotension (with Norepinephrine infusion). I called the provider, Martin Sue, and asked how to proceed with treating the dysrhythmia. He stated that he would like to give 6mg Adenosine IVP. After receiving these orders I brought the code cart into the room and placed pads on the patient and connected the patient to the zoll. At this time Martin presented to the bedside and a rapid response was called. The patient remained asymptomatic and we determined the best course of action was to administer Metoprolol 5mg IVP every 5 mins x 3 doses. The first dose was administered at 21:25. The patient was refractory to the first dose and began to become symptomatic with altered mental status, hypotension, and hypoexmia. We titrated the current infusion of norepinephrine to 10mcg (previously at 6mcg) to mitigate the hypotension. After administering another dose of Metoprolol 5mg at 21:30, the patient converted to Normal Sinus Rhythm with the hypotension, hypoxemia, and altered mental status resolving considering the patients' status prior to this event.
--- NOTE | 2023-05-01 03:15 | ECG_ITS ---
APPROVED REPORT Exam: Resting ECG HR:169 bpm ECG Measurements Heart Rate 169 AXES QRSd 111 QRS 106 QT 269 T -87 QTc 361 Conclusion SUPRAVENTRICULAR TACHYCARDIA with PVCx Right axis deviation Artifcact limits other interpretation UNCONFIRMED REPORT Electronically signed by : Monster Bhatia MD 05/01/2023 20:01:21
[2023-05-01] MEDS: AMIODARONE HCL 150MG/3ML VIAL 150 MG IVP (03:18)
[2023-05-01] MEDS: AMIODARONE HCL 900 MG in DEXTROSE 5 % IN WATER 500 ML 34.5300000000000011 MG IV (03:27)
[2023-05-01] MEDS: FLUTICASONE/UMECLIDIN/VILANTER 100/62.5/25MCG INHALER 1 PUFF IH (05:24)
[2023-05-01 07:28] LABS: Basophils % 0.2 % (0.1-2.0); Eosinophils % 0.1 % (0.1-12.0); Hematocrit 41.8 % (37.0-47.0); Hemoglobin 12.8 g/dL (12.2-16.2); Lymphocytes # 1.3 K/mm3 (0.7-4.5); Lymphocytes % 5.6 % (10-50); Mean Corpuscular HGB Conc 30.5 g/dL (31.8-35.4); Mean Corpuscular Hemoglobin 32.5 pg (27.0-31.2); Mean Corpuscular Volume 106.6 fl (81-99); Mean Platelet Volume 7.5 fl (7.4-10.4); Monocytes # 1.6 K/mm3 (0.1-1.0); Monocytes % 7.3 % (1.7-9.3); Neutrophils # 19.2 K/mm3 (1.8-7.8); Neutrophils % 86.7 % (37.0-80.0); Platelet Count 330 K/mm3 (142-424); Red Blood Count 3.92 M/mm3 (4.20-5.40); Red Cell Distribution Width 14.5 % (11.5-17.5); White Blood Count 22.1 K/mm3 (4.8-10.8)
[2023-05-01 07:34] LABS: Chloride 94 mmol/L (98-107); Potassium 3.7 mmoL/L (3.5-5.1); Sodium 126 mmol/L (136-145)
[2023-05-01 07:35] LABS: MANUAL DIFFERENTIAL MANUAL DIFFERENTIAL (MANUAL DIFF)
[2023-05-01 07:37] LABS: Alanine Aminotransferase 17 U/L (12-78); Albumin Level 2.4 g/dl (3.5-5.0); Albumin/Globulin Ratio 0.7 (1.1-1.8); Alkaline Phosphatase 245 U/L (38-126); Anion Gap 4.7 mEq/L (5-15); Aspartate Amino Transferase 30 U/L (14-36); Bilirubin,Total 0.5 mg/dl (0.2-1.3); Blood Urea Nitrogen 24 mg/dl (7-17); Carbon Dioxide 31 mmol/L (22.0-30.0); Creatinine Clearance Estimated 50 mL/min (50-200); Estimated Glomerular Filt Rate 99 ml/min (>60); GFR (African American) 120 ML/MIN (>60); Globulin 3.6 g/dL (1.3-3.2)
[2023-05-01 07:38] LABS: Calcium 8.3 mg/dl (8.4-10.2); Glucose 148 mg/dl (74-100)
[2023-05-01] MEDS: HEPARIN SODIUM 5,000 UNIT/ML VIAL 5000 UNIT SQ ×3 (08:46→18:08)
[2023-05-01] MEDS: FOLIC ACID 1MG TABLET 1 MG PO (08:46)
[2023-05-01] MEDS: NOREPINEPHRINE BITARTRATE/D5W 8 MG/250 ML PLAST..BAG 22.5 MG IV (08:47)
[2023-05-01 09:07] LABS: Eosinophils % 1 % (0-3); Lymphocytes % 11 % (10-50); Macrocytosis 1+; Monocytes % 5 % (2-9); Neutrophils % 83 % (42-76); Platelet Estimate Normal; Total Cells Counted 100
[2023-05-01] MEDS: MVI, ADULT NO.1 WITH VIT K 10 ML, THIAMINE HCL 100 MG, MAGNESIUM SULFATE 2 GM in LACTAT... 125 ML IV (09:08)
[2023-05-01] MEDS: VANCOMYCIN/WATER FOR INJ (PEG) 1.25 GM/250 ML PIGGYBACK IV (09:10)
--- NOTE | 2023-05-01 09:56 | P.PN_ITS ---
Subjective *Date: 05/01/23 *Time: 12:19 Interval history: No acute respiratory events overnight. Pulmonology Exam Inpatient Vital signs and Labs for Last 24 Hours: Temp Pulse Resp BP Pulse Ox O2 Del Method O2 Flow Rate 98.5 F 96 H 32 H 105/68 L 96 Vapotherm 30 04/30/23 15:59 05/01/23 06:00 05/01/23 06:00 05/01/23 06:00 05/01/23 06:00 05/01/23 08:00 05/01/23 08:00 FiO2 75 05/01/23 08:00 Laboratory Results - last 24 hr 04/28/23 14:30: Fluid pH TNP, Fluid Glucose 66, Fluid Total Protein 2.9, Fluid Albumin 1.6, Fluid LDH 672 04/30/23 22:00: Sodium 127 L, Potassium 4.0 D, Chloride 95 L, Carbon Dioxide 30, Anion Gap 6.0, BUN 27 H, Creatinine 0.60 D, Estimated Creat Clear 50, Estimated GFR 99, Est GFR ( Amer) 120 D, Glucose 107 H D, Calcium 8.4, Magnesium 2.5 H, Total Bilirubin 0.5, AST 28 D, ALT 17, Alkaline Phosphatase 218 H, Total Protein 5.1 L, Albumin 2.1 L D, Globulin 3.0, Albumin/Globulin Ratio 0.7 L 04/30/23 22:15: Lactate 1.4 05/01/23 06:32: WBC 22.1 H*, RBC 3.92 L, Hgb 12.8, Hct 41.8, MCV 106.6 H, MCH 32.5 H, MCHC 30.5 L, RDW 14.5, Plt Count 330, MPV 7.5, Neut % (Auto) 86.7 H, Lymph % (Auto) 5.6 L, [place] % (Auto) 7.3, Eos % (Auto) 0.1, Baso % (Auto) 0.2, Neut # (Auto) 19.2 H, Lymph # (Auto) 1.3, [place] # (Auto) 1.6 H, Eos # (Auto) 0.0, Baso # (Auto) 0.0, Total Counted 100, Neutrophils % (Manual) 83 H, Lymphocytes % (Manual) 11, Monocytes % (Manual) 5, Eosinophils % (Manual) 1, Platelet Estimate Normal, Macrocytosis 1+, Sodium 126 L, Potassium 3.7, Chloride 94 L, Carbon Dioxide 31 H, Anion Gap 4.7 L, BUN 24 H, Creatinine 0.60, Estimated Creat Clear 50, Estimated GFR 99, Est GFR ( Amer) 120, Glucose 148 H D, Calcium 8.3 L , Total Bilirubin 0.5, AST 30, ALT 17, Alkaline Phosphatase 245 H, Total Protein 6.0 L, Albumin 2.4 L D, Globulin 3.6 H, Albumin/Globulin Ratio 0.7 L I & O for Labs for Last 24 Hours: Intake & Output 04/28/23 04/29/23 04/30/23 05/01/23 23:59 23:59 23:59 23:59 Intake Total 4481 / 4481 2987.312 / 2987.312 2457.875 / 2557.875 950.312 / 950.312 Output Total 1400 / 1400 800 / 800 200 / 200 450 / 450 Balance 3081 / 3081 2187.312 / 2187.312 2257.875 / 2357.875 500.312 / 500.312 Weight 120 lb 4 oz 129 lb 15.753 oz 129 lb 5 oz 129 lb 5.1 oz Microbiology Reports for the Last 24 Hours: Microbiology 04/28/23 14:30 Thoracic Fluid Gram Stain - Final 04/28/23 23:33 Urine,Catheterized Urine Culture - Final Constitutional: Present moderate distress Head: Present normocephalic and atraumatic ENT: Present normal exam, normal oropharynx and mucous membranes moist Neck: Present normal inspection and full ROM Respiratory: Present prolonged expiratory phase, respiratory distress, rhonchi, diminished air movement and able to speak in complete sentences; Absent wheezes Cardiac: Present S1/S2, Tachycardia and radial pulses present GI: Present soft and distention; Absent tenderness or guarding Rectal (female): Present deferred (female): Present deferred Skin: Present intact; Absent cyanosis or jaundice Neuro: Present alert, awake and oriented x 3 Extremities: Present normal inspection; Absent clubbing or cyanosis Psychiatric: Present normal affect and cooperative Assessment and Plan *Assessment and plan (1) Lung mass: Status: Acute Category: Medical Code(s): R91.8 - Other nonspecific abnormal finding of lung field (2) Hilar lymphadenopathy: Status: Acute Category: Medical Code(s): R59.0 - Localized enlarged lymph nodes (3) Mediastinal lymphadenopathy: Status: Acute Category: Medical Code(s): R59.0 - Localized enlarged lymph nodes (4) Pneumonia: Status: Acute Qualifiers: Laterality: right Lung location: middle lobe of lung Pneumonia type: due to unspecified organism Qualified Code(s): J18.9 - Pneumonia, unspecified organism Category: Medical Code(s): J18.9 - Pneumonia, unspecified organism (5) Pleural effusion on right: Status: Acute Category: Medical Code(s): J90 - Pleural effusion, not elsewhere classified Plan Ms. Addison is a 68-year-old female greater than [id number] smoker presents hospital worsening respiratory distress cough and productive phlegm patient also admits recent episodes of decreased appetite and weight loss along with fatigue and lack of energy for the last [address] chest upon admission large right hilar mass along with hilar and mediastinal lymphadenopathy along with right middle lobe and lower lobe pulmonary nodules and postobstructive pneumonia. Also noted to have right pleural effusion status post thoracentesis and pericardial effusions. CT abdomen also showed concerning 2.4 cm hypodense lesion. Colonoscopy in December 2022 incomplete, recommended repeat in 2 days at that time On exam patient appeared to be in moderate respiratory distress with bilateral distant breath sounds with mild wheezing. Significant neutrophilic predominant leukocytosis upon admission. Improving. At baseline using Stiolto inhaler. Not using any oxygen. CTA - did not show any obvious evidence of pulmonary embolism. Noted to have worsening right pneumonia/consolidative changes. Interval update: No acute respiratory events overnight. Episode of SVT this morning. Continue to receive vancomycin and cefepime. Pleural fluid cytology resulted negative for malignancy. Cultures negative from pleural fluid. Slight worsening leukocytosis. Improving also remains, weaned to 20 L 60%. Will continue to wean as tolerated. Continue weaning vasopressor support, currently on 8 mcg of Levophed. She otherwise continues to receive adequate IV supplementation Plan: Continue high flow nasal open supplementation to maintain O2 saturation goal of 90% and above. Currently on 20 L 60%. Continue to wean as tolerated. Continue vancomycin and cefepime pending pending sputum and blood culture blood cultures from 04/28/23 and sputum cultures from 04/29/2023 still pending. Will follow Continue Xopenex and ipratropium every 4 hours scheduled Continue vasopressor support to maintain a MAP goal of 65 and above. Currently on 8 mcg of Levophed. 500 mL LR bolus For the noted lung mass and lymphadenopathy we will schedule the patient as an outpatient basis for possible bronchoscopy transbronchial/endobronchial biopsy and EBUS FNA. Echocardiogram showed significant elevated right-sided pressures and hypokinesis. Have previously discussed with the patient extensively regarding the possibility of her current clinical situation getting worse and she is needing intubation and mechanical ventilatory support. Patient agreed to be intubated. Also discussed the possibility of patient needing transfer for higher level of care if her clinical ststus continue to worsen so to have a diagnostic procedure and inpatient chemotherapy. Patient is also willing to pursue that option. It appears that patient does not have a current paperwork for POA to to take medical decisions on her behalf, however patient expressed her wishes that she has a friend who she would like to be her POA at this point of time. Discussed with the primary team and recommended social work and case management consult to look into patient's current paperwork / POA status so to align with current patient's wishes. # Thank for involving pulmonary in this patient care. Will continue to follow.
--- NOTE | 2023-05-01 11:07 | EXP.CARD.PN ---
Subjective Subjective Date: 05/01/23 Time: 11:07 Principal diagnosis: SOA, pneumonia, tachycardia Interval history: 68 yo WF in bed. Minimal response to questions tachycardia overnight that responded to BB and IV amio some hypotension treated with levophed, now weaning down with BP around 105 mm Hg Still requiring high volume oxygen WBC increasing despite Abx Will likely require intubation with increasing resp rate Na down to 126 (131 on admit) Exam Data for Last 24 hours Vital signs and Labs for Last 24 Hours: Temp Pulse Resp BP Pulse Ox O2 Del Method O2 Flow Rate 98.5 F 90 32 H 105/68 L 96 Vapotherm 30 04/30/23 15:59 05/01/23 10:09 05/01/23 06:00 05/01/23 06:00 05/01/23 06:00 05/01/23 08:00 05/01/23 08:00 FiO2 75 05/01/23 08:00 Laboratory Results - last 24 hr 04/28/23 14:30: Fluid pH TNP, Fluid Glucose 66, Fluid Total Protein 2.9, Fluid Albumin 1.6, Fluid LDH 672 04/30/23 22:00: Sodium 127 L, Potassium 4.0 D, Chloride 95 L, Carbon Dioxide 30, Anion Gap 6.0, BUN 27 H, Creatinine 0.60 D, Estimated Creat Clear 50, Estimated GFR 99, Est GFR ( Amer) 120 D, Glucose 107 H D, Calcium 8.4, Magnesium 2.5 H, Total Bilirubin 0.5, AST 28 D, ALT 17, Alkaline Phosphatase 218 H, Total Protein 5.1 L, Albumin 2.1 L D, Globulin 3.0, Albumin/Globulin Ratio 0.7 L 04/30/23 22:15: Lactate 1.4 05/01/23 06:32: WBC 22.1 H*, RBC 3.92 L, Hgb 12.8, Hct 41.8, MCV 106.6 H, MCH 32.5 H, MCHC 30.5 L, RDW 14.5, Plt Count 330, MPV 7.5, Neut % (Auto) 86.7 H, Lymph % (Auto) 5.6 L, [place] % (Auto) 7.3, Eos % (Auto) 0.1, Baso % (Auto) 0.2, Neut # (Auto) 19.2 H, Lymph # (Auto) 1.3, [place] # (Auto) 1.6 H, Eos # (Auto) 0.0, Baso # (Auto) 0.0, Total Counted 100, Neutrophils % (Manual) 83 H, Lymphocytes % (Manual) 11, Monocytes % (Manual) 5, Eosinophils % (Manual) 1, Platelet Estimate Normal, Macrocytosis 1+, Sodium 126 L, Potassium 3.7, Chloride 94 L, Carbon Dioxide 31 H, Anion Gap 4.7 L, BUN 24 H, Creatinine 0.60, Estimated Creat Clear 50, Estimated GFR 99, Est GFR ( Amer) 120, Glucose 148 H D, Calcium 8.3 L, Total Bilirubin 0.5, AST 30, ALT 17, Alkaline Phosphatase 245 H, Total Protein 6.0 L, Albumin 2.4 L D, Globulin 3.6 H, Albumin/Globulin Ratio 0.7 L I & O for Last 24 hours: Intake & Output 04/28/23 04/29/23 04/30/23 05/01/23 11:59 11:59 11:59 11:59 Intake Total 5547.812 / 5687.812 2509.000 / 2509.000 2819.687 / 2819.687 Output Total 1999 / 2100 400 / 400 450 / 450 Balance 3547.812 / 3587.812 2109.000 / 2109.000 2369.687 / 2369.687 Weight 129 lb 15.753 oz 129 lb 5 oz 129 lb 5.1 oz Microbiology Reports for the Last 24 Hours: Microbiology 04/28/23 14:30 Thoracic Fluid Gram Stain - Final 04/28/23 23:33 Urine,Catheterized Urine Culture - Final Constitutional Constitutional: somnolent *Routine Respiratory Exam Respiratory: Present rhonchi and diminished air movement *Routine Cardiovascular Exam Cardiovascular: Present tachycardia Progress Note: A&P Assessment and plan (1) Lung mass: Status: Acute (2) Hilar lymphadenopathy: Status: Acute (3) Mediastinal lymphadenopathy: Status: Acute (4) Pneumonia: Status: Acute (5) Pleural effusion on right: Status: Acute Assessment and Plan Assessment and Plan for All Diagnoses:: 1. Malnutrition and weakness -Multifactorial 2. Sepsis with pneumonia -On antibiotics -Abnormal CT of the chest with right hilar mass concerning for metastatic cancer -Pulmonary following 3. Elevated troponins with pericardial effusion -Echo normal LVEF this admission -Coronary artery calcification noted on CT of the chest 04/28/2019 4. Pleural effusion, status post thoracentesis -Fluid analysis pending -Elevated BNP greater than 19,000 5. Liver and lung masses with concern for cancer 6. Chronic alcohol use 7. Tobacco use with suspected COPD -Severe RV dilatation with moderate to severe RV dysfunction with apex appearing hypokinetic compared to the base (possible positive Alonzo sign) -CTA of the chest to rule out pulmonary embolus--negative -RVSP 40-45 mmHg on echocardiogram this admission 8. Abnormal EKG with right bundle branch block, chronic -Tachycardia overnight, resolved with IV BB and IV amiodarone 9. Hypotension related to sepsis. -Continue to hold blood pressure medications -on levophed 10. Moderate mitral annular calcification on echocardiogram this admission 11. Small sized anterior pericardial effusion with no evidence of tamponade on echocardiogram 04/29/2023 -Likely reactionary to pulmonary issues Likely will be intubated Likely needs transfer to tertiary center for treatment of cancer Will start oral amiodarone for tachycardia
--- NOTE | 2023-05-01 11:09 | PC.NURSE ---
RESP CARE NOTE: Vapotherm decreased to 20L/55% per Dr Forrest.
[2023-05-01] MEDS: CEFEPIME HCL 2 GM in 0.9 % SODIUM CHLORIDE 100 ML IV ×2 (11:34→22:19)
[2023-05-01] MEDS: LACTATED RINGERS 1000ML 500 ML 999 ML IV (12:57)
[2023-05-01] MEDS: IPRATROPIUM BROMIDE 0.5 MG/2.5ML SOLUTION IH ×3 (14:09→21:51)
--- NOTE | 2023-05-01 16:32 | EXP.PN ---
Subjective *Date: 05/01/23 *Time: 16:32 Interval history: seen at bedside, alert awake, holding conversations, requiring levophed Exam Data for Last 24 hours Vital signs and Labs for Last 24 Hours: Temp Pulse Resp BP Pulse Ox O2 Del Method O2 Flow Rate 99.6 F 91 H 21 106/40 L 90 L Vapotherm 20 05/01/23 15:48 05/01/23 14:10 05/01/23 14:00 05/01/23 14:00 05/01/23 14:10 05/01/23 16:00 05/01/23 16:00 FiO2 55 05/01/23 16:00 Laboratory Results - last 24 hr 04/28/23 14:30: Fluid pH TNP 04/30/23 22:00: Sodium 127 L, Potassium 4.0 D, Chloride 95 L, Carbon Dioxide 30, Anion Gap 6.0, BUN 27 H, Creatinine 0.60 D, Estimated Creat Clear 50, Estimated GFR 99, Est GFR ( Amer) 120 D, Glucose 107 H D, Calcium 8.4, Magnesium 2.5 H, Total Bilirubin 0.5, AST 28 D, ALT 17, Alkaline Phosphatase 218 H, Total Protein 5.1 L, Albumin 2.1 L D, Globulin 3.0, Albumin/Globulin Ratio 0.7 L 04/30/23 22:15: Lactate 1.4 05/01/23 06:32: WBC 22.1 H*, RBC 3.92 L, Hgb 12.8, Hct 41.8, MCV 106.6 H, MCH 32.5 H, MCHC 30.5 L, RDW 14.5, Plt Count 330, MPV 7.5, Neut % (Auto) 86.7 H, Lymph % (Auto) 5.6 L, [place] % (Auto) 7.3, Eos % (Auto) 0.1, Baso % (Auto) 0.2, Neut # (Auto) 19.2 H, Lymph # (Auto) 1.3, [place] # (Auto) 1.6 H, Eos # (Auto) 0.0, Baso # (Auto) 0.0, Total Counted 100, Neutrophils % (Manual) 83 H, Lymphocytes % (Manual) 11, Monocytes % (Manual) 5, Eosinophils % (Manual) 1, Platelet Estimate Normal, Macrocytosis 1+, Sodium 126 L, Potassium 3.7, Chloride 94 L, Carbon Dioxide 31 H, Anion Gap 4.7 L, BUN 24 H, Creatinine 0.60, Estimated Creat Clear 50, Estimated GFR 99, Est GFR ( Amer) 120, Glucose 148 H D, Calcium 8.3 L, Total Bilirubin 0.5, AST 30, ALT 17, Alkaline Phosphatase 245 H, Total Protein 6.0 L, Albumin 2.4 L D, Globulin 3.6 H, Albumin/Globulin Ratio 0.7 L I & O for Last 24 hours: Intake & Output 04/28/23 04/29/23 04/30/23 05/01/23 23:59 23:59 23:59 23:59 Intake Total 4481 / 4481 2987.312 / 2987.312 2457.875 / 2557.875 2524.312 / 2524.312 Output Total 1400 / 1400 800 / 800 200 / 200 450 / 450 Balance 3081 / 3081 2187.312 / 2187.312 2257.875 / 2357.875 2074.312 / 2074.312 Weight 54.544 kg 58.96 kg 58.655 kg 58.658 kg Microbiology Reports for the Last 24 Hours: Microbiology 04/28/23 14:30 Thoracic Fluid Gram Stain - Final 04/28/23 23:33 Urine,Catheterized Urine Culture - Final Constitutional Constitutional: no acute distress *Routine HEENT Exam Head: Present normocephalic Eye: Present EOMI and PERRL ENT: Present mucous membranes moist *Routine Neck Exam Neck: Present supple; Absent lymphadenopathy *Routine Respiratory Exam Respiratory: Present distant breath sounds and diminished air movement *Routine Cardiovascular Exam Cardiovascular: Present RRR *Routine Abdominal Exam Abdominal: Present soft and normoactive bowel sounds; Absent tenderness *Routine Extremities Exam Extremities: Absent cyanosis, clubbing or edema *Routine Skin Exam Skin: Present warm; Absent rash *Routine Neurological Exam Neurological: Present alert and oriented X3 Assessment and Plan *Assessment and plan (1) Severe sepsis: Status: Acute Category: Medical Code(s): A41.9 - Sepsis, unspecified organism; R65.20 - Severe sepsis without septic shock (2) Obstructive pneumonia: Status: Acute Category: Medical Code(s): J18.9 - Pneumonia, unspecified organism (3) Pleural effusion: Status: Acute Category: Medical Code(s): J90 - Pleural effusion, not elsewhere classified (4) Lung mass: Status: Acute Category: Medical Code(s): R91.8 - Other nonspecific abnormal finding of lung field (5) Severe protein-calorie malnutrition: Status: Acute Category: Medical Code(s): E43 - Unspecified severe protein-calorie malnutrition (6) Alcohol abuse: Status: Acute Category: Social Hx Code(s): F10.10 - Alcohol abuse, uncomplicated (7) COPD (chronic obstructive pulmonary disease): Status: Chronic Qualifiers: COPD type: unspecified COPD Qualified Code(s): J44.9 - Chronic obstructive pulmonary disease, unspecified Category: Medical Code(s): J44.9 - Chronic obstructive pulmonary disease, unspecified (8) Hyperlipidemia: Status: Chronic Qualifiers: Hyperlipidemia type: unspecified Qualified Code(s): E78.5 - Hyperlipidemia, unspecified Category: Medical Code(s): E78.5 - Hyperlipidemia, unspecified (9) Hypertension: Status: Chronic Qualifiers: Hypertension type: essential hypertension Qualified Code(s): I10 - Essential (primary) hypertension Category: Medical Code(s): I10 - Essential (primary) hypertension (10) Depression: Status: Chronic Qualifiers: Depression Type: major depressive disorder Major depression recurrence: single episode Active/Remission status: currently active Major depression episode severity: moderate Qualified Code(s): F32.1 - Major depressive disorder, single episode, moderate Category: Medical Code(s): F32.9 - Major depressive disorder, single episode, unspecified (11) Tobacco abuse: Status: Chronic Category: Medical Code(s): Z72.0 - Tobacco use Plan 68-year-old female with multiple comorbidities and progressive weight loss that is unintentional. Presented to the ER with respiratory distress. Concern for obstructive pneumonia with pleural effusion. Discussed case with the ER physician, request admission for antibiotics and further workup of pneumonia. Medicine agreed to admit. Patient with severe sepsis given endorgan dysfunction with kidney injury, respiratory failure, leukocytosis, tachycardia, tachypnea, source of infection with pneumonia. Necessitating inpatient admission. PSI port score of 158. Risk class V, 27 to 29% mortality risk. Problems addressed as follows: Severe sepsis Acute hypoxemic respiratory failure secondary to obstructive pneumonia pleural effusion -CT reviewed along with chest x-ray, pleural effusion with dense consolidation of right lower lobe. Finding of perihilar mass that is obstructing bronchus intermedius. likely lung cancer. - started on Levofloxacin and vancomycin - Pulmonology consulted, Bronch as OP basis - Blood cultures pending - Chest tube drain is in place - DuoNebs every 6 hours scheduled - Comprehensive respiratory panel negative - pleural fluid with greater than 5000 polymorphonuclear cells Pericardial effusion: Seen on CT. Echo pending. Cardiology consulted - following SONIDO: unclear baseline. Monitor Severe protein calorie malnutrition: Will monitor for refeeding syndrome. Initial phosphorus acceptable above 3. Repeat phosphorus for the morning. Alcohol abuse: Drinks at least 6 beers a day along with malnourishment. Rally pack. CIWA protocol with PRN ativan Nutrition consult placed. Folate and multivitamins ordered Nicotine dependence: Nicotine patch as needed Unclear the last time patient was taking any home medications. Will hold hypertensive medications, anxiety meds, treat symptomatically if develops worsening symptoms. Full code Heparin 5000 units TID Regular diet, Nutrition consult needing more vasopressor dosages, continue on vancomycin and cefepime, may need to be intubated - patient consented and verbalized understanding, continue chest tube fluid drain
[2023-05-01] MEDS: AMIODARONE 200MG TABLET 400 MG PO (18:08)
--- NOTE | 2023-05-01 18:21 | XR_ITS ---
PROCEDURE INFORMATION: Exam: XR Chest Exam date and time: 05/01/2023 7:40 PM Age: 68 years old Clinical indication: Dyspnea; Additional info: Increase in work of breathing TECHNIQUE: Imaging protocol: Radiologic exam of the chest. Views: 1 view. COMPARISON: CT ANGIO CHEST PE PROTOCOL 04/30/2023 9:42 AM FINDINGS: Lungs: There is stable opacification of the right hemithorax with worsening aeration of the right upper lung. Stable aeration of the left lung. Pleural spaces: No large effusion or pneumothorax. Heart/Mediastinum: Stable cardiac and mediastinal contours. Bones/joints: No evidence of acute osseous abnormalities within the visualized portions of the thoracic spine and ribs. Osseous structures appear appropriate for patient age. IMPRESSION: There is stable opacification of the right hemithorax with worsening aeration of the right upper lung.
--- NOTE | 2023-05-01 18:23 | PC.NURSE ---
Pt remains on vapotherm. Currently 20 L 60% Levophed titrated per protocol. 10 mcg @ 0830, 8 mcg/min @ 1100, 6 mcg/min @ 1600, 4 mcg @ 1815 and Currently infusing at the rate. Amiodarone gtt has 2 hrs left to infuse. Amiodarone 400 mg PO administered. LR 500 ml bolus administered this shift. along with multivitamin infusion @ 125 ml/hr. Pt noted to have increased work of breathing this eveing. notified. CXR ordered.
[2023-05-01] MEDS: SODIUM CHLORIDE 0.9% 10ML VIAL 10 ML IV (22:19)
[2023-05-01] MEDS: PANTOPRAZOLE 40MG VIAL 40 MG IV (22:19)
[2023-05-02] VITALS (40 sets, daily range): BP systolic 90–124; BP diastolic 51–70; PULSE 80–102; RESP 14–26; TEMP 36.4–36.8; O2SAT 88–100; BMI 21.2
[2023-05-02] MEDS: HEPARIN SODIUM 5,000 UNIT/ML VIAL 5000 UNIT SQ ×3 (01:22→18:17)
[2023-05-02] MEDS: IPRATROPIUM BROMIDE 0.5 MG/2.5ML SOLUTION IH ×6 (02:05→21:58)
[2023-05-02] MEDS: LEVALBUTEROL 0.63MG/3ML NEB 0.630000000000000004 MG IH ×6 (02:05→21:58)
[2023-05-02] MEDS: LORazepam 1MG TABLET 1 MG PO (02:45)
--- NOTE | 2023-05-02 06:23 | XR_ITS ---
PROCEDURE INFORMATION: Exam: XR Chest Exam date and time: 05/02/2023 6:02 AM Age: 68 years old Clinical indication: Condition or disease; Lung condition and disease; Pneumonia; Additional info: Pnm TECHNIQUE: Imaging protocol: Radiologic exam of the chest. Views: 1 view. COMPARISON: CR XR CHEST PORTABLE 05/01/2023 7:40 PM FINDINGS: Lungs: There is similar appearing right pulmonary consolidation/infiltrate with asymmetric volume loss in the right lung. There is mild patchy left lung infiltrate again seen. Pleural spaces: No pneumothorax. Heart/Mediastinum: The heart size is not well assessed. Bones/joints: Unremarkable. IMPRESSION: No significant change.
[2023-05-02] MEDS: FLUTICASONE/UMECLIDIN/VILANTER 100/62.5/25MCG INHALER 1 PUFF IH (06:25)
--- NOTE | 2023-05-02 10:03 | EXP.PULM.PN ---
Subjective *Date: 05/02/23 *Time: 12:32 Interval history: No acute respiratory vents overnight. Patient admits improvement in her respiratory symptoms. Pulmonology Exam Inpatient Vital signs and Labs for Last 24 Hours: Temp Pulse Resp BP Pulse Ox O2 Del Method O2 Flow Rate 97.5 F L 93 H 24 114/64 91 L Vapotherm 20 05/02/23 08:14 05/02/23 06:25 05/02/23 06:00 05/02/23 06:00 05/02/23 06:25 05/02/23 09:30 05/02/23 09:30 FiO2 60 05/02/23 06:25 I & O for Labs for Last 24 Hours: Intake & Output 04/29/23 04/30/23 05/01/23 05/02/23 23:59 23:59 23:59 23:59 Intake Total 2987.312 / 2987.312 2457.875 / 2557.875 3202.312 / 3202.312 335 / 335 Output Total 800 / 800 200 / 200 450 / 450 0 / 0 Balance 2187.312 / 2187.312 2257.875 / 2357.875 2752.312 / 2752.312 335 / 335 Weight 129 lb 15.753 oz 129 lb 5 oz 129 lb 5.1 oz 135 lb 9 oz Microbiology Reports for the Last 24 Hours: Microbiology 04/29/23 15:31 Sputum - Expectorated Sputum Gram Stain - Final 04/28/23 14:30 Thoracic Fluid Gram Stain - Final 04/28/23 14:30 Thoracic Fluid Body Fluid Culture - Preliminary 04/28/23 13:50 Blood Blood Culture - Preliminary 04/28/23 12:50 Blood Blood Culture - Preliminary Constitutional: Present moderate distress Head: Present normocephalic and atraumatic ENT: Present normal exam, normal oropharynx and mucous membranes moist Neck: Present normal inspection and full ROM Respiratory: Present prolonged expiratory phase, respiratory distress, rhonchi, diminished air movement and able to speak in complete sentences; Absent wheezes Cardiac: Present S1/S2, Tachycardia and radial pulses present GI: Present soft and distention; Absent tenderness or guarding Rectal (female): Present deferred (female): Present deferred Skin: Present intact; Absent cyanosis or jaundice Neuro: Present alert, awake and oriented x 3 Extremities: Present normal inspection; Absent clubbing or cyanosis Psychiatric: Present normal affect and cooperative Assessment and Plan *Assessment and plan (1) Lung mass: Status: Acute Category: Medical Code(s): R91.8 - Other nonspecific abnormal finding of lung field (2) Hilar lymphadenopathy: Status: Acute Category: Medical Code(s): R59.0 - Localized enlarged lymph nodes (3) Mediastinal lymphadenopathy: Status: Acute Category: Medical Code(s): R59.0 - Localized enlarged lymph nodes (4) Pneumonia: Status: Acute Qualifiers: Laterality: right Lung location: middle lobe of lung Pneumonia type: due to unspecified organism Qualified Code(s): J18.9 - Pneumonia, unspecified organism Category: Medical Code(s): J18.9 - Pneumonia, unspecified organism (5) Pleural effusion on right: Status: Acute Category: Medical Code(s): J90 - Pleural effusion, not elsewhere classified Plan Ms. Addison is a 68-year-old female greater than [id number] smoker presents hospital worsening respiratory distress cough and productive phlegm patient also admits recent episodes of decreased appetite and weight loss along with fatigue and lack of energy for the last [address] chest upon admission large right hilar mass along with hilar and mediastinal lymphadenopathy along with right middle lobe and lower lobe pulmonary nodules and postobstructive pneumonia. Also noted to have right pleural effusion status post thoracentesis and pericardial effusions. CT abdomen also showed concerning 2.4 cm hypodense lesion. Colonoscopy in December 2022 incomplete, recommended repeat in 2 days at that time On exam patient appeared to be in moderate respiratory distress with bilateral distant breath sounds with mild wheezing. Significant neutrophilic predominant leukocytosis upon admission. Improving. At baseline using Stiolto inhaler. Not using any oxygen. CTA - did not show any obvious evidence of pulmonary embolism. Noted to have worsening right pneumonia/consolidative changes. Pleural fluid cytology resulted negative for malignancy. Cultures negative from pleural fluid. Interval update: No acute respiratory events overnight. Chest x-ray stable with no significant worsening. Continue to show right sided consolidation mass. Decreased output from the chest tube concern for blockage, flush today. Will closely monitor and will consider removing chest tube if no significant output. Improving oxygen status, oxygen commands weaned to 5 L nasal cannula. Will continue to wean as tolerated. Continue to receive vancomycin and cefepime. Sputum showing gram-positive cocci. Blood cultures from admission no growth. Pleural fluid significant amount of white cells but no organisms seen. Negative for malignancy. Nasal MRSA PCR pending. Plan: Continue high flow nasal open supplementation to maintain O2 saturation goal of 90% and above. Currently on 20 L 60%. Continue to wean as tolerated. Continue vancomycin and cefepime x 7 days pending final sputum culture results and nasal MRSA PCR Continue Xopenex and ipratropium every 4 hours scheduled For the noted lung mass and lymphadenopathy we will schedule the patient as an outpatient basis for possible bronchoscopy transbronchial/endobronchial biopsy and EBUS FNA. Echocardiogram showed significant elevated right-sided pressures and hypokinesis. Have previously discussed with the patient extensively regarding the possibility of her current clinical situation getting worse and she is needing intubation and mechanical ventilatory support. Patient agreed to be intubated. Also discussed the possibility of patient needing transfer for higher level of care if her clinical ststus continue to worsen so to have a diagnostic procedure and inpatient chemotherapy. Patient is also willing to pursue that option. It appears that patient does not have a current paperwork for POA to to take medical decisions on her behalf, however patient expressed her wishes that she has a friend who she would like to be her POA at this point of time. Discussed with the primary team and recommended social work and case management consult to look into patient's current paperwork / POA status so to align with current patient's wishes. # Thank for involving pulmonary in this patient care. Will continue to follow.
[2023-05-02 10:56] LABS: Vancomycin,Trough 12.8 ug/mL (5.0-10.0)
[2023-05-02] MEDS: MVI, ADULT NO.1 WITH VIT K 10 ML, THIAMINE HCL 100 MG, MAGNESIUM SULFATE 2 GM in LACTAT... 125 ML IV (11:07)
[2023-05-02] MEDS: AMIODARONE 200MG TABLET 400 MG PO ×2 (11:07→21:22)
[2023-05-02] MEDS: FOLIC ACID 1MG TABLET 1 MG PO (11:07)
[2023-05-02] MEDS: NOREPINEPHRINE BITARTRATE/D5W 8 MG/250 ML PLAST..BAG 2 MG IV (11:08)
--- NOTE | 2023-05-02 11:39 | EXP.PHA.CONS ---
Pharmacy Consult Date: 05/02/23 Time: 11:39 Referring provider: DR. RYAN Reason for Consult:: VANCOMYCIN LEVEK Allergies Allergy/AdvReac Type Severity Reaction Status Date / Time No Known Allergies Allergy Verified 04/28/23 12:56 Home Medications Medication Instructions Recorded Confirmed Type albuterol sulfate 90 mcg/actuation 2 puff inhalation Q4HP PRN 04/28/23 04/28/23 History aerosol inhaler Shortness Of Breath ascorbic acid (vitamin C) 1,000 mg 1,000 mg PO DAILY Supplement 04/28/23 04/28/23 History tablet (Vitamin C) atorvastatin 10 mg tablet 10 mg PO DAILY Cholesterol 04/28/23 04/28/23 History buspirone 10 mg tablet 10 mg PO TID Anxiety 04/28/23 04/28/23 History fluticasone propionate 50 1 spray intranasal DAILY Allergy 04/28/23 04/28/23 History mcg/actuation nasal Symptoms spray,suspension hydroxyzine HCl 50 mg tablet 50 mg PO QIDP PRN Itching 04/28/23 04/28/23 History lisinopril 20 1 tab PO BID High Blood Pressure 04/28/23 04/28/23 History mg-hydrochlorothiazide 25 mg tablet pantoprazole 40 mg tablet,delayed 40 mg PO DAILY Acid Reflux 04/28/23 04/28/23 History release sertraline 100 mg tablet 100 mg PO DAILY Mood 04/28/23 04/28/23 History tiotropium 2.5 mcg-olodaterol 2.5 2 puff inhalation DAILY Breathing 04/28/23 04/28/23 History mcg/actuation mist for inhalation Problems (Stiolto Respimat) New Prescriptions to Start Prescriptions: Height: 1.7 m Weight: 61.49 kg Laboratory Results:: Laboratory Results - last 24 hr 05/02/23 10:20: Vancomycin Trough 12.8 H Medical History: Medical History (Updated 04/29/23 @ 11:43 by Reddy Forrest MD) Alcohol withdrawal Anxiety COPD (chronic obstructive pulmonary disease) Depression Foot pain Fracture of femoral neck, left, closed GERD (gastroesophageal reflux disease) Hilar lymphadenopathy History of deviated nasal septum Hives Hyperlipidemia Hypertension Lumbar back pain with radiculopathy affecting lower extremity Mediastinal lymphadenopathy Pleural effusion on right Pneumonia Urinary incontinence Assessment and Plan Assessment and plan all Dx Assessment and Plan for all problems:: PATIENT'S VANCOMYCIN TROUGH LEVEL WAS 12.8 MCG/ML THIS AM. RECOMMENDED CONTINUING WITH VANCOMYCIN 1250 MG Q24H AT THIS TIME.
[2023-05-02] MEDS: CEFEPIME HCL 2 GM in 0.9 % SODIUM CHLORIDE 100 ML IV ×2 (12:40→23:58)
[2023-05-02] MEDS: VANCOMYCIN/WATER FOR INJ (PEG) 1.25 GM/250 ML PIGGYBACK IV (13:16)
--- NOTE | 2023-05-02 15:32 | EXP.CARD.PN ---
Subjective Subjective Date: 05/02/23 Time: 15:32 Principal diagnosis: SOA, pneumonia, tachycardia Interval history: 68-year-old white female sitting up in bed at about 80 degrees incline Oxygen by nasal cannula and high flow Telemetry shows sinus rhythm Exam Data for Last 24 hours Vital signs and Labs for Last 24 Hours: Temp Pulse Resp BP Pulse Ox O2 Del Method O2 Flow Rate 97.9 F 93 H 22 105/62 L 98 Nasal Cannula 4 05/02/23 15:30 05/02/23 15:00 05/02/23 15:00 05/02/23 15:00 05/02/23 15:00 05/02/23 15:00 05/02/23 15:00 FiO2 60 05/02/23 10:30 Laboratory Results - last 24 hr 05/02/23 10:20: Vancomycin Trough 12.8 H I & O for Last 24 hours: Intake & Output 04/30/23 05/01/23 05/02/23 05/03/23 11:59 11:59 11:59 11:59 Intake Total 2509.000 / 2509.000 3133.687 / 3515.687 2273 / 2273 629 / 629 Output Total 400 / 400 450 / 450 0 / 0 0 / 0 Balance 2109.000 / 2109.000 2683.687 / 3065.687 2273 / 2273 629 / 629 Weight 129 lb 5 oz 129 lb 5.1 oz 135 lb 9 oz Microbiology Reports for the Last 24 Hours: Microbiology 04/28/23 14:30 Thoracic Fluid Gram Stain - Final 04/28/23 14:30 Thoracic Fluid Body Fluid Culture - Preliminary 04/29/23 15:31 Sputum - Expectorated Sputum Gram Stain - Final 04/29/23 15:31 Sputum - Expectorated Sputum Sputum Culture - Preliminary 04/28/23 13:50 Blood Blood Culture - Preliminary 04/28/23 12:50 Blood Blood Culture - Preliminary Constitutional Constitutional: mild distress *Routine Respiratory Exam Respiratory: Present decreased breath sounds and rhonchi *Routine Cardiovascular Exam Cardiovascular: Present RRR and tachycardia Progress Note: A&P Assessment and plan (1) Lung mass: Status: Acute (2) Hilar lymphadenopathy: Status: Acute (3) Mediastinal lymphadenopathy: Status: Acute (4) Pneumonia: Status: Acute (5) Pleural effusion on right: Status: Acute Assessment and Plan Assessment and Plan for All Diagnoses:: 1. Malnutrition and weakness -Multifactorial 2. Sepsis with pneumonia -On antibiotics -Abnormal CT of the chest with right hilar mass concerning for metastatic cancer -Pulmonary following 3. Elevated troponins with pericardial effusion -Echo normal LVEF this admission -Coronary artery calcification noted on CT of the chest 04/28/2019 4. Pleural effusion, status post thoracentesis -Fluid analysis non-malignant -Elevated BNP greater than 19,000 on admission 5. Liver and lung masses with concern for cancer -Defer to pulmonary and hospitalist 6. Chronic alcohol use 7. Tobacco use with suspected COPD -Severe RV dilatation with moderate to severe RV dysfunction with apex appearing hypokinetic compared to the base (possible positive Alonzo sign) -CTA of the chest to rule out pulmonary embolus--negative -RVSP 40-45 mmHg on echocardiogram this admission 8. Abnormal EKG with right bundle branch block, chronic -Tachycardia overnight, resolved with IV BB and IV amiodarone 9. Hypotension related to sepsis. -Continue to hold blood pressure medications -on levophed 10. Moderate mitral annular calcification on echocardiogram this admission 11. Small sized anterior pericardial effusion with no evidence of tamponade on echocardiogram 04/29/2023 -Likely reactionary to pulmonary issues Continues on Levophed for BP support Continue amiodarone for maintenance of NSR Nothing else to add at this time. Will see again on Friday if needed
--- NOTE | 2023-05-02 18:34 | P.PN_ITS ---
Subjective *Date: 05/02/23 *Time: 09:35 Interval history: seen at bedside, alert awake, holding conversations, in respiratory distress Exam Data for Last 24 hours Vital signs and Labs for Last 24 Hours: Temp Pulse Resp BP Pulse Ox O2 Del Method O2 Flow Rate 97.9 F 94 H 20 102/61 L 94 L Nasal Cannula 2 05/02/23 15:30 05/02/23 18:11 05/02/23 18:00 05/02/23 18:00 05/02/23 18:00 05/02/23 18:00 05/02/23 18:00 FiO2 60 05/02/23 10:30 Laboratory Results - last 24 hr 05/02/23 10:20: Vancomycin Trough 12.8 H I & O for Last 24 hours: Intake & Output 04/29/23 04/30/23 05/01/23 05/02/23 23:59 23:59 23:59 23:59 Intake Total 2987.312 / 2987.312 2457.875 / 2557.875 3202.312 / 3202.312 1288.367 / 1288.367 Output Total 800 / 800 200 / 200 450 / 450 150 / 150 Balance 2187.312 / 2187.312 2257.875 / 2357.875 2752.312 / 2752.312 1138.367 / 1138.367 Weight 58.96 kg 58.655 kg 58.658 kg 61.49 kg Microbiology Reports for the Last 24 Hours: Microbiology 04/28/23 14:30 Thoracic Fluid Gram Stain - Final 04/28/23 14:30 Thoracic Fluid Body Fluid Culture - Preliminary 04/29/23 15:31 Sputum - Expectorated Sputum Gram Stain - Final 04/29/23 15:31 Sputum - Expectorated Sputum Sputum Culture - Preliminary 04/28/23 13:50 Blood Blood Culture - Preliminary 04/28/23 12:50 Blood Blood Culture - Preliminary Constitutional Constitutional: no acute distress *Routine HEENT Exam Head: Present normocephalic Eye: Present EOMI and PERRL ENT: Present mucous membranes moist *Routine Neck Exam Neck: Present supple; Absent lymphadenopathy *Routine Respiratory Exam Respiratory: Present distant breath sounds and diminished air movement *Routine Cardiovascular Exam Cardiovascular: Present RRR *Routine Abdominal Exam Abdominal: Present soft and normoactive bowel sounds; Absent tenderness *Routine Extremities Exam Extremities: Absent cyanosis, clubbing or edema *Routine Skin Exam Skin: Present warm; Absent rash *Routine Neurological Exam Neurological: Present alert and oriented X3 Assessment and Plan *Assessment and plan (1) Severe sepsis: Status: Acute Category: Medical Code(s): A41.9 - Sepsis, unspecified organism; R65.20 - Severe sepsis without septic shock (2) Obstructive pneumonia: Status: Acute Category: Medical Code(s): J18.9 - Pneumonia, unspecified organism (3) Pleural effusion: Status: Acute Category: Medical Code(s): J90 - Pleural effusion, not elsewhere classified (4) Lung mass: Status: Acute Category: Medical Code(s): R91.8 - Other nonspecific abnormal finding of lung field (5) Severe protein-calorie malnutrition: Status: Acute Category: Medical Code(s): E43 - Unspecified severe protein-calorie malnutrition (6) Alcohol abuse: Status: Acute Category: Social Hx Code(s): F10.10 - Alcohol abuse, uncomplicated (7) COPD (chronic obstructive pulmonary disease): Status: Chronic Qualifiers: COPD type: unspecified COPD Qualified Code(s): J44.9 - Chronic obstructive pulmonary disease, unspecified Category: Medical Code(s): J44.9 - Chronic obstructive pulmonary disease, unspecified (8) Hyperlipidemia: Status: Chronic Qualifiers: Hyperlipidemia type: unspecified Qualified Code(s): E78.5 - Hyperlipidemia, unspecified Category: Medical Code(s): E78.5 - Hyperlipidemia, unspecified (9) Hypertension: Status: Chronic Qualifiers: Hypertension type: essential hypertension Qualified Code(s): I10 - Essential (primary) hypertension Category: Medical Code(s): I10 - Essential (primary) hypertension (10) Depression: Status: Chronic Qualifiers: Depression Type: major depressive disorder Major depression recurrence: single episode Active/Remission status: currently active Major depression episode severity: moderate Qualified Code(s): F32.1 - Major depressive disorder, single episode, moderate Category: Medical Code(s): F32.9 - Major depressive disorder, single episode, unspecified (11) Tobacco abuse: Status: Chronic Category: Medical Code(s): Z72.0 - Tobacco use Plan 68-year-old female with multiple comorbidities and progressive weight loss that is unintentional. Presented to the ER with respiratory distress. Concern for obstructive pneumonia with pleural effusion. Discussed case with the ER physician, request admission for antibiotics and further workup of pneumonia. Medicine agreed to admit. Patient with severe sepsis given endorgan dysfunction with kidney injury, respiratory failure, leukocytosis, tachycardia, tachypnea, source of infection with pneumonia. Necessitating inpatient admission. PSI port score of 158. Risk class V, 27 to 29% mortality risk. Problems addressed as follows: Severe sepsis Acute hypoxemic respiratory failure secondary to obstructive pneumonia pleural effusion -CT reviewed along with chest x-ray, pleural effusion with dense consolidation of right lower lobe. Finding of perihilar mass that is obstructing bronchus intermedius. likely lung cancer. - started on Levofloxacin and vancomycin - Pulmonology consulted, Bronch as OP basis - Blood cultures pending - Chest tube drain is in place - DuoNebs every 6 hours scheduled - Comprehensive respiratory panel negative - pleural fluid with greater than 5000 polymorphonuclear cells Pericardial effusion: Seen on CT. Echo pending did show high R sided pressures and hypokinesis Cardiology consulted - following SONIDO: unclear baseline. Monitor Severe protein calorie malnutrition: Will monitor for refeeding syndrome. Initial phosphorus acceptable above 3. Repeat phosphorus for the morning. Alcohol abuse: Drinks at least 6 beers a day along with malnourishment. Rally pack. CIWA protocol with PRN ativan Nutrition consult placed. Folate and multivitamins ordered Nicotine dependence: Nicotine patch as needed Unclear the last time patient was taking any home medications. Will hold hypertensive medications, anxiety meds, treat symptomatically if develops wo rsening symptoms. Full code Heparin 5000 units TID Regular diet, Nutrition consult wean vasopressor support, continue on vancomycin and cefepime, continue chest tube drainage
[2023-05-02] MEDS: PANTOPRAZOLE 40MG VIAL 40 MG IV (21:22)
[2023-05-02] MEDS: MELATONIN 5MG TABLET 10 MG PO (21:22)
[2023-05-03] VITALS (22 sets, daily range): BP systolic 89–131; BP diastolic 40–67; PULSE 80–95; RESP 17–24; TEMP 36.4–36.6; O2SAT 88–100; BMI 23.3
[2023-05-03] MEDS: HEPARIN SODIUM 5,000 UNIT/ML VIAL 5000 UNIT SQ ×3 (00:24→18:07)
[2023-05-03] MEDS: IPRATROPIUM BROMIDE 0.5 MG/2.5ML SOLUTION IH ×6 (01:00→21:52)
[2023-05-03] MEDS: LEVALBUTEROL 0.63MG/3ML NEB 0.630000000000000004 MG IH ×6 (01:00→21:52)
--- NOTE | 2023-05-03 06:00 | XR_ITS ---
PROCEDURE INFORMATION: Exam: XR Chest Exam date and time: 05/03/2023 6:30 AM Age: 68 years old Clinical indication: Device placement; Other: Chest tube removal TECHNIQUE: Imaging protocol: Radiologic exam of the chest. Views: 1 view. COMPARISON: CR XR CHEST PORTABLE 05/02/2023 6:02 AM FINDINGS: Lungs: Opacities throughout the right hemithorax and left base may represent multifocal pneumonia.. Pleural spaces: There may be moderate right pleural effusion and smaller left pleural effusion.. . There may be a pleural effusion in the right apex. No pneumothorax is identified Heart/Mediastinum: Cardiomegaly Bones/joints: Unremarkable. IMPRESSION: 1. Opacities throughout the right hemithorax and left base may represent multifocal pneumonia.. 2. There may be moderate right pleural effusion and smaller left pleural effusion..
[2023-05-03] MEDS: FLUTICASONE/UMECLIDIN/VILANTER 100/62.5/25MCG INHALER 1 PUFF IH (06:25)
[2023-05-03] MEDS: FOLIC ACID 1MG TABLET 1 MG PO (08:06)
[2023-05-03] MEDS: AMIODARONE 200MG TABLET 400 MG PO ×2 (08:06→20:16)
[2023-05-03] MEDS: NICOTINE 21MG/24HR PATCH 21 MG TD (08:15)
[2023-05-03 09:28] LABS: Chloride 96 mmol/L (98-107); Potassium 3.6 mmoL/L (3.5-5.1); Sodium 129 mmol/L (136-145)
[2023-05-03 09:30] LABS: Blood Urea Nitrogen 21 mg/dl (7-17); Creatinine Clearance Estimated 57 mL/min (50-200); Estimated Glomerular Filt Rate 71 ml/min (>60); GFR (African American) 86 ML/MIN (>60)
[2023-05-03 09:31] LABS: Alanine Aminotransferase 19 U/L (12-78); Albumin Level 2.4 g/dl (3.5-5.0); Albumin/Globulin Ratio 0.7 (1.1-1.8); Alkaline Phosphatase 188 U/L (38-126); Anion Gap 1.6 mEq/L (5-15); Aspartate Amino Transferase 30 U/L (14-36); Bilirubin,Total 0.3 mg/dl (0.2-1.3); Carbon Dioxide 35 mmol/L (22.0-30.0); Globulin 3.4 g/dL (1.3-3.2); Total Protein,Serum 5.8 g/dl (6.3-8.2)
[2023-05-03 09:32] LABS: Calcium 8.5 mg/dl (8.4-10.2); Glucose 121 mg/dl (74-100)
[2023-05-03 09:50] LABS: Basophils # 0.1 K/mm3 (0-0.2); Basophils % 0.3 % (0.1-2.0); Eosinophils % 0.1 % (0.1-12.0); Hematocrit 41.2 % (37.0-47.0); Hemoglobin 12.4 g/dL (12.2-16.2); Lymphocytes # 1.5 K/mm3 (0.7-4.5); Lymphocytes % 8.3 % (10-50); Mean Corpuscular HGB Conc 30.1 g/dL (31.8-35.4); Mean Corpuscular Hemoglobin 32.6 pg (27.0-31.2); Mean Corpuscular Volume 108.3 fl (81-99); Mean Platelet Volume 8.6 fl (7.4-10.4); Monocytes # 1.2 K/mm3 (0.1-1.0); Monocytes % 6.2 % (1.7-9.3); Neutrophils # 15.7 K/mm3 (1.8-7.8); Neutrophils % 85.1 % (37.0-80.0); Platelet Count 322 K/mm3 (142-424); Red Cell Distribution Width 14.6 % (11.5-17.5); White Blood Count 18.4 K/mm3 (4.8-10.8)
[2023-05-03 09:51] LABS: MANUAL DIFFERENTIAL MANUAL DIFFERENTIAL (MANUAL DIFF)
[2023-05-03] MEDS: MVI, ADULT NO.1 WITH VIT K 10 ML, THIAMINE HCL 100 MG, MAGNESIUM SULFATE 2 GM in LACTAT... 125 ML IV (10:23)
[2023-05-03] MEDS: VANCOMYCIN/WATER FOR INJ (PEG) 1.25 GM/250 ML PIGGYBACK IV (10:26)
--- NOTE | 2023-05-03 11:03 | EXP.PHA.CONS ---
Pharmacy Consult Allergies Allergy/AdvReac Type Severity Reaction Status Date / Time No Known Allergies Allergy Verified 04/28/23 12:56 Home Medications Medication Instructions Recorded Confirmed Type albuterol sulfate 90 mcg/actuation 2 puff inhalation Q4HP PRN 04/28/23 04/28/23 History aerosol inhaler Shortness Of Breath ascorbic acid (vitamin C) 1,000 mg 1,000 mg PO DAILY Supplement 04/28/23 04/28/23 History tablet (Vitamin C) atorvastatin 10 mg tablet 10 mg PO DAILY Cholesterol 04/28/23 04/28/23 History buspirone 10 mg tablet 10 mg PO TID Anxiety 04/28/23 04/28/23 History fluticasone propionate 50 1 spray intranasal DAILY Allergy 04/28/23 04/28/23 History mcg/actuation nasal Symptoms spray,suspension hydroxyzine HCl 50 mg tablet 50 mg PO QIDP PRN Itching 04/28/23 04/28/23 History lisinopril 20 1 tab PO BID High Blood Pressure 04/28/23 04/28/23 History mg-hydrochlorothiazide 25 mg tablet pantoprazole 40 mg tablet,delayed 40 mg PO DAILY Acid Reflux 04/28/23 04/28/23 History release sertraline 100 mg tablet 100 mg PO DAILY Mood 04/28/23 04/28/23 History tiotropium 2.5 mcg-olodaterol 2.5 2 puff inhalation DAILY Breathing 04/28/23 04/28/23 History mcg/actuation mist for inhalation Problems (Stiolto Respimat) New Prescriptions to Start Prescriptions: Height: 1.7 m Weight: 67.49 kg Laboratory Results:: Laboratory Results - last 24 hr 05/02/23 10:20: Vancomycin Trough 12.8 H 05/03/23 09:12: WBC 18.4 H, RBC 3.80 L, Hgb 12.4, Hct 41.2, MCV 108.3 H, MCH 32.6 H, MCHC 30.1 L, RDW 14.6, Plt Count 322, MPV 8.6, Neut % (Auto) 85.1 H, Lymph % (Auto) 8.3 L, [place] % (Auto) 6.2, Eos % (Auto) 0.1, Baso % (Auto) 0.3, Neut # (Auto) 15.7 H, Lymph # (Auto) 1.5, [place] # (Auto) 1.2 H, Eos # (Auto) 0.0, Baso # (Auto) 0.1, Sodium 129 L, Potassium 3.6, Chloride 96 L, Carbon Dioxide 35 H, Anion Gap 1.6 L, BUN 21 H, Creatinine 0.80 D, Estimated Creat Clear 57, Estimated GFR 71, Est GFR ( Amer) 86 D, Glucose 121 H, Calcium 8.5, Total Bilirubin 0.3, AST 30, ALT 19, Alkaline Phosphatase 188 H, Total Protein 5.8 L, Albumin 2.4 L, Globulin 3.4 H, Albumin/Globulin Ratio 0.7 L Medical History: Medical History (Updated 04/29/23 @ 11:43 by Reddy Forrest MD) Alcohol withdrawal Anxiety COPD (chronic obstructive pulmonary disease) Depression Foot pain Fracture of femoral neck, left, closed GERD (gastroesophageal reflux disease) Hilar lymphadenopathy History of deviated nasal septum Hives Hyperlipidemia Hypertension Lumbar back pain with radiculopathy affecting lower extremity Mediastinal lymphadenopathy Pleural effusion on right Pneumonia Urinary incontinence
--- NOTE | 2023-05-03 11:03 | EXP.PHA.PN ---
Subjective *Date: 05/03/23 *Time: 11:03 Medical Exam Vital signs and Labs for Last 24 Hours: Vital Signs Temp Pulse Pulse Resp BP Pulse Ox O2 Del Method 05/03/23 09:20 93 H 05/03/23 09:20 95 H 05/03/23 09:20 89 L Nasal Cannula 05/03/23 09:00 89 20 104/57 L 92 L Nasal Cannula 05/03/23 08:00 90 20 99/56 L 93 L Nasal Cannula 05/03/23 09:00 Nasal Cannula 05/03/23 08:00 85 93 L Nasal Cannula 05/03/23 08:07 97.7 F 05/03/23 07:30 88 20 101/58 L 94 L Nasal Cannula 05/03/23 06:25 88 05/03/23 06:25 88 05/03/23 06:25 93 L Nasal Cannula 05/03/23 06:00 88 17 94/55 L 93 L Nasal Cannula 05/03/23 04:00 95 Nasal Cannula 05/03/23 05:00 86 102/62 L 96 Nasal Cannula 05/03/23 04:00 90 05/03/23 04:00 86 19 131/67 95 Nasal Cannula 05/03/23 03:00 88 23 104/65 L 100 Nasal Cannula 05/02/23 18:00 94 L Nasal Cannula 05/03/23 02:00 91 H 19 98/56 L 100 Nasal Cannula 05/03/23 00:00 90 05/03/23 01:00 91 H 24 113/64 100 Nasal Cannula 05/03/23 01:00 93 H 05/03/23 01:00 94 H 05/03/23 00:00 23 88 L Nasal Cannula 05/03/23 00:00 92 H 18 116/61 88 L Nasal Cannula 05/02/23 23:00 95 H 18 94/55 L 88 L Nasal Cannula 05/02/23 20:00 100 H 05/02/23 22:00 91 H 14 99/58 L 100 Nasal Cannula 05/02/23 21:00 93 H 20 99/59 L 99 Nasal Cannula 05/02/23 21:58 93 H 05/02/23 21:58 93 H 05/02/23 20:00 20 97 Nasal Cannula 05/02/23 20:00 95 H 05/02/23 20:00 95 H 110/65 91 L Nasal Cannula 05/02/23 19:00 93 H 14 97/51 L 98 Nasal Cannula 05/02/23 18:59 Nasal Cannula 05/02/23 18:00 93 H 20 102/61 L 94 L Nasal Cannula 05/02/23 18:11 94 H 05/02/23 18:11 96 H 05/02/23 16:00 96 H 90 L Nasal Cannula 05/02/23 17:00 Nasal Cannula 05/02/23 17:00 95 H 22 112/60 93 L Nasal Cannula 05/02/23 16:00 93 H 22 94/57 L 94 L Nasal Cannula 05/02/23 16:00 90 05/02/23 12:00 90 05/02/23 15:30 97.9 F 05/02/23 15:00 Nasal Cannula 05/02/23 15:00 93 H 22 105/62 L 98 Nasal Cannula 05/02/23 14:30 92 H 22 97/62 L 98 Nasal Cannula 05/02/23 14:00 99 H 20 118/57 L 91 L Nasal Cannula 05/02/23 13:30 99 H 20 119/60 93 L Nasal Cannula 05/02/23 13:00 93 H 20 103/60 L 96 Nasal Cannula 05/02/23 12:30 94 H 20 109/59 L 92 L Nasal Cannula 05/02/23 12:00 94 H 20 102/59 L 97 Nasal Cannula 05/02/23 11:30 94 H 22 105/64 L 92 L Nasal Cannula 05/02/23 13:51 98 H 05/02/23 13:51 99 H 05/02/23 12:00 94 H 97 Nasal Cannula 05/02/23 13:00 Nasal Cannula 05/02/23 11:32 97.9 F O2 Flow Rate 05/03/23 09:20 05/03/23 09:20 05/03/23 09:20 2 05/03/23 09:00 2 05/03/23 08:00 2 05/03/23 09:00 3 05/03/23 08:00 2 05/03/23 08:07 05/03/23 07:30 2 05/03/23 06:25 05/03/23 06:25 05/03/23 06:25 2 05/03/23 06:00 2 05/03/23 04:00 2 05/03/23 05:00 2 05/03/23 04:00 05/03/23 04:00 2 05/03/23 03:00 2 05/02/23 18:00 3 05/03/23 02:00 2 05/03/23 00:00 05/03/23 01:00 2 05/03/23 01:00 05/03/23 01:00 05/03/23 00:00 2 05/03/23 00:00 1 05/02/23 23:00 2 05/02/23 20:00 05/02/23 22:00 4 05/02/23 21:00 4 05/02/23 21:58 05/02/23 21:58 05/02/23 20:00 4 05/02/23 20:00 05/02/23 20:00 4 05/02/23 19:00 4 05/02/23 18:59 3 05/02/23 18:00 2 05/02/23 18:11 05/02/23 18:11 05/02/23 16:00 4 05/02/23 17:00 2 05/02/23 17:00 2 05/02/23 16:00 4 05/02/23 16:00 05/02/23 12:00 05/02/23 15:30 05/02/23 15:00 4 05/02/23 15:00 4 05/02/23 14:30 4 05/02/23 14:00 4 05/02/23 13:30 4 05/02/23 13:00 4 05/02/23 12:30 4 05/02/23 12:00 4 05/02/23 11:30 4 05/02/23 13:51 05/02/23 13:51 05/02/23 12:00 4 05/02/23 13:00 4 05/02/23 11:32 Intake and Output 05/02/23 05/03/23 05/03/23 23:59 07:59 15:59 Intake Total 324.367 / 6340.043 5598 / 1740 600 / 1740 Output Total 150 / 150 40 / 40 Balance 174.367 / 3808.559 3099 / 1700 600 / 1700 Intake: Intake, Oral Amount 120 / 400 40 / 640 600 / 640 Intake, Total IV Amount 204.367 / 651.261 7428 / 1100 Cefepime HCl 2 gm In 0.9 % 100 / 100 Sodium Chloride 100 ml @ 200 mls/hr IV Q12H COUNT INCLUDES THE [facility] Rx#:[id number] Mvi, Adult No.1 with Vit K 10 1000 / 1000 ml Thiamine HCl 100 mg Magnesium Sulfate 2 gm In Lactated Ringers 1000ML 1,000 ml @ 125 mls/hr IV DAILY COUNT INCLUDES THE [facility] Rx #:[id number] Mvi, Adult No.1 with Vit K 10 190 / 190 ml Thiamine HCl 100 mg Magnesium Sulfate 2 gm In Lactated Ringers 1000ML 1,000 ml @ 125 mls/hr IV DAILY COUNT INCLUDES THE [facility] Rx #:[id number] Output: Output, Urine Amount 0 / 0 40 / 40 Output, Drainage Amount 150 / 150 Right Anterior Lateral Chest 150 / 150 Other: Number of Unmeasured Voids 1 1 Weight 67.49 kg Patient Weight 05/03/23 23:59 Weight 67.49 kg Laboratory Results - last 24 hr 05/02/23 10:20: Vancomycin Trough 12.8 H 05/03/23 09:12: WBC 18.4 H, RBC 3.80 L, Hgb 12.4, Hct 41.2, MCV 108.3 H, MCH 32.6 H, MCHC 30.1 L, RDW 14.6, Plt Count 322, MPV 8.6, Neut % (Auto) 85.1 H, Lymph % (Auto) 8.3 L, [place] % (Auto) 6.2, Eos % (Auto) 0.1, Baso % (Auto) 0.3, Neut # (Auto) 15.7 H, Lymph # (Auto) 1.5, Kay # (Auto) 1.2 H, Eos # (Auto) 0.0, Baso # (Auto) 0.1, Sodium 129 L, Potassium 3.6, Chloride 96 L, Carbon Dioxide 35 H, Anion Gap 1.6 L, BUN 21 H, Creatinine 0.80 D, Estimated Creat Clear 57, Estimated GFR 71, Est GFR ( Amer) 86 D, Glucose 121 H, Calcium 8.5, Total Bilirubin 0.3, AST 30, ALT 19, Alkaline Phosphatase 188 H, Total Protein 5.8 L, Albumin 2.4 L, Globulin 3.4 H, Albumin/Globulin Ratio 0.7 L I & O for Labs for Last 24 Hours: Intake & Output 04/30/23 05/01/23 05/02/23 05/03/23 23:59 23:59 23:59 23:59 Intake Total 2457.875 / 2557.875 3202.312 / 3202.312 1288.367 / 7650.534 3806 / 1740 Output Total 200 / 200 450 / 450 150 / 150 40 / 40 Balance 2257.875 / 2357.875 2752.312 / 2752.312 1138.367 / 7719.652 2905 / 1700 Weight 58.655 kg 58.658 kg 61.49 kg 67.49 kg Microbiology Reports for the Last 24 Hours: Microbiology 04/28/23 13:50 Blood Blood Culture - Preliminary 04/28/23 12:50 Blood Blood Culture - Preliminary 04/28/23 14:30 Thoracic Fluid Gram Stain - Final 04/28/23 14:30 Thoracic Fluid Body Fluid Culture - Preliminary 04/29/23 15:31 Sputum - Expectorated Sputum Gram Stain - Final 04/29/23 15:31 Sputum - Expectorated Sputum Sputum Culture - Preliminary The patient's infection will respond to the chosen ABx?: Yes Is the patient receiving the right drug, dose, and route?: Yes Could a more targeted ABx be ordered?: No (AFEBRILE,WBC DOWN, CULTURES PRELIM OR NEGATIVE.)
--- NOTE | 2023-05-03 12:49 | XR_ITS ---
PROCEDURE INFORMATION: Exam: XR Chest Exam date and time: 05/03/2023 1:35 PM Age: 68 years old Clinical indication: Shortness of breath; Additional info: SOA TECHNIQUE: Imaging protocol: Radiologic exam of the chest. Views: 1 view. COMPARISON: CR XR CHEST PORTABLE 05/03/2023 6:30 AM FINDINGS: Lungs: Diffuse opacity throughout the right hemithorax and left base may represent multifocal pneumonia.. Pleural spaces: There may be moderate to large right pleural effusion.. Heart/Mediastinum: Cardiac silhouette is not well delineated due to surrounding opacity. Bones/joints: Unremarkable. IMPRESSION: 1. There may be moderate to large right pleural effusion.. 2. Diffuse opacity throughout the right hemithorax and left base may represent multifocal pneumonia.. 3. Cardiac silhouette is not well delineated due to surrounding opacity.
[2023-05-03 12:56] LABS: Eosinophils % 1 % (0-3); Lymphocytes % 3 % (10-50); Monocytes % 5 % (2-9); Neutrophils % 85 % (42-76); Total Cells Counted 100
[2023-05-03 12:57] LABS: Anisocytosis 1+; Macrocytosis 1+; Platelet Estimate Normal; Poikilocytosis 1+
[2023-05-03 13:06] LABS: Spherocytes 1+; Target Cells 1+
[2023-05-03] MEDS: CEFEPIME HCL 2 GM in 0.9 % SODIUM CHLORIDE 100 ML IV ×2 (13:08→21:46)
[2023-05-03] MEDS: FUROSEMIDE 40MG/4ML VIAL 40 MG IV (14:01)
--- NOTE | 2023-05-03 15:59 | PC.NURSE ---
pt was up to the chair for approx 30 mins around lunch time. pt was an assist x 2 but was hesitant to attempt to step to the chair. with encouragement pt was able to get to the chair with no issue. pt returned to the bed for a chest xray and breathing treatment. pt has periodically stated that she is soa and frequently asking for a breathing treatment, sats are noted to be in the low 90's at those times but pt is also noted to be curled in the position with her chin tucked in. when pt is repositioned pt is noted to have improvement in breathing. pt is a/o x 4, lungs are diminished t/o in the right with scattered wheezes. bowel sounds are active. nad noted.
--- NOTE | 2023-05-03 18:21 | P.PN_ITS ---
Subjective *Date: 05/03/23 *Time: 18:21 Interval history: seen at bedside, alert awake, holding conversations, in respiratory distress but better than yesterday Exam Data for Last 24 hours Vital signs and Labs for Last 24 Hours: Temp Pulse Resp BP Pulse Ox O2 Del Method O2 Flow Rate 97.9 F 90 22 89/40 L 90 L Nasal Cannula 3 05/03/23 15:34 05/03/23 16:00 05/03/23 15:34 05/03/23 15:34 05/03/23 15:34 05/03/23 17:00 05/03/23 17:00 FiO2 60 05/02/23 10:30 Laboratory Results - last 24 hr 05/03/23 09:12: WBC 18.4 H, RBC 3.80 L, Hgb 12.4, Hct 41.2, MCV 108.3 H, MCH 32.6 H, MCHC 30.1 L, RDW 14.6, Plt Count 322, MPV 8.6, Neut % (Auto) 85.1 H, Lymph % (Auto) 8.3 L, [place] % (Auto) 6.2, Eos % (Auto) 0.1, Baso % (Auto) 0.3, Neut # (Auto) 15.7 H, Lymph # (Auto) 1.5, [place] # (Auto) 1.2 H, Eos # (Auto) 0.0, Baso # (Auto) 0.1, Total Counted 100, Neutrophils % (Manual) 85 H, Band Neutrophils % 6.0, Lymphocytes % (Manual) 3 L, Monocytes % (Manual) 5, Eosinophils % (Manual) 1, Platelet Estimate Normal, Poikilocytosis 1+, Anisocytosis 1+, Macrocytosis 1+, Spherocytes 1+, Target Cells 1+, Sodium 129 L, Potassium 3.6, Chloride 96 L, Carbon Dioxide 35 H, Anion Gap 1.6 L, BUN 21 H, Creatinine 0.80 D, Estimated Creat Clear 57, Estimated GFR 71, Est GFR ( Amer) 86 D, Glucose 121 H, Calcium 8.5, Total Bilirubin 0.3, AST 30, ALT 19, Alkaline Phosphatase 188 H, Total Protein 5.8 L, Albumin 2.4 L, Globulin 3.4 H, Albumin/Globulin Ratio 0.7 L I & O for Last 24 hours: Intake & Output 04/30/23 05/01/23 05/02/23 05/03/23 23:59 23:59 23:59 23:59 Intake Total 2457.875 / 2557.875 3202.312 / 3202.312 1288.367 / 5087.523 0494 / 2580 Output Total 200 / 200 450 / 450 150 / 150 640 / 640 Balance 2257.875 / 2357.875 2752.312 / 2752.312 1138.367 / 4372.147 6541 / 1940 Weight 58.655 kg 58.658 kg 61.49 kg 67.49 kg Microbiology Reports for the Last 24 Hours: Microbiology 04/28/23 13:50 Blood Blood Culture - Preliminary 04/28/23 12:50 Blood Blood Culture - Preliminary 04/28/23 14:30 Thoracic Fluid Gram Stain - Final 04/28/23 14:30 Thoracic Fluid Body Fluid Culture - Preliminary 04/29/23 15:31 Sputum - Expectorated Sputum Gram Stain - Final 04/29/23 15:31 Sputum - Expectorated Sputum Sputum Culture - Preliminary Constitutional Constitutional: no acute distress *Routine HEENT Exam Head: Present normocephalic Eye: Present EOMI and PERRL ENT: Present mucous membranes moist *Routine Neck Exam Neck: Present supple; Absent lymphadenopathy *Routine Respiratory Exam Respiratory: Present CTA bilaterally *Routine Cardiovascular Exam Cardiovascular: Present RRR *Routine Abdominal Exam Abdominal: Present soft and normoactive bowel sounds; Absent tenderness *Routine Extremities Exam Extremities: Absent cyanosis, clubbing or edema *Routine Skin Exam Skin: Present warm; Absent rash *Routine Neurological Exam Neurological: Present alert and oriented X3 Assessment and Plan *Assessment and plan (1) Severe sepsis: Status: Acute Category: Medical Code(s): A41.9 - Sepsis, unspecified organism; R65.20 - Severe sepsis without septic shock (2) Obstructive pneumonia: Status: Acute Category: Medical Code(s): J18.9 - Pneumonia, unspecified organism (3) Pleural effusion: Status: Acute Category: Medical Code(s): J90 - Pleural effusion, not elsewhere classified (4) Lung mass: Status: Acute Category: Medical Code(s): R91.8 - Other nonspecific abnormal finding of lung field (5) Severe protein-calorie malnutrition: Status: Acute Category: Medical Code(s): E43 - Unspecified severe protein-calorie malnutrition (6) Alcohol abuse: Status: Acute Category: Social Hx Code(s): F10.10 - Alcohol abuse, uncomplicated (7) COPD (chronic obstructive pulmonary disease): Status: Chronic Qualifiers: COPD type: unspecified COPD Qualified Code(s): J44.9 - Chronic obstructive pulmonary disease, unspecified Category: Medical Code(s): J44.9 - Chronic obstructive pulmonary disease, unspecified (8) Hyperlipidemia: Status: Chronic Qualifiers: Hyperlipidemia type: unspecified Qualified Code(s): E78.5 - Hyperlipidemia, unspecified Category: Medical Code(s): E78.5 - Hyperlipidemia, unspecified (9) Hypertension: Status: Chronic Qualifiers: Hypertension type: essential hypertension Qualified Code(s): I10 - Essential (primary) hypertension Category: Medical Code(s): I10 - Essential (primary) hypertension (10) Depression: Status: Chronic Qualifiers: Depression Type: major depressive disorder Major depression recurrence: single episode Active/Remission status: currently active Major depression episode severity: moderate Qualified Code(s): F32.1 - Major depressive disorder, single episode, moderate Category: Medical Code(s): F32.9 - Major depressive disorder, single episode, unspecified (11) Tobacco abuse: Status: Chronic Category: Medical Code(s): Z72.0 - Tobacco use Plan 68-year-old female with multiple comorbidities and progressive weight loss that is unintentional. Presented to the ER with respiratory distress. Concern for obstructive pneumonia with pleural effusion. Discussed case with the ER physician, request admission for antibiotics and further workup of pneumonia. Medicine agreed to admit. Patient with severe sepsis given endorgan dysfunction with kidney injury, respiratory failure, leukocytosis, tachycardia, tachypnea, source of infection with pneumonia. Necessitating inpatient admission. PSI port score of 158. Risk class V, 27 to 29% mortality risk. Problems addressed as follows: Severe sepsis Acute hypoxemic respiratory failure secondary to obstructive pneumonia pleural effusion -CT reviewed along with chest x-ray, pleural effusion with dense consolidation of right lower lobe. Finding of perihilar mass that is obstructing bronchus intermedius. likely lung cancer. - started on Levofloxacin and vancomycin - Pulmonology consulted, Bronch as OP basis - Blood cultures pending - Chest tube drain is in place - DuoNebs every 6 hours scheduled - Comprehensive respiratory panel negative - pleural fluid with greater than 5000 polymorphonuclear cells Pericardial effusion: Seen on CT. Echo pending did show high R sided pressures and hypokinesis Cardiology consulted - following SONIDO: unclear baseline. Monitor Severe protein calorie malnutrition: Will monitor for refeeding syndrome. Initial phosphorus acceptable above 3. Repeat phosphorus for the morning. Alcohol abuse: Drinks at least 6 beers a day along with malnourishment. Rally pack. CIWA protocol with PRN ativan Nutrition consult placed. Folate and multivitamins ordered Nicotine dependence: Nicotine patch as needed Unclear the last time patient was taking any home medications. Will hold hypertensive medications, anxiety meds, treat symptomatically if develops worsening symptoms. Full code Heparin 5000 units TID Regular diet, Nutrition consult weaned off of vasopressor support, continue on vancomycin and cefepime, Chest drainiage is out, discussed with pulmonary, wean o2 as tolerated, ok for medsurge
[2023-05-03] MEDS: MELATONIN 5MG TABLET 10 MG PO (20:16)
[2023-05-03] MEDS: PANTOPRAZOLE 40MG TABLET 40 MG PO (20:16)
[2023-05-03] MEDS: LORazepam 1MG TABLET 1 MG PO (22:37)
[2023-05-04] VITALS (18 sets, daily range): BP systolic 87–117; BP diastolic 45–71; PULSE 73–98; RESP 19–28; TEMP 36.3–36.7; O2SAT 87–97
[2023-05-04] MEDS: HEPARIN SODIUM 5,000 UNIT/ML VIAL 5000 UNIT SQ ×3 (01:10→17:58)
[2023-05-04] MEDS: LEVALBUTEROL 0.63MG/3ML NEB 0.630000000000000004 MG IH ×5 (01:47→17:30)
[2023-05-04] MEDS: IPRATROPIUM BROMIDE 0.5 MG/2.5ML SOLUTION IH ×5 (01:47→17:30)
[2023-05-04] MEDS: LORazepam 1MG TABLET 1 MG PO ×2 (04:43→20:39)
--- NOTE | 2023-05-04 05:27 | PC.NURSE ---
Patient has had a rough shift. Patient around 2330 patient was extremely restless and agitated stating she could not breath. Patient O at this time had already been increased to 5L NC. Patient was stating high 80s on this patient was not tachypnea. Provider was called and came to the bedside. It was decided for the patient comfort to go head and apply Vapotherm at 25L and 60%. After switching her and giving her PRN medication the patient calmed down and was able to sleep through most of the shift. Patient did wake up around 5am doing the same thing, stating she couldn't breath. PRN medication was giving and the patient has since calmed down. Patient was incontinent twice this shift requiring a full bed change and a partial bath to be given. No other issues arose during the shift
[2023-05-04] MEDS: FLUTICASONE/UMECLIDIN/VILANTER 100/62.5/25MCG INHALER 1 PUFF IH (06:20)
[2023-05-04] MEDS: VANCOMYCIN/WATER FOR INJ (PEG) 1.25 GM/250 ML PIGGYBACK IV (08:52)
[2023-05-04] MEDS: FOLIC ACID 1MG TABLET 1 MG PO (08:52)
[2023-05-04] MEDS: AMIODARONE 200MG TABLET 400 MG PO ×2 (08:54→20:40)
[2023-05-04] MEDS: CEFEPIME HCL 2 GM in 0.9 % SODIUM CHLORIDE 100 ML IV ×2 (11:06→21:39)
--- NOTE | 2023-05-04 17:01 | PC.NURSE ---
charge nurse read 1600 tele strip showing 1st degree bbb. notified md as this is a change from 1200. per amilcar cont to monitor.
--- NOTE | 2023-05-04 17:19 | ECG_ITS ---
APPROVED REPORT Exam: Resting ECG HR:94 bpm ECG Measurements Heart Rate 94 AXES CA 166 P 69 QRSd 122 QRS 138 QT 299 T 82 QTc 351 Conclusion SINUS RHYTHM WITH OCCASIONAL SUPRAVENTRICULAR PREMATURE COMPLEXES POSSIBLE LEFT ATRIAL ENLARGEMENT [-0.1mV P-WAVE IN V1/V2] RIGHT AXIS DEVIATION [QRS AXIS > 100] RIGHT BUNDLE BRANCH BLOCK [120+ ms QRS DURATION, UPRIGHT V1, 40+ ms S IN I/aVL/V4/V5/V6] ABNORMAL ECG UNCONFIRMED REPORT Electronically signed by : Monster Bhatia MD 05/05/2023 17:56:20
--- NOTE | 2023-05-04 17:24 | EXP.PN ---
Subjective *Date: 05/04/23 *Time: 17:24 Interval history: seen at bedside, alert awake, in respiratory distress, appears lethargic today, but wakes up and holds conversations Exam Data for Last 24 hours Vital signs and Labs for Last 24 Hours: Temp Pulse Resp BP Pulse Ox O2 Del Method O2 Flow Rate 97.6 F 95 H 19 113/71 94 L Room Air 5 05/04/23 15:02 05/04/23 16:00 05/04/23 15:02 05/04/23 15:02 05/04/23 15:02 05/04/23 17:00 05/04/23 15:02 FiO2 50 05/04/23 09:42 I & O for Last 24 hours: Intake & Output 05/01/23 05/02/23 05/03/23 05/04/23 23:59 23:59 23:59 23:59 Intake Total 3202.312 / 3202.312 1288.367 / 5163.448 2374 / 2780 200 / 200 Output Total 450 / 450 150 / 150 1040 / 1040 Balance 2752.312 / 2752.312 1138.367 / 0785.862 8644 / 1740 200 / 200 Weight 58.658 kg 61.49 kg 67.49 kg 58.014 kg Constitutional Constitutional: no acute distress *Routine HEENT Exam Head: Present normocephalic Eye: Present EOMI and PERRL ENT: Present mucous membranes moist *Routine Neck Exam Neck: Present supple; Absent lymphadenopathy *Routine Respiratory Exam Respiratory: Present CTA bilaterally *Routine Cardiovascular Exam Cardiovascular: Present RRR *Routine Abdominal Exam Abdominal: Present soft and normoactive bowel sounds; Absent tenderness *Routine Extremities Exam Extremities: Absent cyanosis, clubbing or edema *Routine Skin Exam Skin: Present warm; Absent rash *Routine Neurological Exam Neurological: Present alert and oriented X3 Assessment and Plan *Assessment and plan (1) Severe sepsis: Status: Acute Category: Medical Code(s): A41.9 - Sepsis, unspecified organism; R65.20 - Severe sepsis without septic shock (2) Obstructive pneumonia: Status: Acute Category: Medical Code(s): J18.9 - Pneumonia, unspecified organism (3) Pleural effusion: Status: Acute Category: Medical Code(s): J90 - Pleural effusion, not elsewhere classified (4) Lung mass: Status: Acute Category: Medical Code(s): R91.8 - Other nonspecific abnormal finding of lung field (5) Severe protein-calorie malnutrition: Status: Acute Category: Medical Code(s): E43 - Unspecified severe protein-calorie malnutrition (6) Alcohol abuse: Status: Acute Category: Social Hx Code(s): F10.10 - Alcohol abuse, uncomplicated (7) COPD (chronic obstructive pulmonary disease): Status: Chronic Qualifiers: COPD type: unspecified COPD Qualified Code(s): J44.9 - Chronic obstructive pulmonary disease, unspecified Category: Medical Code(s): J44.9 - Chronic obstructive pulmonary disease, unspecified (8) Hyperlipidemia: Status: Chronic Qualifiers: Hyperlipidemia type: unspecified Qualified Code(s): E78.5 - Hyperlipidemia, unspecified Category: Medical Code(s): E78.5 - Hyperlipidemia, unspecified (9) Hypertension: Status: Chronic Qualifiers: Hypertension type: essential hypertension Qualified Code(s): I10 - Essential (primary) hypertension Category: Medical Code(s): I10 - Essential (primary) hypertension (10) Depression: Status: Chronic Qualifiers: Depression Type: major depressive disorder Major depression recurrence: single episode Active/Remission status: currently active Major depression episode severity: moderate Qualified Code(s): F32.1 - Major depressive disorder, single episode, moderate Category: Medical Code(s): F32.9 - Major depressive disorder, single episode, unspecified (11) Tobacco abuse: Status: Chronic Category: Medical Code(s): Z72.0 - Tobacco use Plan 68-year-old female with multiple comorbidities and progressive weight loss that is unintentional. Presented to the ER with respiratory distress. Concern for obstructive pneumonia with pleural effusion. Discussed case with the ER physician, request admission for antibiotics and further workup of pneumonia. Medicine agreed to admit. Patient with severe sepsis given endorgan dysfunction with kidney injury, respiratory failure, leukocytosis, tachycardia, tachypnea, source of infection with pneumonia. Necessitating inpatient admission. PSI port score of 158. Risk class V, 27 to 29% mortality risk. Problems addressed as follows: Severe sepsis Acute hypoxemic respiratory failure secondary to obstructive pneumonia pleural effusion -CT reviewed along with chest x-ray, pleural effusion with dense consolidation of right lower lobe. Finding of perihilar mass that is obstructing bronchus intermedius. likely lung cancer. - started on Levofloxacin and vancomycin - Pulmonology consulted, Bronch as OP basis - Blood cultures pending - Chest tube drain is in place - DuoNebs every 6 hours scheduled - Comprehensive respiratory panel negative - pleural fluid with greater than 5000 polymorphonuclear cells Pericardial effusion: Seen on CT. Echo pending did show high R sided pressures and hypokinesis Cardiology consulted - following SONIDO: unclear baseline. Monitor Severe protein calorie malnutrition: Will monitor for refeeding syndrome. Initial phosphorus acceptable above 3. Repeat phosphorus for the morning. Alcohol abuse: Drinks at least 6 beers a day along with malnourishment. Rally pack. CIWA protocol with PRN ativan Nutrition consult placed. Folate and multivitamins ordered Nicotine dependence: Nicotine patch as needed Unclear the last time patient was taking any home medications. Will hold hypertensive medications, anxiety meds, treat symptomatically if develops worsening symptoms. Full code Heparin 5000 units TID Regular diet, Nutrition consult weaned off of vasopressor support, continue on vancomycin and cefepime, Chest drainiage is out, reepeat CXR tomorrow, wean o2 as tolerated, ok for medsurge
--- NOTE | 2023-05-04 17:58 | XR_ITS ---
PROCEDURE INFORMATION: Exam: XR Chest Exam date and time: 05/04/2023 6:24 PM Age: 68 years old Clinical indication: Shortness of breath; Additional info: SOB TECHNIQUE: Imaging protocol: Radiologic exam of the chest. Views: 1 view. COMPARISON: CR XR CHEST PORTABLE 05/03/2023 1:35 PM FINDINGS: Lungs: Unchanged right lung opacities. Pleural spaces: Persistent moderate to large right pleural effusion. Heart/Mediastinum: Grossly unchanged. Bones/joints: No acute findings. IMPRESSION: Persistent moderate to large right pleural effusion and right lung opacities.
--- NOTE | 2023-05-04 18:06 | PC.NURSE ---
EKG obtained due to rhythm change noted on telemetry, EKG taken to Dr. Holley, no new orders received
[2023-05-04] MEDS: FUROSEMIDE 40MG/4ML VIAL 40 MG IV ×2 (19:03→21:33)
--- NOTE | 2023-05-04 19:08 | PC.NURSE ---
pts neighbor/ mailman visited, stating pts house is being cleaned out by the landlord so it can be demolished. also stated electricity has been turned off and pt does have bed bugs/other bugs in the home. home is not livable.
[2023-05-04] MEDS: MELATONIN 5MG TABLET 10 MG PO (20:40)
--- NOTE | 2023-05-04 21:13 | DIET.NUTRFU ---
Patient is showing decline in meal intake, 0% to refusal. Having increase trouble breathing using Vapotherm. She is severe PCM, may need to consider wished for enteral nutrition.
[2023-05-04 21:47] LABS: ABG Base Excess 7.9 mmol/L (-2.4-2.3); ABG HCO3 33.4 mmhg (22.0-26.0); ABG Oxygen Saturation 97 % (90-100); ABG PH 7.35 mmol/L (7.35-7.45); ABG PO2 87.2 mmhg (80-100); ABG TCO2 35.3 mmhg (23-27)
[2023-05-04 21:51] LABS: Allen's Test Y; Oxygen 50 %; Source Right Radial
[2023-05-04 21:57] LABS: ABG PCO2 61.4 mmhg (35.0-45.0)
--- NOTE | 2023-05-04 23:41 | PC.NURSE ---
upon my 1999 assessment the patient lungs were extremely rhonci. and patient was stating she couldnt breath. Patient very restless and agitated. Patient was on 5 LNC at this time. Patient was stating appropriately above 90%. Patient then started to destat into the high 80s and it was determined that the patient should be put on Vapotherm. Patient was still voicing that she could not breath and very restless. RN then notifed respiratory and provider of the situation. Provider determined to put patient on bipap. and Dr Rincon was called and updated. he wanted a stat ABG. ABG was done by respiratory see results. Those results were translated to Dr rincon by Respiratory. Patient kept the bipap on from around 2100 till about 2230 then patient would not keep the bipap on it was determined by respiratory then to put patient back on vapotherm
[2023-05-05] VITALS (24 sets, daily range): BP systolic 96–126; BP diastolic 51–67; PULSE 76–102; RESP 20–28; TEMP 36.2–36.5; O2SAT 90–96
[2023-05-05] MEDS: HEPARIN SODIUM 5,000 UNIT/ML VIAL 5000 UNIT SQ ×3 (02:18→16:06)
[2023-05-05] MEDS: LORazepam 1MG TABLET 1 MG PO ×2 (02:43→10:20)
[2023-05-05] MEDS: LEVALBUTEROL 0.63MG/3ML NEB 0.630000000000000004 MG IH ×6 (02:45→21:57)
[2023-05-05] MEDS: IPRATROPIUM BROMIDE 0.5 MG/2.5ML SOLUTION IH ×6 (02:45→21:57)
--- NOTE | 2023-05-05 03:27 | PC.NURSE ---
Addendum entered by Huma Paez RN 05/05/23 05:52: Patient wore the bipap for 30min before she refused to wear it anymore. Patient was put back on the vapotherm at 35L Original Note: Placed patient back on bipap as patient respiratory status has declined. Patient instructed that she needs to wear bipap for as long as possible. Provider is at the bedside trying to tell the patient it is important to wear bipap. Provider is ordering an ABG.
[2023-05-05 03:55] LABS: ABG Base Excess 9.4 mmol/L (-2.4-2.3); ABG HCO3 34.3 mmhg (22.0-26.0); ABG Oxygen Saturation 95 % (90-100); ABG PH 7.39 mmol/L (7.35-7.45); ABG PO2 71.4 mmhg (80-100); ABG TCO2 36.1 mmhg (23-27)
[2023-05-05 03:56] LABS: Allen's Test Y; Oxygen 50 %; Source Right Radial
[2023-05-05 03:57] LABS: ABG PCO2 57.9 mmhg (35.0-45.0)
[2023-05-05] MEDS: FLUTICASONE/UMECLIDIN/VILANTER 100/62.5/25MCG INHALER 1 PUFF IH (06:08)
[2023-05-05] MEDS: AMIODARONE 200MG TABLET 400 MG PO (08:26)
[2023-05-05] MEDS: FOLIC ACID 1MG TABLET 1 MG PO (08:27)
--- NOTE | 2023-05-05 08:59 | US_ITS ---
FINAL REPORT TECHNIQUE: Limited sonographic imaging of the chest was obtained to evaluate for pleural effusion. CLINICAL HISTORY: check for pleural effusion right side FINDINGS: There is a small to moderate loculated right pleural effusion. IMPRESSION: Small to moderate loculated right pleural effusion. Reviewed, Interpreted and Dictated by Akin Vee III, MD Transcribed by Jinny Oscar Authenticated and [facility]
[2023-05-05 09:09] LABS: Basophils % 0.2 % (0.1-2.0); Eosinophils % 0.1 % (0.1-12.0); Hematocrit 40.5 % (37.0-47.0); Hemoglobin 12.1 g/dL (12.2-16.2); Lymphocytes # 0.7 K/mm3 (0.7-4.5); Lymphocytes % 3.5 % (10-50); Mean Corpuscular HGB Conc 29.9 g/dL (31.8-35.4); Mean Corpuscular Hemoglobin 31.8 pg (27.0-31.2); Mean Corpuscular Volume 106.1 fl (81-99); Mean Platelet Volume 8.8 fl (7.4-10.4); Monocytes # 0.9 K/mm3 (0.1-1.0); Monocytes % 4.4 % (1.7-9.3); Neutrophils # 17.8 K/mm3 (1.8-7.8); Neutrophils % 91.8 % (37.0-80.0); Platelet Count 350 K/mm3 (142-424); Red Blood Count 3.82 M/mm3 (4.20-5.40); Red Cell Distribution Width 14.7 % (11.5-17.5); White Blood Count 19.4 K/mm3 (4.8-10.8)
[2023-05-05 09:11] LABS: MANUAL DIFFERENTIAL MANUAL DIFFERENTIAL (MANUAL DIFF)
[2023-05-05 09:12] LABS: Anion Gap 6.4 mEq/L (5-15); Blood Urea Nitrogen 26 mg/dl (7-17); Calcium 8.7 mg/dl (8.4-10.2); Carbon Dioxide 38 mmol/L (22.0-30.0); Chloride 92 mmol/L (98-107); Creatinine Clearance Estimated 45 mL/min (50-200); Estimated Glomerular Filt Rate 49 ml/min (>60); GFR (African American) 60 ML/MIN (>60); Glucose 91 mg/dl (74-100); Sodium 134 mmol/L (136-145)
[2023-05-05 09:23] LABS: Potassium 2.4 mmoL/L (3.5-5.1); Vancomycin,Trough 23.8 ug/mL (5.0-10.0)
--- NOTE | 2023-05-05 09:43 | P.CONPHA_ITS ---
Pharmacy Consult Date: 05/05/23 Time: 09:47 Referring provider: DR FORREST Reason for Consult:: VANCOMYCIN TROUGH LEVEL OBTAINED. Allergies Allergy/AdvReac Type Severity Reaction Status Date / Time No Known Allergies Allergy Verified 04/28/23 12:56 Home Medications Medication Instructions Recorded Confirmed Type albuterol sulfate 90 mcg/actuation 2 puff inhalation Q4HP PRN 04/28/23 04/28/23 History aerosol inhaler Shortness Of Breath ascorbic acid (vitamin C) 1,000 mg 1,000 mg PO DAILY Supplement 04/28/23 04/28/23 History tablet (Vitamin C) atorvastatin 10 mg tablet 10 mg PO DAILY Cholesterol 04/28/23 04/28/23 History buspirone 10 mg tablet 10 mg PO TID Anxiety 04/28/23 04/28/23 History fluticasone propionate 50 1 spray intranasal DAILY Allergy 04/28/23 04/28/23 History mcg/actuation nasal Symptoms spray,suspension hydroxyzine HCl 50 mg tablet 50 mg PO QIDP PRN Itching 04/28/23 04/28/23 History lisinopril 20 1 tab PO BID High Blood Pressure 04/28/23 04/28/23 History mg-hydrochlorothiazide 25 mg tablet pantoprazole 40 mg tablet,delayed 40 mg PO DAILY Acid Reflux 04/28/23 04/28/23 History release sertraline 100 mg tablet 100 mg PO DAILY Mood 04/28/23 04/28/23 History tiotropium 2.5 mcg-olodaterol 2.5 2 puff inhalation DAILY Breathing 04/28/23 04/28/23 History mcg/actuation mist for inhalation Problems (Stiolto Respimat) New Prescriptions to Start Prescriptions: Height: 1.7 m Weight: 58.014 kg Laboratory Results:: Laboratory Results - last 24 hr 05/04/23 21:28: Specimen Source Right radial, O2 % 50, ABG pH 7.35, ABG pCO2 61.4 H, ABG pO2 87.2, ABG HCO3 33.4 H, ABG Total CO2 35.3 H, ABG O2 Saturation 97, ABG Base Excess 7.9 H, Daryl Test Y 05/05/23 03:30: Specimen Source Right radial, O2 % 50, ABG pH 7.39, ABG pCO2 57.9 H, ABG pO2 71.4 L, ABG HCO3 34.3 H, ABG Total CO2 36.1 H, ABG O2 Saturation 95, ABG Base Excess 9.4 H, Daryl Test Y 05/05/23 08:42: WBC 19.4 H, RBC 3.82 L, Hgb 12.1 L, Hct 40.5, MCV 106.1 H, MCH 31.8 H, MCHC 29.9 L, RDW 14.7, Plt Count 350, MPV 8.8, Neut % (Auto) 91.8 H, Lymph % (Auto) 3.5 L, [place] % (Auto) 4.4, Eos % (Auto) 0.1, Baso % (Auto) 0.2, Neut # (Auto) 17.8 H, Lymph # (Auto) 0.7, [place] # (Auto) 0.9, Eos # (Auto) 0.0, Baso # (Auto) 0.0, Sodium 134 L, Potassium 2.4 L* D, Chloride 92 L, Carbon Dioxide 38 H, Anion Gap 6.4, BUN 26 H, Creatinine 1.10 H D, Estimated Creat Clear 45, Estimated GFR 49 L, Est GFR ( Amer) 60 D, Glucose 91, Calcium 8.7, Vancomycin Trough 23.8 H Medical History: Medical History (Updated 04/29/23 @ 11:43 by Reddy Forrest MD) Alcohol withdrawal Anxiety COPD (chronic obstructive pulmonary disease) Depression Foot pain Fracture of femoral neck, left, closed GERD (gastroesophageal reflux disease) Hilar lymphadenopathy History of deviated nasal septum Hives Hyperlipidemia Hypertension Lumbar back pain with radiculopathy affecting lower extremity Mediastinal lymphadenopathy Pleural effusion on right Pneumonia Urinary incontinence Assessment and Plan Assessment and plan all Dx Assessment and Plan for all problems:: VANCOMYCIN TROUGH LEVEL OBTAINED. VANCOMYCIN TROUGH: 23.8 MCG/ML (05/05/23 08:42) Percent above / below IBW: -5.5 % CRCL: 44.8 (ml/min). BMI: 20.07 Bello: 0.042 (hr-1) Adjusted body weight: 58.0 kg T 1/2: 16.50 (hrs) Serum Creatinine: 1.1 mg/dL ti (hrs): 2.0 Dosing weight: 58.014 kg Vd (liters): 34.8084 liters (factor used: 0.6 L/kg). Dosing weight: Total body weight is being used for vancomycin dosing. CRCL method: Cockcroft and Gault using IBW CLvanco= 1.462 L/hr RECOMMENDED DOSE AND PREDICTED LEVELS Based on a selected AUC 0-24 of 500 mg?h/literled Recommended dose: 792 mg Recommended Interval: 26 hrs Predicted peak: 35.0 mcg/ml. Predicted trough: 12.51 mcg/ml. AUC 0-24 /BOB (based on an BOB of 1 mg/L): 500 ~Target: 400 - 600. RECOMMENDATION: New dose: 750 MG New interval: 24 hrs GIVE VANCOMYCIN 750 MG EVERY 24 HOURS, START 05/05/23 AT 20:00. FINAL VALUES - NEW REGIMEN Predicted values: PEAK: 32.5 mcg/ml TROUGH: 12.90 mcg/ml AUC 0-24 /BOB Data: BOB 0.5 mcg/mL: AUC/BOB: 1026.0 BOB 1.0 mcg/mL: AUC/BOB: 513.0 BOB 1.5 mcg/mL: AUC/BOB: 342.0
[2023-05-05 09:55] LABS: Hypochromasia 1+; Platelet Estimate Normal; Total Cells Counted 100
[2023-05-05] MEDS: CEFEPIME HCL 2 GM in 0.9 % SODIUM CHLORIDE 100 ML IV (09:56)
[2023-05-05 09:58] LABS: Lymphocytes % 6 % (10-50); Neutrophils % 88 % (42-76)
[2023-05-05 09:59] LABS: Monocytes % 6 % (2-9)
[2023-05-05 10:00] LABS: Macrocytosis 1+
[2023-05-05 10:02] LABS: Anisocytosis 1+; Target Cells 1+
--- NOTE | 2023-05-05 10:09 | EXP.PULM.PN ---
Subjective *Date: 05/05/23 *Time: 15:34 Interval history: Continued worsening respiratory distress. Pulmonology Exam Inpatient Vital signs and Labs for Last 24 Hours: Temp Pulse Resp BP Pulse Ox O2 Del Method O2 Flow Rate 97.4 F L 99 H 27 H 115/59 L 91 L Vapotherm 35 05/05/23 07:59 05/05/23 09:26 05/05/23 09:00 05/05/23 09:00 05/05/23 09:00 05/05/23 09:00 05/05/23 08:00 FiO2 50 05/05/23 06:10 Laboratory Results - last 24 hr 05/04/23 21:28: Specimen Source Right radial, O2 % 50, ABG pH 7.35, ABG pCO2 61.4 H, ABG pO2 87.2, ABG HCO3 33.4 H, ABG Total CO2 35.3 H, ABG O2 Saturation 97, ABG Base Excess 7.9 H, Daryl Test Y 05/05/23 03:30: Specimen Source Right radial, O2 % 50, ABG pH 7.39, ABG pCO2 57.9 H, ABG pO2 71.4 L, ABG HCO3 34.3 H, ABG Total CO2 36.1 H, ABG O2 Saturation 95, ABG Base Excess 9.4 H, Daryl Test Y 05/05/23 08:42: WBC 19.4 H, RBC 3.82 L, Hgb 12.1 L, Hct 40.5, MCV 106.1 H, MCH 31.8 H, MCHC 29.9 L, RDW 14.7, Plt Count 350, MPV 8.8, Neut % (Auto) 91.8 H, Lymph % (Auto) 3.5 L, [place] % (Auto) 4.4, Eos % (Auto) 0.1, Baso % (Auto) 0.2, Neut # (Auto) 17.8 H, Lymph # (Auto) 0.7, [place] # (Auto) 0.9, Eos # (Auto) 0.0, Baso # (Auto) 0.0, Total Counted 100, Neutrophils % (Manual) 88 H, Lymphocytes % (Manual) 6 L, Monocytes % (Manual) 6, Platelet Estimate Normal, Hypochromasia 1+, Anisocytosis 1+, Macrocytosis 1+, Target Cells 1+, Sodium 134 L, Potassium 2.4 L* D, Chloride 92 L, Carbon Dioxide 38 H, Anion Gap 6.4, BUN 26 H, Creatinine 1.10 H D, Estimated Creat Clear 45, Estimated GFR 49 L, Est GFR ( Amer) 60 D, Glucose 91, Calcium 8.7, Vancomycin Trough 23.8 H I & O for Labs for Last 24 Hours: Intake & Output 05/02/23 05/03/23 05/04/23 05/05/23 23:59 23:59 23:59 23:59 Intake Total 1288.367 / 4333.907 2907 / 2780 200 / 300 100 / 100 Output Total 150 / 150 1040 / 1040 0 / 0 400 / 400 Balance 1138.367 / 2815.291 7027 / 1740 200 / 300 -300 / -300 Weight 135 lb 9 oz 148 lb 12.64 oz 127 lb 14.4 oz 127 lb 14.4 oz Microbiology Reports for the Last 24 Hours: Microbiology 04/29/23 15:31 Sputum - Expectorated Sputum Gram Stain - Final 04/29/23 15:31 Sputum - Expectorated Sputum Sputum Culture - Final 04/28/23 14:30 Thoracic Fluid Gram Stain - Final 04/28/23 14:30 Thoracic Fluid Body Fluid Culture - Final 05/01/23 18:50 Nose - Nasal MRSA Culture - Final Constitutional: Present moderate distress Head: Present normocephalic and atraumatic ENT: Present normal exam, normal oropharynx and mucous membranes moist Neck: Present normal inspection and full ROM Respiratory: Present prolonged expiratory phase, respiratory distress, rhonchi and diminished air movement; Absent wheezes or able to speak in complete sentences Cardiac: Present S1/S2, Tachycardia and radial pulses present GI: Present soft and distention; Absent tenderness or guarding Rectal (female): Present deferred (female): Present deferred Skin: Present intact; Absent cyanosis or jaundice Neuro: Present awake; Absent alert or oriented x 3 Extremities: Present normal inspection; Absent clubbing or cyanosis Psychiatric: Present normal affect and cooperative Assessment and Plan *Assessment and plan (1) Lung mass: Status: Acute Category: Medical Code(s): R91.8 - Other nonspecific abnormal finding of lung field (2) Hilar lymphadenopathy: Status: Acute Category: Medical Code(s): R59.0 - Localized enlarged lymph nodes (3) Mediastinal lymphadenopathy: Status: Acute Category: Medical Code(s): R59.0 - Localized enlarged lymph nodes (4) Pneumonia: Status: Acute Qualifiers: Laterality: right Lung location: middle lobe of lung Pneumonia type: due to unspecified organism Qualified Code(s): J18.9 - Pneumonia, unspecified organism Category: Medical Code(s): J18.9 - Pneumonia, unspecified organism (5) Pleural effusion on right: Status: Acute Category: Medical Code(s): J90 - Pleural effusion, not elsewhere classified Plan Ms. Addison is a 68-year-old female greater than [id number] smoker presents hospital worsening respiratory distress cough and productive phlegm patient also admits recent episodes of decreased appetite and weight loss along with fatigue and lack of energy for the last [address] chest upon admission large right hilar mass along with hilar and mediastinal lymphadenopathy along with right middle lobe and lower lobe pulmonary nodules and postobstructive pneumonia. Also noted to have right pleural effusion status post thoracentesis and pericardial effusions. CT abdomen also showed concerning 2.4 cm hypodense lesion. Colonoscopy in December 2022 incomplete, recommended repeat in 2 days at that time On exam patient appeared to be in moderate respiratory distress with bilateral distant breath sounds with mild wheezing. Significant neutrophilic predominant leukocytosis upon admission. Improving. At baseline using Stiolto inhaler. Not using any oxygen. CTA - did not show any obvious evidence of pulmonary embolism. Noted to have worsening right pneumonia/consolidative changes. Pleural fluid cytology resulted negative for malignancy. Cultures negative from pleural fluid. Sputum showing gram-positive cocci. Blood cultures from admission no growth. Pleural fluid significant amount of white cells but no organisms seen. Negative for malignancy. Nasal MRSA PCR pending. Interval update: Significant worsening respiratory distress over the weekend. Oxygen requirements worsened from 5 L nasal cannula to high flow nasal cannula. Chest tube accidentally dislodged no longer present. Continue to receive vancomycin and cefepime no significant improvement in leukocytosis. No significant worsening either. ABG from overnight and this morning did not show any significant evidence of hypercarbic respiratory failure. pH is 7.39 pCO2 57.9. pO2 at 71.4. Ultrasound ultrasound of this morning mild to moderate pleural effusion with loculations. Also concerning for adjacent necrotizing pneumonia. Nasal MRSA PCR negative. Follow this patient clinical status show no significant net improvement since admission despite broad-spectrum antibiotics chest tube drainage. I am concerned the patient is having worsening necrotizing post obstructive pneumonia and worsening lymphangitic spread of her cancer as seen on her CAT scan that send been contributing to her worsening respiratory distress at this point of time along with her loculated effusion. I do not think she will be an ideal candidate for VATS at this point of time given her necrotizing pneumonia. However given her worsening respiratory distress she would benefit from care at a higher level [facility] with possible bronchoscopy transbronchial biopsy repeat cultures determining the etiology of her pneumonia as sputum culture unyielding at this point of time with continued worsening of air space disease despite being on Vancomycin and cefepime for 7 days and for possible chest tube for her moderate loculated pleural effusion. Plan: Change antibiotics to meropenem Continue high flow nasal oxygen supplementation to maintain O2 saturation goal of 90 to 95% Continue Xopenex and ipratropium every 4 hours scheduled Echocardiogram from admission showed significant elevated right-sided pressures and hypokinesis. Have previously discussed with the patient extensively regarding the possibility of her current clinical situation getting worse and she is needing intubation and mechanical ventilatory support. Patient agreed to be intubated. Also discussed the possibility of patient needing transfer for higher level of care if her clinical ststus continue to worsen so to have a diagnostic procedure and inpatient chemotherapy. Patient is also willing to pursue that option. It appears that patient does not have a current paperwork for POA to to take medical decisions on her behalf, however patient expressed her wishes that she has a friend who she would like to be her POA at this point of time. Discussed with the primary team and recommended social work and case management consult to look into patient's current paperwork / POA status so to align with current patient's wishes. # Thank for involving pulmonary in this patient care. Will continue to follow.
--- NOTE | 2023-05-05 10:10 | XR_ITS ---
FINAL REPORT CLINICAL HISTORY: Hypoxia COMPARISON: 05/04/2023 FINDINGS: A single portable view of the chest was obtained. The heart size and pulmonary vascularity are within normal limits. The mediastinum is within normal limits. Persistent bilateral pulmonary opacities, right greater than left, or consistent with pneumonia. There are worsening opacities at the left lung base. The bony thorax is intact. IMPRESSION: Persistent pulmonary opacities consistent with pneumonia. Worsening left lung base opacities. Reviewed, Interpreted and Dictated by Akin Vee III, MD Transcribed by Jesi Choudhury Authenticated and [facility]
[2023-05-05] MEDS: KCl 10mEq/100ml 100 ML 100 MEQ IV ×3 (10:49→13:29)
--- NOTE | 2023-05-05 11:30 | PC.NURSE ---
RESP CARE NOTE: Pt weaned to 35L/65% FIO2 via vaptherm, per Dr Forrest.
--- NOTE | 2023-05-05 14:05 | EXP.EVENT.NO ---
Discussed with pulmonary regarding patient transfer, transfer was initiated. Patient accepted by [facility], ICU admit, by Dr. Marc, gave phone Hand off and went over patient status and chart in detail
--- NOTE | 2023-05-05 14:25 | P.PN_ITS ---
Subjective *Date: 05/05/23 *Time: 14:43 Interval history: seen at bedside, alert awake, frail and weak appearing, patient has not been eating well. appears in respiratory distress, she is on vapotherm Exam Data for Last 24 hours Vital signs and Labs for Last 24 Hours: Temp Pulse Resp BP Pulse Ox O2 Del Method O2 Flow Rate 97.7 F 84 21 104/51 L 94 L Vapotherm 35 05/05/23 12:00 05/05/23 14:00 05/05/23 14:00 05/05/23 14:00 05/05/23 14:00 05/05/23 14:00 05/05/23 14:00 FiO2 50 05/05/23 06:10 Laboratory Results - last 24 hr 05/04/23 21:28: Specimen Source Right radial, O2 % 50, ABG pH 7.35, ABG pCO2 61.4 H, ABG pO2 87.2, ABG HCO3 33.4 H, ABG Total CO2 35.3 H, ABG O2 Saturation 97, ABG Base Excess 7.9 H, Daryl Test Y 05/05/23 03:30: Specimen Source Right radial, O2 % 50, ABG pH 7.39, ABG pCO2 57.9 H, ABG pO2 71.4 L, ABG HCO3 34.3 H, ABG Total CO2 36.1 H, ABG O2 Saturation 95, ABG Base Excess 9.4 H, Daryl Test Y 05/05/23 08:42: WBC 19.4 H, RBC 3.82 L, Hgb 12.1 L, Hct 40.5, MCV 106.1 H, MCH 31.8 H, MCHC 29.9 L, RDW 14.7, Plt Count 350, MPV 8.8, Neut % (Auto) 91.8 H, Lymph % (Auto) 3.5 L, [place] % (Auto) 4.4, Eos % (Auto) 0.1, Baso % (Auto) 0.2, Neut # (Auto) 17.8 H, Lymph # (Auto) 0.7, [place] # (Auto) 0.9, Eos # (Auto) 0.0, Baso # (Auto) 0.0, Total Counted 100, Neutrophils % (Manual) 88 H, Lymphocytes % (Manual) 6 L, Monocytes % (Manual) 6, Platelet Estimate Normal, Hypochromasia 1+, Anisocytosis 1+, Macrocytosis 1+, Target Cells 1+, Sodium 134 L, Potassium 2.4 L* D, Chloride 92 L, Carbon Dioxide 38 H, Anion Gap 6.4, BUN 26 H, Creatinine 1.10 H D, Estimated Creat Clear 45, Estimated GFR 49 L, Est GFR ( Amer) 60 D, Glucose 91, Calcium 8.7, Vancomycin Trough 23.8 H I & O for Last 24 hours: Intake & Output 05/02/23 05/03/23 05/04/23 05/05/23 23:59 23:59 23:59 23:59 Intake Total 1288.367 / 0619.923 2473 / 2780 200 / 300 200 / 200 Output Total 150 / 150 1040 / 1040 0 / 0 400 / 400 Balance 1138.367 / 6850.375 2468 / 1740 200 / 300 -200 / -200 Weight 61.49 kg 67.49 kg 58.014 kg 58.014 kg Microbiology Reports for the Last 24 Hours: Microbiology 04/29/23 15:31 Sputum - Expectorated Sputum Gram Stain - Final 04/29/23 15:31 Sputum - Expectorated Sputum Sputum Culture - Final 04/28/23 14:30 Thoracic Fluid Gram Stain - Final 04/28/23 14:30 Thoracic Fluid Body Fluid Culture - Final 05/01/23 18:50 Nose - Nasal MRSA Culture - Final Constitutional Constitutional: no acute distress *Routine HEENT Exam Head: Present normocephalic Eye: Present EOMI and PERRL ENT: Present mucous membranes moist *Routine Neck Exam Neck: Present supple; Absent lymphadenopathy *Routine Respiratory Exam Respiratory: Present respiratory distress, distant breath sounds and diminished air movement Comments: decreased breathing sound on Right *Routine Cardiovascular Exam Cardiovascular: Present RRR *Routine Abdominal Exam Abdominal: Present soft and normoactive bowel sounds; Absent tenderness *Routine Extremities Exam Extremities: Absent cyanosis, clubbing or edema *Routine Skin Exam Skin: Present warm; Absent rash *Routine Neurological Exam Neurological: Present alert and oriented X3 Assessment and Plan *Assessment and plan (1) Severe sepsis: Status: Acute Category: Medical Code(s): A41.9 - Sepsis, unspecified organism; R65.20 - Severe sepsis without septic shock (2) Obstructive pneumonia: Status: Acute Category: Medical Code(s): J18.9 - Pneumonia, unspecified organism (3) Pleural effusion: Status: Acute Category: Medical Code(s): J90 - Pleural effusion, not elsewhere classified (4) Lung mass: Status: Acute Category: Medical Code(s): R91.8 - Other nonspecific abnormal finding of lung field (5) Severe protein-calorie malnutrition: Status: Acute Category: Medical Code(s): E43 - Unspecified severe protein-calorie malnutrition (6) Alcohol abuse: Status: Acute Category: Social Hx Code(s): F10.10 - Alcohol abuse, uncomplicated (7) COPD (chronic obstructive pulmonary disease): Status: Chronic Qualifiers: COPD type: unspecified COPD Qualified Code(s): J44.9 - Chronic obstructive pulmonary disease, unspecified Category: Medical Code(s): J44.9 - Chronic obstructive pulmonary disease, unspecified (8) Hyperlipidemia: Status: Chronic Qualifiers: Hyperlipidemia type: unspecified Qualified Code(s): E78.5 - Hyperlipidemia, unspecified Category: Medical Code(s): E78.5 - Hyperlipidemia, unspecified (9) Hypertension: Status: Chronic Qualifiers: Hypertension type: essential hypertension Qualified Code(s): I10 - Essential (primary) hypertension Category: Medical Code(s): I10 - Essential (primary) hypertension (10) Depression: Status: Chronic Qualifiers: Active/Remission status: currently active Depression Type: major depressive disorder Major depression episode severity: moderate Major depression recurrence: single episode Qualified Code(s): F32.1 - Major depressive disorder, single episode, moderate Category: Medical Code(s): F32.9 - Major depressive disorder, single episode, unspecified (11) Tobacco abuse: Status: Chronic Category: Medical Code(s): Z72.0 - Tobacco use Plan 68-year-old female with multiple comorbidities and progressive weight loss that is unintentional. Presented to the ER with respiratory distress. Concern for obstructive pneumonia with pleural effusion. Discussed case with the ER physi terrence, request admission for antibiotics and further workup of pneumonia. Medicine agreed to admit. Patient with severe sepsis given endorgan dysfunction with kidney injury, respiratory failure, leukocytosis, tachycardia, tachypnea, source of infection with pneumonia. Necessitating inpatient admission. PSI port score of 158. Risk class V, 27 to 29% mortality risk. Problems addressed as follows: Severe sepsis Acute hypoxemic respiratory failure secondary to obstructive pneumonia Recurring pleural effusion On repeat CXR - PNA is getting worse -CT reviewed along with chest x-ray, pleural effusion with dense consolidation of right lower lobe. Finding of perihilar mass that is obstructing bronchus intermedius. likely lung cancer. - started on Levofloxacin and vancomycin - Pulmonology consulted, Bronch as OP basis - Blood cultures pending - NGTD - Chest tube drain came out - DuoNebs every 6 hours scheduled - Comprehensive respiratory panel negative - pleural fluid with greater than 5000 polymorphonuclear cells, negative for cytology Pericardial effusion: Seen on CT. Echo pending did show high R sided pressures and hypokinesis Cardiology consulted - following SONIDO: baseline around 0.6 to 0.8 Monitor avoid nehrotoxic meds Severe protein calorie malnutrition: Will monitor for refeeding syndrome. Initial phosphorus acceptable above 3. Repeat phosphorus for the morning. Alcohol abuse: Drinks at least 6 beers a day along with malnourishment. Rally pack. CIWA protocol with PRN ativan Nutrition consult placed. Folate and multivitamins ordered Nicotine dependence: Nicotine patch as needed Unclear the last time patient was taking any home medications. Full code Heparin 5000 units TID Regular diet, Nutrition consult
[2023-05-05] MEDS: MEROPENEM 1 GM in 0.9 % SODIUM CHLORIDE 100 ML IV (14:34)
--- NOTE | 2023-05-05 14:42 | PC.NURSE ---
patient stated she was ok with her daughter to make medical decisions in the event the patient could not make them herself
[2023-05-05] MEDS: LORazepam 2MG/ML VIAL 1 MG IV (14:58)
--- NOTE | 2023-05-05 15:20 | PC.NURSE ---
vapotherm 35L65%. Lung sounds inspiratory rhonshi on ascultation. VS stable. CIWA assessed, score of 8, prn ativan given. Will reassess per protocol. Patient alert and oriented X4.
--- NOTE | 2023-05-05 16:49 | P.PN_ITS ---
Subjective Subjective Date: 05/05/23 Time: 13:30 Principal diagnosis: SOA, pneumonia, tachycardia Interval history: The patient is sleeping when I walk him but she does arouse easily. She is very frail and weak appearing today. She has not been eating. Her vital signs are stable. She does appear to have some respiratory distress and is on Vapotherm. She does not answer any of my questions or respond to any of my commands today. Exam Data for Last 24 hours Vital signs and Labs for Last 24 Hours: Temp Pulse Resp BP Pulse Ox O2 Del Method O2 Flow Rate 97.7 F 84 21 104/51 L 94 L Vapotherm 35 05/05/23 16:00 05/05/23 14:00 05/05/23 14:00 05/05/23 14:00 05/05/23 14:00 05/05/23 14:45 05/05/23 14:45 FiO2 50 05/05/23 06:10 Laboratory Results - last 24 hr 05/04/23 21:28: Specimen Source Right radial, O2 % 50, ABG pH 7.35, ABG pCO2 61.4 H, ABG pO2 87.2, ABG HCO3 33.4 H, ABG Total CO2 35.3 H, ABG O2 Saturation 97, ABG Base Excess 7.9 H, Daryl Test Y 05/05/23 03:30: Specimen Source Right radial, O2 % 50, ABG pH 7.39, ABG pCO2 57.9 H, ABG pO2 71.4 L, ABG HCO3 34.3 H, ABG Total CO2 36.1 H, ABG O2 Saturation 95, ABG Base Excess 9.4 H, Daryl Test Y 05/05/23 08:42: WBC 19.4 H, RBC 3.82 L, Hgb 12.1 L, Hct 40.5, MCV 106.1 H, MCH 31.8 H, MCHC 29.9 L, RDW 14.7, Plt Count 350, MPV 8.8, Neut % (Auto) 91.8 H, Lymph % (Auto) 3.5 L, [place] % (Auto) 4.4, Eos % (Auto) 0.1, Baso % (Auto) 0.2, Neut # (Auto) 17.8 H, Lymph # (Auto) 0.7, [place] # (Auto) 0.9, Eos # (Auto) 0.0, Baso # (Auto) 0.0, Total Counted 100, Neutrophils % (Manual) 88 H, Lymphocytes % (Manual) 6 L, Monocytes % (Manual) 6, Platelet Estimate Normal, Hypochromasia 1+, Anisocytosis 1+, Macrocytosis 1+, Target Cells 1+, Sodium 134 L, Potassium 2.4 L* D, Chloride 92 L, Carbon Dioxide 38 H, Anion Gap 6.4, BUN 26 H, Creatinine 1.10 H D, Estimated Creat Clear 45, Estimated GFR 49 L, Est GFR ( Amer) 60 D, Glucose 91, Calcium 8.7, Vancomycin Trough 23.8 H I & O for Last 24 hours: Intake & Output 05/02/23 05/03/23 05/04/23 05/05/23 23:59 23:59 23:59 23:59 Intake Total 1288.367 / 5333.199 7243 / 2780 200 / 300 600 / 600 Output Total 150 / 150 1040 / 1040 0 / 0 400 / 400 Balance 1138.367 / 8417.430 9020 / 1740 200 / 300 200 / 200 Weight 135 lb 9 oz 148 lb 12.64 oz 127 lb 14.4 oz 127 lb 14.4 oz Microbiology Reports for the Last 24 Hours: Microbiology 04/29/23 15:31 Sputum - Expectorated Sputum Gram Stain - Final 04/29/23 15:31 Sputum - Expectorated Sputum Sputum Culture - Final 04/28/23 14:30 Thoracic Fluid Gram Stain - Final 04/28/23 14:30 Thoracic Fluid Body Fluid Culture - Final 05/01/23 18:50 Nose - Nasal MRSA Culture - Final Constitutional Constitutional: moderate distress, thin and chronically ill appearing *Routine HEENT Exam Head: Present normocephalic and atraumatic ENT: Present mucous membranes moist *Routine Neck Exam Neck: Present full ROM and normal carotid upstroke; Absent JVD, carotid bruit or lymphadenopathy *Routine Respiratory Exam Respiratory: Present rhonchi, wheezes and diminished air movement *Routine Cardiovascular Exam Cardiovascular: Present RRR, Normal S1 and Normal S2; Absent murmur or gallop *Routine Abdominal Exam Abdominal: Present soft and normoactive bowel sounds; Absent tenderness, distended or organomegaly *Routine Extremities Exam Extremities: Present full ROM, pulses intact and normal capillary refill; Absent cyanosis, clubbing or edema *Routine Skin Exam Skin: Present intact and warm; Absent erythema Progress Note: A&P Assessment and plan (1) Lung mass: Status: Acute (2) Hilar lymphadenopathy: Status: Acute (3) Mediastinal lymphadenopathy: Status: Acute (4) Pneumonia: Status: Acute (5) Pleural effusion on right: Status: Acute (6) Pericardial effusion: Status: Acute (7) Paroxysmal atrial fibrillation: Status: Acute Assessment and Plan Assessment and Plan for All Diagnoses:: Plan: 1. The patient was admitted to the hospital with malnutrition and respiratory failure. The patient did have elevated troponins with pericardial effusion. She did have a normal EF on this admission. 2. The patient does have a pleural effusion status postthoracentesis which was nonmalignant. 3. The patient does have liver and lung masses with concern for cancer. This is being followed by pulmonology. Will defer. 4. Her blood pressure is well-controlled at this time. 5. Her LDL goal is less than 100. 6. The patient did have a small sized anterior pericardial effusion with no evidence of tamponade. Will repeat a limited echocardiogram in the morning. 7. Continue amiodarone for maintenance of sinus rhythm secondary to paroxysmal atrial fibrillation. He is on heparin for anticoagulation. 8.No further recommendations at this time from a cardiac standpoint unless she has worsening of her pericardial effusion on repeat limited echocardiogram tomorrow. Please contact cardiology again if any other cardiac issues arise throughout her hospitalization. Thank you for the opportunity to participate in the care of this patient. All recommendations and orders are per Dr. Chaudhary.
[2023-05-05 22:22] LABS: ABG HCO3 34.8 mmhg (22.0-26.0); ABG Oxygen Saturation 93 % (90-100); ABG PH 7.28 mmol/L (7.35-7.45); ABG PO2 68.9 mmhg (80-100); ABG TCO2 37.1 mmhg (23-27)
[2023-05-05 22:24] LABS: Allen's Test Y; Oxygen 25L/65% %; Source L Radial
[2023-05-05 22:25] LABS: ABG PCO2 75.7 mmhg (35.0-45.0)
--- NOTE | 2023-05-05 22:31 | PC.NURSE ---
Addendum entered by Huma Paez RN 05/06/23 05:50: Patient has been on bipap since previous note. Patient trying to take the mask off every couple of minuets. Patient is alert to her name and is very restless in the bed. Patient has been restless in the bed for my last two shift. Patient is reminded multiple times that it is important to wear this bipap as it is helping her respiratory status. patient was incontinent multiple times this shift and repositioned in the bed every 30min or so. no other issues during the shift Original Note: RN went to give patient medication. Patient kept repeating her name over and over again when asking her questions that she was alert to yesterday. RN called provider and we got a STAT ABG. ABG came back and it was determined that the patient needs to wears the Bipap. Provider came to the bedside and is encouraging the patient to wear the bipap. Respiratory is in the room now putting the bipap on the patient.
[2023-05-06] VITALS (31 sets, daily range): BP systolic 88–136; BP diastolic 47–74; PULSE 79–125; RESP 18–34; TEMP 36.1–36.9; O2SAT 89–98
[2023-05-06] MEDS: AMIODARONE 200MG TABLET 400 MG PO ×2 (00:46→22:03)
[2023-05-06] MEDS: KCl 10mEq/100ml 100 ML 100 MEQ IV ×4 (00:46→23:42)
[2023-05-06 01:27] LABS: ABG Base Excess 10.1 mmol/L (-2.4-2.3); ABG HCO3 35.9 mmhg (22.0-26.0); ABG Oxygen Saturation 96 % (90-100); ABG PH 7.33 mmol/L (7.35-7.45); ABG PO2 77.5 mmhg (80-100); ABG TCO2 38.1 mmhg (23-27)
[2023-05-06 01:30] LABS: Allen's Test Y; Oxygen 50% %; Pressure Support 18/8; Vent Rate 22
[2023-05-06 01:31] LABS: Source R Radial
[2023-05-06 01:32] LABS: ABG PCO2 69.1 mmhg (35.0-45.0)
[2023-05-06] MEDS: LEVALBUTEROL 0.63MG/3ML NEB 0.630000000000000004 MG IH ×6 (01:39→22:40)
[2023-05-06] MEDS: IPRATROPIUM BROMIDE 0.5 MG/2.5ML SOLUTION IH ×6 (01:39→22:40)
[2023-05-06] MEDS: MEROPENEM 1 GM in 0.9 % SODIUM CHLORIDE 100 ML IV ×2 (01:55→12:03)
[2023-05-06] MEDS: HEPARIN SODIUM 5,000 UNIT/ML VIAL 5000 UNIT SQ ×3 (01:55→16:46)
--- NOTE | 2023-05-06 06:00 | CA_ITS ---
APPROVED REPORT EXAM: Limited 2D Echocardiogram Plug Grower: 80 Ht: 5 ft 6 in Wt: 127lbs BSA: 1.65 BP: 80/40 mmHg Indications: Pleural Effusion CHECK Other Information Study Quality: Fair Conclusion This is a limited TTE to evaluate for pericardial effusion. Limited windows were obtained. There is a moderate sized, circumferential pericardial effusion present. The largest pocket is noted anteriorly and measures 1.1 cm in diastole. There is evidence of RA and RV invagination in systole and diastole, respectively. Findings may be suggestive of early tamponade. The IVC is not well-visualized. Compared to prior recent study from 04/29/2023, the effusion is now larger and the chamber collapse is more pronounced. The cardiology consult team is notified in real-time of the above findings. Electronically signed by : Shanti Chaudhary MD 05/06/2023 10:48:17
[2023-05-06 06:29] LABS: Basophils # 0.1 K/mm3 (0-0.2); Basophils % 0.4 % (0.1-2.0); Eosinophils % 0.1 % (0.1-12.0); Hematocrit 38.5 % (37.0-47.0); Hemoglobin 11.7 g/dL (12.2-16.2); Lymphocytes # 0.6 K/mm3 (0.7-4.5); Lymphocytes % 2.8 % (10-50); Mean Corpuscular HGB Conc 30.5 g/dL (31.8-35.4); Mean Corpuscular Hemoglobin 32.3 pg (27.0-31.2); Mean Platelet Volume 8.9 fl (7.4-10.4); Monocytes # 0.9 K/mm3 (0.1-1.0); Monocytes % 4.5 % (1.7-9.3); Neutrophils # 18.9 K/mm3 (1.8-7.8); Neutrophils % 92.2 % (37.0-80.0); Platelet Count 278 K/mm3 (142-424); Red Blood Count 3.63 M/mm3 (4.20-5.40); Red Cell Distribution Width 14.7 % (11.5-17.5); White Blood Count 20.5 K/mm3 (4.8-10.8)
[2023-05-06 06:31] LABS: MANUAL DIFFERENTIAL MANUAL DIFFERENTIAL (MANUAL DIFF)
[2023-05-06 06:47] LABS: Anion Gap 8.8 mEq/L (5-15); Blood Urea Nitrogen 29 mg/dl (7-17); Calcium 8.5 mg/dl (8.4-10.2); Carbon Dioxide 32 mmol/L (22.0-30.0); Chloride 98 mmol/L (98-107); Creatinine Clearance Estimated 49 mL/min (50-200); Estimated Glomerular Filt Rate 71 ml/min (>60); GFR (African American) 86 ML/MIN (>60); Glucose 75 mg/dl (74-100); Potassium 3.8 mmoL/L (3.5-5.1); Sodium 135 mmol/L (136-145)
[2023-05-06 06:58] LABS: Anisocytosis 1+; Hypochromasia 1+; Lymphocytes % 5 % (10-50); Monocytes % 3 % (2-9); Neutrophils % 92 % (42-76); Platelet Estimate Normal; Total Cells Counted 100
[2023-05-06] MEDS: LORazepam 2MG/ML VIAL 1 MG IV ×3 (08:14→22:04)
--- NOTE | 2023-05-06 09:48 | EXP.PULM.PN ---
Subjective *Date: 05/06/23 *Time: 11:44 Interval history: Significant worsening respiratory distress overnight. Pulmonology Exam Inpatient Vital signs and Labs for Last 24 Hours: Temp Pulse Resp BP Pulse Ox O2 Del Method O2 Flow Rate 98.5 F 94 H 19 110/63 93 L BiPAP 35 05/06/23 08:00 05/06/23 09:44 05/06/23 08:00 05/06/23 08:00 05/06/23 09:44 05/06/23 08:38 05/05/23 23:00 FiO2 40 05/06/23 09:44 Laboratory Results - last 24 hr 05/05/23 08:42: Total Counted 100, Neutrophils % (Manual) 88 H, Lymphocytes % (Manual) 6 L, Monocytes % (Manual) 6, Platelet Estimate Normal, Hypochromasia 1+, Anisocytosis 1+, Macrocytosis 1+, Target Cells 1+ 05/05/23 22:16: Specimen Source L radial, O2 % 25l/65%, ABG pH 7.28 L, ABG pCO2 75.7 H, ABG pO2 68.9 L, ABG HCO3 34.8 H, ABG Total CO2 37.1 H, ABG O2 Saturation 93, ABG Base Excess 8.0 H, Daryl Test Y 05/06/23 01:25: Specimen Source R radial, O2 % 50%, ABG pH 7.33 L, ABG pCO2 69.1 H, ABG pO2 77.5 L, ABG HCO3 35.9 H, ABG Total CO2 38.1 H, ABG O2 Saturation 96, ABG Base Excess 10.1 H, Daryl Test Y, Vent Rate 22 05/06/23 05:42: WBC 20.5 H*, RBC 3.63 L, Hgb 11.7 L, Hct 38.5, MCV 106.0 H, MCH 32.3 H, MCHC 30.5 L, RDW 14.7, Plt Count 278, MPV 8.9, Neut % (Auto) 92.2 H, Lymph % (Auto) 2.8 L, [place] % (Auto) 4.5, Eos % (Auto) 0.1, Baso % (Auto) 0.4, Neut # (Auto) 18.9 H, Lymph # (Auto) 0.6 L, [place] # (Auto) 0.9, Eos # (Auto) 0.0, Baso # (Auto) 0.1, Total Counted 100, Neutrophils % (Manual) 92 H, Lymphocytes % (Manual) 5 L, Monocytes % (Manual) 3, Platelet Estimate Normal, Hypochromasia 1+, Anisocytosis 1+, Sodium 135 L, Potassium 3.8 D, Chloride 98, Carbon Dioxide 32 H, Anion Gap 8.8, BUN 29 H, Creatinine 0.80 D, Estimated Creat Clear 49, Estimated GFR 71, Est GFR ( Amer) 86 D, Glucose 75, Calcium 8.5 I & O for Labs for Last 24 Hours: Intake & Output 05/03/23 05/04/23 05/05/23 05/06/23 23:59 23:59 23:59 23:59 Intake Total 2580 / 2780 200 / 300 600 / 600 Output Total 1040 / 1040 0 / 0 400 / 400 0 / 0 Balance 1540 / 1740 200 / 300 200 / 200 0 / 0 Weight 148 lb 12.64 oz 127 lb 14.4 oz 127 lb 14.4 oz 127 lb 14.384 oz Microbiology Reports for the Last 24 Hours: Microbiology 04/28/23 13:50 Blood Blood Culture - Final 04/28/23 12:50 Blood Blood Culture - Final 04/29/23 15:31 Sputum - Expectorated Sputum Gram Stain - Final 04/29/23 15:31 Sputum - Expectorated Sputum Sputum Culture - Final 04/28/23 14:30 Thoracic Fluid Gram Stain - Final 04/28/23 14:30 Thoracic Fluid Body Fluid Culture - Final 05/01/23 18:50 Nose - Nasal MRSA Culture - Final Constitutional: Present moderate distress Head: Present normocephalic and atraumatic ENT: Present normal exam, normal oropharynx and mucous membranes moist Neck: Present normal inspection and full ROM Respiratory: Present prolonged expiratory phase, respiratory distress, rhonchi and diminished air movement; Absent wheezes or able to speak in complete sentences Cardiac: Present S1/S2, Tachycardia and radial pulses present GI: Present soft and distention; Absent tenderness or guarding Rectal (female): Present deferred (female): Present deferred Skin: Present intact; Absent cyanosis or jaundice Neuro: Present awake; Absent alert or oriented x 3 Extremities: Present normal inspection; Absent clubbing or cyanosis Psychiatric: Present normal affect and cooperative Assessment and Plan *Assessment and plan (1) Lung mass: Status: Acute Category: Medical Code(s): R91.8 - Other nonspecific abnormal finding of lung field (2) Hilar lymphadenopathy: Status: Acute Category: Medical Code(s): R59.0 - Localized enlarged lymph nodes (3) Mediastinal lymphadenopathy: Status: Acute Category: Medical Code(s): R59.0 - Localized enlarged lymph nodes (4) Pneumonia: Status: Acute Qualifiers: Laterality: right Lung location: middle lobe of lung Pneumonia type: due to unspecified organism Qualified Code(s): J18.9 - Pneumonia, unspecified organism Category: Medical Code(s): J18.9 - Pneumonia, unspecified organism (5) Pleural effusion on right: Status: Acute Category: Medical Code(s): J90 - Pleural effusion, not elsewhere classified Plan Ms. Addison is a 68-year-old female greater than [id number] smoker presents hospital worsening respiratory distress cough and productive phlegm patient also admits recent episodes of decreased appetite and weight loss along with fatigue and lack of energy for the last [address] chest upon admission large right hilar mass along with hilar and mediastinal lymphadenopathy along with right middle lobe and lower lobe pulmonary nodules and postobstructive pneumonia. Also noted to have right pleural effusion status post thoracentesis and pericardial effusions. CT abdomen also showed concerning 2.4 cm hypodense lesion. Colonoscopy in December 2022 incomplete, recommended repeat in 2 days at that time On exam patient appeared to be in moderate respiratory distress with bilateral distant breath sounds with mild wheezing. Significant neutrophilic predominant leukocytosis upon admission. Improving. At baseline using Stiolto inhaler. Not using any oxygen. CTA - did not show any obvious evidence of pulmonary embolism. Noted to have worsening right pneumonia/consolidative changes. Pleural fluid cytology resulted negative for malignancy. Cultures negative from pleural fluid. Nasal MRSA PCR negative. Sputum and blood cultures negative. Completed 7-day course of vancomycin and cefepime and antibiotics were changed to meropenem given continued worsening/no significant improvement in the noted necrotizing pneumonia. Sputum showing gram-positive cocci. Blood cultures from admission no growth. Pleural fluid significant amount of white cells but no organisms seen. Negative for malignancy. Nasal MRSA PCR pending. During her clinical close patient cultures has been negative so far. She at one point weaned to 5 L. However respiratory status gradually worsened and was escalated to high flow nasal cannula to 40 L 70%. Patient also noted to have worsening mentation continued hypercarbic respiratory failure needing BiPAP supplementation in the last 48 hours. Chest x-ray did not show any improvement and her ultrasound continue to show mild to moderate partially loculated effusion along with adjacent necrotizing pneumonia. CTA from 04/30/2023 also showed a small basal loculated pleural effusion along with adjacent consolidative mass/necrotizing pneumonia. Given her overall no significant clinical improvement patient would likely benefit intubation and bronchoscopy evaluate for possible infectious etiology. Patient pigtail catheter was also accidentally dislodged on 05/03/2023. Interval update: Significant respiratory event overnight: Worsening hypercarbic respiratory failure needing BiPAP therapy repeat ABG this morning showed improvement. Weaned to high flow. Will likely plan to intubate and mechanical ventilator support given her continued worsening respiratory status. Will also plan with bronchoscopy. Plan: Continue meropenem Continue high flow nasal oxygen supplementation to maintain O2 saturation goal of 90 to 95% Continue Xopenex and ipratropium every 4 hours scheduled Echocardiogram from admission showed significant elevated right-sided pressures and hypokinesis. Have previously discussed with the patient extensively regarding the possibility of her current clinical situation getting worse and she is needing intubation and mechanical ventilatory support. Patient agreed to be intubated. Also discussed the possibility of patient needing transfer for higher level of care if her clinical ststus continue to worsen so to have a diagnostic procedure and inpatient chemotherapy. Patient is also willing to pursue that option. It appears that patient does not have a current paperwork for POA to to take medical decisions on her behalf, however patient expressed her wishes that she has a friend who she would like to be her POA at this point of time. Discussed with the primary team and recommended social work and case management consult to look into patient's current paperwork / POA status so to align with current patient's wishes. # Thank for involving pulmonary in this patient care. Will continue to follow.
[2023-05-06 10:30] LABS: ABG HCO3 33.7 mmhg (22.0-26.0); ABG Oxygen Saturation 91 % (90-100); ABG PH 7.41 mmol/L (7.35-7.45); ABG PO2 57.8 mmhg (80-100); ABG TCO2 35.4 mmhg (23-27)
[2023-05-06 10:35] LABS: Oxygen 40% %; Source R BRACHIAL; Tidal Volume 18/8
[2023-05-06 10:36] LABS: ABG PCO2 54.9 mmhg (35.0-45.0)
--- NOTE | 2023-05-06 12:37 | PC.NURSE ---
[facility] called for update; no beds available at this time;
--- NOTE | 2023-05-06 15:02 | P.PN_ITS ---
Subjective Subjective Date: 05/06/23 Time: 11:30 Principal diagnosis: SOA, pneumonia, tachycardia Interval history: The patient has had worsening in her respiratory distress overnight. She is currently awaiting transfer to [facility]. She is not following any commands or answering any of my questions. Exam Data for Last 24 hours Vital signs and Labs for Last 24 Hours: Temp Pulse Resp BP Pulse Ox O2 Del Method O2 Flow Rate 98.5 F 96 H 23 117/69 93 L Vapotherm 30 05/06/23 08:00 05/06/23 14:46 05/06/23 14:00 05/06/23 14:00 05/06/23 14:46 05/06/23 14:46 05/06/23 14:46 FiO2 50 05/06/23 14:46 Laboratory Results - last 24 hr 05/05/23 22:16: Specimen Source L radial, O2 % 25l/65%, ABG pH 7.28 L, ABG pCO2 75.7 H, ABG pO2 68.9 L, ABG HCO3 34.8 H, ABG Total CO2 37.1 H, ABG O2 Saturation 93, ABG Base Excess 8.0 H, Drayl Test Y 05/06/23 01:25: Specimen Source R radial, O2 % 50%, ABG pH 7.33 L, ABG pCO2 69.1 H, ABG pO2 77.5 L, ABG HCO3 35.9 H, ABG Total CO2 38.1 H, ABG O2 Saturation 96, ABG Base Excess 10.1 H, Daryl Test Y, Vent Rate 22 05/06/23 05:42: WBC 20.5 H*, RBC 3.63 L, Hgb 11.7 L, Hct 38.5, MCV 106.0 H, MCH 32.3 H, MCHC 30.5 L, RDW 14.7, Plt Count 278, MPV 8.9, Neut % (Auto) 92.2 H, Lymph % (Auto) 2.8 L, [place] % (Auto) 4.5, Eos % (Auto) 0.1, Baso % (Auto) 0.4, Neut # (Auto) 18.9 H, Lymph # (Auto) 0.6 L, [place] # (Auto) 0.9, Eos # (Auto) 0.0, Baso # (Auto) 0.1, Total Counted 100, Neutrophils % (Manual) 92 H, Lymphocytes % (Manual) 5 L, Monocytes % (Manual) 3, Platelet Estimate Normal, Hypochromasia 1+, Anisocytosis 1+, Sodium 135 L, Potassium 3.8 D, Chloride 98, Carbon Dioxide 32 H, Anion Gap 8.8, BUN 29 H, Creatinine 0.80 D, Estimated Creat Clear 49, Estimated GFR 71, Est GFR ( Amer) 86 D, Glucose 75, Calcium 8.5 05/06/23 10:27: Specimen Source R brachial, O2 % 40%, ABG pH 7.41, ABG pCO2 54.9 H, ABG pO2 57.8 L, ABG HCO3 33.7 H, ABG Total CO2 35.4 H, ABG O2 Saturation 91, ABG Base Excess 9.0 H, Tidal Volume 18/8 I & O for Last 24 hours: Intake & Output 05/03/23 05/04/23 05/05/23 05/06/23 23:59 23:59 23:59 23:59 Intake Total 2580 / 2780 200 / 300 600 / 600 100 / 100 Output Total 1040 / 1040 0 / 0 400 / 400 0 / 0 Balance 1540 / 1740 200 / 300 200 / 200 100 / 100 Weight 148 lb 12.64 oz 127 lb 14.4 oz 127 lb 14.4 oz 127 lb 14.384 oz Microbiology Reports for the Last 24 Hours: Microbiology 04/28/23 13:50 Blood Blood Culture - Final 04/28/23 12:50 Blood Blood Culture - Final Constitutional Constitutional: severe distress, thin and chronically ill appearing *Routine HEENT Exam Head: Present normocephalic and atraumatic ENT: Present mucous membranes moist *Routine Neck Exam Neck: Present normal carotid upstroke; Absent JVD, carotid bruit or lymphadenopathy *Routine Respiratory Exam Respiratory: Present rhonchi, wheezes and diminished air movement *Routine Cardiovascular Exam Cardiovascular: Present RRR, Normal S1 and Normal S2; Absent murmur or gallop *Routine Abdominal Exam Abdominal: Present soft and normoactive bowel sounds; Absent tenderness, distended or organomegaly *Routine Extremities Exam Extremities: Present pulses intact and normal capillary refill; Absent cyanosis, clubbing or edema *Routine Skin Exam Skin: Present intact and warm; Absent erythema *Routine Neurological Exam Neurological: Present altered mental status Routine Psychiatric Exam Psychiatric: Present unable to assess Progress Note: A&P Assessment and plan (1) Pericardial effusion: Status: Acute (2) Paroxysmal atrial fibrillation: Status: Acute (3) Lung mass: Status: Acute (4) Hilar lymphadenopathy: Status: Acute (5) Mediastinal lymphadenopathy: Status: Acute (6) Pneumonia: Status: Acute (7) Pleural effusion on right: Status: Acute Assessment and Plan Assessment and Plan for All Diagnoses:: Plan: 1. The patient was admitted to the hospital with malnutrition and respiratory failure. Being followed by pulmonology. She is currently awaiting transfer to [facility] for her worsening respiratory distress and need for further evaluation and bronchoscopy. 2. The patient does have a pleural effusion status postthoracentesis which was nonmalignant. 3. The patient does have liver and lung masses with concern for cancer. This is being followed by pulmonology. Will defer. 4. Her blood pressure is well-controlled at this time. 5. Her LDL goal is less than 100. 6. Limited echocardiogram shows worsening of the anterior pericardial effusion measuring 1.1 cm. The patient may need to undergo pericardiocentesis but due to her severely dilated right ventricle the pericardiocentesis should be slow to drain the fluid with inotrope support readily available in case the patient were to decompensate during the procedure. 7. Continue amiodarone for maintenance of sinus rhythm secondary to paroxysmal atrial fibrillation. She is on heparin for anticoagulation. 8. further recommendations will be made pending the patient's response to treatment. Thank you for the opportunity to participate in the care of this patient. All recommendations and orders are per Dr. Chaudhary.
--- NOTE | 2023-05-06 17:44 | PC.NURSE ---
Pt has been alert to self. Very restless throughout the shift. Ativan x2 administered for CIWA if 12, pt appeared to rest peacefully for 3-4 hours after 2nd dose. She is currently on vapotherm 30L/50% with O2 sats measuring >90%. She does occasionally remove vapotherm and O2 sats drop quickly to the 70's. Still awaiting bed at [facility]. They just called for an update and stated no beds available at this time. Bed is locked and in the lowest position, call light is within reach.
--- NOTE | 2023-05-06 19:50 | P.PN_ITS ---
Subjective *Date: 05/06/23 *Time: 23:39 Interval history: Patient remains confused this morning. Tolerating BiPAP on morning rounds. White cell count continues to stay elevated. Afebrile overnight. Poor p.o. intake. Awaiting transfer to higher level of care. Medical Exam Vital signs and Labs for Last 24 Hours: Vital Signs Temp Pulse Pulse Resp BP Pulse Ox O2 Del Method 05/06/23 18:53 Vapotherm 05/06/23 18:51 97 H 25 H 118/65 89 L Vapotherm 05/06/23 12:00 100 H 05/06/23 16:00 98 H 05/06/23 18:00 96 H 18 124/65 94 L Vapotherm 05/06/23 18:02 94 H 05/06/23 18:02 96 H 05/06/23 16:41 97 H 24 103/58 L 92 L Vapotherm 05/06/23 16:32 Vapotherm 05/06/23 16:00 Vapotherm 05/06/23 15:48 97.6 F 97 H 23 113/63 90 L Vapotherm 05/06/23 15:00 98 H 24 123/67 92 L Vapotherm 05/06/23 14:46 96 H 05/06/23 14:46 96 H 05/06/23 14:46 93 L Vapotherm 05/06/23 14:40 Vapotherm 05/06/23 14:00 95 H 23 117/69 93 L Vapotherm 05/06/23 13:00 Vapotherm 05/06/23 13:00 88 26 H 106/58 L 93 L Vapotherm 05/06/23 12:00 97.6 F 105 H 28 H 111/74 92 L Vapotherm 05/06/23 11:46 BiPAP 05/06/23 11:00 125 H 120/69 92 L BiPAP 05/06/23 11:00 BiPAP 05/06/23 10:00 94 H 136/68 91 L BiPAP 05/06/23 09:44 94 H 05/06/23 09:44 96 H 05/06/23 09:44 93 L 05/06/23 09:44 05/06/23 08:00 100 H 05/06/23 08:00 98.5 F 05/06/23 08:00 BiPAP 05/06/23 08:38 BiPAP 05/06/23 08:00 99 H 19 110/63 93 L BiPAP 05/06/23 06:28 BiPAP 05/06/23 06:15 98 BiPAP 05/06/23 06:15 95 H 05/06/23 06:15 90 05/06/23 06:17 05/06/23 04:00 92 H 05/06/23 04:51 BiPAP 05/06/23 04:00 BiPAP 05/06/23 04:00 96.9 F L 92 H 22 96/58 L 92 L BiPAP 05/05/23 20:00 94 L Vapotherm 05/06/23 00:00 87 05/05/23 20:00 91 H 05/06/23 06:00 98 H 25 H 117/65 94 L BiPAP 05/06/23 02:58 BiPAP 05/06/23 02:05 05/06/23 02:00 98.2 F 05/06/23 02:00 79 22 88/53 L 97 BiPAP 05/06/23 01:40 80 05/06/23 01:40 84 05/06/23 01:00 BiPAP 05/05/23 20:00 Vapotherm 05/06/23 00:00 97.7 F 86 19 104/60 L 93 L BiPAP 05/05/23 23:00 Vapotherm 05/05/23 23:15 05/05/23 22:41 05/05/23 22:00 90 20 96/67 L 96 Vapotherm 05/05/23 20:00 97.1 F L 88 22 113/55 L 90 L Vapotherm 05/05/23 21:58 87 05/05/23 21:58 87 05/05/23 21:00 Vapotherm O2 Flow Rate FiO2 05/06/23 18:53 05/06/23 18:51 05/06/23 12:00 05/06/23 16:00 05/06/23 18:00 30 05/06/23 18:02 05/06/23 18:02 05/06/23 16:41 30 05/06/23 16:32 30 05/06/23 16:00 05/06/23 15:48 30 05/06/23 15:00 05/06/23 14:46 05/06/23 14:46 05/06/23 14:46 30 50 05/06/23 14:40 30 05/06/23 14:00 30 05/06/23 13:00 05/06/23 13:00 30 05/06/23 12:00 30 05/06/23 11:46 05/06/23 11:00 05/06/23 11:00 05/06/23 10:00 05/06/23 09:44 05/06/23 09:44 05/06/23 09:44 40 05/06/23 09:44 40 05/06/23 08:00 05/06/23 08:00 05/06/23 08:00 05/06/23 08:38 05/06/23 08:00 05/06/23 06:28 05/06/23 06:15 40 05/06/23 06:15 05/06/23 06:15 05/06/23 06:17 40 05/06/23 04:00 05/06/23 04:51 05/06/23 04:00 05/06/23 04:00 05/05/23 20:00 35 65 05/06/23 00:00 05/05/23 20:00 05/06/23 06:00 40 05/06/23 02:58 05/06/23 02:05 40 05/06/23 02:00 05/06/23 02:00 40 05/06/23 01:40 05/06/23 01:40 05/06/23 01:00 05/05/23 20:00 35 05/06/23 00:00 05/05/23 23:00 35 05/05/23 23:15 50 05/05/23 22:41 65 05/05/23 22:00 35 60 05/05/23 20:00 35 05/05/23 21:58 05/05/23 21:58 05/05/23 21:00 35 Intake and Output 05/06/23 05/06/23 05/06/23 07:59 15:59 23:59 Intake Total 100 / 100 Output Total 0 / 0 0 / 0 Balance 0 / 100 100 / 100 Intake: Intake, Total IV Amount 100 / 100 Meropenem 1 gm In 0.9 % Sodium 100 / 100 Chloride 100 ml @ 100 mls/hr IV Q12H LUDMILA Rx#:[id number] Output: Output, Urine Amount 0 / 0 0 / 0 Other: Number of Unmeasured Voids 1 1 Weight 58.014 kg Patient Weight 05/06/23 23:59 Weight 58.014 kg Laboratory Results - last 24 hr 05/05/23 22:16: Specimen Source L radial, O2 % 25l/65%, ABG pH 7.28 L, ABG pCO2 75.7 H, ABG pO2 68.9 L, ABG HCO3 34.8 H, ABG Total CO2 37.1 H, ABG O2 Saturation 93, ABG Base Excess 8.0 H, Daryl Test Y 05/06/23 01:25: Specimen Source R radial, O2 % 50%, ABG pH 7.33 L, ABG pCO2 69.1 H, ABG pO2 77.5 L, ABG HCO3 35.9 H, ABG Total CO2 38.1 H, ABG O2 Saturation 96, ABG Base Excess 10.1 H, Daryl Test Y, Vent Rate 22 05/06/23 05:42: WBC 20.5 H*, RBC 3.63 L, Hgb 11.7 L, Hct 38.5, MCV 106.0 H, MCH 32.3 H, MCHC 30.5 L, RDW 14.7, Plt Count 278, MPV 8.9, Neut % (Auto) 92.2 H, Lymph % (Auto) 2.8 L, [place] % (Auto) 4.5, Eos % (Auto) 0.1, Baso % (Auto) 0.4, Neut # (Auto) 18.9 H, Lymph # (Auto) 0.6 L, [place] # (Auto) 0.9, Eos # (Auto) 0.0, Baso # (Auto) 0.1, Total Counted 100, Neutrophils % (Manual) 92 H, Lymphocytes % (Manual) 5 L, Monocytes % (Manual) 3, Platelet Estimate Normal, Hypochromasia 1+, Anisocytosis 1+, Sodium 135 L, Potassium 3.8 D, Chloride 98, Carbon Dioxide 32 H, Anion Gap 8.8, BUN 29 H, Creatinine 0.80 D, Estimated Creat Clear 49, Estimated GFR 71, Est GFR ( Amer) 86 D, Glucose 75, Calcium 8.5 05/06/23 10:27: Specimen Source R brachial, O2 % 40%, ABG pH 7.41, ABG pCO2 54.9 H, ABG pO2 57.8 L, ABG HCO3 33.7 H, ABG Total CO2 35.4 H, ABG O2 Saturation 91, ABG Base Excess 9.0 H, [place]idal Volume 18/8 I & O for Labs for Last 24 Hours: Intake & Output 05/03/23 05/04/23 05/05/23 05/06/23 23:59 23:59 23:59 23:59 Intake Total 2580 / 2780 200 / 300 600 / 600 100 / 100 Output Total 1040 / 1040 0 / 0 400 / 400 0 / 0 Balance 1540 / 1740 200 / 300 200 / 200 100 / 100 Weight 67.49 kg 58.014 kg 58.014 kg 58.014 kg Microbiology Reports for the Last 24 Hours: Microbiology 04/28/23 13:50 Blood Blood Culture - Final 04/28/23 12:50 Blood Blood Culture - Final Constitutional: Present mild distress, thin, chronically ill appearing and disheveled Head: Present atraumatic and normocephalic Comment:: edentulous Neck: Present normal inspection Respiratory: Present accessory muscle use, rhonchi, crackles and diminished air movement (right base); Absent wheezes Cardiac: Present Reg Rate and Rhythm GI: Present soft and normal bowel sounds; Absent distention or tenderness Extremities: Present normal inspection and full ROM; Absent edema Comment:: thin Skin: Present intact; Absent erythema Neuro: Present Grossly Intact, alert, awake and moves all extremities Comment:: disoriented Assessment and Plan *Assessment and plan (1) Severe sepsis: Status: Acute Category: Medical Code(s): A41.9 - Sepsis, unspecified organism; R65.20 - Severe sepsis without septic shock (2) Obstructive pneumonia: Status: Acute Category: Medical Code(s): J18.9 - Pneumonia, unspecified organism (3) Pleural effusion: Status: Acute Category: Medical Code(s): J90 - Pleural effusion, not elsewhere classified (4) Lung mass: Status: Acute Category: Medical Code(s): R91.8 - Other nonspecific abnormal finding of lung field (5) Severe protein-calorie malnutrition: Status: Acute Category: Medical Code(s): E43 - Unspecified severe protein-calorie malnutrition (6) Alcohol abuse: Status: Acute Category: Social Hx Code(s): F10.10 - Alcohol abuse, uncomplicated (7) COPD (chronic obstructive pulmonary disease): Status: Chronic Qualifiers: COPD type: unspecified COPD Qualified Code(s): J44.9 - Chronic obstructive pulmonary disease, unspecified Category: Medical Code(s): J44.9 - Chronic obstructive pulmonary disease, unspecified (8) Hyperlipidemia: Status: Chronic Qualifiers: Hyperlipidemia type: unspecified Qualified Code(s): E78.5 - Hyperlipidemia, unspecified Category: Medical Code(s): E78.5 - Hyperlipidemia, unspecified (9) Hypertension: Status: Chronic Qualifiers: Hypertension type: essential hypertension Qualified Code(s): I10 - Essential (primary) hypertension Category: Medical Code(s): I10 - Essential (primary) hypertension (10) Depression: Status: Chronic Qualifiers: Depression Type: major depressive disorder Major depression recurrence: single episode Active/Remission status: currently active Major depression episode severity: moderate Qualified Code(s): F32.1 - Major depressive disorder, single episode, moderate Category: Medical Code(s): F32.9 - Major depressive disorder, single episode, unspecified (11) Tobacco abuse: Status: Chronic Category: Medical Code(s): Z72.0 - Tobacco use Plan 68-year-old female with multiple comorbidities and progressive weight loss that is unintentional. Presented to the ER with respiratory distress. Concern for o bstructive pneumonia with pleural effusion. Discussed case with the ER physician, request admission for antibiotics and further workup of pneumonia. Medicine agreed to admit. Patient with severe sepsis given endorgan dysfunction with kidney injury, respiratory failure, leukocytosis, tachycardia, tachypnea, source of infection with pneumonia. Necessitating inpatient admission. PSI port score of 158. Risk class V, 27 to 29% mortality risk. Condition continues to show no improvement. Attempting transfer to higher level of care. Pulmonology assisting with care. Continues to require inpatient management. Problems addressed as follows: Severe sepsis Acute hypoxemic respiratory failure secondary to obstructive pneumonia Recurring pleural effusion Necrotizing pneumonia - Patient with worsening respiratory distress. On BiPAP at this time. Pulmonology consulted and assisting with care. Recommend continuing meropenem. Continue high flow nasal cannula during the day with goal saturation greater 90%, BiPAP at night. Continue Xopenex and ipratropium every 4 hours scheduled. Concern for continued progression of her necrotizing pneumonia. -Pulmonology agrees with transferring to higher level of care. Patient currently on wait list for [facility] ICU -If patient decompensates further, will consider intubation. Would need bronchoscopy at that time. Pericardial effusion: - Seen on CT. Echo pending did show high R sided pressures and hypokinesis, cardiology assisting with care. - Limited echo shows worsening of anterior pericardial effusion measuring 1.1 cm. May necessitate pericardiocentesis. Would need inotropic support given her dilated right ventricle. -Continue amiodarone for maintenance of sinus rhythm secondary to paroxysmal A- fib SONIDO: baseline around 0.6 to 0.8. Has 0.8 today. BUN 29. Repeat CBC, CMP, magnesium ordered for the morning. Severe protein calorie malnutrition: Will monitor for refeeding syndrome. Initial phosphorus acceptable above 3. Repeat phosphorus for the morning. Nicotine dependence: Nicotine patch as needed Full code Heparin 5000 units TID Regular diet, Nutrition consult
[2023-05-06 20:47] LABS: ABG Base Excess 9.9 mmol/L (-2.4-2.3); ABG HCO3 35.8 mmhg (22.0-26.0); ABG Oxygen Saturation 93 % (90-100); ABG PH 7.33 mmol/L (7.35-7.45); ABG PO2 67.4 mmhg (80-100); ABG TCO2 37.9 mmhg (23-27)
[2023-05-06 20:48] LABS: ABG PCO2 68.9 mmhg (35.0-45.0); Allen's Test Y; Oxygen 50 %; Source Right Radial
[2023-05-06 21:57] LABS: Anion Gap 5.5 mEq/L (5-15); Blood Urea Nitrogen 29 mg/dl (7-17); Carbon Dioxide 37 mmol/L (22.0-30.0); Chloride 97 mmol/L (98-107); Creatinine Clearance Estimated 45 mL/min (50-200); Estimated Glomerular Filt Rate 49 ml/min (>60); GFR (African American) 60 ML/MIN (>60); Glucose 84 mg/dl (74-100); Sodium 137 mmol/L (136-145)
[2023-05-06] MEDS: PANTOPRAZOLE 40MG TABLET 40 MG PO (22:03)
[2023-05-06] MEDS: BUSPIRONE HCL 5 MG TABLET PO (22:03)
[2023-05-06] MEDS: MELATONIN 5MG TABLET 10 MG PO (22:03)
[2023-05-06 22:12] LABS: Potassium 2.5 mmoL/L (3.5-5.1)
[2023-05-07] VITALS (14 sets, daily range): BP systolic 109–148; BP diastolic 56–83; PULSE 85–102; RESP 22–41; TEMP 36.5; O2SAT 89–94; BMI 45.8
[2023-05-07] MEDS: KCl 10mEq/100ml 100 ML 100 MEQ IV (00:47)
[2023-05-07] MEDS: MEROPENEM 1 GM in 0.9 % SODIUM CHLORIDE 100 ML IV (01:51)
[2023-05-07] MEDS: HEPARIN SODIUM 5,000 UNIT/ML VIAL 5000 UNIT SQ (01:51)
[2023-05-07] MEDS: IPRATROPIUM BROMIDE 0.5 MG/2.5ML SOLUTION IH ×2 (02:57→07:01)
[2023-05-07] MEDS: LEVALBUTEROL 0.63MG/3ML NEB 0.630000000000000004 MG IH ×2 (02:57→07:01)
--- NOTE | 2023-05-07 07:17 | P.DS_ITS ---
General Admission date:: 04/28/23 Discharge date: 05/07/23 HPI HPI HPI: 68 year old female presented to [facility] ED with respiratory distress on 04/28/23. PMHX of HTN, HLD, COPD, alcohol and tobacco abuse. Pt states she had SOB for over a week. She presented with hemodynamic instability and hypoxemia which is new onset with concerns for obstructive pneumonia with pleural effusion. CTA of chest revealed a large right hilar mass along with hilar and mediastinal lymphadenopathy along with right middle lobe and lower lobe pulmonary nodules and postobstructive pneumonia. The patient had severe sepsis given end organ dysfunction with kidney injury, respiratory failure, leukocytosis, tachycardia, tachypnea, source of infection with pneumonia. Necessitating inpatient admission. PSI port score of 158. Risk class V, 27 to 29% mortality risk. Right-sided thoracentesis was performed with chest tube placement An Echocardiogram showed significant elevated right-sided pressures and hypokinesis. Patient was initially treated with ceftriaxone and azithromycin however after discovery of right-sided pleural effusion vancomycin was added. She required high flow at 30L and 70% after admission due to worsening respirat ory distress and vassopressor support. On 05/03/23 the patient was weaned off vasopressor support and continued on cefepime and vancomycin. She had improvement in her respiratory distress and was weaning off of the high flow. The pt's chest tube was accidentally removed over night. The pt started to become confused and was placed back on the high flow. A blood gas was obtain with pc02 result of 64.4. She was placed on BIPAP. A repeat ABG demonstrated a decrease in pc02 to 57.9. Her sputum culture resulted in gram-positive cocci. Blood cultures from admission have no growth. Pleural fluid had a significant amount of white cells but no organisms seen. Negative for malignancy. She had a ultrasound of her chest performed 05/05/23 that reveals mild to moderate right pleural effusion with loculations. Also concerning for adjacent necrotizing pneumonia. Given her worsening respiratory distress, attempts for transferring to a higher level Medical Center was initiated. She was accepted to [facility] in [employer] under Dr. Marc. Prior to discharge she was placed back on the BiPAP due to becoming altered and having worsening respiratory distress. Her initial ABG revealed pH of 7.28 and pC02 of 75.7. Two hours later her ABG demonstrated an improved in both pH of 7.33 and pC02 of 69.1. Hospital Course Hospital Course Hospital Course: 68-year-old female with multiple comorbidities and progressive weight loss that is unintentional presented to [facility] ED with respiratory distress on 04/28/23. She presented with hemodynamic instability and hypoxemia which is new onset with concerns for obstructive pneumonia with pleural effusion. CTA of chest revealed a large right hilar mass along with hilar and mediastinal lymphadenopathy along with right middle lobe and lower lobe pulmonary nodules and postobstructive pneumonia. The ER physician requested admission for antibiotics and further workup of pneumonia. PSI port score of 158. Risk class V, 27 to 29% mortality risk. Medicine agreed to admit. Pulmonology and cardiology assisted with care during admission. Patient has unfortunately not showed any improvement continues to have significant distress and needs higher level of care with services we are unable to offer. Has been graciously excepted by [facility] for further management. Problems addressed as follows: Severe sepsis Acute hypoxemic respiratory failure secondary to obstructive pneumonia Recurring pleural effusion Necrotizing pneumonia -CTA of chest on admission with large right hilar mass, hilar and mediastinal lymphadenopathy, right middle and lower lobe nodules and consolidation with postobstructive pneumonia. Significant effusion drained at time of admission in the ER. Pulmonology consulted to assist with care. Has necessitated significant support with BiPAP and Vapotherm during duration of admission. Broad-spectrum antibiotics were initiated on admission with cefepime and vancomycin. Became hypotensive and necessitated vasopressors initially. Has been able to wean off vasopressors with no use for over 72 hours. Has had limited improvement in her respiratory failure with current treatment. Antibiotics were transitioned to meropenem. White cell count has remained elevated between 13 and 20 during admission. Been treating her with Xopenex and ipratropium every 4 hours scheduled. Would benefit from bronchoscopy and further evaluation for necrotizing pneumonia and obstructive process. High concern patient will also need VATS for potential lobectomy for necrotizing pneumonia right lower lobe. Has been on meropenem for antibiotic coverage for the past week. [facility] was consulted for transfer. Graciously excepted to the ICU for further management. -Pleural fluid studies significant for white cells but no organisms. Negative for malignancy. Repeat ultrasound of her chest on 05/04 revealed mild to moderate right pleural effusion with loculations with adjacent necrotizing pneumonia. Pericardial effusion: - Seen on CT. Echo showed effusion with high right-sided pressures hypokinesis. Cardiology was consulted. Has had some worsening of her anterior pericardial effusion which measures 1.1 cm. No pericardiocentesis performed at this time as she does not have tamponade. Early in admission and runs of SVT. Amiodarone was initiated to maintain sinus rhythm. We have been continuing amiodarone for maintenance of sinus rhythm secondary to her paroxysmal A-fib. SONIDO: baseline around 0.6 to 0.8. Creatinine has been 1.8-1.1 for the past 3 to 4 days. Making adequate urine. Severe protein calorie malnutrition: Monitored for refeeding syndrome. Phosphorus is remained within a normal level. Patient has had some hypokalemia. Potassium being replaced IV due to poor tolerance of p.o. 2.9 on morning of discharge, receiving 2 additional runs of 10 mEq KCl. Total time spent on discharge 35 minutes in documentation, chart review, and direct care with patient. Exam Data for Last 24 hours Vital signs and Labs for Last 24 Hours: Temp Pulse Resp BP Pulse Ox O2 Del Method O2 Flow Rate 96.9 F L 92 H 22 96/58 L 92 L BiPAP 35 05/06/23 04:00 05/06/23 04:00 05/06/23 04:00 05/06/23 04:00 05/06/23 04:00 05/06/23 04:00 05/05/23 23:00 FiO2 40 05/06/23 02:05 Laboratory Results - last 24 hr 05/05/23 08:42: WBC 19.4 H, RBC 3.82 L, Hgb 12.1 L, Hct 40.5, MCV 106.1 H, MCH 31.8 H, MCHC 29.9 L, RDW 14.7, Plt Count 350, MPV 8.8, Neut % (Auto) 91.8 H, Lymph % (Auto) 3.5 L, [place] % (Auto) 4.4, Eos % (Auto) 0.1, Baso % (Auto) 0.2, Neut # (Auto) 17.8 H, Lymph # (Auto) 0.7, [place] # (Auto) 0.9, Eos # (Auto) 0.0, Baso # (Auto) 0.0, Total Counted 100, Neutrophils % (Manual) 88 H, Lymphocytes % (Manual) 6 L, Monocytes % (Manual) 6, Platelet Estimate Normal, Hypochromasia 1+, Anisocytosis 1+, Macrocytosis 1+, Target Cells 1+, Sodium 134 L, Potassium 2.4 L* D, Chloride 92 L, Carbon Dioxide 38 H, Anion Gap 6.4, BUN 26 H, Creatinine 1.10 H D, Estimated Creat Clear 45, Estimated GFR 49 L, Est GFR ( Amer) 60 D, Glucose 91, Calcium 8.7, Vancomycin Trough 23.8 H 05/05/23 22:16: Specimen Source L radial, O2 % 25l/65%, ABG pH 7.28 L, ABG pCO2 75.7 H, ABG pO2 68.9 L, ABG HCO3 34.8 H, ABG Total CO2 37.1 H, ABG O2 Saturation 93, ABG Base Excess 8.0 H, Daryl Test Y 05/06/23 01:25: Specimen Source R radial, O2 % 50%, ABG pH 7.33 L, ABG pCO2 69.1 H, ABG pO2 77.5 L, ABG HCO3 35.9 H, ABG Total CO2 38.1 H, ABG O2 Saturation 96, ABG Base Excess 10.1 H, Daryl Test Y, Vent Rate 22 I & O for Last 24 hours: Intake & Output 05/03/23 05/04/23 05/05/23 05/06/23 23:59 23:59 23:59 23:59 Intake Total 2580 / 2780 200 / 300 600 / 600 Output Total 1040 / 1040 0 / 0 400 / 400 0 / 0 Balance 1540 / 1740 200 / 300 200 / 200 0 / 0 Weight 67.49 kg 58.014 kg 58.014 kg 58.014 kg Microbiology Reports for the Last 24 Hours: Microbiology 04/28/23 13:50 Blood Blood Culture - Final 04/28/23 12:50 Blood Blood Culture - Final 04/29/23 15:31 Sputum - Expectorated Sputum Gram Stain - Final 04/29/23 15:31 Sputum - Expectorated Sputum Sputum Culture - Final 04/28/23 14:30 Thoracic Fluid Gram Stain - Final 04/28/23 14:30 Thoracic Fluid Body Fluid Culture - Final 05/01/23 18:50 Nose - Nasal MRSA Culture - Final Constitutional Constitutional: moderate distress and thin *Routine HEENT Exam Head: Present normocephalic Eye: Present PERRL ENT: Present mucous membranes dry *Routine Neck Exam Neck: Present full ROM *Routine Respiratory Exam Respiratory: Present accessory muscle use, rhonchi, wheezes and crackles *Routine Cardiovascular Exam Cardiovascular: Present irregular rhythm *Routine Abdominal Exam Abdominal: Present soft and normoactive bowel sounds; Absent tenderness *Routine Rectal Exam Patient deferred: visual exam Comments: deferred *Routine Exam Patient deferred: external exam Comments: deffered *Routine Extremities Exam Extremities: Absent edema *Routine Skin Exam Skin: Present intact *Routine Neurological Exam Neurological: Present alert, altered mental status and moving all extremities Results Data Completed and Pending Labs on day of discharge: Labs from last 24 hours 05/06/23 05/05/23 05/05/23 01:25 22:16 08:42 WBC 19.4 H RBC 3.82 L Hgb 12.1 L Hct 40.5 MCV 106.1 H MCH 31.8 H MCHC 29.9 L RDW 14.7 Plt Count 350 MPV 8.8 Neut % (Auto) 91.8 H Lymph % (Auto) 3.5 L [place] % (Auto) 4.4 Eos % (Auto) 0.1 Baso % (Auto) 0.2 Neut # (Auto) 17.8 H Lymph # (Auto) 0.7 [place] # (Auto) 0.9 Eos # (Auto) 0.0 Baso # (Auto) 0.0 Total Counted 100 Neutrophils % (Manual) 88 H Lymphocytes % (Manual) 6 L Monocytes % (Manual) 6 Platelet Estimate Normal Hypochromasia 1+ Anisocytosis 1+ Macrocytosis 1+ Target Cells 1+ Specimen Source R radial L radial O2 % 50% 25l/65% ABG pH 7.33 L 7.28 L ABG pCO2 69.1 H 75.7 H ABG pO2 77.5 L 68.9 L ABG HCO3 35.9 H 34.8 H ABG Total CO2 38.1 H 37.1 H ABG O2 Saturation 96 93 ABG Base Excess 10.1 H 8.0 H Daryl Test Y Y Vent Rate 22 Sodium 134 L Potassium 2.4 L* D Chloride 92 L Carbon Dioxide 38 H Anion Gap 6.4 BUN 26 H Creatinine 1.10 H D Estimated Creat Clear 45 Estimated GFR 49 L Est GFR ( Amer) 60 D Glucose 91 Calcium 8.7 Vancomycin Trough 23.8 H DS: Diagnosis Discharge Diagnosis (1) Lung mass: Status: Acute Code(s): R91.8 - Other nonspecific abnormal finding of lung field (2) Hilar lymphadenopathy: Status: Acute Code(s): R59.0 - Localized enlarged lymph nodes (3) Mediastinal lymphadenopathy: Status: Acute Code(s): R59.0 - Localized enlarged lymph nodes (4) Pneumonia: Status: Acute Code(s): J18.9 - Pneumonia, unspecified organism Qualifiers: Laterality: right Lung location: middle lobe of lung Pneumonia type: due to unspecified organism Qualified Code(s): J18.9 - Pneumonia, unspecified organism (5) Pleural effusion on right: Status: Acute Code(s): J90 - Pleural effusion, not elsewhere classified (6) Pericardial effusion: Status: Acute Code(s): I31.39 - Other pericardial effusion (noninflammatory) (7) Paroxysmal atrial fibrillation: Status: Acute Code(s): I48.0 - Paroxysmal atrial fibrillation Meds Home Medications and Allergies Home Medications Medication Instructions Recorded Confirmed Type albuterol sulfate 90 mcg/actuation 2 puff inhalation Q4HP PRN 04/28/23 04/28/23 History aerosol inhaler Shortness Of Breath ascorbic acid (vitamin C) 1,000 mg 1,000 mg PO DAILY 04/28/23 04/28/23 History tablet (Vitamin C) atorvastatin 10 mg tablet 10 mg PO DAILY 04/28/23 04/28/23 History buspirone 10 mg tablet 10 mg PO TID 04/28/23 04/28/23 History fluticasone propionate 50 1 spray intranasal DAILY 04/28/23 04/28/23 History mcg/actuation nasal spray,suspension hydroxyzine HCl 50 mg tablet 50 mg PO QIDP PRN Itching 04/28/23 04/28/23 History lisinopril 20 1 tab PO BID 04/28/23 04/28/23 History mg-hydrochlorothiazide 25 mg tablet pantoprazole 40 mg tablet,delayed 40 mg PO DAILY 04/28/23 04/28/23 History release sertraline 100 mg tablet 100 mg PO DAILY 04/28/23 04/28/23 History tiotropium 2.5 mcg-olodaterol 2.5 2 puff inhalation DAILY 04/28/23 04/28/23 History mcg/actuation mist for inhalation (Stiolto Respimat) New Prescriptions to Start Prescriptions: Allergies Allergy/AdvReac Type Severity Reaction Status Date / Time No Known Allergies Allergy Verified 04/28/23 12:56 Discharge Plan Disposition Patient Disposition: [facility] Condition: Fair Discharge Order Discharge Orders: Discharge Order (Routine); Ordered 05/07/23 Ordered By: Jose Russ Follow up Plan Prescriptions/Medication Reconciliation: Continued ascorbic acid (vitamin C) [Vitamin C] 1,000 mg tablet 1,000 mg PO DAILY atorvastatin 10 mg tablet 10 mg PO DAILY sertraline 100 mg tablet 100 mg PO DAILY hydroxyzine HCl 50 mg tablet 50 mg PO QIDP PRN (Reason: Itching) pantoprazole 40 mg tablet,delayed release (DR/EC) 40 mg PO DAILY buspirone 10 mg tablet 10 mg PO TID lisinopril-hydrochlorothiazide 20-25 mg tablet 1 tab PO BID albuterol sulfate 90 mcg/actuation HFA aerosol inhaler 2 puff inhalation Q4HP PRN (Reason: Shortness Of Breath) fluticasone propionate 50 mcg/actuation spray,suspension 1 spray intranasal DAILY Stiolto Respimat 2.5-2.5 mcg/actuation mist 2 puff inhalation DAILY Problem Reconciliation Problems Reviewed?: Yes Patient Discharge Instructions ACTIVITY: Bed rest DIET: continue same diet Patient Instructions: Sepsis, DI for Thoracentesis, DI for Surgical Site Infection, DI for Sepsis -- Adult, How to Restrict Fluids Providers Primary Care Provider: Jennifer Paige Admit Provider: Leroy Castaneda Attending Provider: Leroy Castaneda
[2023-05-07 07:50] LABS: Alanine Aminotransferase 25 U/L (12-78); Albumin Level 2.5 g/dl (3.5-5.0); Albumin/Globulin Ratio 0.8 (1.1-1.8); Alkaline Phosphatase 167 U/L (38-126); Anion Gap 9.9 mEq/L (5-15); Aspartate Amino Transferase 26 U/L (14-36); Bilirubin,Total 0.5 mg/dl (0.2-1.3); Blood Urea Nitrogen 29 mg/dl (7-17); Carbon Dioxide 33 mmol/L (22.0-30.0); Chloride 99 mmol/L (98-107); Creatinine Clearance Estimated 46 mL/min (50-200); Estimated Glomerular Filt Rate 49 ml/min (>60); GFR (African American) 60 ML/MIN (>60); Globulin 3.3 g/dL (1.3-3.2); Glucose 89 mg/dl (74-100); Magnesium 2.1 mg/dl (1.6-2.3); Sodium 139 mmol/L (136-145); Total Protein,Serum 5.8 g/dl (6.3-8.2)
[2023-05-07 07:52] LABS: Basophils % 0.2 % (0.1-2.0); Eosinophils % 0.2 % (0.1-12.0); Hematocrit 54.3 % (37.0-47.0); Hemoglobin 15.8 g/dL (12.2-16.2); Lymphocytes # 0.7 K/mm3 (0.7-4.5); Lymphocytes % 5.1 % (10-50); Mean Corpuscular HGB Conc 29.2 g/dL (31.8-35.4); Mean Corpuscular Hemoglobin 31.6 pg (27.0-31.2); Mean Corpuscular Volume 108.2 fl (81-99); Mean Platelet Volume 9.1 fl (7.4-10.4); Monocytes # 0.7 K/mm3 (0.1-1.0); Neutrophils # 11.7 K/mm3 (1.8-7.8); Neutrophils % 89.5 % (37.0-80.0); Platelet Count 177 K/mm3 (142-424); Red Blood Count 5.01 M/mm3 (4.20-5.40); Red Cell Distribution Width 14.7 % (11.5-17.5)
[2023-05-07 07:57] LABS: MANUAL DIFFERENTIAL MANUAL DIFFERENTIAL (MANUAL DIFF)
[2023-05-07 08:01] LABS: Potassium 2.9 mmoL/L (3.5-5.1)
[2023-05-07 08:14] LABS: Phosphorous 2.3 mg/dl (2.5-4.5)
--- NOTE | 2023-05-07 09:13 | PC.NURSE ---
[id number] called report to Nicho in [facility] 900 called and notified pt daughter that pt had bed at [facility] and was being transferred shortly. [phone] called and notified [facility] that pt was enroute via [facility]
--- NOTE | 2023-05-07 09:27 | P.PN_ITS ---
Subjective *Date: 05/07/23 *Time: 09:27 Pulmonology Exam Inpatient Vital signs and Labs for Last 24 Hours: Temp Pulse Resp BP Pulse Ox O2 Del Method O2 Flow Rate 97.7 F 99 H 26 H 120/83 94 L BiPAP 30 05/07/23 07:55 05/07/23 09:00 05/07/23 09:00 05/07/23 09:00 05/07/23 09:00 05/07/23 09:00 05/06/23 18:00 FiO2 40 05/07/23 09:00 Laboratory Results - last 24 hr 05/06/23 10:27: Specimen Source R brachial, O2 % 40%, ABG pH 7.41, ABG pCO2 54.9 H, ABG pO2 57.8 L, ABG HCO3 33.7 H, ABG Total CO2 35.4 H, ABG O2 Saturation 91, ABG Base Excess 9.0 H, Tidal Volume 18/8 05/06/23 20:45: Specimen Source Right radial, O2 % 50, ABG pH 7.33 L, ABG pCO2 68.9 H, ABG pO2 67.4 L, ABG HCO3 35.8 H, ABG Total CO2 37.9 H, ABG O2 Saturation 93, ABG Base Excess 9.9 H, Daryl Test Y 05/06/23 21:39: Sodium 137, Potassium 2.5 L* D, Chloride 97 L, Carbon Dioxide 37 H, Anion Gap 5.5, BUN 29 H, Creatinine 1.10 H D, Estimated Creat Clear 45, Estimated GFR 49 L, Est GFR ( Amer) 60 D, Glucose 84, Calcium 9.0, Magnesium 2.0 05/07/23 06:48: WBC 13.0 H D, RBC 5.01 D, Hgb 15.8, Hct 54.3 H, MCV 108.2 H, MCH 31.6 H, MCHC 29.2 L, RDW 14.7, Plt Count 177 D, MPV 9.1, Neut % (Auto) 89.5 H, Lymph % (Auto) 5.1 L, Brule % (Auto) 5.0, Eos % (Auto) 0.2, Baso % (Auto) 0.2, Neut # (Auto) 11.7 H, Lymph # (Auto) 0.7, Brule # (Auto) 0.7, Eos # (Auto) 0.0, Baso # (Auto) 0.0, Sodium 139, Potassium 2.9 L*, Chloride 99, Carbon Dioxide 33 H, Anion Gap 9.9, BUN 29 H, Creatinine 1.10 H, Estimated Creat Clear 46, Estimated GFR 49 L, Est GFR ( Amer) 60, Glucose 89, Calcium 9.0, Phosphorus 2.3 L, Magnesium 2.1, Total Bilirubin 0.5, AST 26, ALT 25, Alkaline Phosphatase 167 H, Total Protein 5.8 L, Albumin 2.5 L, Globulin 3.3 H, Albumin/Globulin Ratio 0.8 L I & O for Labs for Last 24 Hours: Intake & Output 05/04/23 05/05/23 05/06/23 05/07/23 23:59 23:59 23:59 23:59 Intake Total 200 / 300 600 / 600 100 / 100 Output Total 0 / 0 400 / 400 0 / 0 0 / 0 Balance 200 / 300 200 / 200 100 / 100 0 / 0 Weight 127 lb 14.4 oz 127 lb 14.4 oz 127 lb 14.384 oz 291 lb 14.272 oz Assessment and Plan *Assessment and plan (1) Lung mass: Status: Acute Category: Medical Code(s): R91.8 - Other nonspecific abnormal finding of lung field (2) Hilar lymphadenopathy: Status: Acute Category: Medical Code(s): R59.0 - Localized enlarged lymph nodes (3) Mediastinal lymphadenopathy: Status: Acute Category: Medical Code(s): R59.0 - Localized enlarged lymph nodes (4) Pneumonia: Status: Acute Qualifiers: Pneumonia type: due to unspecified organism Laterality: right Lung location: middle lobe of lung Qualified Code(s): J18.9 - Pneumonia, unspecified organism Category: Medical Code(s): J18.9 - Pneumonia, unspecified organism (5) Pleural effusion on right: Status: Acute Category: Medical Code(s): J90 - Pleural effusion, not elsewhere classified Plan Ms. Addison is a 68-year-old female greater than [id number] smoker presents hospital worsening respiratory distress cough and productive phlegm patient also admits recent episodes of decreased appetite and weight loss along with fatigue and lack of energy for the last [address] chest upon admission large right hilar mass along with hilar and mediastinal lymphadenopathy along with right middle lobe and lower lobe pulmonary nodules and postobstructive pneumonia. Also noted to have right pleural effusion status post thoracentesis and pericardial effusions. CT abdomen also showed concerning 2.4 cm hypodense lesion. Colonoscopy in December 2022 incomplete, recommended repeat in 2 days at that time On exam patient appeared to be in moderate respiratory distress with bilateral distant breath sounds with mild wheezing. Significant neutrophilic predominant leukocytosis upon admission. Improving. At baseline using Stiolto inhaler. Not using any oxygen. CTA - did not show any obvious evidence of pulmonary embolism. Noted to have worsening right pneumonia/consolidative changes. Pleural fluid cytology resulted negative for malignancy. Cultures negative from pleural fluid. Nasal MRSA PCR negative. Sputum and blood cultures negative. Completed 7-day course of vancomycin and cefepime and antibiotics were changed to meropenem given continued worsening/no significant improvement in the noted necrotizing pneumonia. Sputum showing gram-positive cocci. Blood cultures from admission no growth. Pleural fluid significant amount of white cells but no organisms seen. Negative for malignancy. Nasal MRSA PCR pending. During her clinical close patient cultures has been negative so far. She at one point weaned to 5 L. However respiratory status gradually worsened and was escalated to high flow nasal cannula to 40 L 70%. Patient also noted to have worsening mentation continued hypercarbic respiratory failure needing BiPAP supplementation in the last 48 hours. Chest x-ray did not show any improvement and her ultrasound continue to show mild to moderate partially loculated effusion along with adjacent necrotizing pneumonia. CTA from 04/30/2023 also showed a small basal loculated pleural effusion along with adjacent consolidative mass/necrotizing pneumonia. Given her overall no significant clinical improvement patient would likely benefit intubation and bronchoscopy evaluate for possible infectious etiology. Patient pigtail catheter was also accidentally dislodged on 05/03/2023. Interval update: Plan: Continue meropenem Continue high flow nasal oxygen supplementation to maintain O2 saturation goal of 90 to 95% Continue Xopenex and ipratropium every 4 hours scheduled Echocardiogram from admission showed significant elevated right-sided pressures and hypokinesis. Have previously discussed with the patient extensively regarding the possibility of her current clinical situation getting worse and she is needing intubation and mechanical ventilatory support. Patient agreed to be intubated. Also discussed the possibility of patient needing transfer for higher level of care if her clinical ststus continue to worsen so to have a diagnostic procedure and inpatient chemotherapy. Patient is also willing to pursue that option. It appears that patient does not have a current paperwork for POA to to take medical decisions on her behalf, however patient expressed he r wishes that she has a friend who she would like to be her POA at this point of time. Discussed with the primary team and recommended social work and case management consult to look into patient's current paperwork / POA status so to align with current patient's wishes. # Thank for involving pulmonary in this patient care. Will continue to follow.
[2023-05-07 10:49] LABS: Lymphocytes % 3 % (10-50); Macrocytosis 2+; Neutrophils % 97 % (42-76); Platelet Estimate Normal; Total Cells Counted 100
== END 2023-05-07 09:18 | disposition short-term general hospital (02) | DRG 871 ==
LOC: ER 13:00 → 2ND 17:35
PROVIDERS: Internal Medicine; Internal Medicine Pulmonary Disease; Nurse Practitioner Critical Care Medicine; Nurse Practitioner Family; Admitting Provider Internal Medicine Adolescent Medicine; Emergency Provider Emergency Medicine; PCP Physician Assistant; Visit Provider Internal Medicine Adolescent Medicine
DX: A41.9 Sepsis, unspecified organism; E43 Unspecified severe protein-calorie malnutrition; J18.9 Pneumonia, unspecified organism; J96.01 Acute respiratory failure with hypoxia; J90 Pleural effusion, not elsewhere classified; F32.1 Major depressive disorder, single episode, moderate; J44.0 Chronic obstructive pulmonary disease with (acute) lower respiratory infection; Z68.41 Body mass index [BMI] 40.0-44.9, adult; R65.20 Severe sepsis without septic shock; R91.8 Other nonspecific abnormal finding of lung field; E78.5 Hyperlipidemia, unspecified; R59.0 Localized enlarged lymph nodes; F17.210 Nicotine dependence, cigarettes, uncomplicated; K21.9 Gastro-esophageal reflux disease without esophagitis; Z96.642 Presence of left artificial hip joint; F10.20 Alcohol dependence, uncomplicated; I12.9 Hypertensive chronic kidney disease with stage 1 through stage 4 chronic kidney disease, or unspecified chronic kidney disease; N18.2 Chronic kidney disease, stage 2 (mild); E87.6 Hypokalemia
CPT/HCPCS: 32551; 36415; 71045; 71250; 71275; 74176; 76604; 76705; 80048; 80053; 80202; 81001; 82042; 82550; 82803; 82945; 83605; 83615; 83690; 83735; 83880; 83986; 84100; 84155; 84484; 85007; 85025; 85610; 85730; 87040; 87070; 87081; 87086; 87205; 87632; 87635; 87636; 88112; 88305; 89051; 93005; 93306; 93308; 94640; 94660; 94760; 94761; 97110; 97163; 97166; 97530; 99291; J0282; J0456; J0696; J1956; J2185; J3370; J7060; Q9967